=== PATIENT | female | born 1935 | race Caucasian/White ===

== ENCOUNTER 2016-08-30 16:15 | Emergency (ER) | payer MEDICAID, MEDICARE ==
[~2016-08-30 16:15] MED LIST: *OXYGEN NASAL; /INSU7030 SC; ACTOS30 PO; ALBU/IPRAT INHALATION; ALDACTON25 PO; ASPI1TAB PO; ASPI325T OR; AVANDIA4 PO; COLA100C2 OR; COLACE PO; COMBIVENT PO; FAMO1TAB11 PO; GLUCCOSEAC TOPICAL; GLUCULTRA TOPICAL; HUMA75VL SC; HUMULIN703 SC; ISORDIL10 PO; ISORDIL20 PO; ISOS20TA3 OR; ISOS20TAB PO; KEFLEX500 PO; LANCMIS; LASI40TA OR; LASI40TA PO; LASIX40 PO; LEVAQUI500 PO; LIPITOR20 PO; LISI-538 PO; LISI10TA4 PO; LISI20TA5 OR; LISINOPR20 PO; LOPR50TA OR; LOPR50TA PO; LOPRESS50 PO; LOTREL PO; LOTRIMCREA TOPICALLY; MOTRIN800 PO; MULTIVIT; NITROSTAT4 SL; NOVOLIN SQ; NOVOLOG100 MG/ML SC; PENVK500 PO; PEPC20TA2 OR; PEPCID20 PO; PLAV75TA PO; PLAV75TA2 OR; PLAVIX75 PO; POTASSI20 PO; POTASSIU PO; PRAVACHOL4 PO; SIMV40TA2 PO; SYRINS1CC SUBQ; VASOTEC PO; VASOTEC10 PO; VICODIN PO; VITA25003 SL; ZESTRIL PO; ZOCO40TA OR; ZOCOR20 PO; [UNRECOGNIZED DRUG - CODE] PO
[2016-08-30] MEDS ORDERED: ACETAMINOPHEN 325 MG TAB As Ordered ONE (16:40)
[2016-08-30 16:55] LABS: BASO % 0.2 % (0.0-1.0); EOS # 0.2 K/mm3 (0.0-0.50); EOS % 1.4 % (0.0-3.0); LARGE UNSTAINED CELL # 0.1 K/mm3 (0.0-0.4); LARGE UNSTAINED CELL % 0.4 % (0.0-4.0); LYMPH # 0.6 K/mm3 (1.5-4.5); LYMPH % 5.5 % (24.0-44.0); MEAN CORPUSCULAR HEMOGLOBIN 22.5 pg (27.0-33.0); MEAN CORPUSCULAR HGB CONC 30.2 g/dl (32.0-36.5); MEAN CORPUSCULAR VOLUME 74.6 fl (80.0-96.0); MONO # 0.2 K/mm3 (0.0-0.8); NEUTROPHILS # 10.5 K/mm3 (1.8-7.7); NEUTROPHILS % 90.5 % (36.0-66.0); PLATELET COUNT, AUTOMATED 268 k/mm3 (150-450); WHITE BLOOD COUNT 11.6 K/mm3 (4.0-10.0)
[2016-08-30 17:02] LABS: CALCIUM LEVEL 8.9 MG/DL (8.8-10.2); CREATININE FOR GFR 1.3 MG/DL (0.55-1.02); GLOMERULAR FILTRATION RATE 42.1 (>39); POTASSIUM SERUM 3.9 MEQ/L (3.5-5.1)
--- NOTE | 2016-08-30 17:49 | REP ---
CHEST, TWO VIEWS: Two views of the chest are performed and compared to prior study of 03/10/2016. Increased ill-defined opacity in the right perihilar region is most consistent with a right perihilar infiltrate. Left lung appears clear. The heart does not appear to be significantly enlarged. There is some calcification of the thoracic aorta. There are degenerative changes of the spine. IMPRESSION: There appears to be mild right perihilar infiltrate. Signed by Parish Olsen MD 09/03/2016 10:09 A
[2016-08-30] MEDS ORDERED: AZITHROMYCIN 250 MG TAB As Ordered ONE (18:10)
[2016-08-30] MEDS ORDERED: AMOXICILLIN 500 MG CAP As Ordered ONE (18:10)
[2016-08-30] MEDS ORDERED: AUGMENTIN 500 MG TAB PO ONE (18:30)
--- NOTE | 2016-08-30 19:52 | EDDOCDS ---
Physician Documentation [facility] Name: Shaniqua Garza Age: 80 yrs Sex: Female : 1935 Arrival Date: 08/30/2016 Time: 16:15 Bed 3 Private MD: Jorgito Meneses A. Disposition: 08/30 18:01 Critical Care: Critical care not applicable. pc Disposition: 08/30/16 19:33 Discharged to Home/Self Care. Impression: Bronchopneumonia, unspecified organism - right perihilar, community acquired, CURB score 1. - Condition is Stable. - Discharge Instructions: Pneumonia, Adult. - Prescriptions for Augmentin XR 1,000- 62.5 mg Oral Tablet Sustained Release 12 hr - take 2 tablet by ORAL route every 12 hours; 40 tablet. Zithromax 250 mg Oral Tablet - take 1 tablet by ORAL route once daily start tomorrow; 4 tablet. - Medication Reconciliation, Local Pharmacy Hours form. - Follow up: Jorgito Meneses MD; When: Call to arrange an appointment; Reason: Continuance of care. - Problem is new. - Symptoms have improved. HPI: 16:55 This 80 yrs old Female presents to ER via Ambulance with complaints of Cough, pc Nausea/Vomiting. 16:55 The history is obtained from the patient, EMS providers. She developed a cough, chills pc and nausea suddenly this afternoon. She had one bout of "dry heaves" and called EMS. They found her to be hypertensive but had an inappropriate sized BP cuff in place. When fitted correctly, her BP is normal. She has not chest pain, headache or any other complaints. At their worst, the symptoms were mild. In the emergency department, the symptoms are unchanged. The patient has not recently seen a physician. Historical: - Allergies: QUINOLONES; - Home Meds: 1. Lasix 40 mg Oral tab 1 tab 2 times per day 2. Lopressor 50 mg Oral tab 1 tab 2 times per day 3. famotidine 20 mg Oral tab 1 tab 2 times per day 4. Humalog Mix 75-25 100 unit/mL (75-25) Sub-Q inpn sliding scale 5. simvastatin 40 mg oral tab once daily 6. isosorbide dinitrate 20 mg Oral tab 1 tab 2 times per day 7. Plavix 75 mg Oral tab 1 tab once daily 8. lisinopril 20 mg Oral tab 1 tab once daily - PMHx: Diabetes - IDDM: controlled; hyperlipidemia; Hypertension; Myocardial infarction; - PSHx: Stents, Coronary (November 07, 2010); left toe amputation; - The history from nurses notes was reviewed: and I agree with what is documented. - Social history: Smoking status: Patient states former smoker of tobacco. No barriers to communication noted, The patient speaks fluent Cypriot, Speaks appropriately for age. - Family history: Not pertinent. - : The pt / caregiver states he / she is on anticoagulants: Plavix. Home medication list is obtained from the patient. - Hospitalizations: : No recent hospitalization is reported. - Exposure Risk Screening:: None identified. - Immunization history:: All immunizations up-to-date. - Social history:: the patient is a non-smoker, the patient does not drink alcohol. ROS: 16:55 All systems are negative except as listed. pc Exam: 16:55 General Appearance: no acute distress, alert. pc 16:55 EENT: normal eye inspection, ears, nose and throat normal, pharynx normal, mucous membranes moist 16:55 Neck: The exam reveals no acute abnormalities. ROM is normal and painless. No nuchal rigidity is noted.. 16:55 Respiratory: no respiratory distress, normal breath sounds, chest non-tender. 16:55 CVS: regular rhythm, normal S1 and S2, no murmurs, strong peripheral pulses, normal capillary refill, the patient is tachycardic, at 110 bpm. 16:55 Abdomen: soft, non-tender, no organomegaly, normal bowel sounds. 16:55 Back: normal inspection. 16:55 Skin: skin color is normal, warm, dry, no rashes, no lesions. 16:55 Extremities: The extremities have a grossly normal appearance. 16:55 Neuro: oriented x 3, cranial nerves normal as tested, no motor deficits, no sensory deficits. 16:55 Psych: normal mood. Vital Signs: 16:26 BP 154 / 70 LA Supine (auto/lg); Pulse 111; Resp 26; Temp 101.8(O); Pulse Ox 88% on rs6 R/A; Weight 144.88 kg / 319.41 lbs (M); Height 5 ft. 7 in. (170.18 cm) (R); Pain 5/10; 16:26 Pulse Ox 96% on 2 lpm NC; rs6 16:36 BP 120 / 66 LA Sitting (man/lg); pml 17:51 Temp 99.9(O); jrd 18:15 BP 124 / 54 (auto/); pml 18:15 Pulse 101 MON; Pulse Ox 91% ; pml 18:29 Pulse 94 MON; Pulse Ox 91% ; pml 18:30 BP 128 / 64 (auto/); pml 18:45 BP 108 / 53 (auto/); pml 18:55 Pulse 95 MON; Pulse Ox 89% ; pml 19:00 BP 101 / 49 (auto/); mlc 19:00 Pulse 96 MON; Pulse Ox 92% ; mlc 19:29 Pulse 110 MON; Pulse Ox 93% ; mlc 19:48 BP 98 / 50; Pulse 106; Resp 20; Temp 99.8; Pulse Ox 94% ; Pain 0/10; mlc 16:26 Body Mass Index 50.02 (144.88 kg, 170.18 cm) rs6 19:48 Dr. Huston made aware of BP, no intervention ordered at this time. [facility] MDM: 16:21 ECG WITH READING ER PHYS+CARDIAG ordered. EDMS 16:36 Obtain sample by nasopharyngeal swab ordered. pc 16:36 Acetaminophen Tablet 650 mg PO once ordered. pc 16:36 IV Saline Lock ordered. pc 16:37 -Influenza A&B Rapid Antigen - Nose Ordered. EDMS 16:37 CBC with Diff Ordered. EDMS 16:37 MED Profile Ordered. EDMS 16:38 Chest, 2 View (pa\\E\\lat) Ordered. EDMS 16:55 Differential Diagnosis: URI, fever. Plan: labs, imaging. pc 17:10 CBC with Diff Reviewed. pc 17:10 MED Profile Reviewed. pc 17:10 -Influenza A&B Rapid Antigen - Nose Reviewed. pc 17:12 Test interpretation: EKG. pc 17:56 Amoxicillin-Clavulanate 500 mg 1 tabs PO once ordered. pc 17:56 Amoxicillin 1500 mg PO once ordered. pc 17:56 azithromycin 500 mg PO once ordered. pc 17:57 Chest, 2 View (pa\\E\\lat) Reviewed. pc 18:01 Data reviewed: old medical records, vital signs, nurses notes, lab test results, all pc radiology studies and available results. Data reviewed: EKG(s). Test interpretation: LAB - all labs as ordered have been reviewed, interpreted and considered in the overall management of the clinical presentation; X-RAY - interpreted by Radiologist and personally reviewed, 2 view chest, right perihilar infiltrate. The patient has been re-examined and re-evaluated. The patient's symptoms have markedly improved after treatment. Disposition: The historical points, examination findings, and any diagnostic results supporting the provided diagnosis, were discussed with the patient or legal guardian. The need for outpatient follow up with the provider listed on their discharge instructions was discussed. They were encouraged to return to [facility], or the nearest ED, if symptoms worsen/persist, or for any other questions/concerns. 18:17 Financial registration complete. zo 18:22 [facility] Payment Agreement was scanned into [employer] and attached to record. zo 19:08 Ambulate Patient [facility] Pulse Oximetry ordered. pc 19:31 ED course: CURB-65 score of 1.. ED course: PO 91-95% on RA with ambulation and rest. pc EC:12 Rate is 101 beats/min. Rhythm is regular, Sinus tachycardia with Occasional PVCs. QRS pc Atkins is Normal. OK interval is normal. QRS interval is normal. QT interval is normal. Q waves are Old in leads II, III, aVF. T waves are Normal. No ST changes noted. Clinical impression: Sinus tachycardia and Inferior NH - age indeterminate. No change from previous ECG in February,. Administered Medications: 16:50 Drug: Acetaminophen 650 mg [acetaminophen 325 mg tablet (2 tabs)] Route: PO; pml 18:08 Follow up: Response: Temperature is decreased pml 18:14 Drug: Amoxicillin 1500 mg [amoxicillin 500 mg capsule (3 caps)] Route: PO; pml 18:14 Drug: azithromycin 500 mg [azithromycin 250 mg tablet (2 tabs)] Route: PO; pml 19:00 Drug: Amoxicillin-Clavulanate 1 tabs [amoxicillin 500 mg-potassium clavulanate 125 mg pml tablet (1 tabs)] Route: PO; Signatures: Dispatcher [employer] EDMS Dino Huston MD MD pc Olin, Zoeann zo Quay, Paulina, RN RN pml Booth, Mandy, RN RN [facility] The chart was reviewed and I authenticate all verbal orders and agree with the evaluation and treatment provided.Attachments: 18:22 [facility] Payment Agreement zo MTDD
--- NOTE | 2016-08-30 19:52 | EDDOCDS ---
Nurse's Notes [facility] Name: Shaniqua Garza Age: 80 yrs Sex: Female : 1935 Arrival Date: 08/30/2016 Time: 16:15 Bed 3 Private MD: Jorgito Meneses A. Diagnosis: Bronchopneumonia, unspecified organism-right perihilar, community acquired, CURB score 1 Presentation: 08/30 16:21 Presenting complaint: Patient states: reports feeling cold and with chills this [facility] afternoon. on ems arrival pt reported nausea and was found to have bp greater than 200 systolic manually. pt noted to be visibly short of breath and hyper ventilatory on arrival to ED. Adult Sepsis Screening: The patient does not have new or worsening altered mentation. Patient has a respiratory rate of greater than or equal to 22 (1 point). Systolic blood pressure is greater than 100. Patient has a qSOFA score of 0- Negative Sepsis Screen. Patient has fever/chills- Positive Sepsis Screen. ED Provider Notified Dino Huston MD Patient made LISBETH Level 2. Patient placed in exam room. Charge nurse notified. Suicide/Homicide risk assessment- the patient denies having any suicidal and/or homicidal ideations and does not present with any other emotional, behavioral or mental health complaints. Status: Patient is not a guest services director or dependent. Transition of care: patient was not received from another setting of care. 16:21 Method Of Arrival: Ambulance [facility] 16:27 Acuity: LISBETH Level 2 [facility] Triage Assessment: 16:27 General: Appears ill, Behavior is appropriate for age, cooperative. Pain: Location: [facility] back Pain currently is 6 out of 10 on a pain scale. The patient is triaged at the bedside. See Assessment in Nurses Notes section of ED record. Neurological: Level of Consciousness is awake, alert, Oriented to person, place, time. Cardiovascular: Capillary refill < 3 seconds Rhythm is sinus rhythm with unifocal PVCs. Respiratory: Airway is patent Respiratory effort is labored, Respiratory pattern is symmetrical, hyperventilation Breath sounds are diminished bilaterally. GI: Abdomen is non- distended obese, Abd is soft and non tender X 4 quads. Reports nausea, normal bowel habits. Derm: Skin is pink, warm & dry. Historical: - Allergies: QUINOLONES; - Home Meds: 1. Lasix 40 mg Oral tab 1 tab 2 times per day 2. Lopressor 50 mg Oral tab 1 tab 2 times per day 3. famotidine 20 mg Oral tab 1 tab 2 times per day 4. Humalog Mix 75-25 100 unit/mL (75-25) Sub-Q inpn sliding scale 5. simvastatin 40 mg oral tab once daily 6. isosorbide dinitrate 20 mg Oral tab 1 tab 2 times per day 7. Plavix 75 mg Oral tab 1 tab once daily 8. lisinopril 20 mg Oral tab 1 tab once daily - PMHx: Diabetes - IDDM: controlled; hyperlipidemia; Hypertension; Myocardial infarction; - PSHx: Stents, Coronary (November 07, 2010); left toe amputation; - The history from nurses notes was reviewed: and I agree with what is documented. - Social history: Smoking status: Patient states former smoker of tobacco. No barriers to communication noted, The patient speaks fluent Tunisian, Speaks appropriately for age. - Family history: Not pertinent. - : The pt / caregiver states he / she is on anticoagulants: Plavix. Home medication list is obtained from the patient. - Hospitalizations: : No recent hospitalization is reported. - Exposure Risk Screening:: None identified. - Immunization history:: All immunizations up-to-date. - Social history:: the patient is a non-smoker, the patient does not drink alcohol. Screenin:31 Screening information is obtained from the patient. Fall risk: At risk due to pml immobility. Assistance ADL's: requires no assistance with activities of daily living. Abuse/DV Screen: The patient / caregiver reports he/she is: not in a situation that causes fear, pain or injury. Nutritional screening: No deficits noted. Advance Directives: Currently, there is no health care proxy. home support is adequate. Assessment: 16:31 General: see triage note. pml 18:00 General: resting on stretcher, resps easy and unlabored, skin p/w/d. voices no pml complaints. . 18:45 General: Pt spo2 decreased to 88-89% on room air at rest. MD Huston aware. . pml 19:29 General: Appears in no apparent distress, comfortable, Behavior is cooperative, mlc pleasant. General: pt ambulated with walker, tolerated well. pt denies feeling SOB or dizzy. SPO2 remained approx 91-93% on RA. pt appears SOB but denies feeling SOB. Pain: Denies pain. Neurological: Level of Consciousness is awake, alert, Oriented to person, place, time. Respiratory: Airway is patent Respiratory effort is even, labored, Respiratory pattern is regular. Derm: Skin is normal. 19:48 General: Appears in no apparent distress, comfortable. Pain: Denies pain. Neurological: mlc Level of Consciousness is awake, alert, Oriented to person, place, time. Respiratory: Airway is patent Respiratory effort is even, unlabored, Respiratory pattern is regular. Derm: Skin is normal. Vital Signs: 16:26 BP 154 / 70 LA Supine (auto/lg); Pulse 111; Resp 26; Temp 101.8(O); Pulse Ox 88% on rs6 R/A; Weight 144.88 kg (M); Height 5 ft. 7 in. (170.18 cm) (R); Pain 5/10; 16:26 Pulse Ox 96% on 2 lpm NC; rs6 16:36 BP 120 / 66 LA Sitting (man/lg); pml 17:51 Temp 99.9(O); jrd 18:15 BP 124 / 54 (auto/); pml 18:15 Pulse 101 MON; Pulse Ox 91% ; pml 18:29 Pulse 94 MON; Pulse Ox 91% ; pml 18:30 BP 128 / 64 (auto/); pml 18:45 BP 108 / 53 (auto/); pml 18:55 Pulse 95 MON; Pulse Ox 89% ; pml 19:00 BP 101 / 49 (auto/); mlc 19:00 Pulse 96 MON; Pulse Ox 92% ; mlc 19:29 Pulse 110 MON; Pulse Ox 93% ; mlc 19:48 BP 98 / 50; Pulse 106; Resp 20; Temp 99.8; Pulse Ox 94% ; Pain 0/10; mlc 16:26 Body Mass Index 50.02 (144.88 kg, 170.18 cm) rs6 19:48 Dr. Huston made aware of BP, no intervention ordered at this time. [facility] Vitals: 16:26 Log In Time N/A - ambulance arrival. rs6 ED Course: 16:16 Patient visited by Marisa Faith, Cloth Measurer. lbd 16:16 Jorgito Meneses is Private Physician. lbd 16:16 Patient moved to Waiting lbd 16:17 Patient moved to 3 lbd 16:19 Dino Huston MD is Attending Physician. pc 16:28 Patient visited by Ella Perera PCA. rs6 16:28 Pt greeted and oriented to ED. Patient advised of names of staff involved in care, rs6 location of call kulkarni, wait times and NPO status. Patient has correct armband on for positive identification. Placed in gown. Bed in low position. Call light in reach. Side rails up X2. campus monitor on. Pulse ox on. NIBP on. 16:29 EKG done. (by ED staff). Reviewed by Dino Huston MD. rs6 16:30 Patient visited by Dino Huston MD. pc 16:30 Triage Initiated pml 16:32 Patient visited by Simona Perkins RN. pml 16:36 Inserted saline lock: 18 gauge in right antecubital area and blood collected. The dy patient tolerated the procedure well. 17:50 Chest, 2 View (pa\E\lat) Returned. EDMS 18:01 Patient visited by Simona Perkins RN. pml 18:22 [facility] Payment Agreement was scanned into [employer] and attached to record. zo 18:28 Patient name changed from Shaniqua\S\\S\Greg\S\ to Shaniqua\S\ \S\Greg. EDMS 18:55 Cadence Potts RN is Primary Nurse. mlc 19:00 The patient / caregiver is instructed regarding the plan of care and ED course. mlc 19:01 Patient visited by Simona Perkins RN. pml 19:07 Patient visited by Parrish Simms, MICHELLE. kb5 19:31 Patient visited by Cadence Potts RN. mlc 19:33 Jorgito Meneses MD is Referral Physician. pc 19:48 Discontinued IV lock intact, bleeding controlled, pressure dressing applied, No mlc redness/swelling at site. No procedures done that require assistance. Administered Medications: 16:50 Drug: Acetaminophen 650 mg [acetaminophen 325 mg tablet (2 tabs)] Route: PO; pml 18:08 Follow up: Response: Temperature is decreased pml 18:14 Drug: Amoxicillin 1500 mg [amoxicillin 500 mg capsule (3 caps)] Route: PO; pml 18:14 Drug: azithromycin 500 mg [azithromycin 250 mg tablet (2 tabs)] Route: PO; pml 19:00 Drug: Amoxicillin-Clavulanate 1 tabs [amoxicillin 500 mg-potassium clavulanate 125 mg pml tablet (1 tabs)] Route: PO; Order Results: Lab Order: -Influenza A&B Rapid Antigen - Nose; SPEC'M 08/30/16 16:42 Test: INFLUENZA A RAPID SCR by ICA; Value: INFLUENZA A RESULTS NEGATIVE; Status: F Test: INFLUENZA A RAPID SCR by ICA; Value: Comments:; Status: F Test: INFLUENZA B RAPID SCR by ICA; Value: INFLUENZA B RESULTS NEGATIVE; Status: F Test Note: ; The Influenza test is a direct rapid immunoassay for the qualitative detection of Influenza viral antigen. Cell culture (Viral Culture) testing should be considered to confirm NEGATIVE results and to assist in detecting other viruses that can provide similar clinical symptoms. Please contact the lab within 24 hours ([phone]) if confirmatory testing is desired. Lab Order: CBC with Diff; SPEC'M 08/30/16 16:31 Test: WHITE BLOOD COUNT; Value: 11.6; Range: 4.0-10.0; Abnormal: Above high normal; Units: K/mm3; Status: F Test: RED BLOOD COUNT; Value: 5.61; Range: 4.00-5.40; Abnormal: Above high normal; Units: M/mm3; Status: F Test: HEMOGLOBIN; Value: 12.6; Range: 12.0-16.0; Units: g/dl; Status: F Test: HEMATOCRIT; Value: 41.9; Range: 36.0-47.0; Units: %; Status: F Test: MEAN CORPUSCULAR VOLUME; Value: 74.6; Range: 80.0-96.0; Abnormal: Below low normal; Units: fl; Status: F Test: MEAN CORPUSCULAR HEMOGLOBIN; Value: 22.5; Range: 27.0-33.0; Abnormal: Below low normal; Units: pg; Status: F Test: MEAN CORPUSCULAR HGB CONC; Value: 30.2; Range: 32.0-36.5; Abnormal: Below low normal; Units: g/dl; Status: F Test: RED CELL DISTRIBUTION WIDTH; Value: 17.0; Range: 11.5-14.5; Abnormal: Above high normal; Units: %; Status: F Test: PLATELET COUNT, AUTOMATED; Value: 268; Range: 150-450; Units: k/mm3; Status: F Test: NEUTROPHILS %; Value: 90.5; Range: 36.0-66.0; Abnormal: Above high normal; Units: %; Status: F Test: LYMPH %; Value: 5.5; Range: 24.0-44.0; Abnormal: Below low normal; Units: %; Status: F Test: MONO %; Value: 2.0; Range: 0.0-5.0; Units: %; Status: F Test: EOS %; Value: 1.4; Range: 0.0-3.0; Units: %; Status: F Test: BASO %; Value: 0.2; Range: 0.0-1.0; Units: %; Status: F Test: LARGE UNSTAINED CELL %; Value: 0.4; Range: 0.0-4.0; Units: %; Status: F Test: NEUTROPHILS #; Value: 10.5; Range: 1.8-7.7; Abnormal: Above high normal; Units: K/mm3; Status: F Test: LYMPH #; Value: 0.6; Range: 1.5-4.5; Abnormal: Below low normal; Units: K/mm3; Status: F Test: MONO #; Value: 0.2; Range: 0.0-0.8; Units: K/mm3; Status: F Test: EOS #; Value: 0.2; Range: 0.0-0.50; Units: K/mm3; Status: F Test: BASO #; Value: 0.0; Range: 0.0-0.2; Units: K/mm3; Status: F Test: LARGE UNSTAINED CELL #; Value: 0.1; Range: 0.0-0.4; Units: K/mm3; Status: F Lab Order: MED Profile; [facility] 08/30/16 16:31 Test: GLUCOSE, FASTING; Value: 141; Range: 83-110; Abnormal: Above high normal; Units: MG/DL; Status: F Test: BLOOD UREA NITROGEN; Value: 16; Range: 7-18; Units: MG/DL; Status: F Test: CREATININE FOR GFR; Value: 1.30; Range: 0.55-1.02; Abnormal: Above high normal; Units: MG/DL; Status: F Test: GLOMERULAR FILTRATION RATE; Value: 42.1; Range: >39; Status: F Test: SODIUM LEVEL; Value: 141; Range: 136-145; Units: MEQ/L; Status: F Test: POTASSIUM SERUM; Value: 3.9; Range: 3.5-5.1; Units: MEQ/L; Status: F Test: CHLORIDE LEVEL; Value: 102; Range: 98-107; Units: MEQ/L; Status: F Test: CARBON DIOXIDE LEVEL; Value: 31; Range: 21-32; Units: MEQ/L; Status: F Test: ANION GAP; Value: 8; Range: 8-16; Units: MEQ/L; Status: F Test: CALCIUM LEVEL; Value: 8.9; Range: 8.8-10.2; Units: MG/DL; Status: F Test Note: ; Units are mL/min/1.73 m2 Chronic Kidney Disease Staging per NKF: Stage I & II GFR >=60 Normal to Mildly Decreased Stage III GFR 30-59 Moderately Decreased Stage IV GFR 15-29 Severely Decreased Stage V GFR <15 Very Little GFR Left ESRD GFR <15 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 Left lung appears clear. The heart does not; appear to be significantly enlarged. There is some calcification of the thoracic; aorta. There are degenerative changes of the spine.; ; IMPRESSION:; There appears to be mild right perihilar infiltrate.; ; Unreviewed; Outcome: 19:33 Discharge ordered by Provider. pc 19:48 Discharge Assessment: Patient awake, alert and oriented x 3. No cognitive and/or mlc functional deficits noted. Patient verbalized understanding of disposition instructions. patient administered narcotics - no. The following High Risk Discharge criteria are identified: None. Discharged to home via wheelchair, with family. Condition: good Condition: stable. Discharge instructions given to patient, Instructed on discharge instructions, follow up and referral plans. medication usage, Demonstrated understanding of instructions, medications, Pt was receptive of discharge instructions/ teaching. Prescriptions given X 2. No special radiology studies were completed. Property sent home with patient. 19:50 Patient left the ED. [facility] Signatures: Dispatcher [employer] EDMS Dino Huston MD MD pc Daly, Linda, Cloth Measurer Unit lbd Haseeb Fam RN RN dy Renzo Leo Kristopher, LANGUAGE TRANSLATOR LANGUAGE TRANSLATOR kb5 Simona Perkins RN RN pml Booth, Mandy, RN RN [facility] Wilmer Harmon, LANGUAGE TRANSLATOR LANGUAGE TRANSLATOR jrd Ella Perera, LANGUAGE TRANSLATOR LANGUAGE TRANSLATOR rs6 Corrections: (The following items were deleted from the chart) 16:30 16:21 Adult Sepsis Screening: The patient does not have new or worsening altered pml mentation. Patient has a respiratory rate of greater than or equal to 22 (1 point). Systolic blood pressure is greater than 100. Patient has a qSOFA score of 0- Negative Sepsis Screen. pml 19:50 19:48 BP 98 / 50; Pulse 106bpm; Resp 20bpm; Pulse Ox 94%; Temp 99.8F; Pain 0/10; mlc mlc MTDD
--- NOTE | 2016-08-31 08:36 | ECGEPIP ---
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
--- NOTE | 2016-09-03 09:46 | EDDOCDS ---
Physician Documentation [facility] Name: Shaniqua Garza Age: 80 yrs Sex: Female : 1935 Arrival Date: 08/30/2016 Time: 16:15 Bed 3 Private MD: Jorgito Meneses A. Disposition: 08/30 18:01 Critical Care: Critical care not applicable. pc Disposition: 08/30/16 19:33 Discharged to Home/Self Care. Impression: Bronchopneumonia, unspecified organism - right perihilar, community acquired, CURB score 1. - Condition is Stable. - Discharge Instructions: Pneumonia, Adult. - Prescriptions for Augmentin XR 1,000- 62.5 mg Oral Tablet Sustained Release 12 hr - take 2 tablet by ORAL route every 12 hours; 40 tablet. Zithromax 250 mg Oral Tablet - take 1 tablet by ORAL route once daily start tomorrow; 4 tablet. - Medication Reconciliation, Local Pharmacy Hours form. - Follow up: Jorgito Meneses MD; When: Call to arrange an appointment; Reason: Continuance of care. - Problem is new. - Symptoms have improved. HPI: 16:55 This 80 yrs old Female presents to ER via Ambulance with complaints of Cough, pc Nausea/Vomiting. 16:55 The history is obtained from the patient, EMS providers. She developed a cough, chills pc and nausea suddenly this afternoon. She had one bout of "dry heaves" and called EMS. They found her to be hypertensive but had an inappropriate sized BP cuff in place. When fitted correctly, her BP is normal. She has not chest pain, headache or any other complaints. At their worst, the symptoms were mild. In the emergency department, the symptoms are unchanged. The patient has not recently seen a physician. Historical: - Allergies: QUINOLONES; - Home Meds: 1. Lasix 40 mg Oral tab 1 tab 2 times per day 2. Lopressor 50 mg Oral tab 1 tab 2 times per day 3. famotidine 20 mg Oral tab 1 tab 2 times per day 4. Humalog Mix 75-25 100 unit/mL (75-25) Sub-Q inpn sliding scale 5. simvastatin 40 mg oral tab once daily 6. isosorbide dinitrate 20 mg Oral tab 1 tab 2 times per day 7. Plavix 75 mg Oral tab 1 tab once daily 8. lisinopril 20 mg Oral tab 1 tab once daily - PMHx: Diabetes - IDDM: controlled; hyperlipidemia; Hypertension; Myocardial infarction; - PSHx: Stents, Coronary (November 07, 2010); left toe amputation; - The history from nurses notes was reviewed: and I agree with what is documented. - Social history: Smoking status: Patient states former smoker of tobacco. No barriers to communication noted, The patient speaks fluent Bulgarian, Speaks appropriately for age. - Family history: Not pertinent. - : The pt / caregiver states he / she is on anticoagulants: Plavix. Home medication list is obtained from the patient. - Hospitalizations: : No recent hospitalization is reported. - Exposure Risk Screening:: None identified. - Immunization history:: All immunizations up-to-date. - Social history:: the patient is a non-smoker, the patient does not drink alcohol. ROS: 16:55 All systems are negative except as listed. pc Exam: 16:55 General Appearance: no acute distress, alert. pc 16:55 EENT: normal eye inspection, ears, nose and throat normal, pharynx normal, mucous membranes moist 16:55 Neck: The exam reveals no acute abnormalities. ROM is normal and painless. No nuchal rigidity is noted.. 16:55 Respiratory: no respiratory distress, normal breath sounds, chest non-tender. 16:55 CVS: regular rhythm, normal S1 and S2, no murmurs, strong peripheral pulses, normal capillary refill, the patient is tachycardic, at 110 bpm. 16:55 Abdomen: soft, non-tender, no organomegaly, normal bowel sounds. 16:55 Back: normal inspection. 16:55 Skin: skin color is normal, warm, dry, no rashes, no lesions. 16:55 Extremities: The extremities have a grossly normal appearance. 16:55 Neuro: oriented x 3, cranial nerves normal as tested, no motor deficits, no sensory deficits. 16:55 Psych: normal mood. Vital Signs: 16:26 BP 154 / 70 LA Supine (auto/lg); Pulse 111; Resp 26; Temp 101.8(O); Pulse Ox 88% on rs6 R/A; Weight 144.88 kg / 319.41 lbs (M); Height 5 ft. 7 in. (170.18 cm) (R); Pain 5/10; 16:26 Pulse Ox 96% on 2 lpm NC; rs6 16:36 BP 120 / 66 LA Sitting (man/lg); pml 17:51 Temp 99.9(O); jrd 18:15 BP 124 / 54 (auto/); pml 18:15 Pulse 101 MON; Pulse Ox 91% ; pml 18:29 Pulse 94 MON; Pulse Ox 91% ; pml 18:30 BP 128 / 64 (auto/); pml 18:45 BP 108 / 53 (auto/); pml 18:55 Pulse 95 MON; Pulse Ox 89% ; pml 19:00 BP 101 / 49 (auto/); mlc 19:00 Pulse 96 MON; Pulse Ox 92% ; mlc 19:29 Pulse 110 MON; Pulse Ox 93% ; mlc 19:48 BP 98 / 50; Pulse 106; Resp 20; Temp 99.8; Pulse Ox 94% ; Pain 0/10; mlc 16:26 Body Mass Index 50.02 (144.88 kg, 170.18 cm) rs6 19:48 Dr. Huston made aware of BP, no intervention ordered at this time. [facility] [place]DM: 16:21 ECG WITH READING ER PHYS+CARDIAG ordered. EDMS 16:36 Obtain sample by nasopharyngeal swab ordered. pc 16:36 Acetaminophen Tablet 650 mg PO once ordered. pc 16:36 IV Saline Lock ordered. pc 16:37 -Influenza A&B Rapid Antigen - Nose Ordered. EDMS 16:37 CBC with Diff Ordered. EDMS 16:37 MED Profile Ordered. EDMS 16:38 Chest, 2 View (pa\\E\\lat) Ordered. EDMS 16:55 Differential Diagnosis: URI, fever. Plan: labs, imaging. pc 17:10 CBC with Diff Reviewed. pc 17:10 MED Profile Reviewed. pc 17:10 -Influenza A&B Rapid Antigen - Nose Reviewed. pc 17:12 Test interpretation: EKG. pc 17:56 Amoxicillin-Clavulanate 500 mg 1 tabs PO once ordered. pc 17:56 Amoxicillin 1500 mg PO once ordered. pc 17:56 azithromycin 500 mg PO once ordered. pc 17:57 Chest, 2 View (pa\\E\\lat) Reviewed. pc 18:01 Data reviewed: old medical records, vital signs, nurses notes, lab test results, all pc radiology studies and available results. Data reviewed: EKG(s). Test interpretation: LAB - all labs as ordered have been reviewed, interpreted and considered in the overall management of the clinical presentation; X-RAY - interpreted by Radiologist and personally reviewed, 2 view chest, right perihilar infiltrate. The patient has been re-examined and re-evaluated. The patient's symptoms have markedly improved after treatment. Disposition: The historical points, examination findings, and any diagnostic results supporting the provided diagnosis, were discussed with the patient or legal guardian. The need for outpatient follow up with the provider listed on their discharge instructions was discussed. They were encouraged to return to [facility], or the nearest ED, if symptoms worsen/persist, or for any other questions/concerns. 18:17 Financial registration complete. zo 18:22 [facility] Payment Agreement was scanned into [employer] and attached to record. zo 19:08 Ambulate Patient [facility] Pulse Oximetry ordered. pc 19:31 ED course: CURB-65 score of 1.. ED course: PO 91-95% on RA with ambulation and rest. 08/31 09:33 ECG/EKG was scanned into [employer] and attached to record. EC/06 17:12 Rate is 101 beats/min. Rhythm is regular, Sinus tachycardia with Occasional PVCs. QRS pc [place] is Normal. [place] interval is normal. QRS interval is normal. QT interval is normal. Q waves are Old in leads II, III, aVF. T waves are Normal. No ST changes noted. Clinical impression: Sinus tachycardia and Inferior IN - age indeterminate. No change from previous ECG in February,. Administered Medications: 16:50 Drug: Acetaminophen 650 mg [acetaminophen 325 mg tablet (2 tabs)] Route: PO; pml 18:08 Follow up: Response: Temperature is decreased pml 18:14 Drug: Amoxicillin 1500 mg [amoxicillin 500 mg capsule (3 caps)] Route: PO; pml 18:14 Drug: azithromycin 500 mg [azithromycin 250 mg tablet (2 tabs)] Route: PO; pml 19:00 Drug: Amoxicillin-Clavulanate 1 tabs [amoxicillin 500 mg-potassium clavulanate 125 mg pml tablet (1 tabs)] Route: PO; Signatures: Dispatcher [employer] EDMS Dino Huston MD MD Wanda Avalos, Isra Dhaliwal Renzo Leo Paulina, RN RN pml Booth, Mandy, RN RN [facility] [place] The chart was reviewed and I authenticate all verbal orders and agree with the evaluation and treatment provided.Attachments: 18:22 [facility] Payment Agreement zo 08/31 09:33 ECG/EKG gb Chart Complete MTDD
--- NOTE | 2016-09-03 09:46 | EDDOCDS ---
Physician Documentation [facility] Name: Shaniqua Garza Age: 80 yrs Sex: Female : 1935 Arrival Date: 08/30/2016 Time: 16:15 Bed 3 Private MD: Jorgito Meneses A. Disposition: 08/30 18:01 Critical Care: Critical care not applicable. pc Disposition: 08/30/16 19:33 Discharged to Home/Self Care. Impression: Bronchopneumonia, unspecified organism - right perihilar, community acquired, CURB score 1. - Condition is Stable. - Discharge Instructions: Pneumonia, Adult. - Prescriptions for Augmentin XR 1,000- 62.5 mg Oral Tablet Sustained Release 12 hr - take 2 tablet by ORAL route every 12 hours; 40 tablet. Zithromax 250 mg Oral Tablet - take 1 tablet by ORAL route once daily start tomorrow; 4 tablet. - Medication Reconciliation, Local Pharmacy Hours form. - Follow up: Jorgito Meneses MD; When: Call to arrange an appointment; Reason: Continuance of care. - Problem is new. - Symptoms have improved. HPI: 16:55 This 80 yrs old Female presents to ER via Ambulance with complaints of Cough, pc Nausea/Vomiting. 16:55 The history is obtained from the patient, EMS providers. She developed a cough, chills pc and nausea suddenly this afternoon. She had one bout of "dry heaves" and called EMS. They found her to be hypertensive but had an inappropriate sized BP cuff in place. When fitted correctly, her BP is normal. She has not chest pain, headache or any other complaints. At their worst, the symptoms were mild. In the emergency department, the symptoms are unchanged. The patient has not recently seen a physician. Historical: - Allergies: QUINOLONES; - Home Meds: 1. Lasix 40 mg Oral tab 1 tab 2 times per day 2. Lopressor 50 mg Oral tab 1 tab 2 times per day 3. famotidine 20 mg Oral tab 1 tab 2 times per day 4. Humalog Mix 75-25 100 unit/mL (75-25) Sub-Q inpn sliding scale 5. simvastatin 40 mg oral tab once daily 6. isosorbide dinitrate 20 mg Oral tab 1 tab 2 times per day 7. Plavix 75 mg Oral tab 1 tab once daily 8. lisinopril 20 mg Oral tab 1 tab once daily - PMHx: Diabetes - IDDM: controlled; hyperlipidemia; Hypertension; Myocardial infarction; - PSHx: Stents, Coronary (November 07, 2010); left toe amputation; - The history from nurses notes was reviewed: and I agree with what is documented. - Social history: Smoking status: Patient states former smoker of tobacco. No barriers to communication noted, The patient speaks fluent [place], Speaks appropriately for age. - Family history: Not pertinent. - : The pt / caregiver states he / she is on anticoagulants: Plavix. Home medication list is obtained from the patient. - Hospitalizations: : No recent hospitalization is reported. - Exposure Risk Screening:: None identified. - Immunization history:: All immunizations up-to-date. - Social history:: the patient is a non-smoker, the patient does not drink alcohol. ROS: 16:55 All systems are negative except as listed. pc Exam: 16:55 General Appearance: no acute distress, alert. pc 16:55 EENT: normal eye inspection, ears, nose and throat normal, pharynx normal, mucous membranes moist 16:55 Neck: The exam reveals no acute abnormalities. ROM is normal and painless. No nuchal rigidity is noted.. 16:55 Respiratory: no respiratory distress, normal breath sounds, chest non-tender. 16:55 CVS: regular rhythm, normal S1 and S2, no murmurs, strong peripheral pulses, normal capillary refill, the patient is tachycardic, at 110 bpm. 16:55 Abdomen: soft, non-tender, no organomegaly, normal bowel sounds. 16:55 Back: normal inspection. 16:55 Skin: skin color is normal, warm, dry, no rashes, no lesions. 16:55 Extremities: The extremities have a grossly normal appearance. 16:55 Neuro: oriented x 3, cranial nerves normal as tested, no motor deficits, no sensory deficits. 16:55 Psych: normal mood. Vital Signs: 16:26 BP 154 / 70 LA Supine (auto/lg); Pulse 111; Resp 26; Temp 101.8(O); Pulse Ox 88% on rs6 R/A; Weight 144.88 kg / 319.41 lbs (M); Height 5 ft. 7 in. (170.18 cm) (R); Pain 5/10; 16:26 Pulse Ox 96% on 2 lpm NC; rs6 16:36 BP 120 / 66 LA Sitting (man/lg); pml 17:51 Temp 99.9(O); jrd 18:15 BP 124 / 54 (auto/); pml 18:15 Pulse 101 MON; Pulse Ox 91% ; pml 18:29 Pulse 94 MON; Pulse Ox 91% ; pml 18:30 BP 128 / 64 (auto/); pml 18:45 BP 108 / 53 (auto/); pml 18:55 Pulse 95 MON; Pulse Ox 89% ; pml 19:00 BP 101 / 49 (auto/); mlc 19:00 Pulse 96 MON; Pulse Ox 92% ; mlc 19:29 Pulse 110 MON; Pulse Ox 93% ; mlc 19:48 BP 98 / 50; Pulse 106; Resp 20; Temp 99.8; Pulse Ox 94% ; Pain 0/10; mlc 16:26 Body Mass Index 50.02 (144.88 kg, 170.18 cm) rs6 19:48 Dr. Huston made aware of BP, no intervention ordered at this time. [facility] [place] MDM: 16:21 ECG WITH READING ER PHYS+CARDIAG ordered. EDMS 16:36 Obtain sample by nasopharyngeal swab ordered. pc 16:36 Acetaminophen Tablet 650 mg PO once ordered. pc 16:36 IV Saline Lock ordered. pc 16:37 -Influenza A&B Rapid Antigen - Nose Ordered. EDMS 16:37 CBC with Diff Ordered. EDMS 16:37 MED Profile Ordered. EDMS 16:38 Chest, 2 View (pa\\E\\lat) Ordered. EDMS 16:55 Differential Diagnosis: URI, fever. Plan: labs, imaging. pc 17:10 CBC with Diff Reviewed. pc 17:10 MED Profile Reviewed. pc 17:10 -Influenza A&B Rapid Antigen - Nose Reviewed. pc 17:12 Test interpretation: EKG. pc 17:56 Amoxicillin-Clavulanate 500 mg 1 tabs PO once ordered. pc 17:56 Amoxicillin 1500 mg PO once ordered. pc 17:56 azithromycin 500 mg PO once ordered. pc 17:57 Chest, 2 View (pa\\E\\lat) Reviewed. pc 18:01 Data reviewed: old medical records, vital signs, nurses notes, lab test results, all pc radiology studies and available results. Data reviewed: EKG(s). Test interpretation: LAB - all labs as ordered have been reviewed, interpreted and considered in the overall management of the clinical presentation; X-RAY - interpreted by Radiologist and personally reviewed, 2 view chest, right perihilar infiltrate. The patient has been re-examined and re-evaluated. The patient's symptoms have markedly improved after treatment. Disposition: The historical points, examination findings, and any diagnostic results supporting the provided diagnosis, were discussed with the patient or legal guardian. The need for outpatient follow up with the provider listed on their discharge instructions was discussed. They were encouraged to return to [facility], or the nearest ED, if symptoms worsen/persist, or for any other questions/concerns. 18:17 Financial registration complete. zo 18:22 [facility] [place] Payment Agreement was scanned into [employer] and attached to record. zo 19:08 Ambulate Patient [facility] Pulse Oximetry ordered. pc 19:31 ED course: CURB-65 score of 1.. ED course: PO 91-95% on RA with ambulation and rest. 08/31 09:33 ECG/EKG was scanned into [employer] and attached to record. EC/06 17:12 Rate is 101 beats/min. Rhythm is regular, Sinus tachycardia with Occasional PVCs. QRS pc [place] is Normal. [place] interval is normal. QRS interval is normal. QT interval is normal. Q waves are Old in leads II, III, aVF. T waves are Normal. No ST changes noted. Clinical impression: Sinus tachycardia and Inferior ND - age indeterminate. No change from previous ECG in February,. Administered Medications: 16:50 Drug: Acetaminophen 650 mg [acetaminophen 325 mg tablet (2 tabs)] Route: PO; pml 18:08 Follow up: Response: Temperature is decreased pml 18:14 Drug: Amoxicillin 1500 mg [amoxicillin 500 mg capsule (3 caps)] Route: PO; pml 18:14 Drug: azithromycin 500 mg [azithromycin 250 mg tablet (2 tabs)] Route: PO; pml 19:00 Drug: Amoxicillin-Clavulanate 1 tabs [amoxicillin 500 mg-potassium clavulanate 125 mg pml tablet (1 tabs)] Route: PO; Signatures: Dispatcher [employer] EDMS Dino Huston MD MD Wanda Avalos, Isra Dhaliwal Renzo Leo Paulina, RN RN pml Booth, Mandy, RN RN [facility] [place] The chart was reviewed and I authenticate all verbal orders and agree with the evaluation and treatment provided.Attachments: 18:22 [facility] Payment Agreement zo 08/31 09:33 ECG/EKG gb Chart Complete MTDD
--- NOTE | 2016-09-03 09:46 | EDDOCDS ---
Nurse's Notes [facility] Name: Shaniqua Garza Age: 80 yrs Sex: Female : 1935 Arrival Date: 08/30/2016 Time: 16:15 Bed 3 Private MD: Jorgito Meneses A. Diagnosis: Bronchopneumonia, unspecified organism-right perihilar, community acquired, CURB score 1 Presentation: 08/30 16:21 Presenting complaint: Patient states: reports feeling cold and with chills this [facility] afternoon. on ems arrival pt reported nausea and was found to have bp greater than 200 systolic manually. pt noted to be visibly short of breath and hyper ventilatory on arrival to ED. Adult Sepsis Screening: The patient does not have new or worsening altered mentation. Patient has a respiratory rate of greater than or equal to 22 (1 point). Systolic blood pressure is greater than 100. Patient has a qSOFA score of 0- Negative Sepsis Screen. Patient has fever/chills- Positive Sepsis Screen. ED Provider Notified Dino Huston MD Patient made LISBETH Level 2. Patient placed in exam room. Charge nurse notified. Suicide/Homicide risk assessment- the patient denies having any suicidal and/or homicidal ideations and does not present with any other emotional, behavioral or mental health complaints. Status: Patient is not a director of clinical services or dependent. Transition of care: patient was not received from another setting of care. 16:21 Method Of Arrival: Ambulance [facility] 16:27 Acuity: LISBETH Level 2 [facility] Triage Assessment: 16:27 General: Appears ill, Behavior is appropriate for age, cooperative. Pain: Location: [facility] back Pain currently is 6 out of 10 on a pain scale. The patient is triaged at the bedside. See Assessment in Nurses Notes section of ED record. Neurological: Level of Consciousness is awake, alert, Oriented to person, place, time. Cardiovascular: Capillary refill < 3 seconds Rhythm is sinus rhythm with unifocal PVCs. Respiratory: Airway is patent Respiratory effort is labored, Respiratory pattern is symmetrical, hyperventilation Breath sounds are diminished bilaterally. GI: Abdomen is non- distended obese, Abd is soft and non tender X 4 quads. Reports nausea, normal bowel habits. Derm: Skin is pink, warm & dry. Historical: - Allergies: QUINOLONES; - Home Meds: 1. Lasix 40 mg Oral tab 1 tab 2 times per day 2. Lopressor 50 mg Oral tab 1 tab 2 times per day 3. famotidine 20 mg Oral tab 1 tab 2 times per day 4. Humalog Mix 75-25 100 unit/mL (75-25) Sub-Q inpn sliding scale 5. simvastatin 40 mg oral tab once daily 6. isosorbide dinitrate 20 mg Oral tab 1 tab 2 times per day 7. Plavix 75 mg Oral tab 1 tab once daily 8. lisinopril 20 mg Oral tab 1 tab once daily - PMHx: Diabetes - IDDM: controlled; hyperlipidemia; Hypertension; Myocardial infarction; - PSHx: Stents, Coronary (November 07, 2010); left toe amputation; - The history from nurses notes was reviewed: and I agree with what is documented. - Social history: Smoking status: Patient states former smoker of tobacco. No barriers to communication noted, The patient speaks fluent [place], Speaks appropriately for age. - Family history: Not pertinent. - : The pt / caregiver states he / she is on anticoagulants: Plavix. Home medication list is obtained from the patient. - Hospitalizations: : No recent hospitalization is reported. - Exposure Risk Screening:: None identified. - Immunization history:: All immunizations up-to-date. - Social history:: the patient is a non-smoker, the patient does not drink alcohol. Screenin:31 Screening information is obtained from the patient. Fall risk: At risk due to pml immobility. Assistance ADL's: requires no assistance with activities of daily living. Abuse/DV Screen: The patient / caregiver reports he/she is: not in a situation that causes fear, pain or injury. Nutritional screening: No deficits noted. Advance Directives: Currently, there is no health care proxy. home support is adequate. Assessment: 16:31 General: see triage note. pml 18:00 General: resting on stretcher, resps easy and unlabored, skin p/w/d. voices no pml complaints. . 18:45 General: Pt spo2 decreased to 88-89% on room air at rest. MD Huston aware. . pml 19:29 General: Appears in no apparent distress, comfortable, Behavior is cooperative, mlc pleasant. General: pt ambulated with walker, tolerated well. pt denies feeling SOB or dizzy. SPO2 remained approx 91-93% on RA. pt appears SOB but denies feeling SOB. Pain: Denies pain. Neurological: Level of Consciousness is awake, alert, Oriented to person, place, time. Respiratory: Airway is patent Respiratory effort is even, labored, Respiratory pattern is regular. Derm: Skin is normal. 19:48 General: Appears in no apparent distress, comfortable. Pain: Denies pain. Neurological: mlc Level of Consciousness is awake, alert, Oriented to person, place, time. Respiratory: Airway is patent Respiratory effort is even, unlabored, Respiratory pattern is regular. Derm: Skin is normal. Vital Signs: 16:26 BP 154 / 70 LA Supine (auto/lg); Pulse 111; Resp 26; Temp 101.8(O); Pulse Ox 88% on rs6 R/A; Weight 144.88 kg (M); Height 5 ft. 7 in. (170.18 cm) (R); Pain 5/10; 16:26 Pulse Ox 96% on 2 lpm NC; rs6 16:36 BP 120 / 66 LA Sitting (man/lg); pml 17:51 Temp 99.9(O); jrd 18:15 BP 124 / 54 (auto/); pml 18:15 Pulse 101 MON; Pulse Ox 91% ; pml 18:29 Pulse 94 MON; Pulse Ox 91% ; pml 18:30 BP 128 / 64 (auto/); pml 18:45 BP 108 / 53 (auto/); pml 18:55 Pulse 95 MON; Pulse Ox 89% ; pml 19:00 BP 101 / 49 (auto/); mlc 19:00 Pulse 96 MON; Pulse Ox 92% ; mlc 19:29 Pulse 110 MON; Pulse Ox 93% ; mlc 19:48 BP 98 / 50; Pulse 106; Resp 20; Temp 99.8; Pulse Ox 94% ; Pain 0/10; mlc 16:26 Body Mass Index 50.02 (144.88 kg, 170.18 cm) rs6 19:48 Dr. Huston made aware of BP, no intervention ordered at this time. [facility] Vitals: 16:26 Log In Time N/A - ambulance arrival. rs6 ED Course: 16:16 Patient visited by Marisa Faith, Manager Of Supply Chain. lbd 16:16 Jorgito Meneses is Private Physician. lbd 16:16 Patient moved to Waiting lbd 16:17 Patient moved to 3 lbd 16:19 Dino Huston MD is Attending Physician. pc 16:28 Patient visited by Ella Perera PCA. rs6 16:28 Pt greeted and oriented to ED. Patient advised of names of staff involved in care, rs6 location of call kulkarni, wait times and NPO status. Patient has correct armband on for positive identification. Placed in gown. Bed in low position. Call light in reach. Side rails up X2. threat monitoring analyst on. Pulse ox on. NIBP on. 16:29 EKG done. (by ED staff). Reviewed by Dino Huston MD. rs6 16:30 Patient visited by Dino Huston MD. pc 16:30 Triage Initiated pml 16:32 Patient visited by Simona Perkins RN. pml 16:36 Inserted saline lock: 18 gauge in right antecubital area and blood collected. The dy patient tolerated the procedure well. 17:50 Chest, 2 View (pa\E\lat) Returned. EDMS 18:01 Patient visited by Simona Perkins RN. pml 18:22 [facility] Payment Agreement was scanned into [employer] and attached to record. zo 18:28 Patient name changed from Shaniqua\S\\S\Greg\S\ to Shaniqua\S\ \S\Greg. EDMS 18:55 Cadence Potts RN is Primary Nurse. mlc 19:00 The patient / caregiver is instructed regarding the plan of care and ED course. mlc 19:01 Patient visited by Simona Perkins RN. pml 19:07 Patient visited by Parrish Simms, MICHELLE. kb5 19:31 Patient visited by Cadence Potts RN. mlc 19:33 Jorgito Meneses MD is Referral Physician. pc 19:48 Discontinued IV lock intact, bleeding controlled, pressure dressing applied, No mlc redness/swelling at site. No procedures done that require assistance. 08/31 08:39 EKG-ADULT Returned. EDMS 09:33 ECG/EKG was scanned into [employer] and attached to record. gb Administered Medications: 08/30 16:50 Drug: Acetaminophen 650 mg [acetaminophen 325 mg tablet (2 tabs)] Route: PO; pml 18:08 Follow up: Response: Temperature is decreased pml 18:14 Drug: Amoxicillin 1500 mg [amoxicillin 500 mg capsule (3 caps)] Route: PO; pml 18:14 Drug: azithromycin 500 mg [azithromycin 250 mg tablet (2 tabs)] Route: PO; pml 19:00 Drug: Amoxicillin-Clavulanate 1 tabs [amoxicillin 500 mg-potassium clavulanate 125 mg pml tablet (1 tabs)] Route: PO; Order Results: Lab Order: -Influenza A&B Rapid Antigen - Nose; SPEC'M 08/30/16 16:42 Test: INFLUENZA A RAPID SCR by ICA; Value: INFLUENZA A RESULTS NEGATIVE; Status: F Test: INFLUENZA A RAPID SCR by ICA; Value: Comments:; Status: F Test: INFLUENZA B RAPID SCR by ICA; Value: INFLUENZA B RESULTS NEGATIVE; Status: F Test Note: ; The Influenza test is a direct rapid immunoassay for the qualitative detection of Influenza viral antigen. Cell culture (Viral Culture) testing should be considered to confirm NEGATIVE results and to assist in detecting other viruses that can provide similar clinical symptoms. Please contact the lab within 24 hours ([phone]) if confirmatory testing is desired. Lab Order: CBC with Diff; SPEC'M 08/30/16 16:31 Test: WHITE BLOOD COUNT; Value: 11.6; Range: 4.0-10.0; Abnormal: Above high normal; Units: K/mm3; Status: F Test: RED BLOOD COUNT; Value: 5.61; Range: 4.00-5.40; Abnormal: Above high normal; Units: M/mm3; Status: F Test: HEMOGLOBIN; Value: 12.6; Range: 12.0-16.0; Units: g/dl; Status: F Test: HEMATOCRIT; Value: 41.9; Range: 36.0-47.0; Units: %; Status: F Test: MEAN CORPUSCULAR VOLUME; Value: 74.6; Range: 80.0-96.0; Abnormal: Below low normal; Units: fl; Status: F Test: MEAN CORPUSCULAR HEMOGLOBIN; Value: 22.5; Range: 27.0-33.0; Abnormal: Below low normal; Units: pg; Status: F Test: MEAN CORPUSCULAR HGB CONC; Value: 30.2; Range: 32.0-36.5; Abnormal: Below low normal; Units: g/dl; Status: F Test: RED CELL DISTRIBUTION WIDTH; Value: 17.0; Range: 11.5-14.5; Abnormal: Above high normal; Units: %; Status: F Test: PLATELET COUNT, AUTOMATED; Value: 268; Range: 150-450; Units: k/mm3; Status: F Test: NEUTROPHILS %; Value: 90.5; Range: 36.0-66.0; Abnormal: Above high normal; Units: %; Status: F Test: LYMPH %; Value: 5.5; Range: 24.0-44.0; Abnormal: Below low normal; Units: %; Status: F Test: MONO %; Value: 2.0; Range: 0.0-5.0; Units: %; Status: F Test: EOS %; Value: 1.4; Range: 0.0-3.0; Units: %; Status: F Test: BASO %; Value: 0.2; Range: 0.0-1.0; Units: %; Status: F Test: LARGE UNSTAINED CELL %; Value: 0.4; Range: 0.0-4.0; Units: %; Status: F Test: NEUTROPHILS #; Value: 10.5; Range: 1.8-7.7; Abnormal: Above high normal; Units: K/mm3; Status: F Test: LYMPH #; Value: 0.6; Range: 1.5-4.5; Abnormal: Below low normal; Units: K/mm3; Status: F Test: MONO #; Value: 0.2; Range: 0.0-0.8; Units: K/mm3; Status: F Test: EOS #; Value: 0.2; Range: 0.0-0.50; Units: K/mm3; Status: F Test: BASO #; Value: 0.0; Range: 0.0-0.2; Units: K/mm3; Status: F Test: LARGE UNSTAINED CELL #; Value: 0.1; Range: 0.0-0.4; Units: K/mm3; Status: F Lab Order: MED Profile; SPEC'M 08/30/16 16:31 Test: GLUCOSE, FASTING; Value: 141; Range: 83-110; Abnormal: Above high normal; Units: MG/DL; Status: F Test: BLOOD UREA NITROGEN; Value: 16; Range: 7-18; Units: MG/DL; Status: F Test: CREATININE FOR GFR; Value: 1.30; Range: 0.55-1.02; Abnormal: Above high normal; Units: MG/DL; Status: F Test: GLOMERULAR FILTRATION RATE; Value: 42.1; Range: >39; Status: F Test: SODIUM LEVEL; Value: 141; Range: 136-145; Units: MEQ/L; Status: F Test: POTASSIUM SERUM; Value: 3.9; Range: 3.5-5.1; Units: MEQ/L; Status: F Test: CHLORIDE LEVEL; Value: 102; Range: 98-107; Units: MEQ/L; Status: F Test: CARBON DIOXIDE LEVEL; Value: 31; Range: 21-32; Units: MEQ/L; Status: F Test: ANION GAP; Value: 8; Range: 8-16; Units: MEQ/L; Status: F Test: CALCIUM LEVEL; Value: 8.9; Range: 8.8-10.2; Units: MG/DL; Status: F Test Note: ; Units are mL/min/1.73 m2 Chronic Kidney Disease Staging per NKF: Stage I & II GFR >=60 Normal to Mildly Decreased Stage III GFR 30-59 Moderately Decreased Stage IV GFR 15-29 Severely Decreased Stage V GFR <15 Very Little GFR Left ESRD GFR <15 on LEAD JAVASCRIPT DEVELOPER Radiology Order: EKG-ADULT Test: EKG-ADULT REASON FOR EXAMINATION: Shortness of Breath; Stationary ECG Study; [facility] - ED; ; Test Date: 2016-08-30; Pat Name: SHANIQUA GARZA Department:; Room: -; Gender: F Neurological Surgeon: trever; : 1935 Requested By: Dino Manuel; Order Number: [id number] Reading MD: Lynne Barraza; Measurements; Intervals [place]; Rate: 101 P: 105; VT: 188 QRS: 65; QRSD: 110 T: -25; QT: 328; QTc: 427; Interpretive Statements; SINUS TACHYCARDIA WITH OCCASIONAL VENTRICULAR PREMATURE COMPLEXES; PROBABLE INFERIOR MYOCARDIAL INFARCTION, PROBABLY OLD; NSTTW ABNORMALITY; INCREASED RATE 03/10/16; Electronically Signed On 08-31-2016 8:36:02 EST by Lynne Barraza; Radiology Order: Chest, 2 View (pa\E\lat) Test: Chest, 2 View (pa\E\lat) REASON FOR EXAMINATION: Cough; CHEST, TWO VIEWS:; ; Two views of the chest are performed and compared to prior study of 03/10/2016.; Increased ill-defined opacity in the right perihilar region is most consistent; with a right perihilar infiltrate. Left lung appears clear. The heart does not; appear to be significantly enlarged. There is some calcification of the thoracic; aorta. There are degenerative changes of the spine.; ; IMPRESSION:; There appears to be mild right perihilar infiltrate.; ; Unreviewed; Outcome: 19:33 Discharge ordered by Provider. pc 19:48 Discharge Assessment: Patient awake, alert and oriented x 3. No cognitive and/or mlc functional deficits noted. Patient verbalized understanding of disposition instructions. patient administered narcotics - no. The following High Risk Discharge criteria are identified: None. Discharged to home via wheelchair, with family. Condition: good Condition: stable. Discharge instructions given to patient, Instructed on discharge instructions, follow up and referral plans. medication usage, Demonstrated understanding of instructions, medications, Pt was receptive of discharge instructions/ teaching. Prescriptions given X 2. No special radiology studies were completed. Property sent home with patient. 19:50 Patient left the ED. [facility] Signatures: Dispatcher [employer] EDMS Dino Huston MD MD pc Daly, Linda, Manager Of Supply Chain Unit lbd Wanda Avalos, Haseeb Castrejon RN RN dy Olin, Zoeann zo Bancroft, Kristopher, SOLID WASTE DIVISION SUPERVISOR SOLID WASTE DIVISION SUPERVISOR kb5 Simona Perkins RN RN pml Booth, Mandy, RN RN mlc Donoghue, Joseph, SOLID WASTE DIVISION SUPERVISOR SOLID WASTE DIVISION SUPERVISOR jrd Ella Perera, SOLID WASTE DIVISION SUPERVISOR SOLID WASTE DIVISION SUPERVISOR rs6 Corrections: (The following items were deleted from the chart) 16:30 16:21 Adult Sepsis Screening: The patient does not have new or worsening altered pml mentation. Patient has a respiratory rate of greater than or equal to 22 (1 point). Systolic blood pressure is greater than 100. Patient has a qSOFA score of 0- Negative Sepsis Screen. [facility] 19:50 19:48 BP 98 / 50; Pulse 106bpm; Resp 20bpm; Pulse Ox 94%; Temp 99.8F; Pain 0/10; mlc mlc Chart Complete MTDD
== END 2016-08-30 19:50 | disposition home or self-care (01) ==
LOC: M ED 16:15
DX: J18.0 Bronchopneumonia, unspecified organism (principal); R94.31 Abnormal electrocardiogram [ECG] [EKG]; E10.9 Type 1 diabetes mellitus without complications; E78.5 Hyperlipidemia, unspecified; I10 Essential (primary) hypertension; I25.2 Old myocardial infarction; Z95.5 Presence of coronary angioplasty implant and graft; Z89.422 Acquired absence of other left toe(s); Z87.891 Personal history of nicotine dependence; Z79.02 Long term (current) use of antithrombotics/antiplatelets; Z79.4 Long term (current) use of insulin; Z79.899 Other long term (current) drug therapy; Z88.1 Allergy status to other antibiotic agents

== ENCOUNTER 2017-04-07 14:22 | Inpatient (IN) | payer MEDICARE, MEDICAID ==
[~2017-04-07] VITALS: Ht 170.2 cm; Wt 142.4 kg
[~2017-04-07 14:22] MED LIST changes: +LOPR1TAB6 PO; -LOPR50TA PO; +PLAV1TAB2 PO; -PLAV75TA PO
[2017-04-07 15:37] LABS: BASO # 0.1 K/mm3 (0.0-0.2); BASO % 0.7 % (0.0-1.0); EOS # 0.3 K/mm3 (0.0-0.50); EOS % 3.6 % (0.0-3.0); LARGE UNSTAINED CELL # 0.2 K/mm3 (0.0-0.4); LARGE UNSTAINED CELL % 1.8 % (0.0-4.0); LYMPH # 1.5 K/mm3 (1.5-4.5); LYMPH % 16.7 % (24.0-44.0); MEAN CORPUSCULAR HEMOGLOBIN 21.8 pg (27.0-33.0); MEAN CORPUSCULAR HGB CONC 29.9 g/dl (32.0-36.5); MEAN CORPUSCULAR VOLUME 72.8 fl (80.0-96.0); MONO # 0.5 K/mm3 (0.0-0.8); MONO % 6.6 % (0.0-5.0); NEUTROPHILS # 5.8 K/mm3 (1.8-7.7); NEUTROPHILS % 70.7 % (36.0-66.0); PLATELET COUNT, AUTOMATED 295 k/mm3 (150-450); WHITE BLOOD COUNT 8.2 K/mm3 (4.0-10.0)
[2017-04-07 15:44] LABS: INR 1.04
--- NOTE | 2017-04-07 15:55 | REP ---
Portable chest x-ray: Single view. History: Altered mental status. Comparison chest x-ray August 30, 2016. Findings: EKG monitoring electrodes are seen. The lungs are symmetrically aerated and free of infiltrate. Heart is not enlarged. Pulmonary vasculature is not increased. Pleural angles are sharp. Impression: No acute abnormality. Signed by Tarik Irene MD 04/07/2017 04:09 P
[2017-04-07 16:01] LABS: ALBUMIN/GLOBULIN RATIO 0.77 (1.00-1.93); ALKALINE PHOSPHATASE 104 U/L (45-117); ALT/SGPT 14 U/L (12-78); ANION GAP 6 MEQ/L (8-16); AST/SGOT 12 U/L (15-37); BILIRUBIN,DIRECT < 0.1 MG/DL (0.0-0.2); BILIRUBIN,TOTAL 0.3 MG/DL (0.2-1.0); BLOOD UREA NITROGEN 24 MG/DL (7-18); CALCIUM LEVEL 8.8 MG/DL (8.8-10.2); CARBON DIOXIDE LEVEL 30 MEQ/L (21-32); CHLORIDE LEVEL 101 MEQ/L (98-107); CREATININE FOR GFR 1.24 MG/DL (0.55-1.02); GLOMERULAR FILTRATION RATE 44.3 (>32); GLUCOSE, FASTING 364 MG/DL (83-110); POTASSIUM SERUM 4.9 MEQ/L (3.5-5.1); SODIUM LEVEL 137 MEQ/L (136-145); TOTAL PROTEIN 6.9 GM/DL (6.4-8.2)
--- NOTE | 2017-04-07 17:03 | REP ---
Pelvic sonography: History: Vaginal bleeding. Comparison CT study of the abdomen and pelvis is from September 10, 2006. Findings: Transabdominal and transvaginal scanning are performed. Scan quality is extremely limited due to patient body habitus. The exam is essentially uninterpretable. The uterus is very poorly seen and neither ovary could be visualized at all. Impression: Severely limited essentially non-interpretable scan. Signed by Tarik Irene MD 04/08/2017 09:11 A
--- NOTE | 2017-04-07 17:48 | REP ---
CT brain without contrast: History: CVA. Comparison: Head CT study June 27, 2008. CT findings: Bone window settings demonstrate an intact bony calvarium. Vascular calcification is noted in the distal vertebral and distal carotid arteries bilaterally. There is mild to moderate diffuse cerebral atrophy. Visualized paranasal sinuses are clear. No intraorbital abnormality is seen. There is a small partially calcified meningioma along the right side of the falx 8 mm in diameter, unchanged from the 2008 prior study. There is an area of periventricular low density in the right frontal lobe, which was not present in 2008, but appears old nevertheless. This is most likely small vessel atherosclerotic change. No definite cortical infarction is seen. No hemorrhage, mass, extra-axial fluid collection, or midline shift is seen. Impression: Moderate diffuse atrophy and vascular calcification. Small vessel atherosclerotic changes. Stable 8 mm right falx meningioma. No acute intracranial abnormality. Signed by Tarik Irene MD 04/08/2017 09:12 A
[2017-04-07] MEDS ORDERED: BACTRIM 160MG/800MG DS TAB PO ONE (18:00)
[2017-04-07] MEDS ORDERED: ACETAMINOPHEN TAB 650MG DOSE (2X325MG) PO PRN (19:15)
[2017-04-07] MEDS ORDERED: ONDANSETRON 4MG/2ML VIAL (J2405) IV PRN (19:15)
[2017-04-07] MEDS ORDERED: LISI-538 PO (19:45)
[2017-04-07] MEDS ORDERED: METOPROLOL TART 50 MG TAB PO ONE (19:45)
[2017-04-07] MEDS ORDERED: ALBU17IN INH (19:45)
[2017-04-07] MEDS ORDERED: GLUCOSE 4 GM CHEW TABLET PO PRN (20:00)
[2017-04-07] MEDS ORDERED: GLUCAGON FOR INJ 1 MG VIAL (J1610) SC PRN (20:00)
[2017-04-07] MEDS ORDERED: DEXTROSE 50% 50 ML SYRINGE IV PRN (20:00)
[2017-04-07] MEDS ORDERED: ISOSORBIDE DIN. (ISORDIL) 20 MG TAB PO ONE (20:00)
[2017-04-07] MEDS ORDERED: cefTRIAXone SOD 1 GM in D5W MINI-BAG PLUS 50 ML IV ONE (20:00)
[2017-04-07] MEDS ORDERED: ALBUTEROL 90 MCG/ACT 8GM HFA INHALER INH PRN (20:00)
[2017-04-07] MEDS ORDERED: LEVEMIR (INSULIN DETEMIR) 1 UNITS/0.01ML SC ONE (20:15)
--- NOTE | 2017-04-07 20:35 | ECGEPIP ---
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
--- NOTE | 2017-04-07 20:55 | HPE ---
DATE OF ADMISSION: 04/07/2017 PRIMARY CARE PHYSICIAN: Jorgito Meneses MD HOSPITALIST ATTENDING: Neena Villatoro DO CHIEF COMPLAINT: Left lip and mouth drooping and numbness, left hand and fingers numbness. HISTORY OF PRESENT ILLNESS: This is an 81-year-old female with history of coronary artery disease (CAD) with stents, congestive heart failure, systolic and diastolic dysfunction, ejection fraction of 45-50%, hypertension, hyperlipidemia , type 2 diabetes, basal cell cancer of left lower lid, morbid obesity, body mass index (BMI) of 50.3, probable obstructive sleep apnea, unsteady gait, walks with a walker, presented to the emergency room with acute onset of numbness and lip drooping noticed before lunch when she was eating an ice cream. Her glucose at that time when she woke up was 200. Patient is right handed and noticed ice cream drooling on the side of her left mouth. No slurred speech. No difficulty swallowing. At the same time, she also had left hand, fingers, and full arm numbness, lasted for a few minutes. No coughing. She was able to call her neighbor with her right hand. Did not appear to have any slurring of speech. The neighbor called her daughter and emergency medical services (EMS). On EMS arrival, patient's glucose was 300, she was hypertensive, systolic pressure was 171-186, and symptoms have completely resolved with no medications taken and no other intervention. She was in her usual state of health, denies any headache, changes in vision, changes in appetite, weight gain, weight loss, visual disturbances, diplopia, decrease in visual acuity, sore throat, ear pain, discharge, rhinorrhea, cough, shortness of breath, chest pain, pressure or tightness, palpitations, lightheadedness, diaphoresis, paroxysmal nocturnal dyspnea (PND) or orthopnea, nausea, vomiting, abdominal pain, bright red blood per rectum, melena, black tarry stools, hematemesis, upper or lower extremity joint pains or muscle aches. CT of the head in the emergency room shows no acute changes, moderate diffuse atrophy and vascular calcifications, small vessel atherosclerotic changes, and stable 8 mm right falx meningioma. Patient states that she is compliant with her medications and had already taken her aspirin and Plavix this morning. EKG in the emergency room (ER) was sinus rhythm with a first degree atrioventricular (AV) block, ventricular rate of 62 with inferior changes. Glucose level was 364. Hospitalist service was called for admission for a transient ischemic attack (TIA). PAST MEDICAL HISTORY: 1. CAD with stents 2010. 2. Congestive heart failure, ejection fraction (EF) of 45-50%. 3. Hypertension. 4. Hyperlipidemia. 5. Morbid obesity, BMI of 50.3. 6. Probable obstructive sleep apnea. 7. Type 2 diabetes. 8. Basal cell carcinoma of the left lower lid. 9. Unsteady gait, walks with a walker. 10. Osteoarthritis. 11. Left 2nd toe amputation. 12. Chronic kidney disease stage III. 13. 8 mm right falx meningioma. HOME MEDICATIONS: - Ventolin HFA two puffs every 4 hours as needed - aspirin 81 mg daily - Plavix 75 mg daily - famotidine 20 mg twice a day - Lasix 40 daily - 75/25 Humalog mix subcutaneous twice a day - isosorbide dinitrate 20 mg twice a day - lisinopril 30 mg daily - metoprolol 50 mg twice a day - simvastatin 40 mg every evening SOCIAL HISTORY: Patient is an ex-smoker, quit about 28 years ago, smoked for over 30 years, one and a half packs a day. Denies alcohol or recreational drug use. Lives alone, has a daughter in town and supportive neighbors. FAMILY HISTORY: Noncontributory due to age. REVIEW OF SYSTEMS: 12 point system negative aside from positive findings in history of present illness. Patient does complain of chronic back pain in the low back as well as hematuria for the past 8 days, has not seen a physician for this and has some dysuria. No urgency or frequency, fever or chills, or any kind of flank pain. PHYSICAL EXAMINATION: Blood pressure 186/76, temperature 97.8, pulse 62, sinus rhythm, respiratory rate 18, pulse oximetry 96% on room air. GENERALLY: Patient is awake, alert, oriented times three, answering questions appropriately. No facial asymmetry. No facial drooping. Pupils are equally round, reactive to light and accommodation. Extraocular muscles are intact. Patient is not exhibiting any expressive aphasia, no slurring of speech. Face is symmetric. Tongue is midline. No cervical lymphadenopathy or thyromegaly. Moist mucous membranes. No jugular venous distention or pharyngeal erythema. LUNGS: Clear to auscultation. No wheezing, rales, or rhonchi. HEART: S1, S2, sinus rhythm. ABDOMEN: Obese, soft, nontender, nondistended. Positive bowel sounds. 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 NEUROLOGICALLY: Awake, alert, oriented times three. Motor function is 5/5 times four extremities. No dysmetria on [id number] testing. No pronator drift. Face is symmetric. Deep tendon reflexes (DTRs) are intact bilateral upper and lower extremities. Negative Babinski bilaterally. LABORATORY DATA: White count 8.2, hemoglobin 11.5, hematocrit 38.5, platelet count 295, 70% neutrophils, sodium 137, potassium 4.9, chloride 101, bicarbonate 30, BUN 24, creatinine 1.24, GFR 44.3, glucose 364, calcium 8.8, total bilirubin 0.3, AST 12 , ALT 14, alkaline phosphatase 104, total CK 48, MB fraction 1.6, troponin less than 0.02, total protein 6.9, albumin of 3, TSH of 0.934. Urine toxicology screen 0.0003 alcohol. Salicylate and acetaminophen are both negative. INR is 1.04. Urinalysis cloudy urine, 1+ protein, 3+ glucose, 3+ blood, positive nitrite, leukocyte esterase 3+, too numerous to count WBCs, 179 RBCs. EKG sinus rhythm, first degree AV block, ventricular rate of 66, with inferior changes. ASSESSMENT AND PLAN: This is an 81-year-old female with history of coronary artery disease (CAD) with stents, hypertension, hypercholesterolemia, type 2 diabetes, morbid obesity, body mass index (BMI) of 50.3, metabolic syndrome, congestive heart failure (CHF), ejection fraction (EF) of 45-50%, chronic kidney disease stage III, on chronic aspirin and Plavix for coronary artery disease (CAD) and stents, presents to the emergency room with acute onset of left hand and finger numbness as well as left side of the mouth numbness for a few minutes that resolved at home. CT of the head showed no acute intracranial pathology, there is a chronic 8 mm right falx meningioma. Hospitalist service was called for admission. The patient will be admitted as an inpatient for two midnights for the following issues: 1. Transient ischemic attack (TIA) with left mouth and lip numbness with left hand, fingers, and forearm numbness, resolving after a few minutes. The patient will be continued on aspirin and Plavix at the same dose as at home per Dr. Rico's recommendations, neurologist retail presentation specialist. Dr. Rico has been consulted. Patient refuses MRI of the brain as she is claustrophobic and does not want to take medications to sedate her in order for the study to be performed. Obtain carotid Dopplers. Patient had an echocardiogram ordered. Telemetry monitoring. Rule out arrhythmia. EKG with sinus rhythm. Neurologic checks every 4 hours. No signs of aspiration and symptoms have completely resolved. Physical therapy (PT) home safety evaluation prior to discharge home if things are stable overnight. 2. History of coronary artery disease (CAD) with stents. Continue on aspirin, metoprolol, lisinopril, as well as Plavix. No acute ischemic symptoms. 3. Urinary tract infection present on admission with complaints of hematuria. Patient will be given ceftriaxone due to allergy to QUINOLONES. Await culture results and monitor for symptomatic anemia. No acute indication for red blood cell transfusion at this time. 4. Hypertension, uncontrolled, therefore will give her evening dose of metoprolol, isosorbide, and lisinopril. Monitor patient's creatinine in light of chronic kidney disease stage III. 5. Chronic kidney disease stage III. Monitor for worsening azotemia. May resume home dose of Lasix and lisinopril, but recheck basic metabolic panel in the morning. Monitor urine output, strict intake and output, and renally dose all medications. Avoid other nephrotoxins. 6. Type 2 diabetes, uncontrolled. Check a hemoglobin A1c. Increase insulin. 7. Morbid obesity and probable obstructive sleep apnea. Patient will need outpatient sleep study and referral for continuous positive airway pressure (CPAP) as outpatient. 8. Hyperlipidemia. Continue simvastatin 40 mg every evening. Check lipid profile in the morning. 9. Deep venous thrombosis (DVT) prophylaxis with subcutaneous Lovenox, renal dosing. Patient will be signed out to Dr. Neena Villatoro at 7 a.m. on 04/08/2017. [facility]
[2017-04-07] MEDS ORDERED: cefTRIAXone SOD 1 GM in D5W MINI-BAG PLUS 50 ML IV STA (21:02)
[2017-04-07 23:40] VITALS: BP 185/77
[2017-04-08] MEDS: HumaLOG INSULIN (NovoLOG) PER UNIT SC SCH ×5 (00:04→20:26)
[2017-04-08] MEDS: FAMOTIDINE 20 MG TAB PO SCH ×3 (00:05→20:22)
[2017-04-08 00:14] VITALS: BP 151/67
[2017-04-08 04:00] VITALS: BP 165/73
[2017-04-08 06:42] LABS: BASO % 0.4 % (0.0-1.0); EOS # 0.3 K/mm3 (0.0-0.50); EOS % 3.5 % (0.0-3.0); LARGE UNSTAINED CELL # 0.2 K/mm3 (0.0-0.4); LARGE UNSTAINED CELL % 2.3 % (0.0-4.0); LYMPH # 1.2 K/mm3 (1.5-4.5); LYMPH % 13.9 % (24.0-44.0); MEAN CORPUSCULAR HEMOGLOBIN 21.4 pg (27.0-33.0); MEAN CORPUSCULAR HGB CONC 29.8 g/dl (32.0-36.5); MEAN CORPUSCULAR VOLUME 71.9 fl (80.0-96.0); MONO # 0.7 K/mm3 (0.0-0.8); MONO % 7.6 % (0.0-5.0); NEUTROPHILS # 6.2 K/mm3 (1.8-7.7); NEUTROPHILS % 72.3 % (36.0-66.0); PLATELET COUNT, AUTOMATED 302 k/mm3 (150-450); RED CELL DISTRIBUTION WIDTH 17.6 % (11.5-14.5); WHITE BLOOD COUNT 8.6 K/mm3 (4.0-10.0)
[2017-04-08 06:44] LABS: ADD MORPHOLOGY? YES
[2017-04-08 07:18] LABS: ANISOCYTOSIS 1+; MICROCYTOSIS 2+
[2017-04-08 07:19] LABS: HYPOCHROMASIA 2+
[2017-04-08 07:30] VITALS: BP 158/67
[2017-04-08 08:58] LABS: CALCIUM LEVEL 8.6 MG/DL (8.8-10.2); CREATININE FOR GFR 1.28 MG/DL (0.55-1.02); GLOMERULAR FILTRATION RATE 42.7 (>32); MAGNESIUM LEVEL 2.5 MG/DL (1.8-2.4); POTASSIUM SERUM 4.7 MEQ/L (3.5-5.1)
[2017-04-08] MEDS: FUROSEMIDE 40 MG TAB PO SCH (09:09)
[2017-04-08] MEDS: ENOXAPARIN 30 MG/0.3 ML SYR (J1650) SC SCH (09:09)
[2017-04-08] MEDS: CLOPIDOGREL 75 MG TAB PO SCH (09:09)
[2017-04-08] MEDS: cefTRIAXone SOD 1 GM in D5W MINI-BAG PLUS 50 ML IV SCH (09:09)
[2017-04-08] MEDS: METOPROLOL TART 50 MG TAB PO SCH ×2 (09:11→20:22)
[2017-04-08] MEDS: ASPIRIN 81 MG ENTERIC TAB PO SCH (09:11)
[2017-04-08] MEDS: LISINOPRIL 10 MG TAB PO SCH (09:11)
[2017-04-08] MEDS: ISOSORBIDE DIN. (ISORDIL) 20 MG TAB PO SCH ×2 (09:11→20:22)
[2017-04-08 12:00] VITALS: BP 188/78
--- NOTE | 2017-04-08 14:40 | IPN ---
DATE: 04/08/2017 SUBJECTIVE: The patient is seen and examined in the room today. The patient stated her mouth/lip/arm numbness has resolved. It started yesterday and the symptoms resolved within a few minutes. Since admission, the patient does not feel any recurrence of the symptoms. There are no events detected on telemetry. OBJECTIVE: VITAL SIGNS: Temperature 97.3, pulse is 65, respiratory rate 20, blood pressure is 158/67, pulse oximetry is 97% in room air. GENERAL: Morbidly obese, no sign of acute distress, alert and oriented times three. HEENT: Normocephalic, atraumatic. Extraocular motor grossly intact. CARDIOVASCULAR: Positive S1, S2, regular rate. LUNGS: Decreased breath sounds due to body habitus, otherwise clear to auscultation bilaterally. ABDOMEN: Soft, nontender, nondistended. Bowel sounds present. No rebound. No guarding. EXTREMITIES: Trace pitting edema bilaterally. No sign of cyanosis. NEUROLOGICAL: Sensation to fine touch grossly intact. Muscle strength 5/5. LABORATORY DATA: WBC 8.6, hemoglobin 11.4, hematocrit 38.3, platelet count is 302. Sodium is 142, potassium 4.7, chloride is 106, carbon dioxide 29, BUN 24, creatinine 1.28, GFR is 42.7, fasting glucose 211, A1c is 9.1, calcium is 8.6, magnesium 2.5, triglycerides 124, total cholesterol is 140, LDL is 73.2, HDL is 42, TSH is 0.914. ASSESSMENT AND PLAN: 1. Left-sided lip/mouth/arm numbness. The patient is continued to be monitored on telemetry. Currently, we are trying to rule out transient ischemic attack (TIA). Unfortunately, the patient has claustrophobia and she is not able to tolerate the regular MRI and the patient refused to be sedated for the closed MRI scan. The open MRI is only available next Friday which is 04/11/2017. The patient is taking aspirin and Plavix. A lipid profile shows no abnormalities. The patient is on simvastatin. Neurologist, Dr. Rico has been consulted. We appreciate his input. We will continue to follow with cardiac echogram and with carotid ultrasound. 2. Positive urinalysis, urinary tract infection with the complaint of hematuria. We will followup with the urine cultures. The patient is started on Rocephin. The patient has an allergy to fluoroquinolone. 3. History of coronary artery disease with stent, on aspirin, Plavix, metoprolol and lisinopril. 4. Hypertension, on Lopressor 50 mg by mouth twice a day, isosorbide dinitrate 20 mg by mouth twice a day, lisinopril 30 mg by mouth daily, and Lasix 40 mg by mouth daily. 5. Chronic kidney disease, stage III. The patient is on home dose of Lasix and lisinopril. Continue to follow. 6. Type 2 diabetes. A1c is 9.1. Diabetes controlled in the inpatient. The patient will call with insulin. 7. Hyperlipidemia. The patient is on simvastatin. 8. Morbid obesity. 9. Deep vein thrombosis (DVT) prophylaxis, on Lovenox.
--- NOTE | 2017-04-08 16:26 | REP ---
CAROTID ULTRASOUND: Real-time ultrasound evaluation and duplex Doppler interrogation of the extracranial carotid vasculature is performed. The study is somewhat limited due to short neck and breathing motion. There is mild plaquing and narrowing in both carotid bulbs extending into the internal and external carotid arteries. Luminal narrowing is less than 50%. There is no evidence of hemodynamically significant stenosis of either internal carotid artery. Normal flow velocities are seen. The vertebral arteries could not be visualized. RIGHT LEFT Peak systolic velocity ICA 53.2 cm/s 40.3 cm/s End diastolic velocity ICA 11.3 cm/s 10.6 cm/s Peak systolic velocity CCA 69.9 cm/s 70.8 cm/s Peak systolic velocity ECA 68 cm/s 105.1 cm/s ICA/CCA ratio 0.76 0.57 IMPRESSION: Bilateral luminal narrowing of the internal carotid arteries less than 50%. No evidence of hemodynamically significant stenosis. Signed by Parish Olsen MD 04/08/2017 04:18 P
--- NOTE | 2017-04-08 19:27 | ECHO ---
DATE OF PROCEDURE: 04/08/2017 REFERRING PHYSICIAN: Neena Villatoro MD INDICATION: Transient ischemic attack (TIA). HEIGHT: 170 cm WEIGHT: 146 kg DIMENSIONS: IVS: 1.5 LV: 5.4 LVPW: 1.5 LA: 4.0 Aorta: 3.0 FINDINGS: The study is of rather limited technical quality corresponding to patient's body habitus. Left ventricle is of normal size and grossly normally contractile. I certainly cannot rule out wall motion abnormalities with certainty, but overall left ventricle (LV) systolic function is going to be preserved. Right ventricle does not appear grossly enlarged. Left atrium is at least mildly enlarged. Right atrium was poorly visualized. Aortic valve is sclerotic, but leaflet mobility seems preserved based on difficult views. There are mild degenerative abnormalities of mitral valve, but mobility is preserved. Tricuspid and pulmonic valves were poorly seen. No pericardial effusion is noted. Inferior vena cava was not visualized. Aortic root is normal. Aortic arch and abdominal aorta were not seen. Doppler interrogation of aortic valve reveals no insufficiency and trivial stenosis (mean gradient 11 mmHg). There is mild mitral insufficiency and trace tricuspid insufficiency. Quality of TR jet was not sufficient to adequately estimate pulmonary artery pressure. Mitral inflow pattern and tissue Doppler imaging revealed grade 2 diastolic dysfunction (E prime septal velocity 3.6 cm/s and E prime lateral 6.2 cm/s). CONCLUSION 1. Study is of difficult technical quality. 2. Normal LV size with moderate left ventricular hypertrophy and grossly preserved left ventricle (LV) systolic function. Grade 2 diastolic dysfunction. 3. Aortic sclerosis resulting in mild stenosis. 4. No further significant valvular disease. 5. Unable to estimate central venous pressure and pulmonary artery pressure. COMMENT: Subacute bacterial endocarditis (SBE) prophylaxis is not recommended. Study is overall most consistent with hypertensive heart disease.
[2017-04-08] MEDS ORDERED: SIMVASTATIN 40 MG TAB PO SCH (21:00)
[2017-04-08 21:04] VITALS: BP 113/55
[2017-04-09 00:02] VITALS: BP 121/56
[2017-04-09 05:14] VITALS: BP 118/55
[2017-04-09 05:54] LABS: BASO % 0.4 % (0.0-1.0); EOS # 0.3 K/mm3 (0.0-0.50); EOS % 4.6 % (0.0-3.0); LARGE UNSTAINED CELL # 0.1 K/mm3 (0.0-0.4); LARGE UNSTAINED CELL % 1.4 % (0.0-4.0); LYMPH % 13.3 % (24.0-44.0); MEAN CORPUSCULAR HGB CONC 30.9 g/dl (32.0-36.5); MONO # 0.6 K/mm3 (0.0-0.8); MONO % 8.4 % (0.0-5.0); NEUTROPHILS # 5.2 K/mm3 (1.8-7.7); NEUTROPHILS % 71.9 % (36.0-66.0); PLATELET COUNT, AUTOMATED 277 k/mm3 (150-450); RED CELL DISTRIBUTION WIDTH 17.6 % (11.5-14.5); WHITE BLOOD COUNT 7.2 K/mm3 (4.0-10.0)
[2017-04-09 06:10] LABS: CALCIUM LEVEL 8.7 MG/DL (8.8-10.2); CREATININE FOR GFR 1.29 MG/DL (0.55-1.02); GLOMERULAR FILTRATION RATE 42.3 (>32); POTASSIUM SERUM 4.4 MEQ/L (3.5-5.1)
--- NOTE | 2017-04-09 06:10 | REPUSA ---
CLINICAL HISTORY: Transient ischemic attack. TECHNIQUE: Multiple axial CT images were obtained through the brain without IV contrast material. COMMENTS: Unchanged 8.1 mm calcified meningioma of the mid aspect of the cerebral falx. There is normal configuration of sella turcica. There are no intra or extra-axial collections. There is no mass effect or midline shift. There is no evidence of hematoma formation. No hydrocephalus is p resent. The ventricles are symmetrical. No abnormal calcifications are present. There is diffuse age-appropriate cerebellar and cerebral atrophy with proportionally dilated ventricl es and cortical sulci. There are bilateral periventricular and subcortical white matter hypolucencies compatible with mild c hronic microvascular disease. Otherwise, no significant focal abnormalities are seen either in the posterior fossa or supratentoria l compartment. IMPRESSION: 1. Age-appropriate cerebellar and cerebral atrophy. 2. Mild chronic microvascular disease. 3. No evidence of acute intracranial pathology. No change is noted since the prior exam on 04/07/2017. Thank you for your kind referral of this patient.
[2017-04-09 08:00] VITALS: BP 128/59
[2017-04-09] MEDS: HumaLOG INSULIN (NovoLOG) PER UNIT SC SCH (08:50)
[2017-04-09] MEDS: cefTRIAXone SOD 1 GM in D5W MINI-BAG PLUS 50 ML IV SCH (08:50)
[2017-04-09] MEDS: LISINOPRIL 10 MG TAB PO SCH (08:51)
[2017-04-09] MEDS: ENOXAPARIN 30 MG/0.3 ML SYR (J1650) SC SCH (08:51)
[2017-04-09] MEDS: FUROSEMIDE 40 MG TAB PO SCH (08:51)
[2017-04-09] MEDS: CLOPIDOGREL 75 MG TAB PO SCH (08:51)
[2017-04-09] MEDS: FAMOTIDINE 20 MG TAB PO SCH (08:51)
[2017-04-09 08:52] VITALS: BP 128/59
[2017-04-09] MEDS: ISOSORBIDE DIN. (ISORDIL) 20 MG TAB PO SCH (08:52)
[2017-04-09] MEDS: ASPIRIN 81 MG ENTERIC TAB PO SCH (08:52)
[2017-04-09] MEDS: METOPROLOL TART 50 MG TAB PO SCH (08:52)
--- NOTE | 2017-04-09 15:03 | CR ---
DATE OF CONSULTATION: 04/07/2017 REFERRING PROVIDER: Dr. Neena Villatoro HISTORY OF PRESENTING ILLNESS: Shaniqua Garza was seen in consultation for evaluation of possible stroke versus transient ischemic attack (TIA). The patient is an 81-year-old female with past medical history significant for coronary artery disease with stents, congestive heart failure, systolic and diastolic dysfunction, hypertension, hyperlipidemia, type 2 diabetes uncontrolled, presenting with a chief complaint of sudden onset of numbness of the lip with drooping of the face while eating ice cream. The patient was admitted to [facility]. She was offered an MRI but due to claustrophobia refused it. Head CT showed small vessel ischemic disease and atrophy. The patient was noted to be having a urinary tract infection (UTI) with positive leukocyte esterase 3+ with bacteria too numerous to count. The patient while in the hospital had resolution of her symptoms. Her blood pressure has been fluctuating, and today her blood pressure was 188/78. Since the last reading, it has come down slightly. The patient is agreeable to try an MRI. However, unfortunately, due to her weight, she cannot have a closed MRI; and our open MRI will next be available this Friday. She is agreeable to repeat a head CT in the morning, pending the results, if her symptoms are still resolved, she will maintain her aspirin 81 mg and Plavix 75 mg. She will work on controlling her blood glucose better. We can obtain an open MRI as an outpatient in the future. She will remain on telemetry while she is in the hospital. She does not have a history of atrial fibrillation. The patient has been able to ambulate. She denies any weakness in the arms or legs at the present time. She has chronic shortness of breath, for which she is seen by Dr. Cavazos, her cnc service technician. PAST MEDICAL HISTORY: Coronary artery disease (CAD) with stents in 2010. Congestive heart failure, ejection fraction (EF) 40% to 45%. Diastolic heart failure. Hypertension. Hyperlipidemia. Morbid obesity, body mass index (BMI) 50.3. Probable obstructive sleep apnea. Type 2 diabetes, uncontrolled. Basal cell carcinoma of the left lower lid. Osteoarthritis. Left 2nd toe amputation. Chronic kidney disease stage III. 8 mm right falx meningioma. HOME MEDICATIONS: - Ventolin two puff every 4 hours as needed - aspirin 81 mg by mouth every day - Plavix 75 mg by mouth every day - famotidine 20 mg by mouth twice a day - Lasix 40 mg by mouth every day - Humalog subcutaneous twice a day - isosorbide dinitrate 20 mg by mouth four times a day - lisinopril 30 mg by mouth every day - metoprolol 50 mg by mouth twice a day - simvastatin 40 mg by mouth nightly SOCIAL HISTORY: The patient is a former tobacco user; quit 28 years ago. She denies use of recreational drugs or alcohol. FAMILY HISTORY: Noncontributory. 14-point review of systems was obtained and is negative except for as per history of present illness (HPI). PHYSICAL EXAMINATION: Blood pressure is 188/78, pulse rate is 63, respiratory rate is 20, temperature is 97 degrees Fahrenheit, oxygenation is 98% on room air, pulse is 63, current height 5 feet 7 inches, current weight is 144.6 kg. The patient is awake, alert, oriented to person, place, and time. Speech, language, comprehension, repetition are intact. Pupils are 3 mm, round, reactive to light. Extraocular movements are intact in all directions without nystagmus. Sensation in V1, V2, V3 is intact to light touch. No facial asymmetry to activation. Palate elevates symmetrically. Tongue is midline. No weakness of sternocleidomastoids bilaterally. No pronator drift. Strength is 5/5, including bilateral deltoids, biceps, triceps, handgrip, iliopsoas, tibialis anterior, quadriceps. The patient is able to rise from a seated position while pushing off of the bed. Romberg testing is negative. Sensory is intact to light touch in all four extremities. Deep tendon reflexes are decreased throughout. Coordination: Normal [id number] without any signs of ataxia or dysmetria. ASSESSMENT: Probable transient ischemic attack with acute onset of left facial weakness with slurring of the speech with resolution. PLAN: 1. Optimize hypertension, diabetes, hyperlipidemia. 2. Continue aspirin 81 mg, Plavix 75 mg by mouth every day. 3. Continue statin therapy by mouth every day. 4. Continue telemetry monitoring while in the hospital. 5. Physical therapy (PT) and occupational therapy (OT). 6. Obtain repeat head CT in the morning if no change. The patient can followup in the neurology clinic as an outpatient once cleared by PT. Can consider MRI of the brain to be done in an open MRI in the future. History obtained from both the patient and the patient's daughter.
--- NOTE | 2017-04-15 17:31 | DSES ---
DATE OF ADMISSION: 04/07/2017 DATE OF DISCHARGE: 04/09/2017 CONSULTANTS: Neurologist, Dr. Shun Rico PROCEDURES: None. COMPLICATIONS: None. PRIMARY CARE PROVIDER: Dr. Jorgito Meneses DISCHARGE DIAGNOSES: 1. Left mouth and arm numbness. 2. Positive urinalysis. 3. History of coronary artery disease with stent on aspirin, Plavix, metoprolol, and lisinopril. 4. Hypertension. 5. Chronic kidney disease stage III. 6. Type 2 diabetes with an A1c of 9.1. 7. Hyperlipidemia. 8. Morbid obesity. HOSPITALIZATION COURSE: The patient is an 81-year-old female who presented to [facility] on 04/07/2017, for left mouth drooping and numbness and left upper extremity numbness. On admission, CT of the head without contrast was performed showing moderate diffuse atrophy and vascular calcifications. MRI was ordered, however patient refused the imaging study. Neurologist consulted. There was a concern for transient ischemic attack (TIA). Patient is continued on the aspirin and Plavix. There was no recurrence of the symptoms since admission. Repeat CT of the head was performed on 04/09/2017, that shows no changes compared to previous imaging study. After discussing the case with patient and the neurologist, patient is discharged on 04/09/2017, with recommendation to followup with an open MRI on 04/11/2017. Patient is recommended to followup with neurologist at the scheduled time. OBJECTIVE: VITAL SIGNS: Temperature 98.8, pulse 67, respirations 20, blood pressure 128/56, pulse oximetry 95% in room air. LABORATORY DATA: WBC 7.2, hemoglobin 10.9, hematocrit 35.2, platelet count 277. Sodium 144, potassium 4.4, chloride 106, carbon dioxide 26, BUN 22, creatinine 1.29, GFR is 42.3, fasting glucose 259, A1c is 9.1, calcium 8.7. PT is 13.7, INR is 1.04. Microbiology: Urine culture is negative. IMAGING STUDIES: Transvaginal ultrasound on 04/07/2017, showed very limited study. Chest x-ray on 04/07/2017, showed no acute abnormalities. CT of the head without contrast on 04/07/2017, showed moderate diffuse atrophy and vascular calcifications. Small vessel atherosclerotic changes. Stable 8 mm right falx meningioma. No acute intracranial abnormalities. Carotid Doppler on 04/08/2017, showed bilateral luminal narrowing of the internal carotid arteries less than 50%. No evidence of hemodynamically significant stenosis. CT of the head without contrast on 04/09/2017, showed age-related cerebral and cerebellar atrophy. Mild chronic microvascular disease. No evidence of acute intracranial pathology. No changes noted since the study on 04/07/2017. DISCHARGE MEDICATIONS: - Ventolin two puffs inhalation every 4 hours as needed for shortness of breath - aspirin 81 mg by mouth daily - Plavix 75 mg by mouth daily - famotidine 20 mg by mouth twice a day - Lasix 40 mg by mouth daily - insulin Humalog mix 70/25 subcutaneous twice a day with meals - isosorbide dinitrate 20 mg by mouth twice a day - lisinopril 20 mg by mouth daily - Lopressor 50 mg by mouth twice a day - simvastatin 40 mg by mouth every evening DISCHARGE INSTRUCTIONS: Discontinue lines. Discharge home. Activity as tolerated. Diet as tolerated. Patient should followup with primary care provider, Dr. Jorgito Meneses, in 1-2 weeks. Patient should followup with neurology at the scheduled time. Patient should get the open MRI on 04/11/2017. DISCHARGE TIME: Greater than 30 minutes. DISCHARGE CONDITION: Stable.
== END 2017-04-09 10:05 | disposition home or self-care (01) | DRG 69 ==
LOC: EDBD 14:22 → M ED 14:22 → M ED INP 19:11 → M PCU 23:35
PROVIDERS: ADMIT Internal Medicine; ATTEND Internal Medicine
DX: G45.9 Transient cerebral ischemic attack, unspecified (principal); I50.42 Chronic combined systolic (congestive) and diastolic (congestive) heart failure; Z68.43 Body mass index [BMI] 50.0-59.9, adult; I13.0 Hypertensive heart and chronic kidney disease with heart failure and stage 1 through stage 4 chronic kidney disease, or unspecified chronic kidney disease; N39.0 Urinary tract infection, site not specified; I25.10 Atherosclerotic heart disease of native coronary artery without angina pectoris; E78.5 Hyperlipidemia, unspecified; E11.65 Type 2 diabetes mellitus with hyperglycemia; E66.01 Morbid (severe) obesity due to excess calories; G47.33 Obstructive sleep apnea (adult) (pediatric); R26.81 Unsteadiness on feet; M54.5 Low back pain; R29.810 Facial weakness; R20.0 Anesthesia of skin; D32.0 Benign neoplasm of cerebral meninges; M19.90 Unspecified osteoarthritis, unspecified site; Z95.5 Presence of coronary angioplasty implant and graft; Z79.02 Long term (current) use of antithrombotics/antiplatelets; Z79.82 Long term (current) use of aspirin; Z85.828 Personal history of other malignant neoplasm of skin; N18.3 Chronic kidney disease, stage 3 (moderate); Z89.442 Acquired absence of left ankle; Z79.899 Other long term (current) drug therapy; Z79.4 Long term (current) use of insulin; Z87.891 Personal history of nicotine dependence; Z88.1 Allergy status to other antibiotic agents

== ENCOUNTER 2018-04-08 19:54 | Inpatient (IN) | payer MEDICARE ==
[2018-04-08] MEDS: MECLIZINE 25 MG TABLET PO (19:23)
[2018-04-08] MEDS: NS 1,000 ML IV (19:26)
[2018-04-08 19:53] LABS: BASO # 0.1 10^3/uL (0.0-0.2); BASO % 0.5 % (0.0-1.0); EOS # 0.4 10^3/uL (0.0-0.50); EOS % 4.1 % (0.0-3.0); HEMOGLOBIN 9.2 g/dl (12.0-15.5); IMMATURE GRANULOCYTE % 0.6 % (0-3.0); LYMPH # 1.5 10^3/uL (1.5-4.5); LYMPH % 14.7 % (24.0-44.0); MEAN CORPUSCULAR HEMOGLOBIN 18.5 pg (27.0-33.0); MEAN CORPUSCULAR HGB CONC 27.9 g/dl (32.0-36.5); MEAN CORPUSCULAR VOLUME 66.5 fl (80.0-96.0); MONO # 1.3 10^3/uL (0.0-0.8); MONO % 12.9 % (0.0-5.0); NEUTROPHILS # 6.8 10^3/uL (1.8-7.7); NEUTROPHILS % 67.2 % (36.0-66.0); PLATELET COUNT, AUTOMATED 292 10^3/uL (150-450); RED BLOOD COUNT 4.96 10^6/uL (4.00-5.40); RED CELL DISTRIBUTION WIDTH 20.8 % (11.5-14.5); WHITE BLOOD COUNT 10.1 10^3/uL (4.0-10.0)
[2018-04-08 20:25] LABS: ACETAMINOPHEN LEVEL < 2.0 UG/ML (10.0-30.0); ALBUMIN 2.8 GM/DL (3.2-5.2); ALBUMIN/GLOBULIN RATIO 0.76 (1.00-1.93); ALKALINE PHOSPHATASE 93 U/L (45-117); ALT/SGPT 14 U/L (12-78); ANION GAP 7 MEQ/L (8-16); AST/SGOT 10 U/L (7-37); BILIRUBIN,DIRECT < 0.1 MG/DL (0.0-0.2); BILIRUBIN,TOTAL 0.2 MG/DL (0.2-1.0); BLOOD UREA NITROGEN 25 MG/DL (7-18); CALCIUM LEVEL 8.3 MG/DL (8.8-10.2); CARBON DIOXIDE LEVEL 29 MEQ/L (21-32); CHLORIDE LEVEL 107 MEQ/L (98-107); CPK CREATINE PHOSPHOKINASE 47 U/L (26-192); CREATININE FOR GFR 1.24 MG/DL (0.55-1.30); GLOMERULAR FILTRATION RATE 44.2 (>32); GLUCOSE, FASTING 201 MG/DL (70-100); POTASSIUM SERUM 4.9 MEQ/L (3.5-5.1); SALICYLATE LEVEL < 1.7 MG/DL (5.0-30.0); SODIUM LEVEL 143 MEQ/L (136-145); TOTAL PROTEIN 6.5 GM/DL (6.4-8.2); TROPONIN I < 0.02 NG/ML (< 0.10)
[2018-04-08 20:31] LABS: CK-MB VALUE MASS 1.3 NG/ML (<3.6); MB/CK RELATIVE INDEX 2.76 (< OR =4)
[2018-04-09] MEDS: ASPIRIN 325 MG TAB PO (01:01)
[2018-04-09] MEDS: D5W/0.45% SODIUM CHLORIDE 1,000 ML IV (01:01)
[2018-04-09] MEDS ORDERED: DEXTROSE 50% 50 ML SYRINGE IV (01:45)
[2018-04-09] MEDS ORDERED: GLUCAGON FOR INJ 1 MG VIAL (J1610) SC (01:45)
[2018-04-09] MEDS ORDERED: GLUCOSE 4 GM CHEW TABLET PO (01:45)
[2018-04-09] MEDS: HumaLOG INSULIN (NovoLOG) PER UNIT SC ×5 (01:55→21:00)
[2018-04-09 01:57] LABS: BEDSIDE GLUCOSE 155 MG/DL (83-110)
[2018-04-09] MEDS ORDERED: ONDANSETRON 4MG/2ML VIAL (J2405) IV (02:00)
[2018-04-09] MEDS ORDERED: ACETAMINOPHEN TAB 650MG DOSE (2X325MG) PO (02:00)
[2018-04-09 05:15] LABS: HEMATOCRIT 32.1 % (36.0-47.0); HEMOGLOBIN 8.8 g/dl (12.0-15.5); MEAN CORPUSCULAR HEMOGLOBIN 18.3 pg (27.0-33.0); MEAN CORPUSCULAR HGB CONC 27.4 g/dl (32.0-36.5); MEAN CORPUSCULAR VOLUME 66.9 fl (80.0-96.0); PLATELET COUNT, AUTOMATED 272 10^3/uL (150-450); RED CELL DISTRIBUTION WIDTH 20.4 % (11.5-14.5); WHITE BLOOD COUNT 9.1 10^3/uL (4.0-10.0)
[2018-04-09 05:23] LABS: INR 1.12; PROTHROMBIN TIME 14.6 SECONDS (12.1-14.4)
[2018-04-09 05:33] LABS: ANION GAP 6 MEQ/L (8-16); BLOOD UREA NITROGEN 22 MG/DL (7-18); CALCIUM LEVEL 8.2 MG/DL (8.8-10.2); CARBON DIOXIDE LEVEL 28 MEQ/L (21-32); CHLORIDE LEVEL 112 MEQ/L (98-107); CPK CREATINE PHOSPHOKINASE 44 U/L (26-192); CREATININE FOR GFR 1.12 MG/DL (0.55-1.30); GLOMERULAR FILTRATION RATE 49.7 (>32); GLUCOSE, FASTING 136 MG/DL (70-100); POTASSIUM SERUM 4.6 MEQ/L (3.5-5.1); SODIUM LEVEL 146 MEQ/L (136-145); TROPONIN I < 0.02 NG/ML (< 0.10)
[2018-04-09 05:34] LABS: CK-MB VALUE MASS 1.3 NG/ML (<3.6); MB/CK RELATIVE INDEX 2.95 (< OR =4)
[2018-04-09] MEDS: HEPARIN SOD (PORCINE) 5000 UNITS/ML VIAL SQ ×3 (05:45→21:45)
[2018-04-09] MEDS ORDERED: ASPIRIN 81 MG ENTERIC TAB PO (09:00)
[2018-04-09] MEDS: ISOSORBIDE DIN. (ISORDIL) 20 MG TAB PO ×2 (09:03→21:45)
[2018-04-09] MEDS: LISINOPRIL 10 MG TAB PO (09:03)
[2018-04-09] MEDS: ASPIRIN ENTERIC 325 MG TAB PO (09:03)
[2018-04-09] MEDS: FUROSEMIDE 40 MG TAB PO (09:04)
[2018-04-09] MEDS: CLOPIDOGREL 75 MG TAB PO (09:04)
[2018-04-09] MEDS: FAMOTIDINE 20 MG TAB PO ×2 (09:04→21:45)
[2018-04-09] MEDS: METOPROLOL TART 50 MG TAB PO ×2 (09:04→21:46)
[2018-04-09 11:39] LABS: BEDSIDE GLUCOSE 184 MG/DL (83-110)
[2018-04-09 12:06] LABS: CK-MB VALUE MASS 1.2 NG/ML (<3.6); CPK CREATINE PHOSPHOKINASE 46 U/L (26-192); TROPONIN I < 0.02 NG/ML (< 0.10)
[2018-04-09 16:31] LABS: BEDSIDE GLUCOSE 212 MG/DL (83-110)
[2018-04-09] MEDS: SIMVASTATIN 40 MG TAB PO (17:06)
[2018-04-09 19:44] LABS: CK-MB VALUE MASS 1.3 NG/ML (<3.6); CPK CREATINE PHOSPHOKINASE 47 U/L (26-192); MB/CK RELATIVE INDEX 2.76 (< OR =4); TROPONIN I < 0.02 NG/ML (< 0.10)
[2018-04-09 21:50] LABS: BEDSIDE GLUCOSE 235 MG/DL (83-110)
[2018-04-10] MEDS: HEPARIN SOD (PORCINE) 5000 UNITS/ML VIAL SQ ×3 (05:24→21:15)
[2018-04-10 05:40] LABS: HEMATOCRIT 31.4 % (36.0-47.0); HEMOGLOBIN 8.9 g/dl (12.0-15.5); MEAN CORPUSCULAR HEMOGLOBIN 18.5 pg (27.0-33.0); MEAN CORPUSCULAR HGB CONC 28.3 g/dl (32.0-36.5); MEAN CORPUSCULAR VOLUME 65.4 fl (80.0-96.0); PLATELET COUNT, AUTOMATED 266 10^3/uL (150-450); RED CELL DISTRIBUTION WIDTH 20.5 % (11.5-14.5); WHITE BLOOD COUNT 7.6 10^3/uL (4.0-10.0)
[2018-04-10 06:04] LABS: ANION GAP 5 MEQ/L (8-16); BLOOD UREA NITROGEN 19 MG/DL (7-18); CALCIUM LEVEL 8.6 MG/DL (8.8-10.2); CARBON DIOXIDE LEVEL 30 MEQ/L (21-32); CHLORIDE LEVEL 107 MEQ/L (98-107); CREATININE FOR GFR 1.09 MG/DL (0.55-1.30); GLOMERULAR FILTRATION RATE 51.3 (>32); GLUCOSE, FASTING 205 MG/DL (70-100); POTASSIUM SERUM 4.4 MEQ/L (3.5-5.1); SODIUM LEVEL 142 MEQ/L (136-145)
[2018-04-10] MEDS: HumaLOG INSULIN (NovoLOG) PER UNIT SC ×4 (07:30→21:00)
[2018-04-10] MEDS: LISINOPRIL 10 MG TAB PO (08:45)
[2018-04-10] MEDS: CLOPIDOGREL 75 MG TAB PO (08:45)
[2018-04-10] MEDS: ISOSORBIDE DIN. (ISORDIL) 20 MG TAB PO ×2 (08:45→21:15)
[2018-04-10] MEDS: FAMOTIDINE 20 MG TAB PO ×2 (08:46→21:15)
[2018-04-10] MEDS: FUROSEMIDE 40 MG TAB PO (08:46)
[2018-04-10] MEDS: ASPIRIN 81 MG ENTERIC TAB PO (08:46)
[2018-04-10] MEDS: METOPROLOL TART 50 MG TAB PO ×2 (08:46→21:00)
[2018-04-10 13:11] LABS: BEDSIDE GLUCOSE 222 MG/DL (83-110)
[2018-04-10 16:51] LABS: BEDSIDE GLUCOSE 234 MG/DL (83-110)
[2018-04-10] MEDS: SIMVASTATIN 40 MG TAB PO (17:49)
[2018-04-10 20:23] LABS: BEDSIDE GLUCOSE 257 MG/DL (83-110)
[2018-04-11 05:43] LABS: HEMATOCRIT 31.2 % (36.0-47.0); HEMOGLOBIN 8.9 g/dl (12.0-15.5); MEAN CORPUSCULAR HEMOGLOBIN 18.6 pg (27.0-33.0); MEAN CORPUSCULAR HGB CONC 28.5 g/dl (32.0-36.5); MEAN CORPUSCULAR VOLUME 65.3 fl (80.0-96.0); PLATELET COUNT, AUTOMATED 264 10^3/uL (150-450); RED BLOOD COUNT 4.78 10^6/uL (4.00-5.40); RED CELL DISTRIBUTION WIDTH 20.4 % (11.5-14.5); WHITE BLOOD COUNT 8.1 10^3/uL (4.0-10.0)
[2018-04-11 06:02] LABS: ANION GAP 8 MEQ/L (8-16); BLOOD UREA NITROGEN 21 MG/DL (7-18); CALCIUM LEVEL 9.1 MG/DL (8.8-10.2); CARBON DIOXIDE LEVEL 28 MEQ/L (21-32); CHLORIDE LEVEL 106 MEQ/L (98-107); CREATININE FOR GFR 1.15 MG/DL (0.55-1.30); GLOMERULAR FILTRATION RATE 48.2 (>32); GLUCOSE, FASTING 248 MG/DL (70-100); POTASSIUM SERUM 4.2 MEQ/L (3.5-5.1); SODIUM LEVEL 142 MEQ/L (136-145)
[2018-04-11] MEDS: HEPARIN SOD (PORCINE) 5000 UNITS/ML VIAL SQ (06:08)
[2018-04-11 09:11] LABS: BEDSIDE GLUCOSE 382 MG/DL (83-110)
[2018-04-11] MEDS: HumaLOG INSULIN (NovoLOG) PER UNIT SC (09:14)
[2018-04-11] MEDS: FAMOTIDINE 20 MG TAB PO (09:15)
[2018-04-11] MEDS: CLOPIDOGREL 75 MG TAB PO (09:15)
[2018-04-11] MEDS: METOPROLOL TART 50 MG TAB PO (09:15)
[2018-04-11] MEDS: ISOSORBIDE DIN. (ISORDIL) 20 MG TAB PO (09:16)
[2018-04-11] MEDS: FUROSEMIDE 40 MG TAB PO (09:16)
[2018-04-11] MEDS: ASPIRIN 81 MG ENTERIC TAB PO (09:16)
[2018-04-11] MEDS: LISINOPRIL 10 MG TAB PO (09:16)
== END 2018-04-11 10:46 | disposition home or self-care (01) | DRG 103 ==
LOC: M ED 19:54 → M ED INP 21:00 → M PCU 23:48
DX: G43.809 Other migraine, not intractable, without status migrainosus (principal); G45.9 Transient cerebral ischemic attack, unspecified; I50.42 Chronic combined systolic (congestive) and diastolic (congestive) heart failure; I13.0 Hypertensive heart and chronic kidney disease with heart failure and stage 1 through stage 4 chronic kidney disease, or unspecified chronic kidney disease; Z68.43 Body mass index [BMI] 50.0-59.9, adult; N18.3 Chronic kidney disease, stage 3 (moderate); E66.01 Morbid (severe) obesity due to excess calories; I16.0 Hypertensive urgency; I25.10 Atherosclerotic heart disease of native coronary artery without angina pectoris; E11.22 Type 2 diabetes mellitus with diabetic chronic kidney disease; E78.5 Hyperlipidemia, unspecified; K21.9 Gastro-esophageal reflux disease without esophagitis; Z79.82 Long term (current) use of aspirin; Z79.02 Long term (current) use of antithrombotics/antiplatelets; Z79.4 Long term (current) use of insulin; Z79.899 Other long term (current) drug therapy; Z88.1 Allergy status to other antibiotic agents; Z87.891 Personal history of nicotine dependence; Z95.9 Presence of cardiac and vascular implant and graft, unspecified

== ENCOUNTER 2018-07-10 05:56 | Inpatient (IN) | payer MEDICARE ==
[2018-07-10 06:41] LABS: BASO # 0.1 10^3/uL (0.0-0.2); BASO % 0.6 % (0.0-1.0); EOS # 0.4 10^3/uL (0.0-0.50); HEMATOCRIT 31.4 % (36.0-47.0); HEMOGLOBIN 8.5 g/dl (12.0-15.5); IMMATURE GRANULOCYTE % 1.2 % (0-3.0); LYMPH # 1.5 10^3/uL (1.5-4.5); LYMPH % 16.5 % (24.0-44.0); MEAN CORPUSCULAR HEMOGLOBIN 17.2 pg (27.0-33.0); MEAN CORPUSCULAR HGB CONC 27.1 g/dl (32.0-36.5); MEAN CORPUSCULAR VOLUME 63.4 fl (80.0-96.0); MONO # 1.1 10^3/uL (0.0-0.8); NEUTROPHILS # 5.9 10^3/uL (1.8-7.7); NEUTROPHILS % 65.7 % (36.0-66.0); PLATELET COUNT, AUTOMATED 266 10^3/uL (150-450); RED BLOOD COUNT 4.95 10^6/uL (4.00-5.40); RED CELL DISTRIBUTION WIDTH 19.9 % (11.5-14.5)
[2018-07-10 06:54] LABS: ANION GAP 5 MEQ/L (8-16); BLOOD UREA NITROGEN 19 MG/DL (7-18); CALCIUM LEVEL 8.5 MG/DL (8.8-10.2); CARBON DIOXIDE LEVEL 28 MEQ/L (21-32); CHLORIDE LEVEL 109 MEQ/L (98-107); CREATININE FOR GFR 1.04 MG/DL (0.55-1.30); GLOMERULAR FILTRATION RATE 54.1 (>32); GLUCOSE, FASTING 114 MG/DL (70-100); POTASSIUM SERUM 4.4 MEQ/L (3.5-5.1); SODIUM LEVEL 142 MEQ/L (136-145)
[2018-07-10 06:59] LABS: LACTIC ACID SEPSIS PROTOCOL 1.4 MMOL/L (0.4-2.0)
[2018-07-10 07:26] LABS: ABG BASE EXCESS 0.9 (-2.0-2.0); ABG HCO3 24.8 MEQ/L (22.0-26.0); ABG O2 SATURATION 95.7 % (95.0-99.0); ABG PARTIAL PRESSURE CO2 36.5 mmHg (35.0-45.0); ABG STANDARD HCO3 25.3 MEQ/L (22.0-26.0); ABG TOTAL CO2 25.9 MEQ/L (23.0-31.0)
[2018-07-10] MEDS: IPRATROPIUM 0.5MG/ALBUTEROL 2.5MG INH SOL UD 3ML (DUONEB)(J7620) NEB (07:27)
[2018-07-10] MEDS: LISINOPRIL 10 MG TAB PO ×2 (07:40→09:00)
[2018-07-10] MEDS: METOPROLOL TART 50 MG TAB PO ×3 (07:40→21:00)
[2018-07-10 07:44] LABS: CPK CREATINE PHOSPHOKINASE 39 U/L (26-192); MB/CK RELATIVE INDEX 3.08 (< OR =4); NT-PRO BNP 654 PG/ML (<450); TROPONIN I < 0.02 NG/ML (< 0.10)
[2018-07-10] MEDS ORDERED: ISOVUE-370 76% 100ML VIAL (Q9967) As Ordered (07:44)
[2018-07-10] MEDS: FUROSEMIDE 40 MG/4 ML VIAL (J1940) IV ×2 (09:50→17:50)
[2018-07-10] MEDS ORDERED: GLUCAGON FOR INJ 1 MG VIAL (J1610) SC (10:15)
[2018-07-10] MEDS ORDERED: GLUCOSE 4 GM CHEW TABLET PO (10:15)
[2018-07-10] MEDS ORDERED: DEXTROSE 50% 50 ML SYRINGE IV (10:15)
[2018-07-10 11:57] LABS: BEDSIDE GLUCOSE 141 MG/DL (83-110)
[2018-07-10] MEDS: HumaLOG INSULIN (NovoLOG) PER UNIT SC ×3 (12:08→21:00)
[2018-07-10 12:29] LABS: CPK CREATINE PHOSPHOKINASE 41 U/L (26-192); MB/CK RELATIVE INDEX 2.93 (< OR =4); TROPONIN I < 0.02 NG/ML (< 0.10)
[2018-07-10] MEDS ORDERED: SLF 3 ML SYR IV (14:15)
[2018-07-10] MEDS: HEPARIN SOD (PORCINE) 5000 UNITS/ML VIAL SC ×2 (14:53→21:13)
[2018-07-10] MEDS: FAMOTIDINE 20 MG TAB PO ×2 (14:54→21:13)
[2018-07-10] MEDS: ISOSORBIDE DIN. (ISORDIL) 20 MG TAB PO ×2 (14:54→21:14)
[2018-07-10] MEDS: ASPIRIN 81 MG ENTERIC TAB PO (14:54)
[2018-07-10] MEDS: CLOPIDOGREL 75 MG TAB PO (14:54)
[2018-07-10 16:52] LABS: BEDSIDE GLUCOSE 201 MG/DL (83-110)
[2018-07-10 18:34] LABS: CPK CREATINE PHOSPHOKINASE 47 U/L (26-192); MB/CK RELATIVE INDEX 3.19 (< OR =4); TROPONIN I 0.02 NG/ML (< 0.10)
[2018-07-10] MEDS: SIMVASTATIN 40 MG TAB PO (21:13)
[2018-07-10] MEDS: SLF 3 ML SYR IV (21:16)
[2018-07-10 21:37] LABS: BEDSIDE GLUCOSE 225 MG/DL (83-110)
[2018-07-11] MEDS: HEPARIN SOD (PORCINE) 5000 UNITS/ML VIAL SC (06:01)
[2018-07-11] MEDS: SLF 3 ML SYR IV ×2 (06:01→13:27)
[2018-07-11 07:30] LABS: BEDSIDE GLUCOSE 226 MG/DL (83-110)
[2018-07-11] MEDS: CLOPIDOGREL 75 MG TAB PO (08:11)
[2018-07-11] MEDS: FAMOTIDINE 20 MG TAB PO (08:11)
[2018-07-11] MEDS: ASPIRIN 81 MG ENTERIC TAB PO (08:11)
[2018-07-11] MEDS: HumaLOG INSULIN (NovoLOG) PER UNIT SC ×2 (08:14→12:07)
[2018-07-11] MEDS: ISOSORBIDE DIN. (ISORDIL) 20 MG TAB PO (09:35)
[2018-07-11] MEDS: LISINOPRIL 10 MG TAB PO (09:35)
[2018-07-11] MEDS: METOPROLOL TART 50 MG TAB PO (09:36)
[2018-07-11] MEDS: FUROSEMIDE 40 MG/4 ML VIAL (J1940) IV (09:37)
[2018-07-11 09:39] LABS: HEMATOCRIT 30.5 % (36.0-47.0); HEMOGLOBIN 8.1 g/dl (12.0-15.5); MEAN CORPUSCULAR HEMOGLOBIN 16.9 pg (27.0-33.0); MEAN CORPUSCULAR HGB CONC 26.6 g/dl (32.0-36.5); MEAN CORPUSCULAR VOLUME 63.7 fl (80.0-96.0); PLATELET COUNT, AUTOMATED 264 10^3/uL (150-450); RED BLOOD COUNT 4.79 10^6/uL (4.00-5.40); RED CELL DISTRIBUTION WIDTH 20.1 % (11.5-14.5); WHITE BLOOD COUNT 8.7 10^3/uL (4.0-10.0)
[2018-07-11 09:56] LABS: ANION GAP 5 MEQ/L (8-16); BLOOD UREA NITROGEN 20 MG/DL (7-18); CALCIUM LEVEL 8.9 MG/DL (8.8-10.2); CARBON DIOXIDE LEVEL 31 MEQ/L (21-32); CHLORIDE LEVEL 103 MEQ/L (98-107); GLOMERULAR FILTRATION RATE 41.9 (>32); GLUCOSE, FASTING 357 MG/DL (70-100); MAGNESIUM LEVEL 2.2 MG/DL (1.8-2.4); POTASSIUM SERUM 4.1 MEQ/L (3.5-5.1); SODIUM LEVEL 139 MEQ/L (136-145)
[2018-07-11 11:23] LABS: BEDSIDE GLUCOSE 262 MG/DL (83-110)
[2018-07-11] MEDS ORDERED: HEPARIN SOD (PORCINE) 5000 UNITS/ML VIAL SC (18:00)
[2018-07-11] MEDS ORDERED: LEVEMIR (INSULIN DETEMIR) 1 UNITS/0.01ML SC (21:00)
== END 2018-07-11 14:04 | disposition home or self-care (01) | DRG 291 ==
LOC: M ED 05:56 → M ED INP 10:07 → M PCU 13:52
DX: I13.0 Hypertensive heart and chronic kidney disease with heart failure and stage 1 through stage 4 chronic kidney disease, or unspecified chronic kidney disease (principal); I50.33 Acute on chronic diastolic (congestive) heart failure; Z68.43 Body mass index [BMI] 50.0-59.9, adult; N18.3 Chronic kidney disease, stage 3 (moderate); E66.01 Morbid (severe) obesity due to excess calories; I25.10 Atherosclerotic heart disease of native coronary artery without angina pectoris; E11.22 Type 2 diabetes mellitus with diabetic chronic kidney disease; E78.5 Hyperlipidemia, unspecified; K21.9 Gastro-esophageal reflux disease without esophagitis; Z79.82 Long term (current) use of aspirin; Z79.02 Long term (current) use of antithrombotics/antiplatelets; Z79.4 Long term (current) use of insulin; Z79.899 Other long term (current) drug therapy; Z86.73 Personal history of transient ischemic attack (TIA), and cerebral infarction without residual deficits; Z88.1 Allergy status to other antibiotic agents; Z87.891 Personal history of nicotine dependence; Z91.14 Patient's other noncompliance with medication regimen; Z95.9 Presence of cardiac and vascular implant and graft, unspecified

== ENCOUNTER → 2018-12-17 | Outpatient (REF) ==
[~2018-12-17] MED LIST changes: -/INSU7030 SC; +ALBU17IN INH; +ALEV220T26 PO; -ASPI1TAB PO; +ASPI81TA26 PO; +ASPI81TAEC PO; +ELIQ2.5T PO; +ELIQ5TAB PO; +FURO20TA2 PO; +FURO40TA2 PO; +LASI20TA3 PO; -LASI40TA PO; +LASI40TA9 PO; +METO1TAB87 PO; +NITR4TASL SL; +NOVO1INJ4 SC; +RANI1TAB38 PO
[2018-12-17 08:45] LABS: CALCIUM LEVEL 8.5 MG/DL (8.8-10.2); CREATININE FOR GFR 1.66 MG/DL (0.55-1.30); GLOMERULAR FILTRATION RATE 31.5 (>32); POTASSIUM SERUM 4.3 MEQ/L (3.5-5.1)
== END ==
LOC: SKLAB3 07:00
PROVIDERS: ATTEND Internal Medicine
DX: N18.9 Chronic kidney disease, unspecified (principal); I50.9 Heart failure, unspecified

== ENCOUNTER → 2018-12-18 | Outpatient (REF) ==
--- NOTE | 2018-12-18 19:19 | REP ---
RIGHT FIRST TOE: Four views of the right 1st toe are performed. There is soft tissue swelling of the toe. There appears to be ulceration of the distal toe. The underlying distal phalanx demonstrates erosion and destruction suggesting osteomyelitis. There are mild degenerative changes at the metatarsal phalangeal and interphalangeal joints. A linear metallic structure seen along the superficial plantar soft tissues of the mid foot either in or on the soft tissues, approximately 10 mm in length. IMPRESSION: Soft tissue ulceration of the right great toe with underlying destruction of the distal aspect of the distal phalanx compatible with osteomyelitis. Linear metallic structure in or on the plantar soft-tissues of the midfoot measuring 10 mm in length. Electronically Signed by Parish Olsen MD 12/21/2018 04:17 P
== END ==
LOC: SKLAB3 15:24
PROVIDERS: ATTEND Internal Medicine
DX: S90.211A Contusion of right great toe with damage to nail, initial encounter (principal); X58.XXXA Exposure to other specified factors, initial encounter; Y92.89 Other specified places as the place of occurrence of the external cause

== ENCOUNTER → 2018-12-21 | Outpatient (REF) | payer MEDICARE ==
--- NOTE | 2018-12-21 19:32 | REP ---
REASON: Assess for foreign body. Seen in the plantar soft tissue at the level of the mid foot there is a linear radiodensity which measures a centimeter in length and also seen on the AP and oblique views superimposed over the bases of the 1st and 2nd metatarsals depending on the view. This was not present on the prior exam of 11/07/2010. The bones are markedly demineralized. Chronic changes are seen throughout the foot. There has been osteolysis of the tip of the distal phalanx of the 1st digit since the last exam. Large plantar and retrocalcaneal heel spurs are again noted. IMPRESSION: 1. Soft tissue foreign body is suspected as described above. Correlate clinically. 2. Osteolysis involving the tip of the 1st digit of uncertain etiology. Certain, osteomyelitis can not be ruled out by this exam. Clinical correlation as necessary. When compared to the prior examination of 12/18/2018 which was toes only the appearance of this finding is different only in its technical appearance and there is no bandage on the area today and the examination today was not obtained portably. 3. Other findings as described above. Electronically Signed by Darryl Pierce DO 12/22/2018 04:20 P
== END ==
LOC: M RAD 15:50
PROVIDERS: ATTEND Internal Medicine
DX: L03.115 Cellulitis of right lower limb (principal)

== ENCOUNTER → 2018-12-21 | Outpatient (REF) ==
[2018-12-21 11:35] LABS: BASO # 0.1 10^3/uL (0.0-0.2); BASO % 0.7 % (0.0-1.0); EOS # 0.5 10^3/uL (0.0-0.50); EOS % 5.3 % (0.0-3.0); HEMATOCRIT 32.4 % (36.0-47.0); HEMOGLOBIN 8.6 g/dl (12.0-15.5); LYMPH # 1.4 10^3/uL (1.5-4.5); LYMPH % 13.6 % (24.0-44.0); MEAN CORPUSCULAR HEMOGLOBIN 16.2 pg (27.0-33.0); MEAN CORPUSCULAR HGB CONC 26.5 g/dl (32.0-36.5); MONO # 1.1 10^3/uL (0.0-0.8); MONO % 11.1 % (0.0-5.0); NEUTROPHILS # 6.8 10^3/uL (1.8-7.7); NEUTROPHILS % 68.7 % (36.0-66.0); PLATELET COUNT, AUTOMATED 429 10^3/uL (150-450); RED BLOOD COUNT 5.31 10^6/uL (4.00-5.40); WHITE BLOOD COUNT 9.9 10^3/uL (4.0-10.0)
[2018-12-21 11:57] LABS: ERYTHROCYTE SEDIMENTATION RATE 62 mm/hr (0-30)
== END ==
LOC: SKLAB3 09:34
PROVIDERS: ATTEND Internal Medicine
DX: D64.9 Anemia, unspecified (principal); I10 Essential (primary) hypertension; E11.9 Type 2 diabetes mellitus without complications; I25.10 Atherosclerotic heart disease of native coronary artery without angina pectoris

== ENCOUNTER → 2018-12-22 | Outpatient (REF) | LOC: SKLAB3 08:30 | PROVIDERS: ATTEND Internal Medicine | DX: R22.41 Localized swelling, mass and lump, right lower limb (principal); M79.674 Pain in right toe(s) ==

== ENCOUNTER → 2018-12-23 | Outpatient (CLI) | payer MEDICARE ==
--- NOTE | 2018-12-23 12:33 | REP ---
MRI RIGHT FOOT, WITHOUT CONTRAST: Multiple sequences obtained in the axial, coronal, and sagittal planes. Correlation is made with radiographs 12/21/2018. Abnormal signal is seen in the 1st distal phalanx. This at the site of apparent erosion and destruction of the distal aspect of that distal phalanx by plain films. Findings are compatible with osteomyelitis. The other osseous structures of the foot do not demonstrate evidence of occult fracture or osteomyelitis. Minimal subchondral marrow edema is seen in several tarsal bones, likely due to mild arthritic changes at the intertarsal joints. There is diffuse moderate subcutaneous soft tissue edema predominantly dorsally, with possible cellulitis. No abscess collection is seen. Flexor and extensor tendons appear intact without evidence of significant tenosynovitis. Metallic foreign body causes blooming artifact in the plantar soft tissues of the mid foot. A small amount of fluid surrounds the talus. The tendinous ligaments of the hind foot appear intact. IMPRESSION: Findings compatible with osteomyelitis of the 1st distal phalanx. Diffuse soft tissue edema predominately subcutaneously in the dorsal soft tissues of the foot, with probably associated cellulitis. No abscess collection is seen. Metallic foreign body in the plantar soft tissues of the mid foot. Electronically Signed by Parish Olsen MD 12/25/2018 11:50 A
== END ==
LOC: M RAD 07:29
PROVIDERS: ATTEND Nurse Practitioner Family
DX: M86.071 Acute hematogenous osteomyelitis, right ankle and foot (principal); R60.0 Localized edema; Z18.9 Retained foreign body fragments, unspecified material

== ENCOUNTER → 2018-12-24 | Outpatient (REF) ==
[2018-12-24 13:10] LABS: APPEARANCE, URINE CLEAR (CLEAR); BACTERIA, URINE AUTO NEGATIVE (NEGATIVE); BILIRUBIN, URINE AUTO NEGATIVE (NEGATIVE); BLOOD, URINE BLOOD 2+ (NEGATIVE); COLOR, URINE YELLOW (YELLOW); GLUCOSE, URINE (UA) AUTO 1+ mg/dL (NEGATIVE); KETONE, URINE AUTO NEGATIVE (NEGATIVE); LEUKOCYTE ESTERASE, URINE AUTO TRACE (NEGATIVE); MUCUS, URINE SMALL (NEGATIVE); NITRITE, URINE AUTO NEGATIVE (NEGATIVE); PROTEIN, URINE AUTO NEGATIVE (NEGATIVE); RBC, URINE AUTO 84 /HPF (0-3); SPECIFIC GRAVITY URINE AUTO 1.009 (1.002-1.035); SQUAMOUS EPITHELIAL CELL UR AU 0 /HPF (0-6); UROBILINOGEN, URINE AUTO 0.2 mg/dL (0.0-2.0); WBC, URINE AUTO 10 /HPF (0-3)
[2018-12-24 13:31] LABS: HEMATOCRIT 32.1 % (36.0-47.0); HEMOGLOBIN 8.5 g/dl (12.0-15.5); MEAN CORPUSCULAR HEMOGLOBIN 16.1 pg (27.0-33.0); MEAN CORPUSCULAR HGB CONC 26.5 g/dl (32.0-36.5); MEAN CORPUSCULAR VOLUME 60.8 fl (80.0-96.0); PLATELET COUNT, AUTOMATED 374 10^3/uL (150-450); RED BLOOD COUNT 5.28 10^6/uL (4.00-5.40); WHITE BLOOD COUNT 6.7 10^3/uL (4.0-10.0)
== END ==
LOC: SKLAB3 11:57
PROVIDERS: ATTEND Internal Medicine
DX: K62.5 Hemorrhage of anus and rectum (principal)

== ENCOUNTER → 2018-12-27 | Outpatient (REF) | payer MEDICARE | LOC: SKLAB3 14:39 | PROVIDERS: ATTEND Internal Medicine | DX: Z12.11 Encounter for screening for malignant neoplasm of colon (principal) ==

== ENCOUNTER → 2018-12-28 | Outpatient (REF) ==
[2018-12-28 07:50] LABS: MEAN CORPUSCULAR HEMOGLOBIN 16.4 pg (27.0-33.0); MEAN CORPUSCULAR HGB CONC 26.7 g/dl (32.0-36.5); MEAN CORPUSCULAR VOLUME 61.5 fl (80.0-96.0); PLATELET COUNT, AUTOMATED 275 10^3/uL (150-450); RED BLOOD COUNT 4.88 10^6/uL (4.00-5.40); WHITE BLOOD COUNT 5.8 10^3/uL (4.0-10.0)
[2018-12-28 10:27] LABS: C REACTIVE PROTEIN QUANTITATIV 1.48 MG/DL (0.00-0.30); CALCIUM LEVEL 8.4 MG/DL (8.8-10.2); CREATININE FOR GFR 1.24 MG/DL (0.55-1.30); GLOMERULAR FILTRATION RATE 44.1 (>32); POTASSIUM SERUM 4.7 MEQ/L (3.5-5.1)
== END ==
LOC: SKLAB3 07:00
PROVIDERS: ATTEND Internal Medicine
DX: M86.9 Osteomyelitis, unspecified (principal)

== ENCOUNTER → 2019-01-05 | Outpatient (REF) | payer MEDICAID, MEDICARE ==
[~2019-01-05] MED LIST changes: +ASPI81TA85 PO; +ATOR40TA75 PO; +CEPH25SS PO; +CLOP75TA2 PO; +COLA100C5 PO; +FERR1TAB8 PO; +HUMA75IN2 SC; +METO25TA4 PO; +RANI150T14 PO; +SITA50TAB PO; +SPIR-10 PO
--- NOTE | 2019-01-05 16:01 | REP ---
Pelvic ultrasound transabdominal imaging: The bladder is not non filled. The uterus is retroverted and atrophic size measuring 5.4 cm craniocaudad length by 2.7 cm AP. The uterus cannot be optimally visualized on transverse imaging therefore the transverse diameter cannot be measured. The endometrium is thickened for a postmenopausal female measuring 8.3 mm. Neither the right or left ovaries could be identified. Impression: Limited ultrasound evaluation. The ovaries could not be identified. There are limited views of the uterus. The bladder is not filled. There are no endovaginal images. The endometrium is thickened measuring up to 8.3 mm. Electronically Signed by Parish Bravo MD 01/05/2019 03:52 P
== END ==
LOC: M RAD 11:35 → EDSTATUS 12:30
PROVIDERS: ATTEND Nurse Practitioner Family
DX: N95.0 Postmenopausal bleeding (principal)

== ENCOUNTER → 2019-01-08 | Outpatient (REF) ==
[~2019-01-08] MED LIST changes: -ASPI81TA85 PO; -ATOR40TA75 PO; -CEPH25SS PO; -CLOP75TA2 PO; -COLA100C5 PO; -FERR1TAB8 PO; -HUMA75IN2 SC; -METO25TA4 PO; -RANI150T14 PO; -SITA50TAB PO; -SPIR-10 PO
== END ==
LOC: SKLAB3 11:54
PROVIDERS: ATTEND Internal Medicine
DX: K92.1 Melena (principal)

== ENCOUNTER → 2019-01-11 | Outpatient (REF) ==
[2019-01-11 08:12] LABS: HEMOGLOBIN 8.6 g/dl (12.0-15.5); MEAN CORPUSCULAR HEMOGLOBIN 16.2 pg (27.0-33.0); MEAN CORPUSCULAR HGB CONC 26.1 g/dl (32.0-36.5); PLATELET COUNT, AUTOMATED 299 10^3/uL (150-450); RED BLOOD COUNT 5.32 10^6/uL (4.00-5.40); WHITE BLOOD COUNT 6.8 10^3/uL (4.0-10.0)
[2019-01-11 08:39] LABS: CALCIUM LEVEL 9.2 MG/DL (8.8-10.2); CREATININE FOR GFR 1.17 MG/DL (0.55-1.30); GLOMERULAR FILTRATION RATE 47.1 (>32); POTASSIUM SERUM 4.2 MEQ/L (3.5-5.1)
[2019-01-11 08:42] LABS: CHOLESTEROL RISK RATIO 2.923 (<5); PERCENT SATURATION 3.3 % (13.2-45.0)
[2019-01-11 08:47] LABS: ERYTHROCYTE SEDIMENTATION RATE 35 mm/hr (0-30)
== END ==
LOC: SKLAB3 07:00
PROVIDERS: ATTEND Internal Medicine
DX: M86.9 Osteomyelitis, unspecified (principal)

== ENCOUNTER → 2019-01-15 | Outpatient (REF) | LOC: SKLAB3 13:12 | PROVIDERS: ATTEND Internal Medicine | DX: G47.30 Sleep apnea, unspecified (principal) ==

== ENCOUNTER → 2019-02-01 | Outpatient (REF) ==
[2019-02-04 00:06] LABS: HEMOGLOBIN A 98.4 % (96.4-98.8); HEMOGLOBIN A2 1.6 % (1.8-3.2); HGB SOLUBILITY Negative (Negative)
== END ==
LOC: SKLAB3 07:42
DX: D56.9 Thalassemia, unspecified (principal)

== ENCOUNTER 2019-03-08 05:35 | Inpatient (IN) | payer MEDICARE, MEDICAID ==
[~2019-03-08] VITALS: Ht 170.2 cm; Wt 134.6 kg
[2019-03-08 06:55] LABS: BASO # 0.1 10^3/uL (0.0-0.2); BASO % 0.4 % (0.0-1.0); EOS # 0.4 10^3/uL (0.0-0.50); EOS % 3.8 % (0.0-3.0); HEMATOCRIT 34.2 % (36.0-47.0); HEMOGLOBIN 9.6 g/dl (12.0-15.5); LYMPH # 1.5 10^3/uL (1.5-4.5); LYMPH % 13.3 % (24.0-44.0); MEAN CORPUSCULAR HEMOGLOBIN 18.7 pg (27.0-33.0); MEAN CORPUSCULAR HGB CONC 28.1 g/dl (32.0-36.5); MEAN CORPUSCULAR VOLUME 66.5 fl (80.0-96.0); MONO # 1.1 10^3/uL (0.0-0.8); MONO % 9.7 % (0.0-5.0); NEUTROPHILS # 8.1 10^3/uL (1.8-7.7); NEUTROPHILS % 72.3 % (36.0-66.0); PLATELET COUNT, AUTOMATED 327 10^3/uL (150-450); RED BLOOD COUNT 5.14 10^6/uL (4.00-5.40); WHITE BLOOD COUNT 11.2 10^3/uL (4.0-10.0)
[2019-03-08 07:04] LABS: INR 1.28; PROTHROMBIN TIME 15.7 SECONDS (11.8-14.0)
[2019-03-08 07:05] LABS: PARTIAL THROMBOPLASTIN TIME 35.9 SECONDS (25.0-38.4)
[2019-03-08 07:13] LABS: CALCIUM LEVEL 9.3 MG/DL (8.8-10.2); CREATININE FOR GFR 1.61 MG/DL (0.55-1.30); GLOMERULAR FILTRATION RATE 32.6 (>32); POTASSIUM SERUM 4.9 MEQ/L (3.5-5.1)
[2019-03-08] MEDS ORDERED: HUMA75IN2 SC (08:19)
[2019-03-08] MEDS ORDERED: FERR1TAB8 PO (08:19)
[2019-03-08] MEDS ORDERED: ELIQ2.5T PO (08:19)
[2019-03-08] MEDS ORDERED: ATOR40TA75 PO (08:19)
[2019-03-08] MEDS ORDERED: METO25TA4 PO (08:19)
[2019-03-08] MEDS ORDERED: ISOS20TAB PO (08:19)
[2019-03-08] MEDS ORDERED: RANI150T14 PO (08:19)
[2019-03-08] MEDS ORDERED: SPIR-10 PO (08:19)
[2019-03-08] MEDS ORDERED: COLA100C5 PO (08:19)
[2019-03-08] MEDS ORDERED: SITA50TAB PO (08:19)
[2019-03-08] MEDS ORDERED: ASPI81TA85 PO (08:19)
[2019-03-08] MEDS ORDERED: FURO20TA2 PO (08:19)
[2019-03-08] MEDS ORDERED: ACETAMINOPHEN TAB 650MG DOSE (2X325MG) PO PRN (08:30)
[2019-03-08] MEDS ORDERED: TRANEXAMIC ACID 650 MG PO ONE (08:30)
--- NOTE | 2019-03-08 08:30 | REP ---
Pelvic ultrasound, emergency room request for vaginal bleeding: The study is performed with transabdominal and endovaginal imaging. Balloon. Comparison is 01/05/2019. The bladder is empty resulting in limited visualization of the uterus. The ovaries could not be identified. The uterus measures 7.5 the centimeters cranial caudad by 5.0 cm AP up. The transverse images are suboptimal and the transverse diameter cannot be measured. The endometrium is markedly thickened for a postmenopausal female, today measuring up to 13.7 mm. This has significantly increased from the prior study where it measured 8.3 mm. No definite free fluid in the cul-de-sac. Impression: Extremely limited study because of patient body habitus, bowel gas interference, the patient unable to left hips. The transverse images are suboptimal in transverse diameter of the ureters cannot be determined. The endometrium is markedly thickened measuring up to 14.7 mm. It has increased from the prior study where it measured 8.3 mm. Gynecologic follow-up for endometrial thickness might be considered. Electronically Signed by Parish Bravo MD 03/08/2019 08:22 A
--- NOTE | 2019-03-08 10:29 | REP ---
Chest, two AP views with the patient semi upright: Comparison is 12/07/2018. There is chronic cardiomegaly, unchanged. Lung esquivel otherwise clear and unchanged. The skyler, mediastinum, skeletal structures are unremarkable. Impression: Chronic cardiomegaly. Lung esquivel are clear. Electronically Signed by Parish Bravo MD 03/08/2019 08:34 A
[2019-03-08 12:20] LABS: HEMOGLOBIN 8.7 g/dl (12.0-15.5)
[2019-03-08 20:23] LABS: HEMATOCRIT 35.3 % (36.0-47.0); HEMOGLOBIN 10.1 g/dl (12.0-15.5)
--- NOTE | 2019-03-08 20:45 | ECGEPIP ---
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
--- NOTE | 2019-03-08 20:50 | HPEPDOC ---
[facility] Medical History & Physical Date of Admission Mar 08, 2019 Date of Service: Mar 08, 2019 History and Physical CHIEF COMPLAINT: vaginal bleeding with clots, dizziness x 2days HISTORY OF PRESENTING ILLNESS: The patient is an 83-year-old female with a past medical history significant for coronary artery disease, status post cardiac stent, diastolic heart failure, hypertension, insulin-dependent diabetes, dyslipidemia, transient ischemic attack (TIA), chronic kidney disease, morbid obesity, gastroesophageal reflux d isease (GERD), AFib on eliquis since december 2018, vaginal bleed which resolved on its own without intervention in December 2018,presented to [facility] ER with2 day history of vaginal bleeding with large baseball-sized clots associated with dizziness, weakness, sob, dysuria, and abdominal cramping like "menstrual cramps." She denies any chest pain, pressure, tightness, falls, near syncope, urinary urgency, frequency, flank pain, fever, chills, nausea, vomiting, abdominal pain, weight loss, weight loss changes in appetite, visual changes, ear discharge, ear pain, sore throat, dysphagia, odynophagia, upper weakness. She admits to b/l lower extremity weakness ,but stable using her walker at home. She feels cold all the time which is unchanged from baseline. In the ER, she refused gynecology consultation, but agreed to holding her eliquis for afib, vaginal ultrasound and blood transfusion. PAST MEDICAL HISTORY: Coronary artery disease, status post cardiac stents. Diastolic congestive heart failure. Hypertension. History of insulin-dependent type 2 diabetes. Dyslipidemia. History of transient ischemic attack (TIA) in 2017. Chronic kidney disease stage III. Morbid obesity. Gastroesophageal reflux disease. 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 SOCIAL HISTORY: The patient used to smoke one pack daily for 30 years; patient quit 25 years ago. Denied alcohol use. Denied recreational drug use. REVIEW OF SYSTEMS:12point systems review negative aside from (+)findings on HPI. PHYSICAL EXAMINATION: VITAL SIGNS pls see below GENERAL: Morbidly obese. Patient is alert, awake, oriented x 3 , answering questions appropriately. no use of accessory respiratory muscles. HEENT: Normocephalic, atraumatic. Extraocular motor grossly intact.anicteric sclera. no JVD. poor dentition dry mucus membranes CARDIOVASCULAR: Irregularly irregular, positive S1, S2. LUNGS: Very difficult to auscultate due to the body habitus. There are some mild crackles mainly in the lower base, and no wheeze is appreciated. Very diminished breath sounds. ABDOMEN: Soft, nontender. Bowel sounds present. obese. no rebound no guarding EXTREMITIES: Positive pitting edema. LABORATORY DATA,IMAGING STUDIES, MICROBIOLOGY: PLS SEE BELOW Pelvic ultrasound, emergency room request for vaginal bleeding: The study is performed with transabdominal and endovaginal imaging. Balloon. Comparison is 01/05/2019. The bladder is empty resulting in limited visualization of the uterus. The ovaries could not be identified. The uterus measures 7.5 the centimeters cranial caudad by 5.0 cm AP up. The transverse images are suboptimal and the transverse diameter cannot be measured. The endometrium is markedly thickened for a postmenopausal female, today measuring up to 13.7 mm. This has significantly increased from the prior study where it measured 8.3 mm. No definite free fluid in the cul-de-sac. Impression: Extremely limited study because of patient body habitus, bowel gas interference, the patient unable to left hips. The transverse images are suboptimal in transverse diameter of the ureters cannot be determined. The endometrium is markedly thickened measuring up to 14.7 mm. It has increased from the prior study where it measured 8.3 mm. Gynecologic follow-up for endometrial thickness might be considered. Electronically Signed by Parish Bravo MD 03/08/2019 08:22 A Chest, two AP views with the patient semi upright: Comparison is 12/07/2018. There is chronic cardiomegaly, unchanged. Lung esquivel otherwise clear and unchanged. The skyler, mediastinum, skeletal structures are unremarkable. Impression: Chronic cardiomegaly. Lung esquivel are clear. Electronically Signed by Parish Bravo MD 03/08/2019 08:34 A DATE OF PROCEDURE: 12/09/2018 REFERRING PHYSICIAN: Dr. Neena Villatoro INDICATION: Cardiac dysrhythmias unspecified. HEIGHT: 67 inches. WEIGHT: 142 kg 2D MEASUREMENTS: Inferior vena cava: 2.9 cm Left atrium 3.9 cm Ventricular septum 1.21 cm Posterior wall 1.17 cm Left ventricle diastole 5.3 cm Inferior vena cava 2.4 cm DOPPLER MEASUREMENTS: Aortic valve velocity: 193 cm/s LVOT velocity: 99.6 cm/s LVOT VTI: 23.8 cm Very mild tricuspid regurgitation Trace pulmonic regurgitation. Pulmonary artery systolic pressure 43 mmHg. DESCRIPTION: Rhythm was atrial fibrillation with controlled ventricular re sponse. Frequent PVC's present. No pericardial effusion. This is a moderately technically difficult echocardiogram. This is a 2D, M-mode, color flow Doppler and pulse wave Doppler wave examination including mitral annular tissue Doppler. CONCLUSIONS: 1. Mild concentric left ventricular hypertrophy. Normal regional LV wall motion and wall thickening. Normal LV systolic function. LVEF 60% by visual estimate. Unable to determine LV diastolic function in the setting of atrial fibrillation 2. Moderate aortic valve sclerosis of a three-cuspid aortic valve. No aortic stenosis or regurgitation. 3. Mild left atrial tissue. 4. Suggestive of moderate elevation of pulmonary artery systolic pressure. 5. Mild mitral annular calcification. No mitral regurgitation. 6. Inferior vena cava dilatation (mild). DD: Haseeb Dotson MD [facility] 12/09/18 [id number] DS: PHANI 12/09/182102 <Electronically signed by Haseeb Dotson MD> 12/09/182102 DS2: ASSESSMENT AND PLAN: The patient is an 83-year-old female with a past medical history significant for coronary artery disease, status post cardiac stent, diastolic heart failure, hypertension, insulin-dependent diabetes, dyslipidemia, transient ischemic attack (TIA), chronic kidney disease, morbid obesity, gastroesophageal reflux disease (GERD), AFib on eliquis since december 2018, vaginal bleed which resolved on its own without intervention in December 2018,presented to [facility] ER with2 day history of vaginal bleeding with large baseball-sized clots associated with dizziness, weakness, sob, dysuria, and abdominal cramping like "menstrual cramps." She denies any chest pain, pressure, tightness, falls, near syncope, urinary urgency, frequency, flank pain, fever, chills, nausea, vomiting, abdominal pain, weight loss, weight loss changes in appetite, visual changes, ear discharge, ear pain, sore throat, dysphagia, odynophagia, upper weakness. She admits to b/l lower extremity weakness ,but stable using her walker at home. She feels cold all the time which is unchanged from baseline. In the ER, she refused gynecology consultation, but agreed to holding her eliquis for afib, vaginal ultrasound and blood transfusion. Vaginal Bleeding -refuses CLIENT SERVICE ADMINISTRATOR consultation -pelvic US concerning for endometrial carcinoma with thickened endometrium and postmenopausal bleed -transfused 2units due to lightheadedness, dizziness, and ongoing bleeding. -held antiplatelet, anticoagulation due to acute blood loss Acute Blood Loss Anemia -due to vaginal bleeding -refuses CLIENT SERVICE ADMINISTRATOR consultation -pelvic US concerning for endometrial carcinoma with thickened endometrium and postmenopausal bleed -transfused 2units due to lightheadedness, dizziness, and ongoing bleeding. -held antiplatelet, anticoagulation due to acute blood loss Symptomatic Anemia -due to Acute Blood Loss Anemia -due to vaginal bleeding -refuses CLIENT SERVICE ADMINISTRATOR consultation -pelvic US concerning for endometrial carcinoma with thickened endometrium and postmenopausal bleed -transfused 2units due to lightheadedness, dizziness, and ongoing bleeding. -held antiplatelet, anticoagulation due to acute blood loss Atrial fibrillation. -on metoprolol, for hypertension ,history of coronary artery disease, and rate control. -eliquis held due to active gi bleed -had extensive discussion about risk of embolic ischemic CVA Diastolic congestive heart failure -At her baseline, appears euvolemic - monitoring intake and output and daily weight. - on fluid restriction chronic kidney disease. stage III. -monitor urine output -strict i/o -avoid nephrotoxins and renally dose medications Coronary artery disease. -Status post stent times three. -held aspirin andvPlavix due to vaginal bleed requiring rbc transfusion -continued on Zocor and metoprolol. Hypertension. -On metoprolol, -on diuretic. History of TIA. -held aspirin and Plavix due to acute blood loss from vaginal bleeding. Morbid obesity. -BMI 46.5 complicating care - At baseline, prior to hospitalization, patient complained about moving with a wheelchair, but it has been getting very difficult for her. The patient will be evaluated by physical therapy after the patient is more medically stable. Patient has a hospital bed at home. Gastroesophageal reflux disease. -Continue proton pump inhibitor. Deep vein thrombosis (DVT) prophylaxis. compression stockings due to active vaginal bleed. prognosis: poor overall prognosis in light of significant co-morbid conditions, including h/o TIA, Afib, morbid obesity, endometrial hyperplasia vs malignancy. Vital Signs Vital Signs Date Time Temp Pulse Resp B/P (MAP) Pulse Ox O2 Delivery O2 Flow Rate FiO2 03/08/19 05:45 98.1 68 18 108/54 99 Room Air Laboratory Data Labs 24H Laboratory Tests 2 03/08/19 06:36: Immature Granulocyte % (Auto) 0.5, White Blood Count 11.2H, Red Blood Count 5.14, Hemoglobin 9.6L, Hematocrit 34.2L, Mean Corpuscular Volume 66.5L, Mean Corpuscular Hemoglobin 18.7L, Mean Corpuscular Hemoglobin Concent 28.1L, Red Cell Distribution Width 28.1H, Platelet Count 327, Neutrophils (%) (Auto) 72.3H, Lymphocytes (%) (Auto) 13.3L, Monocytes (%) (Auto) 9.7H, Eosinophils (%) (Auto) 3.8H, Basophils (%) (Auto) 0.4, Neutrophils # (Auto) 8.1H, Lymphocytes # (Auto) 1.5, Monocytes # (Auto) 1.1H, Eosinophils # (Auto) 0.4, Basophils # (Auto) 0.1, Nucleated Red Blood Cells % (auto) 0.0, Prothrombin Time 15.7H, Prothromb Time International Ratio 1.28, Activated Partial Thromboplast Time 35.9, Anion Gap 8, Glomerular Filtration Rate 32.6, Blood Urea Nitrogen 54H, Creatinine 1.61H, Sodium Level 141, Potassium Level 4.9, Chloride Level 106, Carbon Dioxide Level 27, Calcium Level 9.3 CBC/BMP Laboratory Tests 03/08/19 06:36 Red Blood Count 5.14, Mean Corpuscular Volume 66.5 L, Mean Corpuscular Hemoglobin 18.7 L, Mean Corpuscular Hemoglobin Concent 28.1 L, Red Cell Dist ribution Width 28.1 H, Neutrophils (%) (Auto) 72.3 H, Lymphocytes (%) (Auto) 13.3 L, Monocytes (%) (Auto) 9.7 H, Eosinophils (%) (Auto) 3.8 H, Basophils (%) (Auto) 0.4, Neutrophils # (Auto) 8.1 H, Lymphocytes # (Auto) 1.5, Monocytes # (Auto) 1.1 H, Eosinophils # (Auto) 0.4, Basophils # (Auto) 0.1, Calcium Level 9.3 Home Medications Scheduled Apixaban (Eliquis) 2.5 Mg Tablet, 2.5 MG PO BID Aspirin (Aspir 81) 81 Mg Tablet.dr, 81 MG PO DAILY Atorvastatin Calcium (Atorvastatin Calcium) 40 Mg Tablet, 40 MG PO QHS Docusate Sodium (Colace) 100 Mg Capsule, 100 MG PO DAILY Ferrous Sulfate (Ferrous Sulfate) 325 Mg Tablet, 325 MG PO DAILY Furosemide (Furosemide) 20 Mg Tablet, 60 MG PO BID 0800/1400 Insulin Lispro Protamin/Lispro (Humalog Mix 75-25 Kwikpen) 100 Unit/1 Ml Insuln.pen, 1 DOSE SC BID PER SLIDING SCALE BEFORE BREAKFAST AND DINNER Isosorbide Dinitrate (Isosorbide Dinitrate) 20 Mg Tablet, 20 MG PO BID Metoprolol Tartrate (Metoprolol Tartrate) 25 Mg Tablet, 12.5 MG PO BID Ranitidine HCl (Ranitidine HCl) 150 Mg Tablet, 150 MG PO BID Sitagliptin (Januvia) 50 Mg Tablet, 50 MG PO DAILY Spironolactone (Spironolactone) 25 Mg Tablet, 12.5 MG PO DAILY Allergies Coded Allergies: Quinolones (Verified Allergy, Intermediate, DIZZY, NAUSEA, HEART FLU TTERING, ITCHING ON HAND, 12/07/18) A-FIB/CHADSVASC A-FIB History Current/History of A-Fib/PAF?: Yes Current PO Anticoag Therapy: No Treatment Reason Anticoagulant not given: Current bleeding YASMINE GREENFIELD MD Mar 08, 2019 08:24
[2019-03-08] MEDS ORDERED: GLUCAGON FOR INJ 1 MG VIAL (J1610) SC PRN (21:00)
[2019-03-08] MEDS: METOPROLOL TART 12.5 MG PER 1/2 TAB PO SCH (21:00)
[2019-03-08] MEDS ORDERED: GLUCOSE 4 GM CHEW TABLET PO PRN (21:00)
[2019-03-08] MEDS ORDERED: DEXTROSE 50% 50 ML SYRINGE IV PRN (21:00)
[2019-03-08] MEDS: HumaLOG INSULIN (NovoLOG) PER UNIT SC SCH (21:00)
[2019-03-08] MEDS: ISOSORBIDE DIN. (ISORDIL) 20 MG TAB PO SCH (21:00)
[2019-03-08] MEDS: ATORVASTATIN 20 MG TAB PO SCH (21:00)
[2019-03-08 23:42] LABS: HEMATOCRIT 35.1 % (36.0-47.0); HEMOGLOBIN 10.5 g/dl (12.0-15.5)
[2019-03-08 23:44] VITALS: BP 141/63
[2019-03-09 02:35] VITALS: BP_SYST 133; BP_SYST 139; BP_DIAS 60; BP_DIAS 62
[2019-03-09 06:00] VITALS: BP_SYST 139; BP_SYST 141; BP_SYST 146; BP_DIAS 58; BP_DIAS 65; BP_DIAS 66
[2019-03-09 06:04] LABS: HEMATOCRIT 35.9 % (36.0-47.0); HEMOGLOBIN 10.7 g/dl (12.0-15.5); MEAN CORPUSCULAR HEMOGLOBIN 20.5 pg (27.0-33.0); MEAN CORPUSCULAR HGB CONC 29.8 g/dl (32.0-36.5); MEAN CORPUSCULAR VOLUME 68.6 fl (80.0-96.0); PLATELET COUNT, AUTOMATED 262 10^3/uL (150-450); RED BLOOD COUNT 5.23 10^6/uL (4.00-5.40); WHITE BLOOD COUNT 9.9 10^3/uL (4.0-10.0)
[2019-03-09 06:32] LABS: ALBUMIN 2.8 GM/DL (3.2-5.2); BILIRUBIN,TOTAL 0.7 MG/DL (0.2-1.0); CALCIUM LEVEL 8.9 MG/DL (8.8-10.2); CREATININE FOR GFR 1.43 MG/DL (0.55-1.30); GLOMERULAR FILTRATION RATE 37.4 (>32); POTASSIUM SERUM 4.6 MEQ/L (3.5-5.1); TOTAL PROTEIN 6.8 GM/DL (6.4-8.2)
[2019-03-09] MEDS: DOCUSATE SODIUM 100 MG CAP PO SCH (09:11)
[2019-03-09] MEDS: FUROSEMIDE 20 MG TAB PO SCH ×2 (09:11→18:33)
[2019-03-09] MEDS: METOPROLOL TART 12.5 MG PER 1/2 TAB PO SCH ×2 (09:11→22:11)
[2019-03-09] MEDS: FERROUS SULFATE 325MG TAB PO SCH (09:11)
[2019-03-09] MEDS: ISOSORBIDE DIN. (ISORDIL) 20 MG TAB PO SCH ×2 (09:11→22:11)
[2019-03-09] MEDS: HumaLOG INSULIN (NovoLOG) PER UNIT SC SCH ×4 (09:12→22:12)
[2019-03-09] MEDS: SPIRONOLACTONE 12.5MG PER 1/2 TABLET PO SCH (09:13)
[2019-03-09 12:13] LABS: HEMATOCRIT 34.7 % (36.0-47.0); HEMOGLOBIN 10.1 g/dl (12.0-15.5)
--- NOTE | 2019-03-09 13:28 | IPNPDOC ---
Text Note Date of Service The patient was seen on 03/09/19. NOTE S: patient passed 2 large clots this AM in briefs. States no dizziness or lig htheaded. states bleeding started when placed on eliquis at [facility]. patient states she was on plavix for stroke prevention but changed to eliquis because of pAFIB. She is a . MARIO VASC score 9 with 10% annual risk of CVA O: Vitals as below General: pleasant, AAOx3, NAD HRRR LCTA no W/R/R Ext no edema Abdomen soft, obese, NT ND A/P: Vaginal Bleeding - Patient is agreeable to [facility] [employer] Consult - case discussed with Dr Vidal -pelvic US concerning for endometrial carcinoma with thickened endometrium and postmenopausal bleed -transfused 2units due to lightheadedness, dizziness, and ongoing bleeding. -held antiplatelet, anticoagulation due to acute blood loss Acute Blood Loss Anemia -due to vaginal bleeding - transfused 2 unit pRBC Paroxysmal Atrial fibrillation. -on metoprolol, for hypertension ,history of coronary artery disease, and rate control. -eliquis held due to active gi bleed -had extensive discussion about 10% risk of embolic ischemic CVA without anticoagulation and risk of bleeding with anticoagulation. Patient states does NOT want eliquis or warfarin and wants to resume her plavix when bleeding stopped. She understands that plavix will not prevent CVA associated with afib. Diastolic congestive heart failure -At her baseline, appears euvolemic - monitoring intake and output and daily weight. - on fluid restriction chronic kidney disease. stage III. -monitor urine output -strict i/o -avoid nephrotoxins and renally dose medications Coronary artery disease. -Status post stent times three. -held aspirin andvPlavix due to vaginal bleed requiring rbc transfusion -continued on Zocor and metoprolol. Hypertension. -On metoprolol, -on diuretic. History of TIA. -held aspirin and Plavix due to acute blood loss from vaginal bleeding. Once blood count stable, will resume Morbid obesity. -BMI 46.5 complicating care - At baseline, prior to hospitalization, patient complained about moving with a wheelchair, but it has been getting very difficult for her. The patient will be evaluated by physical therapy after the patient is more medically stable. Patient has a hospital bed at home. Gastroesophageal reflux disease. -Continue proton pump inhibitor. DVT PROPHYLAXIS: SCD/ANGUS VS,Fishbone, I+O VS, Fishbone, I+O Laboratory Tests 03/08/19 18:13 03/08/19 23:25 03/09/19 05:40 Red Blood Count 5.23, Mean Corpuscular Volume 68.6 L, Mean Corpuscular Hemoglobin 20.5 L, Mean Corpuscular Hemoglobin Concent 29.8 L, Red Cell Distribution Width 27.3 H, Calcium Level 8.9, Aspartate Amino Transf (AST/SGOT) 11, Alanine Aminotransferase (ALT/SGPT) 13, Alkaline Phosphatase 109, Total Bilirubin 0.7, Total Protein 6.8, Albumin 2.8 L 03/09/19 12:00 Vital Signs Date Time Temp Pulse Resp B/P (MAP) Pulse Ox O2 Delivery O2 Flow Rate FiO2 03/09/19 09:11 112 139/58 03/08/19 23:44 97.3 18 96 03/08/19 07:00 Room Air I&O- Last 24 Hours up to 6 AM 03/09/19 06:00 Intake Total 325 ml Output Total 0 ml Balance 325 ml SIDNEY BRADFORD DO Mar 09, 2019 12:44
[2019-03-09 18:00] VITALS: BP 168/70
[2019-03-09 18:28] LABS: HEMATOCRIT 34.2 % (36.0-47.0); HEMOGLOBIN 9.9 g/dl (12.0-15.5)
[2019-03-09 22:00] VITALS: BP 122/60
[2019-03-09] MEDS: ATORVASTATIN 20 MG TAB PO SCH (22:11)
[2019-03-09 23:56] LABS: HEMATOCRIT 35.3 % (36.0-47.0); HEMOGLOBIN 10.3 g/dl (12.0-15.5)
[2019-03-10 02:00] VITALS: BP 132/59
[2019-03-10 06:00] VITALS: BP 145/56
[2019-03-10 06:26] LABS: HEMATOCRIT 37.7 % (36.0-47.0); HEMOGLOBIN 10.9 g/dl (12.0-15.5)
[2019-03-10 06:42] LABS: INR 1.29; PROTHROMBIN TIME 15.8 SECONDS (11.8-14.0)
[2019-03-10 06:58] LABS: ALBUMIN 2.8 GM/DL (3.2-5.2); BILIRUBIN,TOTAL 0.4 MG/DL (0.2-1.0); CALCIUM LEVEL 8.9 MG/DL (8.8-10.2); CREATININE FOR GFR 1.33 MG/DL (0.55-1.30); GLOMERULAR FILTRATION RATE 40.7 (>32); POTASSIUM SERUM 4.5 MEQ/L (3.5-5.1); TOTAL PROTEIN 7.1 GM/DL (6.4-8.2)
[2019-03-10] MEDS: SPIRONOLACTONE 12.5MG PER 1/2 TABLET PO SCH (08:12)
[2019-03-10] MEDS: HumaLOG INSULIN (NovoLOG) PER UNIT SC SCH ×2 (08:12→11:46)
[2019-03-10 08:14] VITALS: BP 145/56
[2019-03-10] MEDS: DOCUSATE SODIUM 100 MG CAP PO SCH (08:14)
[2019-03-10] MEDS: METOPROLOL TART 12.5 MG PER 1/2 TAB PO SCH (08:14)
[2019-03-10] MEDS: ISOSORBIDE DIN. (ISORDIL) 20 MG TAB PO SCH (08:14)
[2019-03-10] MEDS: FERROUS SULFATE 325MG TAB PO SCH (08:14)
[2019-03-10] MEDS: FUROSEMIDE 20 MG TAB PO SCH (08:15)
--- NOTE | 2019-03-10 08:48 | CR ---
DATE OF CONSULTATION: 03/09/2019 HISTORY: 83-year-old female with multiple medical problems who presents with heavy vaginal bleeding starting on 03/07/2019 prior to admission. Bleeding became heavy the following day with baseball sized clots. She felt lightheaded and weak with shortness of breath. She denied chest pain. She had an episode of bleeding and was admitted in 2019 which resolved on its own. She has a history of a-fib and has been on Eliquis for this problem. In the ER she was found to have a hemoglobin of 8.7 gram/dl. She was admitted for blood transfusion. Her bleeding did stop by hospital day #2. MEDICAL HISTORY: 1. Coronary artery disease status-post cardiac stents. 2. Congestive heart failure. 3. Hypertension. 4. Insulin dependant type 2 diabetes. 5. Dyslipidemia. 6. History of TIA 2016. 7. Chronic kidney disease. 8. Morbid obesity. 9. Gastroesophageal reflux disease. 10. Atrial fibrillation. 11. Vaginal bleeding. SURGICAL HISTORY: 1. 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 OBSTETRICAL HISTORY: Total of 8 term vaginal deliveries with one demise. SOCIAL HISTORY: She was a heavy smoker for 30 years. She quit 25-years ago. She denies alcohol or drug use. FAMILY HISTORY: Noncontributory. PHYSICAL EXAMINATION: Blood pressure 145/56, pulse 58, temperature 97.1, respiratory rate 18, she is in no apparent distress. Head and neck exam is normal. Lungs are clear. Heart regular rate and rhythm. Abdomen is nontender, nondistended and no masses, obese. Pelvic exam deferred. Extremities are nontender. Trace edema. LABS: Hemoglobin post-transfusion 10.9 grams/dL. IMAGING: Pelvic ultrasound reveals 13.7 cm endometrial stripe, otherwise normal sized uterus. ASSESSMENT: 83-year-old female with multiple medical problems presents with post-menopausal bleeding with thickened endometrial lining and symptomatic anemia. Differential diagnosis for bleeding includes hyperplasia or endometrial cancer as well as endometrial polyps for intracavitary uterine fibroids. Patient is stable without bleeding currently. Plan to see the patient in our office upon discharge for office base endometrial biopsy to assess for the possibility of endometrial cancer. The patient and her daughter are amenable to this approach. Once the diagnosis was confirmed the treatment options can be reviewed. Plan to arrange for this patient to be seen in our office as soon as possible upon discharge from the hospital.
[2019-03-10 10:00] VITALS: BP 137/64
[2019-03-10 14:00] VITALS: BP 148/62
[2019-03-10] MEDS ORDERED: CLOP75TA2 PO (15:54)
[2019-03-10] MEDS ORDERED: CEPH25SS PO (15:54)
--- NOTE | 2019-03-10 22:56 | DS.PDOC ---
Discharge Summary General Date of Admission Mar 08, 2019 at 08:17 Date of Discharge 03/10/19 Attending Physician: SIDNEY BRADFORD DO Specialist/Consultants Involve: LAWRENCE OLSON MD Discharge Summary PROCEDURES PERFORMED DURING STAY: transfused 2 unit pRBC. ADMITTING DIAGNOSES: same as discharge diagnosis DISCHARGE DIAGNOSES: 1. Vaginal Bleeding due to thickened endometrium 2. Acute Blood Loss Anemia -due to vaginal bleeding 3. Paroxysmal Atrial fibrillation. 4. hypertension with history of coronary artery disease. 5. history of Diastolic congestive heart failure with out exacerbation. 6. chronic kidney disease. stage III. 7. history of Coronary artery disease. 8. History of TIA. 9. Morbid obesity. COMPLICATIONS/CHIEF COMPLAINT: Vaginal Bleeding. HISTORY OF PRESENT ILLNESS: 83-year-old female with a past medical history significant for coronary artery disease, status post cardiac stent, diastolic heart failure, hypertension, insulin-dependent diabetes, dyslipidemia, transient ischemic attack (TIA), chronic kidney disease, morbid obesity, gastroesophageal reflux disease (GERD), AFib on eliquis since december 2018, vaginal bleed which reso lved on its own without intervention in December 2018,presented to [facility] ER with2 day history of vaginal bleeding with large baseball-sized clots associated with dizziness, weakness, sob, dysuria, and abdominal cramping like "menstrual cramps." See H&P for details HOSPITAL COURSE: Patient admitted and given blood transfusion. Her H/H remained stable. US of pelvis showed a thickened endometrium. STORE STANDARDS ASSOCIATE consulted and further work up to be performed as outpatient. Eliquis was stopped and discussed risk /benefit of NOAC and anticoagulation with patient and daughter including risk of bleeding and 10% annual risk of CVA associated with pAFIB. patient and daughter agree they do not want eliquis restarted but prefer to continue with plavix/asa. They will hold plavix/ASA until seen by STORE STANDARDS ASSOCIATE this week for endometrial biopsy. Once biopsy completed, then restart plavix/ASA. patient is being discharged in stable and improved condition. DISCHARGE MEDICATIONS: Please see below. ALLERGIES: Please see below. PHYSICAL EXAMINATION ON DISCHARGE: VITAL SIGNS: Please see below. General: pleasant, AAOx3, NAD HRRR LCTA no W/R/R Ext no edema but patient has left 3rd toe avulsed nail (caught earlier today on sock) with mild erythema to nail bed Abdomen soft, obese, NT ND LABORATORY DATA: Please see below. ACTIVITY: as tolerated DIET: cardiac DISCHARGE PLAN: discharge to [facility] DISCHARGE INSTRUCTIONS: Follow up with STORE STANDARDS ASSOCIATE in 2-3 days follow up with PCP in 5-7 days to repeat CBC and check anemia follow up with Dr Alex in 2-3 days for avulsed toe nail DISCHARGE CONDITION: stable TIME SPENT ON DISCHARGE: 35 minutes. Medication discharge clarification: Keflex po (not suspension) 500mg BID x 7 days Plavix 75 mg daily #30 pills Discussed eRX error with outpatient pharmacy Vital Signs/I&Os Vital Signs Date Time Temp Pulse Resp B/P (MAP) Pulse Ox O2 Delivery O2 Flow Rate FiO2 03/10/19 14:00 98.1 70 18 148/62 (90) 95 03/08/19 07:00 Room Air I&O- Last 24 Hours up to 6 AM 03/10/19 06:00 Intake Total 660 ml Output Total 720 ml Balance -60 ml Laboratory Data Labs 24H Laboratory Tests 2 03/10/19 05:56: Prothrombin Time 15.8H, Prothromb Time International Ratio 1.29, Anion Gap 5L, Glomerular Filtration Rate 40.7, Blood Urea Nitrogen 41H, Creatinine 1.33H, Sodium Level 141, Potassium Level 4.5, Chloride Level 107, Carbon Dioxide Level 29, Calcium Level 8.9, Aspartate Amino Transf (AST/SGOT) 13, Alanine Aminotransferase (ALT/SGPT) 13, Alkaline Phosphatase 104, Total Bilirubin 0.4, Total Protein 7.1, Albumin 2.8L, Albumin/Globulin Ratio 0.65L 03/10/19 11:24: Bedside Glucose (Misc Panel) 190H CBC/BMP Laboratory Tests Item Value Date Time Hemoglobin 8.7 g/dl L 03/08/19 1200 03/09/19 18:15 03/09/19 23:46 03/10/19 05:56 Calcium Level 8.9, Aspartate Amino Transf (AST/SGOT) 13, Alanine Aminotransferase (ALT/SGPT) 13, Alkaline Phosphatase 104, Total Bilirubin 0.4, Total Protein 7.1, Albumin 2.8 L FSBS Laboratory Tests Test 03/10/19 11:24 Range/Units Bedside Glucose (Misc Panel) 190 83-110 MG/DL Discharge Medications Scheduled Aspirin (Aspir 81) 81 Mg Tablet., 81 MG PO DAILY, (Reported) Atorvastatin Calcium (Atorvastatin Calcium) 40 Mg Tablet, 40 MG PO QHS, (Reported) Cephalexin Monohydrate (Cephalexin) 250 Mg/5 Ml Susp.recon, 500 MG PO BID Clopidogrel Bisulfate (Clopidogrel) 75 Mg Tablet, 30 MG PO DAILY Docusate Sodium (Colace) 100 Mg Capsule, 100 MG PO DAILY, (Reported) Ferrous Sulfate (Ferrous Sulfate) 325 Mg Tablet, 325 MG PO DAILY, (Reported) Furosemide (Furosemide) 20 Mg Tablet, 60 MG PO BID, (Reported) 0800/1400 Insulin Lispro Protamin/Lispro (Humalog Mix 75-25 Kwikpen) 100 Unit/1 Ml Insuln.pen, 1 DOSE SC BID, (Reported) PER SLIDING SCALE BEFORE BREAKFAST AND DINNER Isosorbide Dinitrate (Isosorbide Dinitrate) 20 Mg Tablet, 20 MG PO BID, (Reported) Metoprolol Tartrate (Metoprolol Tartrate) 25 Mg Tablet, 12.5 MG PO BID, (Reported) Ranitidine HCl (Ranitidine HCl) 150 Mg Tablet, 150 MG PO BID, (Reported) Sitagliptin (Januvia) 50 Mg Tablet, 50 MG PO DAILY, (Reported) Spironolactone (Spironolactone) 25 Mg Tablet, 12.5 MG PO DAILY, (Reported) Allergies Coded Allergies: Quinolones (Verified Allergy, Intermediate, DIZZY, NAUSEA, HEART FLUTTERING, ITCHING ON HAND, 12/07/18) SIDNEY BRADFORD DO Mar 10, 2019 15:56
== END 2019-03-10 18:30 | disposition home or self-care (01) | DRG 760 ==
LOC: M ED 05:35 → M ED INP 08:17 → M MSPAV 23:41
PROVIDERS: ADMIT General Practice; ATTEND Family Medicine
PROC: 30233N1 Transfusion of Nonautologous Red Blood Cells into Peripheral Vein, Percutaneous Approach (ICD-10-PCS; principal; 2019-03-08)
DX: N95.0 Postmenopausal bleeding (principal); I50.32 Chronic diastolic (congestive) heart failure; I13.0 Hypertensive heart and chronic kidney disease with heart failure and stage 1 through stage 4 chronic kidney disease, or unspecified chronic kidney disease; D62 Acute posthemorrhagic anemia; Z68.42 Body mass index [BMI] 45.0-49.9, adult; I25.10 Atherosclerotic heart disease of native coronary artery without angina pectoris; E11.9 Type 2 diabetes mellitus without complications; E78.5 Hyperlipidemia, unspecified; N18.3 Chronic kidney disease, stage 3 (moderate); R93.89 Abnormal findings on diagnostic imaging of other specified body structures; E66.01 Morbid (severe) obesity due to excess calories; K21.9 Gastro-esophageal reflux disease without esophagitis; I48.0 Paroxysmal atrial fibrillation; Z95.5 Presence of coronary angioplasty implant and graft; Z79.4 Long term (current) use of insulin; Z86.73 Personal history of transient ischemic attack (TIA), and cerebral infarction without residual deficits; Z87.891 Personal history of nicotine dependence; Z79.01 Long term (current) use of anticoagulants; Z79.82 Long term (current) use of aspirin; Z79.899 Other long term (current) drug therapy; Z88.1 Allergy status to other antibiotic agents

== ENCOUNTER 2019-03-31 01:26 | Emergency (ER) | payer MEDICARE, MEDICAID ==
[~2019-03-31 01:26] MED LIST changes: +ASPI81TA85 PO; +ATOR40TA75 PO; +CEPH25SS PO; +CLOP75TA2 PO; +COLA100C5 PO; +FERR1TAB8 PO; +HUMA75IN2 SC; +METO25TA4 PO; +RANI150T14 PO; +SITA50TAB PO; +SPIR-10 PO
[2019-03-31 03:54] LABS: BASO # 0.1 10^3/uL (0.0-0.2); BASO % 0.6 % (0.0-1.0); EOS # 0.4 10^3/uL (0.0-0.50); EOS % 3.6 % (0.0-3.0); HEMATOCRIT 37.2 % (36.0-47.0); LYMPH # 1.6 10^3/uL (1.5-4.5); LYMPH % 15.2 % (24.0-44.0); MEAN CORPUSCULAR HEMOGLOBIN 21.2 pg (27.0-33.0); MEAN CORPUSCULAR HGB CONC 29.6 g/dl (32.0-36.5); MEAN CORPUSCULAR VOLUME 71.7 fl (80.0-96.0); MONO # 0.9 10^3/uL (0.0-0.8); MONO % 8.4 % (0.0-5.0); NEUTROPHILS # 7.8 10^3/uL (1.8-7.7); NEUTROPHILS % 71.9 % (36.0-66.0); PLATELET COUNT, AUTOMATED 328 10^3/uL (150-450); RED BLOOD COUNT 5.19 10^6/uL (4.00-5.40); WHITE BLOOD COUNT 10.8 10^3/uL (4.0-10.0)
[2019-03-31 04:03] LABS: INR 1.18; PROTHROMBIN TIME 14.7 SECONDS (11.8-14.0)
[2019-03-31 04:26] LABS: CALCIUM LEVEL 9.6 MG/DL (8.8-10.2); CREATININE FOR GFR 1.73 MG/DL (0.55-1.30); POTASSIUM SERUM 4.9 MEQ/L (3.5-5.1)
[2019-03-31 04:51] VITALS: BP 111/55
== END 2019-03-31 04:58 | disposition home or self-care (01) ==
LOC: M ED 01:26
DX: N95.0 Postmenopausal bleeding (principal); D50.0 Iron deficiency anemia secondary to blood loss (chronic); E11.9 Type 2 diabetes mellitus without complications; I11.9 Hypertensive heart disease without heart failure; I48.91 Unspecified atrial fibrillation; I25.10 Atherosclerotic heart disease of native coronary artery without angina pectoris; N28.9 Disorder of kidney and ureter, unspecified; K21.9 Gastro-esophageal reflux disease without esophagitis; E78.5 Hyperlipidemia, unspecified; Z95.5 Presence of coronary angioplasty implant and graft; Z79.899 Other long term (current) drug therapy; Z79.02 Long term (current) use of antithrombotics/antiplatelets; Z79.82 Long term (current) use of aspirin; Z79.4 Long term (current) use of insulin; Z88.8 Allergy status to other drugs, medicaments and biological substances

== ENCOUNTER 2020-02-07 03:45 | Inpatient (IN) | payer MEDICAID, MEDICARE ==
[~2020-02-07] VITALS: Ht 170.2 cm; Wt 133.3 kg
[~2020-02-07 03:45] MED LIST changes: -ASPI81TA85 PO; +ASPI81TA86 PO; -LISI-538 PO; +LISI10TA22 PO; -LISI10TA4 PO; +LISI20TA33 PO; -SIMV40TA2 PO; +SIMV40TA20 PO
[2020-02-07] MEDS ORDERED: PERM5CRE9 TOP (04:15)
[2020-02-07] MEDS ORDERED: TERB250T90 PO (04:15)
[2020-02-07 04:18] VITALS: O2SAT 93
[2020-02-07] MEDS ORDERED: FAMO40TA3 PO (04:30)
[2020-02-07] MEDS ORDERED: AMOX875T2 PO (04:30)
[2020-02-07] MEDS ORDERED: med rec comment (04:31)
[2020-02-07 04:50] LABS: BASO # 0.1 10^3/uL (0.0-0.2); BASO % 0.4 % (0.0-1.0); EOS # 0.2 10^3/uL (0.0-0.5); EOS % 1.3 % (0.0-3.0); HEMATOCRIT 28.1 % (36.0-47.0); HEMOGLOBIN 8.2 g/dl (12.0-15.5); LYMPH # 0.7 10^3/uL (1.5-5.0); MEAN CORPUSCULAR HEMOGLOBIN 19.9 pg (27.0-33.0); MEAN CORPUSCULAR HGB CONC 29.2 g/dl (32.0-36.5); MEAN CORPUSCULAR VOLUME 68.2 fl (80.0-96.0); MONO # 1.3 10^3/uL (0.0-0.8); NEUTROPHILS # 11.9 10^3/uL (1.5-8.5); NEUTROPHILS % 83.6 % (36.0-66.0); PLATELET COUNT, AUTOMATED 287 10^3/uL (150-450); RED BLOOD COUNT 4.12 10^6/uL (4.00-5.40); WHITE BLOOD COUNT 14.3 10^3/uL (4.0-10.0)
[2020-02-07 05:11] LABS: CALCIUM LEVEL 8.4 MG/DL (8.8-10.2); CREATININE FOR GFR 2.62 MG/DL (0.55-1.30); GLOMERULAR FILTRATION RATE 18.5 (>32); POTASSIUM SERUM 5.2 MEQ/L (3.5-5.1)
[2020-02-07] MEDS ORDERED: DEXTROSE 50% 50 ML SYRINGE IV PRN (05:15)
[2020-02-07] MEDS ORDERED: GLUCAGON INJ 1MG VIAL SC PRN (05:15)
[2020-02-07] MEDS ORDERED: GLUCOSE 4GM CHEW TABLET PO PRN (05:15)
[2020-02-07 05:31] LABS: PERCENT SATURATION 3.8 % (13.2-45.0)
--- NOTE | 2020-02-07 05:31 | HPEPDOC ---
[facility] Medical History & Physical Date of Admission Feb 07, 2020 Date of Service: Feb 07, 2020 Attending Physician: LESVIA MUSE MD History and Physical CHIEF COMPLAINT: Weakness HISTORY OF PRESENT ILLNESS: 84-year-old female with past medical history of coronary artery disease status post stent placement, hypertension, diabetes mellitus, hyperlipidemia and atrial fibrillation presents with weakness in her legs. She reports that she woke up at midnight, was unable to get out of bed due to severe weakness in her legs, finally able to call EMS and came to the hospital. Patient was unable to stand up and he would take a step in the emergency department. She reports feeling well earlier in the day and reportedly was even walking with a walker. She has no other complaints, denies any numbne ss, tingling or pain in her lower extremities. She denies any shortness of breath, chest pain, nausea, vomiting, diarrhea or constipation. 10 point review of systems negative except for above PAST MEDICAL HISTORY: 1. Coronary artery disease. 2. Atrial fibrillation. 3. Hypertension. 4. Diabetes mellitus. 5. Hyperlipidemia. PAST SURGICAL HISTORY: 1. Toe surgery. SOCIAL HISTORY: Previous smoker. Denies alcohol use. Denies drug use FAMILY HISTORY: Positive for diabetes ALLERGIES: Please see below. HOME MEDICATIONS: Please see below. PHYSICAL EXAMINATION: VITAL SIGNS: Please see below. GENERAL: No distress, morbidly obese HEENT: Normocephalic, atraumatic, moist mucous membranes NECK: Supple CARDIOVASCULAR EXAMINATION: S1, S2, no murmurs RESPIRATORY EXAMINATION: Poor air movement, diminished in the bases, scattered rhonchi, no wheezing ABDOMINAL EXAMINATION: Soft, nontender, nondistended, positive bowel sounds EXTREMITIES: Trace lower extremity edema SKIN: Dry erythematous skin on bilateral lower extremities NEUROLOGICAL EXAMINATION: Alert and oriented 3, significant weakness of lower extremities PSYCHIATRIC EXAMINATION: Calm and cooperative LABORATORY DATA: See below. IMAGING: Chest x-ray without acute pathology MICROBIOLOGY: Please see below. ASSESSMENT: 84-year-old female with multiple medical comorbidities being admitted for physical deconditioning also found to have significant anemia and elevated creatinine. PLAN: 1. Physical deconditioning. PT/OT, was recently admitted to [facility] for rehabilitation, will likely require rehabilitation/placement at the time of discharge. 2. Acute on chronic kidney disease. We'll hold Lasix and trend creatinine, no need for further intervention at this time. 3. Microcytic Anemia. Iron studies ordered 4. Diabetes mellitus. Sliding scale insulin coverage with meals and at bedtime 5. Hypertension. Continue home Isordil and metoprolol 6. Coronary artery disease. Continue optimal medical management with aspirin, statin and beta anamaria. 7. Paroxysmal atrial fibrillation. Not on anticoagulation, continue metoprolol. DVT prophylaxis: Heparin subcutaneous GI prophylaxis: Home Pepcid Vital Signs Vital Signs Date Time Temp Pulse Resp B/P (MAP) Pulse Ox O2 Delivery O2 Flow Rate FiO2 02/07/20 05:00 81 98 02/07/20 04:18 Room Air 02/07/20 04:00 103/51 (68) 02/07/20 03:58 98.9 21 Laboratory Data Labs 24H Laboratory Tests 2 02/07/20 04:41: Immature Granulocyte % (Auto) 0.7, Neutrophils (%) (Auto) 83.6H, Lymphocytes (%) (Auto) 5.0L, Monocytes (%) (Auto) 9.0H, Eosinophils (%) (Auto) 1.3, Basophils (%) (Auto) 0.4, Neutrophils # (Auto) 11.9H, Lymphocytes # (Auto) 0.7L, Monocytes # (Auto) 1.3H, Eosinophils # (Auto) 0.2, Basophils # (Auto) 0.1, Nucleated Red Blood Cells % (auto) 0.0 CBC/BMP Laboratory Tests 02/07/20 04:41 Home Medications Scheduled Amoxicillin/Potassium Clav (Amox-Clav 875-125 mg Tablet) 1 Each Tablet, 1 TAB PO Q12H started 02/03/20 x 7 days Aspirin (Aspir 81) 81 Mg Tablet.dr, 81 MG PO DAILY Atorvastatin Calcium (Atorvastatin Calcium) 40 Mg Tablet, 40 MG PO QHS Docusate Sodium (Colace) 100 Mg Capsule, 100 MG PO DAILY Famotidine (Famotidine) 40 Mg Tablet, 40 MG PO QHS Ferrous Sulfate (Ferrous Sulfate) 325 Mg Tablet, 325 MG PO DAILY Furosemide (Furosemide) 20 Mg Tablet, 60 MG PO BID 0800/1400 Insulin Lispro Protamin/Lispro (Humalog Mix 75-25 Kwikpen) 100 Unit/1 Ml Insuln.pen, 1 DOSE SC BID PER SLIDING SCALE BEFORE BREAKFAST AND DINNER Isosorbide Dinitrate (Isosorbide Dinitrate) 20 Mg Tablet, 20 MG PO BID Metoprolol Tartrate (Metoprolol Tartrate) 25 Mg Tablet, 12.5 MG PO BID Permethrin (Permethrin) 60 Gm Cream..g., 1 APPLIC TOP QWEEK Sitagliptin (Januvia) 50 Mg Tablet, 50 MG PO DAILY Spironolactone (Spironolactone) 25 Mg Tablet, 12.5 MG PO DAILY Terbinafine HCl (Terbinafine HCl) 250 Mg Tablet, 250 MG PO DAILY started 02/03/20 x 14 days Miscellaneous Medications [med rec comment] unable to verify with patient used external Allergies Coded Allergies: Quinolones (Verified Adverse Reaction, Intermediate, DIZZY, NAUSEA, HEART FLUTTERING, ITCHING ON HAND, 02/07/20) A-FIB/CHADSVASC A-FIB History Current/History of A-Fib/PAF?: Yes Current PO Anticoag Therapy: No Treatment Reason Anticoagulant not given: Other Other reason anticoagulant not: unknown LESVIA MUSE MD Feb 07, 2020 05:31
[2020-02-07 05:57] VITALS: BP 120/49
[2020-02-07] MEDS ORDERED: FUROSEMIDE 20 MG TAB PO SCH (08:00)
[2020-02-07] MEDS: HumaLOG INSULIN (NovoLOG) PER UNIT SC SCH ×4 (08:18→20:49)
[2020-02-07] MEDS: FERROUS SULFATE 325MG TAB PO SCH (08:18)
[2020-02-07] MEDS: DOCUSATE SODIUM 100MG CAPSULE PO SCH (08:18)
[2020-02-07] MEDS: ASPIRIN 81 MG ENTERIC TAB PO SCH (08:18)
[2020-02-07] MEDS: HEPARIN SOD (PORCINE) 5000UNITS/ML 1ML VIAL/SYRINGE SC SCH ×2 (08:18→21:58)
--- NOTE | 2020-02-07 08:29 | REP ---
Portable chest x-ray: Single view. History: Admission. Comparison chest x-ray: March 08, 2019. Findings: Monitoring electrodes overlie the chest. The lungs are symmetrically aerated and no infiltrate is seen. Heart size is unchanged and unremarkable. There is thoracic aortic calcification. Pulmonary vasculature is not increased. No acute bony abnormality. Impression: No active disease. Electronically Signed by Tarik Irene MD 02/07/2020 08:20 A
[2020-02-07] MEDS ORDERED: SPIRONOLACTONE 12.5MG PER 1/2 TABLET PO SCH (09:00)
[2020-02-07] MEDS ORDERED: ISOSORBIDE DIN. (ISORDIL) 20 MG TAB PO SCH (09:00)
[2020-02-07] MEDS: METOPROLOL TART 12.5 MG PER 1/2 TAB PO SCH ×2 (11:57→21:57)
[2020-02-07 14:00] VITALS: BP 110/56
[2020-02-07] MEDS: PERMETHRIN 5% CREAM 60 GM TOP SCH (18:03)
--- NOTE | 2020-02-07 18:29 | REP ---
Right hip series: Two views. History: Pain after a fall. Findings: AP and frog-leg views right hip demonstrate mild vascular calcification. There is no visible fracture or subluxation. Femoral head is smooth and rounded joint spaces preserved. Periarticular soft tissues are unremarkable. Impression: No fracture seen. Electronically Signed by Tarik Irene MD 02/07/2020 06:21 P
--- NOTE | 2020-02-07 18:36 | IPNPDOC ---
Text Note Date of Service The patient was seen on 02/07/20. NOTE Subjective: -Feels weak, without any specific pain complaints this morning PHYSICAL EXAMINATION: VITAL SIGNS: Please see below. GENERAL: No distress, morbidly obese HEENT: Normocephalic, atraumatic, moist mucous membranes NECK: Supple CARDIOVASCULAR EXAMINATION: RRR, S1, S2, no murmurs RESPIRATORY EXAMINATION: Diminished bases, no etelvina crackles or wheezing ABDOMINAL EXAMINATION: Obese, normoactive bowel sounds, soft, NTND EXTREMITIES: WWP, bilateral trace LE edema SKIN: Dry, no rashes or lesions noted NEUROLOGICAL EXAMINATION: AOx3, 3-4 out of 5 in the lower extremities, 5/5 UE bilaterally, CN2-12 wnl LABORATORY DATA: See below. reviewed IMAGING: Chest x-ray without acute pathology MICROBIOLOGY: Please see below. ASSESSMENT: 84-year-old W with multiple medical comorbidities being admitted for physical deconditioning despite being recently discharged home from [facility], also found to have significant anemia and elevated creatinine. PLAN: 1. Physical deconditioning. PT/OT, was recently admitted to [facility] for rehabilitation, will likely require rehabilitation/placement at the time of discharge. 2. Acute on chronic kidney disease. hold Lasix, monitor BMP 3. Hip pain: Patient reports that EMS "dropped" her when she picked her up to go to the ED, and her R hip has hurt severely since then such that she cannot participate in PT -Total hip XR 4. Microcytic Anemia. f/u iron studies 5. Diabetes mellitus. FSBG AC/HS, hypoglycemia protocol, SSI, consistent carb diet 6. Hypertension. Continue home Isordil and metoprolol 7. Coronary artery disease. Continue optimal medical management with aspirin, statin and beta anamaria. 8. Paroxysmal atrial fibrillation. Not on anticoagulation, continue metoprolol. DVT prophylaxis: Heparin subcutaneous GI prophylaxis: Home Pepcid VS,Fishbone, I+O VS, Fishbone, I+O Laboratory Tests 02/07/20 04:41 Vital Signs Date Time Temp Pulse Resp B/P (MAP) Pulse Ox O2 Delivery O2 Flow Rate FiO2 02/07/20 14:00 100.5 67 16 110/56 (74) 97 Room Air I&O- Last 24 Hours up to 6 AM 02/07/20 05:59 Intake Total 0 ml Output Total 0 ml Balance 0 ml SARAH CARRERA MD Feb 07, 2020 18:36
[2020-02-07] MEDS: NYSTATIN 100,000 UNITS/GM TOPICAL PWD 15 GM TOP SCH (21:00)
--- NOTE | 2020-02-07 21:28 | ECGEPIP ---
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
[2020-02-07] MEDS: FAMOTIDINE 20 MG TAB PO SCH (21:57)
[2020-02-07] MEDS: traMADol 50 MG TAB PO PRN (21:57)
[2020-02-07] MEDS: ATORVASTATIN 20 MG TAB PO SCH (21:57)
[2020-02-07 22:00] VITALS: BP 115/56
[2020-02-08] MEDS: ACETAMINOPHEN TAB 650MG DOSE (2X325MG) PO PRN (04:09)
[2020-02-08] MEDS: cefTRIAXone SOD 1 GM in D5W MINI-BAG PLUS 50 ML IV SCH (04:34)
[2020-02-08 06:00] VITALS: BP 114/57
[2020-02-08] MEDS: HumaLOG INSULIN (NovoLOG) PER UNIT SC SCH ×4 (08:17→21:00)
[2020-02-08] MEDS: HEPARIN SOD (PORCINE) 5000UNITS/ML 1ML VIAL/SYRINGE SC SCH ×2 (08:18→21:16)
[2020-02-08] MEDS: DOCUSATE SODIUM 100MG CAPSULE PO SCH (08:18)
[2020-02-08] MEDS: ASPIRIN 81 MG ENTERIC TAB PO SCH (08:18)
[2020-02-08] MEDS: FERROUS SULFATE 325MG TAB PO SCH (08:18)
[2020-02-08] MEDS: NYSTATIN 100,000 UNITS/GM TOPICAL PWD 15 GM TOP SCH ×2 (08:19→21:17)
[2020-02-08] MEDS: METOPROLOL TART 12.5 MG PER 1/2 TAB PO SCH ×2 (08:19→21:18)
[2020-02-08 09:34] LABS: BASO # 0.1 10^3/uL (0.0-0.2); BASO % 0.4 % (0.0-1.0); EOS # 0.6 10^3/uL (0.0-0.5); EOS % 4.6 % (0.0-3.0); HEMATOCRIT 26.1 % (36.0-47.0); HEMOGLOBIN 7.5 g/dl (12.0-15.5); LYMPH # 1.6 10^3/uL (1.5-5.0); LYMPH % 12.8 % (24.0-44.0); MEAN CORPUSCULAR HEMOGLOBIN 19.7 pg (27.0-33.0); MEAN CORPUSCULAR HGB CONC 28.7 g/dl (32.0-36.5); MEAN CORPUSCULAR VOLUME 68.5 fl (80.0-96.0); MONO # 1.6 10^3/uL (0.0-0.8); MONO % 12.9 % (0.0-5.0); NEUTROPHILS # 8.5 10^3/uL (1.5-8.5); NEUTROPHILS % 68.8 % (36.0-66.0); PLATELET COUNT, AUTOMATED 258 10^3/uL (150-450); RED BLOOD COUNT 3.81 10^6/uL (4.00-5.40); WHITE BLOOD COUNT 12.3 10^3/uL (4.0-10.0)
[2020-02-08 09:49] LABS: ALBUMIN 2.7 GM/DL (3.2-5.2); BILIRUBIN,TOTAL 0.3 MG/DL (0.2-1.0); CALCIUM LEVEL 8.4 MG/DL (8.8-10.2); CREATININE FOR GFR 2.12 MG/DL (0.55-1.30); GLOMERULAR FILTRATION RATE 23.7 (>32); MAGNESIUM LEVEL 2.6 MG/DL (1.8-2.4); TOTAL PROTEIN 6.4 GM/DL (6.4-8.2)
[2020-02-08 14:00] VITALS: BP 120/60
--- NOTE | 2020-02-08 17:37 | IPNPDOC ---
Text Note Date of Service The patient was seen on 02/08/20. NOTE Subjective: No any acute events overnight. Patient stated that she feels better today in general. Objective: VITAL SIGNS: Please see below. GENERAL: No distress, morbidly obese HEENT: Normocephalic, atraumatic, moist mucous membranes NECK: Supple CARDIOVASCULAR EXAMINATION: RRR, S1, S2, no murmurs RESPIRATORY EXAMINATION: Diminished bases, no etelvina crackles or wheezing ABDOMINAL EXAMINATION: Obese, normoactive bowel sounds, soft, NTND EXTREMITIES: WWP, bilateral trace LE edema SKIN: Dry, no rashes or lesions noted NEUROLOGICAL EXAMINATION: AOx3, 3-4 out of 5 in the lower extremities, 5/5 UE bilaterally, CN2-12 wnl ASSESSMENT: 84-year-old W with multiple medical comorbidities being admitted for physical deconditioning despite being recently discharged home from [facility], also found to have significant anemia and elevated creatinine. Deconditioning PT/OT DANIEL Most likely prerenal Improved Right hip pain Most likely contusion after fall X-ray was negative for fracture Microcytic Anemia. Iron panel showed low iron Continue iron supplementation We'll check stool for occult blood We will check B12 and folate Diabetes mellitus. Diabetes diet Insulin sliding scale Hypertension. Continue home Isordil and metoprolol Coronary artery disease. Continue optimal medical management with aspirin, statin and beta anamaria. Paroxysmal atrial fibrillation. Not on anticoagulation due to profound anemia, continue metoprolol. VS,Fishbone, I+O VS, Fishbone, I+O Laboratory Tests 02/08/20 05:29 Vital Signs Date Time Temp Pulse Resp B/P (MAP) Pulse Ox O2 Delivery O2 Flow Rate FiO2 02/08/20 14:00 98.9 67 18 120/60 (80) 92 Room Air I&O- Last 24 Hours up to 6 AM 02/08/20 06:00 Intake Total 1295 ml Output Total 0 ml Balance 1295 ml ELBA HU DO Feb 08, 2020 17:37
[2020-02-08 19:07] LABS: FOLATE 14.1 NG/ML (>5.4)
[2020-02-08] MEDS: ATORVASTATIN 20 MG TAB PO SCH (21:15)
[2020-02-08] MEDS: FAMOTIDINE 20 MG TAB PO SCH (21:15)
[2020-02-08 22:00] VITALS: BP 117/42
[2020-02-09] VITALS (8 sets, daily range): BP systolic 112–150; BP diastolic 40–71
[2020-02-09] MEDS: cefTRIAXone SOD 1 GM in D5W MINI-BAG PLUS 50 ML IV SCH (03:30)
[2020-02-09] MEDS: ACETAMINOPHEN TAB 650MG DOSE (2X325MG) PO PRN ×2 (06:22→12:18)
[2020-02-09 06:33] LABS: HEMATOCRIT 25.6 % (36.0-47.0); HEMOGLOBIN 7.4 g/dl (12.0-15.5); MEAN CORPUSCULAR HEMOGLOBIN 19.5 pg (27.0-33.0); MEAN CORPUSCULAR HGB CONC 28.9 g/dl (32.0-36.5); MEAN CORPUSCULAR VOLUME 67.5 fl (80.0-96.0); PLATELET COUNT, AUTOMATED 241 10^3/uL (150-450); RED BLOOD COUNT 3.79 10^6/uL (4.00-5.40); WHITE BLOOD COUNT 11.7 10^3/uL (4.0-10.0)
[2020-02-09 07:00] LABS: CALCIUM LEVEL 8.7 MG/DL (8.8-10.2); CREATININE FOR GFR 1.9 MG/DL (0.55-1.30); GLOMERULAR FILTRATION RATE 26.9 (>32); MAGNESIUM LEVEL 2.7 MG/DL (1.8-2.4)
[2020-02-09] MEDS: HumaLOG INSULIN (NovoLOG) PER UNIT SC SCH ×4 (09:42→21:00)
[2020-02-09] MEDS: DOCUSATE SODIUM 100MG CAPSULE PO SCH (09:43)
[2020-02-09] MEDS: FERROUS SULFATE 325MG TAB PO SCH (09:43)
[2020-02-09] MEDS: METOPROLOL TART 12.5 MG PER 1/2 TAB PO SCH ×2 (09:43→22:22)
[2020-02-09] MEDS: traMADol 50 MG TAB PO PRN ×2 (09:43→18:17)
[2020-02-09] MEDS: HEPARIN SOD (PORCINE) 5000UNITS/ML 1ML VIAL/SYRINGE SC SCH ×2 (09:43→22:08)
[2020-02-09] MEDS: ASPIRIN 81 MG ENTERIC TAB PO SCH (09:43)
[2020-02-09] MEDS: NYSTATIN 100,000 UNITS/GM TOPICAL PWD 15 GM TOP SCH ×2 (09:44→22:08)
--- NOTE | 2020-02-09 14:21 | REP ---
TWO VIEW CHEST: 02/09/2020 INDICATION: Cough. COMPARISON: Two days earlier. FINDINGS: The lungs are clear. There is no pleural effusion or pneumothorax. The cardiac silhouette is at the upper limits of normal in size. Diffuse osteopenia is noted as well as thoracolumbar spine degenerative sequelae and aortic atherosclerotic disease. IMPRESSION: Clear lungs. Electronically Signed by Eleazar Alexandra DO 02/11/2020 08:39 A
--- NOTE | 2020-02-09 16:47 | IPNPDOC ---
Text Note Date of Service The patient was seen on 02/09/20. NOTE Subjective: No any acute events overnight. Patient had low-grade fever in the night Patient stated that her itchiness resolved. Patient complains of increased cough. Objective: VITAL SIGNS: Please see below. GENERAL: No distress, morbidly obese HEENT: Normocephalic, atraumatic, moist mucous membranes NECK: Supple CARDIOVASCULAR EXAMINATION: RRR, S1, S2, no murmurs RESPIRATORY EXAMINATION: Diminished bases, no etelvina crackles or wheezing ABDOMINAL EXAMINATION: Obese, normoactive bowel sounds, soft, NTND EXTREMITIES: WWP, bilateral trace LE edema SKIN: Dry, multiple scratches all over extremities NEUROLOGICAL EXAMINATION: AOx3, 3-4 out of 5 in the lower extremities, 5/5 UE bilaterally, CN2-12 wnl ASSESSMENT: 84-year-old W with multiple medical comorbidities being admitted for physical deconditioning despite being recently discharged home from [facility], also found to have significant anemia and elevated creatinine. Deconditioning PT/OT Scabies Completed course of permethrin DANIEL Most likely prerenal Improved Right hip pain Most likely contusion after fall X-ray was negative for fracture Microcytic Anemia. Iron panel showed low iron Continue iron supplementation We'll check stool for occult blood B12 and folate wnl Diabetes mellitus. Diabetes diet Insulin sliding scale Hypertension. Continue home Isordil and metoprolol Coronary artery disease. Continue optimal medical management with aspirin, statin and beta anamaria. Hemoglobin 7.6, we will transfuse 1 unit of blood to keep hemoglobin above 8 Paroxysmal atrial fibrillation. Not on anticoagulation due to profound anemia, secondary to possible GI loss continue metoprolol Leukocytosis Improved Acute bronchitis Patient complains of increased cough Continue doxycycline and ceftriaxone for now VS,Fishbone, I+O VS, Fishbone, I+O Laboratory Tests 02/09/20 05:56 Vital Signs Date Time Temp Pulse Resp B/P (MAP) Pulse Ox O2 Delivery O2 Flow Rate FiO2 02/09/20 14:00 60 20 112/45 (67) 100 Room Air 02/09/20 06:00 100.5 I&O- Last 24 Hours up to 6 AM 02/09/20 06:00 Intake Total 1180 ml Output Total 0 ml Balance 1180 ml ELBA HU DO Feb 09, 2020 16:47
[2020-02-09] MEDS: IRON SUCROSE 200 MG in NS 200 ML IV SCH (18:18)
[2020-02-09] MEDS: ATORVASTATIN 20 MG TAB PO SCH (22:08)
[2020-02-09] MEDS: FAMOTIDINE 20 MG TAB PO SCH (22:08)
[2020-02-09] MEDS: DOXYCYCLINE HYCLATE 100MG TABLET PO SCH (22:08)
[2020-02-10] VITALS (7 sets, daily range): BP systolic 119–142; BP diastolic 41–60
[2020-02-10] MEDS: ACETAMINOPHEN TAB 650MG DOSE (2X325MG) PO PRN (00:52)
[2020-02-10] MEDS: cefTRIAXone SOD 1 GM in D5W MINI-BAG PLUS 50 ML IV SCH (04:00)
[2020-02-10 06:42] LABS: HEMATOCRIT 27.8 % (36.0-47.0); HEMOGLOBIN 8.3 g/dl (12.0-15.5); MEAN CORPUSCULAR HGB CONC 29.9 g/dl (32.0-36.5); MEAN CORPUSCULAR VOLUME 70.2 fl (80.0-96.0); PLATELET COUNT, AUTOMATED 232 10^3/uL (150-450); RED BLOOD COUNT 3.96 10^6/uL (4.00-5.40); WHITE BLOOD COUNT 11.4 10^3/uL (4.0-10.0)
[2020-02-10 07:05] LABS: CALCIUM LEVEL 8.1 MG/DL (8.8-10.2); CREATININE FOR GFR 1.67 MG/DL (0.55-1.30); GLOMERULAR FILTRATION RATE 31.2 (>32); MAGNESIUM LEVEL 2.8 MG/DL (1.8-2.4); POTASSIUM SERUM 5.4 MEQ/L (3.5-5.1)
[2020-02-10] MEDS: DOXYCYCLINE HYCLATE 100MG TABLET PO SCH ×2 (08:15→21:24)
[2020-02-10] MEDS: ASPIRIN 81 MG ENTERIC TAB PO SCH (08:15)
[2020-02-10] MEDS: HEPARIN SOD (PORCINE) 5000UNITS/ML 1ML VIAL/SYRINGE SC SCH ×2 (08:15→21:24)
[2020-02-10] MEDS: FERROUS SULFATE 325MG TAB PO SCH (08:15)
[2020-02-10] MEDS: DOCUSATE SODIUM 100MG CAPSULE PO SCH (08:15)
[2020-02-10] MEDS: METOPROLOL TART 12.5 MG PER 1/2 TAB PO SCH ×2 (08:18→21:28)
[2020-02-10] MEDS: NYSTATIN 100,000 UNITS/GM TOPICAL PWD 15 GM TOP SCH ×2 (08:18→21:25)
[2020-02-10] MEDS: HumaLOG INSULIN (NovoLOG) PER UNIT SC SCH ×4 (08:19→21:00)
[2020-02-10] MEDS ORDERED: IRON SUCROSE 100MG 5ML VIAL (J1756 PER 1MG) IV SCH (09:00)
[2020-02-10] MEDS: OMEPRAZOLE 20 MG CAP PO SCH (09:55)
[2020-02-10] MEDS ORDERED: SOD POLYSTYRENE SULFONATE SUSP 15 GM/60 ML UD PO ONE (11:00)
[2020-02-10] MEDS: guaiFENesin DM *SUGAR FREE* 5ML**DIABETIC TUSSIN DM PO PRN ×2 (12:45→18:46)
[2020-02-10] MEDS: traMADol 50 MG TAB PO PRN ×2 (12:48→18:47)
--- NOTE | 2020-02-10 16:23 | IPNPDOC ---
Text Note Date of Service The patient was seen on 02/10/20. NOTE Subjective:Patient had low-grade fever in the night Patient stated that her itchiness resolved. Patient complains of increased cough without sputum production Objective: VITAL SIGNS: Please see below. GENERAL: No distress, morbidly obese HEENT: Normocephalic, atraumatic, moist mucous membranes NECK: Supple CARDIOVASCULAR EXAMINATION: RRR, S1, S2, no murmurs RESPIRATORY EXAMINATION: Diminished bases, no etelvina crackles or wheezing ABDOMINAL EXAMINATION: Obese, normoactive bowel sounds, soft, NTND EXTREMITIES: WWP, bilateral trace LE edema SKIN: Dry, multiple scratches all over extremities NEUROLOGICAL EXAMINATION: AOx3, 3-4 out of 5 in the lower extremities, 5/5 UE bilaterally, CN2-12 wnl ASSESSMENT: 84-year-old W with multiple medical comorbidities being admitted for physical deconditioning despite being recently discharged home from [facility], also found to have significant anemia and elevated creatinine. Deconditioning PT/OT Scabies Completed course of permethrin DANIEL Most likely prerenal Improved Right hip pain Most likely contusion after fall X-ray was negative for fracture Microcytic Anemia. Iron panel showed low iron Continue iron supplementation We'll check stool for occult blood B12 and folate wnl Diabetes mellitus. Diabetes diet Insulin sliding scale Hypertension. Continue home Isordil and metoprolol Coronary artery disease. Continue optimal medical management with aspirin, statin and beta anamaria. Hemoglobin 8,3 after 1 unit of blood transfusion Paroxysmal atrial fibrillation. Not on anticoagulation due to profound anemia, secondary to possible GI loss continue metoprolol Leukocytosis Improved Acute bronchitis Patient complains of increased cough Continue doxycycline and ceftriaxone for now Ramon VS,Laxmie, I+O VS, Fishbone, I+O Laboratory Tests 02/10/20 06:24 Vital Signs Date Time Temp Pulse Resp B/P (MAP) Pulse Ox O2 Delivery O2 Flow Rate FiO2 02/10/20 14:00 97.8 56 20 128/52 (77) 100 Room Air I&O- Last 24 Hours up to 6 AM 02/10/20 05:59 Intake Total 1580 ml Output Total 100 ml Balance 1480 ml ELBA HU DO Feb 10, 2020 16:23
[2020-02-10] MEDS: IRON SUCROSE 200 MG in NS 200 ML IV SCH (17:53)
[2020-02-10] MEDS: ATORVASTATIN 20 MG TAB PO SCH (21:24)
[2020-02-11] MEDS: cefTRIAXone SOD 1 GM in D5W MINI-BAG PLUS 50 ML IV SCH (04:56)
[2020-02-11 06:00] VITALS: BP 142/53
[2020-02-11 06:14] LABS: HEMOGLOBIN 8.9 g/dl (12.0-15.5); MEAN CORPUSCULAR HGB CONC 29.7 g/dl (32.0-36.5); MEAN CORPUSCULAR VOLUME 70.9 fl (80.0-96.0); PLATELET COUNT, AUTOMATED 262 10^3/uL (150-450); RED BLOOD COUNT 4.23 10^6/uL (4.00-5.40); WHITE BLOOD COUNT 12.5 10^3/uL (4.0-10.0)
[2020-02-11 06:38] LABS: CALCIUM LEVEL 8.4 MG/DL (8.8-10.2); CREATININE FOR GFR 1.46 MG/DL (0.55-1.30); GLOMERULAR FILTRATION RATE 36.4 (>32); MAGNESIUM LEVEL 2.6 MG/DL (1.8-2.4); POTASSIUM SERUM 5.2 MEQ/L (3.5-5.1)
[2020-02-11] MEDS ORDERED: MIRALAX *UNIT DOSE* 17GM PACKET PO PRN (08:15)
[2020-02-11] MEDS: FERROUS SULFATE 325MG TAB PO SCH (08:18)
[2020-02-11] MEDS: ASPIRIN 81 MG ENTERIC TAB PO SCH (08:18)
[2020-02-11] MEDS: OMEPRAZOLE 20 MG CAP PO SCH (08:18)
[2020-02-11] MEDS: NYSTATIN 100,000 UNITS/GM TOPICAL PWD 15 GM TOP SCH ×2 (08:19→20:37)
[2020-02-11] MEDS: HEPARIN SOD (PORCINE) 5000UNITS/ML 1ML VIAL/SYRINGE SC SCH (08:19)
[2020-02-11] MEDS: DOXYCYCLINE HYCLATE 100MG TABLET PO SCH ×2 (08:19→20:37)
[2020-02-11] MEDS: DOCUSATE SODIUM 100MG CAPSULE PO SCH (08:19)
[2020-02-11] MEDS: METOPROLOL TART 12.5 MG PER 1/2 TAB PO SCH ×2 (08:20→20:43)
[2020-02-11] MEDS: HumaLOG INSULIN (NovoLOG) PER UNIT SC SCH ×4 (08:21→20:43)
[2020-02-11] MEDS: guaiFENesin DM *SUGAR FREE* 5ML**DIABETIC TUSSIN DM PO PRN ×2 (08:29→20:47)
[2020-02-11] MEDS: traMADol 50 MG TAB PO PRN ×2 (08:29→20:38)
--- NOTE | 2020-02-11 11:29 | IPNPDOC ---
Text Note Date of Service The patient was seen on 02/11/20. NOTE Subjective: No fever overnight. Patient stated that her itchiness resolved. Patient stated that cough significantly improved Objective: VITAL SIGNS: Please see below. GENERAL: No distress, morbidly obese HEENT: Normocephalic, atraumatic, moist mucous membranes NECK: Supple CARDIOVASCULAR EXAMINATION: RRR, S1, S2, no murmurs RESPIRATORY EXAMINATION: CTA ABDOMINAL EXAMINATION: Obese, normoactive bowel sounds, soft, NTND EXTREMITIES: WWP, bilateral trace LE edema SKIN: Dry, multiple scratches all over extremities NEUROLOGICAL EXAMINATION: AOx3, 3-4 out of 5 in the lower extremities, 5/5 UE bilaterally, CN2-12 wnl ASSESSMENT: 84-year-old W with multiple medical comorbidities being admitted for physical deconditioning despite being recently discharged home from [facility], also found to have significant anemia and elevated creatinine. Deconditioning PT/OT Scabies Completed course of permethrin DANIEL Most likely prerenal Improved Right hip pain Most likely contusion after fall X-ray was negative for fracture Microcytic Anemia. Iron panel showed low iron Continue iron supplementation We'll check stool for occult blood B12 and folate wnl Diabetes mellitus. Diabetes diet Insulin sliding scale Hypertension. Continue home Isordil and metoprolol Coronary artery disease. Continue optimal medical management with aspirin, statin and beta anamaria. Hemoglobin stable Paroxysmal atrial fibrillation. Hemoglobin is stable, heart rate is under control I will start anticoagulation continue metoprolol Leukocytosis Stable Most likely secondary to reaction to scabies or acute bronchitis Acute bronchitis Patient stated that cough significantly improved Continue doxycycline and ceftriaxone for now Robitussin VS,Laxmie, I+O VS, Fishbone, I+O Laboratory Tests 02/11/20 05:40 Vital Signs Date Time Temp Pulse Resp B/P (MAP) Pulse Ox O2 Delivery O2 Flow Rate FiO2 02/11/20 08:59 17 02/11/20 08:20 73 138/53 02/11/20 06:00 99.4 97 Room Air I&O- Last 24 Hours up to 6 AM 02/11/20 06:00 Intake Total 1290 ml Output Total 500 ml Balance 790 ml ELBA HU DO Feb 11, 2020 11:29
[2020-02-11] MEDS ORDERED: ONDANSETRON 4MG/2ML VIAL IV PRN (11:45)
[2020-02-11] MEDS ORDERED: SOD POLYSTYRENE SULFONATE SUSP 15 GM/60 ML UD PO ONE (13:00)
[2020-02-11 14:00] VITALS: BP 143/60
[2020-02-11 15:10] LABS: CALCIUM LEVEL 8.1 MG/DL (8.8-10.2); CREATININE FOR GFR 1.5 MG/DL (0.55-1.30); GLOMERULAR FILTRATION RATE 35.3 (>32); POTASSIUM SERUM 5.5 MEQ/L (3.5-5.1)
[2020-02-11] MEDS: IRON SUCROSE 200 MG in NS 200 ML IV SCH (17:28)
[2020-02-11] MEDS: ATORVASTATIN 20 MG TAB PO SCH (20:37)
[2020-02-11] MEDS: APIXABAN 2.5 MG TAB (ELIQUIS) PO SCH (20:38)
[2020-02-12] MEDS: cefTRIAXone SOD 1 GM in D5W MINI-BAG PLUS 50 ML IV SCH (04:11)
[2020-02-12 06:00] VITALS: BP 138/49
[2020-02-12 06:39] LABS: HEMATOCRIT 30.5 % (36.0-47.0); HEMOGLOBIN 8.9 g/dl (12.0-15.5); MEAN CORPUSCULAR HEMOGLOBIN 20.9 pg (27.0-33.0); MEAN CORPUSCULAR HGB CONC 29.2 g/dl (32.0-36.5); MEAN CORPUSCULAR VOLUME 71.8 fl (80.0-96.0); PLATELET COUNT, AUTOMATED 269 10^3/uL (150-450); RED BLOOD COUNT 4.25 10^6/uL (4.00-5.40); WHITE BLOOD COUNT 11.8 10^3/uL (4.0-10.0)
[2020-02-12 07:09] LABS: CALCIUM LEVEL 8.3 MG/DL (8.8-10.2); CREATININE FOR GFR 1.39 MG/DL (0.55-1.30); GLOMERULAR FILTRATION RATE 38.5 (>32); MAGNESIUM LEVEL 2.6 MG/DL (1.8-2.4); POTASSIUM SERUM 5.5 MEQ/L (3.5-5.1)
[2020-02-12] MEDS: HumaLOG INSULIN (NovoLOG) PER UNIT SC SCH ×4 (07:30→20:48)
[2020-02-12] MEDS ORDERED: HumuLIN R (REGULAR) INSULIN (NovoLIN R) **100U/ML** PER UNIT IV STA (08:17)
[2020-02-12] MEDS ORDERED: DEXTROSE 50% 50 ML SYRINGE IV STA (08:17)
[2020-02-12] MEDS ORDERED: FUROSEMIDE 40MG/4ML VIAL (J1940) IV ONE (09:00)
[2020-02-12] MEDS ORDERED: CALCIUM GLUCONATE 1,000 MG in D5W MINI-BAG PLUS 100 ML IV ONE (09:00)
[2020-02-12] MEDS: DOCUSATE SODIUM 100MG CAPSULE PO SCH (09:02)
[2020-02-12] MEDS: APIXABAN 2.5 MG TAB (ELIQUIS) PO SCH ×2 (09:03→20:44)
[2020-02-12] MEDS: FERROUS SULFATE 325MG TAB PO SCH (09:03)
[2020-02-12] MEDS: ASPIRIN 81 MG ENTERIC TAB PO SCH (09:03)
[2020-02-12] MEDS: METOPROLOL TART 12.5 MG PER 1/2 TAB PO SCH ×2 (09:03→20:48)
[2020-02-12] MEDS: OMEPRAZOLE 20 MG CAP PO SCH (09:03)
[2020-02-12] MEDS: NYSTATIN 100,000 UNITS/GM TOPICAL PWD 15 GM TOP SCH ×2 (09:04→20:44)
[2020-02-12] MEDS: DOXYCYCLINE HYCLATE 100MG TABLET PO SCH ×2 (09:04→20:44)
[2020-02-12] MEDS: traMADol 50 MG TAB PO PRN ×2 (09:30→16:49)
[2020-02-12] MEDS ORDERED: VANCOMYCIN HCL 1,000 MG, VIAL MATE ADAPTER 1 EACH in D5W 250 ML IV ONE (10:00)
[2020-02-12] MEDS ORDERED: SOD POLYSTYRENE SULFONATE SUSP 15 GM/60 ML UD PO ONE (10:00)
[2020-02-12 14:00] VITALS: BP 141/51
--- NOTE | 2020-02-12 15:26 | PHACANCOPD ---
PHARMACY VANCOMYCIN DOSING Pt Demographics Demographics Patient Age:84 , Weight:128.600 , Gender: female Adjusted Body Weight Date: 02/12/20, Adjusted Body Weight: [88] Kg Events Past 24 Hours Events Past 24 Hours: NO: Dialysis, Diuretic Therapy, Change in CrCl, Fever, Elevation in WBC, Pending Diagnostics, Pending Procedures, Other Vancomycin Vancomycin indication: uti Vancomycin Target Ranges: 15-20 mcg/ml Vancomycin Load Y/N: Yes Load Dose Date Time Vancomycin Load Dose: 1000mg Date:02/11 Time: ~10:30am Vancomycin Dose Date: 02/12/20. Current Vancomycin Dose: [1g IV q18h @18] Intermittent Dosing?: No Labs Labs Item Value Date Time White Blood Count 12.5 10^3/uL H 02/11/20 0540 White Blood Count 11.8 10^3/uL H 02/12/20 0625 Creatinine 1.50 MG/DL H 02/11/20 1433 Creatinine 1.39 MG/DL H 02/12/20 0625 Micro Microbiology 02/10/20 Blood Culture - Preliminary, Resulted No Growth after 48 hours. All Specime... 02/09/20 Urine Culture - Final, Complete Enterococcus Faecium 02/09/20 Respiratory Virus Panel (PCR) (ALBINO) - Final, Complete 02/08/20 Blood Culture - Preliminary, Resulted No Growth after 72 hours. All specime... 02/08/20 Blood Culture - Preliminary, Resulted No Growth after 72 hours. All specime... Creatinine Clearance Date:02/12/20. Creatinine Clearance: [~43 ml/min using adjusted bw]. Assessment and Plan Maintaining Current Dose?: Yes Reason for dose change: No Dose Change Pharmacist Note Pharmacist Note Date: 02/12/20. Pharmacist note: pt has been started on Vancomycin for a positive urine cx for E. faecium (ALBINO <0.5). SCr has been improving. I have started her on vancomycin 1g this morning followed by 1g IV q18h ~8 hours later. We will c ontinue to monitor and make adjustments as necessary. Manny Gonzalez Pharm.D. Feb 12, 2020 15:26
--- NOTE | 2020-02-12 15:43 | IPNPDOC ---
Text Note Date of Service The patient was seen on 02/12/20. NOTE Subjective: No fever overnight. Patient denied fever, chills, nausea, vomiting, diarrhea or dysuria Objective: VITAL SIGNS: Please see below. GENERAL: No distress, morbidly obese HEENT: Normocephalic, atraumatic, moist mucous membranes NECK: Supple CARDIOVASCULAR EXAMINATION: RRR, S1, S2, no murmurs RESPIRATORY EXAMINATION: CTA ABDOMINAL EXAMINATION: Obese, normoactive bowel sounds, soft, NTND EXTREMITIES: WWP, bilateral trace LE edema SKIN: Dry, multiple scratches all over extremities NEUROLOGICAL EXAMINATION: AOx3, 3-4 out of 5 in the lower extremities, 5/5 UE bilaterally, CN2-12 wnl ASSESSMENT: 84-year-old W with multiple medical comorbidities being admitted for physical deconditioning despite being recently discharged home from [facility], also found to have significant anemia and elevated creatinine. Deconditioning PT/OT Scabies Completed course of permethrin DANIEL Most likely prerenal Improved Right hip pain Most likely contusion after fall X-ray was negative for fracture Microcytic Anemia. Iron panel showed low iron Continue iron supplementation We'll check stool for occult blood B12 and folate wnl Diabetes mellitus. Diabetes diet Insulin sliding scale Hypertension. Continue home Isordil and metoprolol Coronary artery disease. Continue optimal medical management with aspirin, statin and beta anamaria. Hemoglobin stable Paroxysmal atrial fibrillation. Hemoglobin is stable, heart rate is under control I will start anticoagulation continue metoprolol Leukocytosis Stable Most likely secondary to reaction to scabies, acute bronchitis or UTI UA positive for enterococcus faecium sensitive to vancomycin Acute bronchitis Markedly improved Continue doxycycline, DC'd ceftriaxone Robitussin UTI UA positive for enterococcus faecium sensitive to vancomycin Vancomycin started Hyperkalemia Kayexalate Insulin IV, Dextrose VS,Fishbone, I+O VS, Fishbone, I+O Laboratory Tests 02/12/20 06:25 02/12/20 08:30 02/12/20 12:35 Vital Signs Date Time Temp Pulse Resp B/P (MAP) Pulse Ox O2 Delivery O2 Flow Rate FiO2 02/12/20 10:00 16 Room Air 02/12/20 09:30 97.8 83 138/49 93 I&O- Last 24 Hours up to 6 AM 02/12/20 06:00 Intake Total 670 ml Output Total 1075 ml Balance -405 ml DROZHZHIN,ELBA DO Feb 12, 2020 15:43
[2020-02-12] MEDS: guaiFENesin DM *SUGAR FREE* 5ML**DIABETIC TUSSIN DM PO PRN (17:55)
[2020-02-12] MEDS: VANCOMYCIN HCL 1,000 MG, VIAL MATE ADAPTER 1 EACH in D5W 250 ML IV SCH (17:56)
[2020-02-12] MEDS: ATORVASTATIN 20 MG TAB PO SCH (20:44)
[2020-02-12 22:00] VITALS: BP 134/52
[2020-02-13] MEDS: guaiFENesin DM *SUGAR FREE* 5ML**DIABETIC TUSSIN DM PO PRN (05:42)
[2020-02-13 06:00] VITALS: BP 140/85
[2020-02-13 06:41] LABS: HEMATOCRIT 29.7 % (36.0-47.0); HEMOGLOBIN 8.7 g/dl (12.0-15.5); MEAN CORPUSCULAR HEMOGLOBIN 20.9 pg (27.0-33.0); MEAN CORPUSCULAR HGB CONC 29.3 g/dl (32.0-36.5); MEAN CORPUSCULAR VOLUME 71.4 fl (80.0-96.0); PLATELET COUNT, AUTOMATED 263 10^3/uL (150-450); RED BLOOD COUNT 4.16 10^6/uL (4.00-5.40); WHITE BLOOD COUNT 12.7 10^3/uL (4.0-10.0)
[2020-02-13 07:04] LABS: CALCIUM LEVEL 8.6 MG/DL (8.8-10.2); CREATININE FOR GFR 1.46 MG/DL (0.55-1.30); GLOMERULAR FILTRATION RATE 36.4 (>32); MAGNESIUM LEVEL 2.4 MG/DL (1.8-2.4); POTASSIUM SERUM 4.2 MEQ/L (3.5-5.1)
[2020-02-13] MEDS: OMEPRAZOLE 20 MG CAP PO SCH (08:24)
[2020-02-13] MEDS: HumaLOG INSULIN (NovoLOG) PER UNIT SC SCH ×4 (08:24→21:28)
[2020-02-13] MEDS: ASPIRIN 81 MG ENTERIC TAB PO SCH (08:24)
[2020-02-13] MEDS: DOXYCYCLINE HYCLATE 100MG TABLET PO SCH ×2 (08:24→21:29)
[2020-02-13] MEDS: DOCUSATE SODIUM 100MG CAPSULE PO SCH (08:25)
[2020-02-13] MEDS: APIXABAN 2.5 MG TAB (ELIQUIS) PO SCH ×2 (08:25→21:29)
[2020-02-13] MEDS: FERROUS SULFATE 325MG TAB PO SCH (08:25)
[2020-02-13] MEDS: METOPROLOL TART 12.5 MG PER 1/2 TAB PO SCH ×2 (08:25→21:29)
[2020-02-13] MEDS: NYSTATIN 100,000 UNITS/GM TOPICAL PWD 15 GM TOP SCH ×2 (08:25→21:29)
[2020-02-13] MEDS: ACETAMINOPHEN TAB 650MG DOSE (2X325MG) PO PRN (08:30)
[2020-02-13] MEDS: VANCOMYCIN HCL 1,000 MG, VIAL MATE ADAPTER 1 EACH in D5W 250 ML IV SCH (11:55)
[2020-02-13] MEDS: predniSONE 20 MG TAB PO SCH (11:59)
[2020-02-13] MEDS ORDERED: cefTRIAXone SOD 1 GM in D5W MINI-BAG PLUS 50 ML IV SCH (12:00)
[2020-02-13] MEDS: ADVAIR HFA 230/21MCG INHALER INH SCH ×2 (12:12→18:03)
[2020-02-13 14:00] VITALS: BP 128/42
[2020-02-13] MEDS: IPRATROPIUM 0.5MG/ALBUTEROL 2.5MG INH SOL UD 3ML (DUONEB) NEB SCH ×2 (14:53→18:03)
[2020-02-13] MEDS: LINEZOLID 600MG TABLET (ZYVOX) PO SCH ×2 (15:15→21:29)
--- NOTE | 2020-02-13 16:01 | IPNPDOC ---
Text Note Date of Service The patient was seen on 02/13/20. NOTE Subjective: No fever overnight. Patient complains of increased cough today. She lost IV access Patient denied fever, chills, nausea, vomiting, diarrhea or dysuria Objective: VITAL SIGNS: Please see below. GENERAL: No distress, morbidly obese HEENT: Normocephalic, atraumatic, moist mucous membranes NECK: Supple CARDIOVASCULAR EXAMINATION: RRR, S1, S2, no murmurs RESPIRATORY EXAMINATION: CTA ABDOMINAL EXAMINATION: Obese, normoactive bowel sounds, soft, NTND EXTREMITIES: WWP, bilateral trace LE edema SKIN: Dry, multiple scratches all over extremities NEUROLOGICAL EXAMINATION: AOx3, 3-4 out of 5 in the lower extremities, 5/5 UE bilaterally, CN2-12 wnl ASSESSMENT: 84-year-old W with multiple medical comorbidities being admitted for physical deconditioning despite being recently discharged home from [facility], also found to have significant anemia and elevated creatinine. Deconditioning PT/OT Scabies Completed course of permethrin DANIEL Most likely prerenal Improved Right hip pain Most likely contusion after fall X-ray was negative for fracture Microcytic Anemia. Iron panel showed low iron Continue iron supplementation We'll check stool for occult blood B12 and folate wnl Diabetes mellitus. Diabetes diet Insulin sliding scale Hypertension. Continue home Isordil and metoprolol Coronary artery disease. Continue optimal medical management with aspirin, statin and beta anamaria. Hemoglobin stable Paroxysmal atrial fibrillation. Hemoglobin is stable, heart rate is under control I started anticoagulation continue metoprolol Leukocytosis Stable Most likely secondary to reaction to scabies, acute bronchitis or UTI UA positive for enterococcus faecium sensitive to vancomycin Acute bronchitis Markedly improved Continue doxycycline Robitussin Inhalers, incentive spirometry UTI UA positive for enterococcus faecium sensitive to vancomycin and linezolid Continue linezolid Hyperkalemia Kayexalate Insulin IV, Dextrose VS,Fishbone, I+O VS, Fishbone, I+O Laboratory Tests 02/12/20 16:28 02/12/20 20:01 02/13/20 00:25 02/13/20 05:40 Vital Signs Date Time Temp Pulse Resp B/P (MAP) Pulse Ox O2 Delivery O2 Flow Rate FiO2 02/13/20 14:00 98.7 70 18 128/42 (70) 95 Room Air I&O- Last 24 Hours up to 6 AM 02/13/20 06:00 Intake Total 2330 ml Output Total 600 ml Balance 1730 ml EBLA HU DO Feb 13, 2020 16:01
[2020-02-13] MEDS: ATORVASTATIN 20 MG TAB PO SCH (21:29)
[2020-02-13 22:00] VITALS: BP 128/60
[2020-02-14] MEDS: IPRATROPIUM 0.5MG/ALBUTEROL 2.5MG INH SOL UD 3ML (DUONEB) NEB SCH ×4 (00:51→20:00)
[2020-02-14 06:00] VITALS: BP 128/48
[2020-02-14 06:09] LABS: HEMATOCRIT 28.3 % (36.0-47.0); HEMOGLOBIN 8.4 g/dl (12.0-15.5); MEAN CORPUSCULAR HEMOGLOBIN 21.1 pg (27.0-33.0); MEAN CORPUSCULAR HGB CONC 29.7 g/dl (32.0-36.5); MEAN CORPUSCULAR VOLUME 70.9 fl (80.0-96.0); PLATELET COUNT, AUTOMATED 254 10^3/uL (150-450); RED BLOOD COUNT 3.99 10^6/uL (4.00-5.40); WHITE BLOOD COUNT 11.1 10^3/uL (4.0-10.0)
[2020-02-14 06:31] LABS: CALCIUM LEVEL 8.4 MG/DL (8.8-10.2); CREATININE FOR GFR 1.55 MG/DL (0.55-1.30); MAGNESIUM LEVEL 2.5 MG/DL (1.8-2.4); POTASSIUM SERUM 4.6 MEQ/L (3.5-5.1)
[2020-02-14] MEDS: ADVAIR HFA 230/21MCG INHALER INH SCH ×2 (07:12→20:18)
[2020-02-14] MEDS: FERROUS SULFATE 325MG TAB PO SCH (07:49)
[2020-02-14] MEDS: OMEPRAZOLE 20 MG CAP PO SCH (07:50)
[2020-02-14] MEDS: LINEZOLID 600MG TABLET (ZYVOX) PO SCH ×2 (07:50→21:02)
[2020-02-14] MEDS: predniSONE 20 MG TAB PO SCH (07:50)
[2020-02-14] MEDS: ASPIRIN 81 MG ENTERIC TAB PO SCH (07:50)
[2020-02-14] MEDS: METOPROLOL TART 12.5 MG PER 1/2 TAB PO SCH ×2 (07:50→21:03)
[2020-02-14] MEDS: DOXYCYCLINE HYCLATE 100MG TABLET PO SCH ×2 (07:50→21:02)
[2020-02-14] MEDS: DOCUSATE SODIUM 100MG CAPSULE PO SCH (07:50)
[2020-02-14] MEDS: HumaLOG INSULIN (NovoLOG) PER UNIT SC SCH ×4 (07:51→21:02)
[2020-02-14] MEDS: NYSTATIN 100,000 UNITS/GM TOPICAL PWD 15 GM TOP SCH ×2 (07:51→21:03)
[2020-02-14] MEDS: APIXABAN 2.5 MG TAB (ELIQUIS) PO SCH (07:51)
[2020-02-14 12:23] LABS: APPEARANCE, URINE HAZY (CLEAR); BACTERIA, URINE AUTO NEGATIVE (NEGATIVE); BILIRUBIN, URINE AUTO NEGATIVE (NEGATIVE); BLOOD, URINE BLOOD 3+ (NEGATIVE); COLOR, URINE YELLOW (YELLOW); GLUCOSE, URINE (UA) AUTO 3+ mg/dL (NEGATIVE); KETONE, URINE AUTO NEGATIVE (NEGATIVE); LEUKOCYTE ESTERASE, URINE AUTO 3+ (NEGATIVE); NITRITE, URINE AUTO NEGATIVE (NEGATIVE); PROTEIN, URINE AUTO NEGATIVE (NEGATIVE); RBC, URINE AUTO 7 /HPF (0-3); SPECIFIC GRAVITY URINE AUTO 1.014 (1.002-1.035); SQUAMOUS EPITHELIAL CELL UR AU 1 /HPF (0-6); UROBILINOGEN, URINE AUTO 0.2 mg/dL (0.0-2.0); WBC, URINE AUTO 52 /HPF (0-3)
[2020-02-14] MEDS: PERMETHRIN 5% CREAM 60 GM TOP SCH (12:48)
[2020-02-14 14:00] VITALS: BP 146/61
--- NOTE | 2020-02-14 14:00 | IPNPDOC ---
Text Note Date of Service The patient was seen on 02/14/20. NOTE Subjective: Patient developed gross hematuria today. Patient denied fever, chills, nausea, vomiting, diarrhea or dysuria Objective: VITAL SIGNS: Please see below. GENERAL: No distress, morbidly obese HEENT: Normocephalic, atraumatic, moist mucous membranes NECK: Supple CARDIOVASCULAR EXAMINATION: RRR, S1, S2, no murmurs RESPIRATORY EXAMINATION: CTA ABDOMINAL EXAMINATION: Obese, normoactive bowel sounds, soft, NTND EXTREMITIES: WWP, bilateral trace LE edema SKIN: Dry, multiple scratches all over extremities NEUROLOGICAL EXAMINATION: AOx3, 3-4 out of 5 in the lower extremities, 5/5 UE bilaterally, CN2-12 wnl ASSESSMENT: 84-year-old W with multiple medical comorbidities being admitted for physical deconditioning despite being recently discharged home from [facility], also found to have significant anemia and elevated creatinine. Deconditioning PT/OT Scabies Additional dose of permethrin today DANIEL Most likely prerenal Improved Right hip pain Most likely contusion after fall X-ray was negative for fracture Microcytic Anemia. Iron panel showed low iron Continue iron supplementation We'll check stool for occult blood B12 and folate wnl Diabetes mellitus. Diabetes diet Insulin sliding scale Hypertension. Continue home Isordil and metoprolol Coronary artery disease. Continue optimal medical management with aspirin, statin and beta anamaria. Hemoglobin stable Paroxysmal atrial fibrillation. Hemoglobin is stable, heart rate is under control Anticoagulation on hold due to gross hematuria continue metoprolol Leukocytosis Improved Most likely secondary to reaction to scabies, acute bronchitis or UTI UA positive for enterococcus faecium sensitive to vancomycin Acute bronchitis Markedly improved Continue doxycycline Robitussin Inhalers, incentive spirometry UTI UA positive for enterococcus faecium sensitive to vancomycin and linezolid Continue linezolid Hyperkalemia Resolved Gross hematuria Most likely secondary to anticoagulation therapy or interstitial hemorrhagic cystitis Anticoagulation on hold Continue antibiotic therapy. VS,Fishbone, I+O VS, Fishbone, I+O Laboratory Tests 02/14/20 05:53 Vital Signs Date Time Temp Pulse Resp B/P (MAP) Pulse Ox O2 Delivery O2 Flow Rate FiO2 02/14/20 07:50 75 128/48 02/14/20 06:00 98.1 16 96 Room Air I&O- Last 24 Hours up to 6 AM 02/14/20 05:59 Intake Total 1900 ml Output Total 950 ml Balance 950 ml ELBA HU DO Feb 14, 2020 14:00
[2020-02-14] MEDS ORDERED: FLEET ENEMA PR ONE (14:15)
[2020-02-14] MEDS: ATORVASTATIN 20 MG TAB PO SCH (21:02)
[2020-02-14 22:00] VITALS: BP 143/59
[2020-02-15] MEDS: IPRATROPIUM 0.5MG/ALBUTEROL 2.5MG INH SOL UD 3ML (DUONEB) NEB SCH ×5 (01:56→18:05)
[2020-02-15 06:00] VITALS: BP 145/50
[2020-02-15 06:13] LABS: HEMOGLOBIN 8.2 g/dl (12.0-15.5); MEAN CORPUSCULAR HEMOGLOBIN 20.9 pg (27.0-33.0); MEAN CORPUSCULAR HGB CONC 29.3 g/dl (32.0-36.5); MEAN CORPUSCULAR VOLUME 71.2 fl (80.0-96.0); PLATELET COUNT, AUTOMATED 270 10^3/uL (150-450); RED BLOOD COUNT 3.93 10^6/uL (4.00-5.40); WHITE BLOOD COUNT 13.7 10^3/uL (4.0-10.0)
[2020-02-15 06:27] LABS: CALCIUM LEVEL 9.1 MG/DL (8.8-10.2); CREATININE FOR GFR 1.44 MG/DL (0.55-1.30); MAGNESIUM LEVEL 2.5 MG/DL (1.8-2.4); POTASSIUM SERUM 5.1 MEQ/L (3.5-5.1)
[2020-02-15] MEDS: ADVAIR HFA 230/21MCG INHALER INH SCH ×2 (07:40→18:04)
[2020-02-15] MEDS: HumaLOG INSULIN (NovoLOG) PER UNIT SC SCH ×4 (07:58→21:43)
[2020-02-15] MEDS: OMEPRAZOLE 20 MG CAP PO SCH (07:58)
[2020-02-15] MEDS: FERROUS SULFATE 325MG TAB PO SCH (08:00)
[2020-02-15] MEDS: ASPIRIN 81 MG ENTERIC TAB PO SCH (08:00)
[2020-02-15] MEDS: predniSONE 20 MG TAB PO SCH (08:00)
[2020-02-15] MEDS: DOCUSATE SODIUM 100MG CAPSULE PO SCH (08:00)
[2020-02-15] MEDS: LINEZOLID 600MG TABLET (ZYVOX) PO SCH ×2 (08:01→21:43)
[2020-02-15] MEDS: METOPROLOL TART 12.5 MG PER 1/2 TAB PO SCH ×2 (08:01→21:43)
[2020-02-15] MEDS: DOXYCYCLINE HYCLATE 100MG TABLET PO SCH ×2 (08:01→21:43)
[2020-02-15] MEDS: NYSTATIN 100,000 UNITS/GM TOPICAL PWD 15 GM TOP SCH ×2 (08:02→21:42)
[2020-02-15] MEDS ORDERED: ZYVO1TAB PO (10:31)
[2020-02-15] MEDS: guaiFENesin DM *SUGAR FREE* 5ML**DIABETIC TUSSIN DM PO PRN (11:04)
[2020-02-15 14:00] VITALS: BP 148/55
--- NOTE | 2020-02-15 18:35 | IPN ---
DATE: 02/15/2020 Patient says that she wants to go to [facility]. She has not worked with physical therapy here and says that her right leg is not working well but no pain. No dysuria, urgency, frequency, fever, chills, or flank pain. Temperature 99.3, pulse 66, respiratory rate 17, blood pressure 145/50, 95% on room air. Generally, awake, alert, oriented times three, answering questions appropriately. Morbidly obese. No jugular venous distention (JVD), thyromegaly. Thick neck. Lungs are clear to auscultation. No wheezing, rales or rhonchi. Heart: S1, S2, sinus rhythm. No murmurs, rubs or gallops. Abdomen: Obese, soft, nontender, (+) BS x four quadrants. Extremities: Trace bilateral lower extremity edema. The patient has excoriations bilateral upper and lower extremities. LABORATORY DATA: WBC, metabolic panel have been reviewed. Notable for creatinine of 1.44, previous creatinine 1.55 and admitting creatinine of 2.62. ASSESSMENT AND PLAN: An 84-year-old female with a history of morbid obesity, body mass index (BMI) of 44.4, admitted on 02/07/2020, history of chronic atrial fibrillation, coronary artery disease, hypertension, diabetes and hyperlipidemia, had a fall, unable to stand and was found to have acute kidney injury due to fall with physical deconditioning. ACTIVE ISSUES ARE: 1. Urinary tract infection with Enterococcus faecium resistant to ampicillin, Cipro, erythromycin, gentamicin, Levaquin, Penicillin and tetracycline, currently on Zyvox. 2. Acute kidney injury. Admission creatinine was 2.62, current creatinine is 1.44, status post IV Fluid hydration, renally dosing all medications. 3. Bronchitis. On doxycycline. Prednisone has been discontinued. 4. History of hypertension, on metoprolol 12.5 mg twice a day. 5. Chronic atrial fibrillation, on aspirin, metoprolol. Off apixaban due to gross hematuria. 6. Gross hematuria secondary to UTI, resolved. Hemoglobin and hematocrit remains stable. 7. Right hip pain. Will need acute rehabilitation unit (ARU). 8. Scabies. Contact isolation. [facility]
[2020-02-15] MEDS: ATORVASTATIN 20 MG TAB PO SCH (21:43)
[2020-02-15 22:00] VITALS: BP 156/79
[2020-02-16] MEDS: IPRATROPIUM 0.5MG/ALBUTEROL 2.5MG INH SOL UD 3ML (DUONEB) NEB SCH ×2 (00:48→07:16)
[2020-02-16 06:00] VITALS: BP 159/77
[2020-02-16] MEDS: ADVAIR HFA 230/21MCG INHALER INH SCH (07:16)
[2020-02-16] MEDS: FERROUS SULFATE 325MG TAB PO SCH (08:38)
[2020-02-16] MEDS: DOCUSATE SODIUM 100MG CAPSULE PO SCH (08:38)
[2020-02-16] MEDS: LINEZOLID 600MG TABLET (ZYVOX) PO SCH (08:38)
[2020-02-16] MEDS: OMEPRAZOLE 20 MG CAP PO SCH (08:38)
[2020-02-16] MEDS: ACETAMINOPHEN TAB 650MG DOSE (2X325MG) PO PRN (08:38)
[2020-02-16] MEDS: ASPIRIN 81 MG ENTERIC TAB PO SCH (08:39)
[2020-02-16] MEDS: DOXYCYCLINE HYCLATE 100MG TABLET PO SCH (08:39)
[2020-02-16] MEDS: HumaLOG INSULIN (NovoLOG) PER UNIT SC SCH ×2 (08:39→12:36)
[2020-02-16 08:41] VITALS: BP 137/42
[2020-02-16] MEDS: METOPROLOL TART 12.5 MG PER 1/2 TAB PO SCH (08:41)
[2020-02-16] MEDS: NYSTATIN 100,000 UNITS/GM TOPICAL PWD 15 GM TOP SCH (09:10)
--- NOTE | 2020-02-18 16:45 | DSES ---
DATE OF ADMISSION: 02/07/2020 DATE OF DISCHARGE: 02/16/2020 Patient is discharged to [facility]. PRIMARY DISCHARGE DIAGNOSES: 1. Enterococcus faecium. 2. Urinary tract infection sensitive to vancomycin and Zyvox, resistant to ampicillin, Cipro, erythromycin, gentamicin, Levaquin, penicillin G, and tetracycline. 3. Acute kidney injury with admission creatinine of 2.62. 4. Bronchitis. 5. Hypertension. 6. Chronic atrial fibrillation. 7. Gross hematuria secondary to urinary tract infection. 8. Right hip pain. 9. Scabies. DISCHARGE INSTRUCTIONS: Patient is to complete intravenous vancomycin for a total of 10 days from admission. Contact isolation for scabies. Avoid nephrotoxins. Renally dose all medications and monitor for worsening azotemia. DISCHARGE MEDICATIONS: - vancomycin 1 gram intravenous (IV) every 24 hours for 3 more days, to be managed by [facility] physician - aspirin 81 daily - atorvastatin 40 at bedtime - Colace 100 daily - famotidine 40 mg at bedtime - ferrous sulfate 325 daily - Lasix 60 mg twice a day - Humalog mix 75/25 subcutaneous twice a day - isosorbide 20 twice a day - metoprolol 12.5 twice a day - Permethrin topically weekly - Januvia 50 daily - spironolactone 12.5 daily - terbinafine 250 mg daily HOSPITAL COURSE: This is an 84-year-old female, admitted due to physical deconditioning and generalized weakness, even with walking with a walker. She was found to have acute on chronic kidney disease. Lasix and spironolactone were held. Urinalysis (UA) was positive and treated for Enterococcus faecium urinary tract infection (UTI) only sensitive to vancomycin and Zosyn. She received one dose of vancomycin and subsequently changed to Zosyn. No fever or chills. Patient had decreased white count from 14,000 on admission to 11,000. Acute kidney injury responded to IV fluids and holding the diuretics, from 2.62 to 1.44 on the day of discharge. Patient remained deconditioned. Was transferred to [facility]. PHYSICAL EXAMINATION ON DISCHARGE: Temperature 97.2, pulse 71, respiratory rate 20, blood pressure 137/42, 95% on room air. GENERAL: Patient is morbidly obese, thick neck. No jugular venous distention (JVD). No pallor or icterus. No jaundice. No use of respiratory accessory muscles. No thyromegaly or lymphadenopathy. LUNGS: Diminished but clear to auscultation. No wheezing or rales. HEART: S1, S2, sinus rhythm. ABDOMEN: Obese, soft, nontender, nondistended. Positive bowel sounds times four quadrants. EXTREMITIES: No cyanosis or clubbing. DISCHARGE LABORATORY DATA: White count 13.7, hemoglobin 8.2, hematocrit 28, platelet count 270. Sodium 137, potassium 5, chloride 107, bicarbonate 24, BUN 42, creatinine 1.44, glucose 322. Microbiology: February 08 urine culture: Enterococcus faecium, sensitive to vancomycin and Zyvox, resistant to ampicillin, Cipro, erythromycin, gentamicin, Levaquin, penicillin G, and tetracycline. Respiratory panel negative. COVID February 08 negative. Repeat respiratory panel negative for COVID too. Sputum with yeast. Blood culture on growth after 5 days. IMAGING STUDIES: Chest x-ray February 06: No active disease. Hip x-ray February 06: No fracture seen. TIME SPENT ON DISCHARGE: 30 minutes. [facility]
== END 2020-02-16 13:50 | DRG 683 ==
LOC: EDBD 03:45 → M ED 03:45 → M ED INP 05:04 → ENRESERV 05:09 → M MSPAV 05:58
PROVIDERS: ADMIT Internal Medicine; ATTEND General Practice
DX: N17.9 Acute kidney failure, unspecified (principal); Z68.41 Body mass index [BMI] 40.0-44.9, adult; N39.0 Urinary tract infection, site not specified; I48.0 Paroxysmal atrial fibrillation; R53.1 Weakness; N18.9 Chronic kidney disease, unspecified; E11.9 Type 2 diabetes mellitus without complications; I12.9 Hypertensive chronic kidney disease with stage 1 through stage 4 chronic kidney disease, or unspecified chronic kidney disease; D50.9 Iron deficiency anemia, unspecified; E66.01 Morbid (severe) obesity due to excess calories; B86 Scabies; J20.9 Acute bronchitis, unspecified; R31.0 Gross hematuria; I25.10 Atherosclerotic heart disease of native coronary artery without angina pectoris; E78.5 Hyperlipidemia, unspecified; Z79.82 Long term (current) use of aspirin; Z79.899 Other long term (current) drug therapy; Z88.8 Allergy status to other drugs, medicaments and biological substances; Z79.4 Long term (current) use of insulin

== ENCOUNTER → 2020-02-17 | Outpatient (REF) ==
[~2020-02-17] MED LIST changes: +ACET-907 PO; +AMOX875T2 PO; +AUGM875T28 PO; +BASA100I SC; +CARV3.12 PO; +DULC10SU2 PR; +ENEMENE PR; +FAMO40TA3 PO; +FURO80TA2 PO; +HUMA100I3 SC; +INSUDET SC; +MEGE40TA PO; +MOM30SS PO; +PERM5CRE9 TOP; +TERB250T90 PO; +XARE15TA PO; +ZYVO1TAB PO; +med rec comment
[2020-02-17 08:51] LABS: HEMATOCRIT 30.9 % (36.0-47.0); HEMOGLOBIN 9.1 g/dl (12.0-15.5); MEAN CORPUSCULAR HEMOGLOBIN 21.5 pg (27.0-33.0); MEAN CORPUSCULAR HGB CONC 29.4 g/dl (32.0-36.5); PLATELET COUNT, AUTOMATED 259 10^3/uL (150-450); RED BLOOD COUNT 4.23 10^6/uL (4.00-5.40); WHITE BLOOD COUNT 13.4 10^3/uL (4.0-10.0)
[2020-02-17 09:08] LABS: BLOOD UREA NITROGEN 41 MG/DL (7-18); CALCIUM LEVEL 9.1 MG/DL (8.8-10.2); CARBON DIOXIDE LEVEL 23 MEQ/L (21-32); CHLORIDE LEVEL 110 MEQ/L (98-107); CREATININE FOR GFR 1.21 MG/DL (0.55-1.30); GLOMERULAR FILTRATION RATE 45.2 (>32); GLUCOSE, FASTING 208 MG/DL (70-100); IRON (FE) 25 UG/DL (50-170); POTASSIUM SERUM 5.4 MEQ/L (3.5-5.1); SODIUM LEVEL 140 MEQ/L (136-145)
[2020-02-17 09:36] LABS: TOTAL PROTEIN 5.8 GM/DL (6.4-8.2)
[2020-02-22 11:25] LABS: ALBUMIN 2.84 GM/DL (3.29-5.55); ALBUMIN % 48.9 % (55.8-66.1); ALPHA-1-GLOBULIN % 5.2 % (2.9-4.9); ALPHA-2-GLOBULINS 0.82 GM/DL (0.42-0.99); ALPHA-2-GLOBULINS % 14.2 % (7.1-11.8); BETA-1-GLOBULINS % 6.1 % (4.7-7.2); BETA-2-GLOBULINS % 5.4 % (3.2-6.5); GAMMA GLOBULIN % 20.2 % (11.1-18.8)
[2020-02-22 11:26] LABS: BETA-1-GLOBULINS 0.35 GM/DL (0.28-0.60); BETA-2-GLOBULINS 0.31 GM/DL (0.19-0.55); GAMMA GLOBULINS 1.17 GM/DL (0.65-1.58)
== END ==
LOC: SKLAB5 07:26
PROVIDERS: ATTEND Internal Medicine
DX: E11.9 Type 2 diabetes mellitus without complications (principal); I10 Essential (primary) hypertension

== ENCOUNTER → 2020-02-18 | Outpatient (REF) ==
[2020-02-18 08:13] LABS: HEMATOCRIT 30.9 % (36.0-47.0); MEAN CORPUSCULAR HEMOGLOBIN 21.3 pg (27.0-33.0); MEAN CORPUSCULAR HGB CONC 29.1 g/dl (32.0-36.5); PLATELET COUNT, AUTOMATED 240 10^3/uL (150-450); RED BLOOD COUNT 4.23 10^6/uL (4.00-5.40); WHITE BLOOD COUNT 12.5 10^3/uL (4.0-10.0)
[2020-02-18 08:31] LABS: CALCIUM LEVEL 8.8 MG/DL (8.8-10.2); CREATININE FOR GFR 1.18 MG/DL (0.55-1.30); GLOMERULAR FILTRATION RATE 46.6 (>32); POTASSIUM SERUM 4.9 MEQ/L (3.5-5.1)
== END ==
LOC: SKLAB5 07:37
PROVIDERS: ATTEND Internal Medicine
DX: E87.6 Hypokalemia (principal)

== ENCOUNTER → 2020-02-24 | Outpatient (REF) ==
[~2020-02-24] MED LIST changes: -ACET-907 PO; +ASPI81TA85 PO; -ASPI81TA86 PO; -AUGM875T28 PO; -BASA100I SC; -CARV3.12 PO; -DULC10SU2 PR; -ENEMENE PR; -FURO80TA2 PO; -HUMA100I3 SC; -INSUDET SC; +LISI-538 PO; -LISI10TA22 PO; +LISI10TA4 PO; -LISI20TA33 PO; -MEGE40TA PO; -MOM30SS PO; -XARE15TA PO
== END ==
LOC: SKLAB5 07:56
PROVIDERS: ATTEND Internal Medicine
DX: D64.9 Anemia, unspecified (principal); I25.10 Atherosclerotic heart disease of native coronary artery without angina pectoris

== ENCOUNTER → 2020-03-02 | Outpatient (REF) | LOC: SKLAB5 07:07 | PROVIDERS: ATTEND Internal Medicine | DX: D64.9 Anemia, unspecified (principal); I10 Essential (primary) hypertension ==

== ENCOUNTER → 2020-03-02 | Outpatient (REF) ==
[2020-03-02 09:42] LABS: HEMOGLOBIN 9.9 g/dl (12.0-15.5); MEAN CORPUSCULAR HEMOGLOBIN 21.8 pg (27.0-33.0); MEAN CORPUSCULAR HGB CONC 29.1 g/dl (32.0-36.5); MEAN CORPUSCULAR VOLUME 74.9 fl (80.0-96.0); PLATELET COUNT, AUTOMATED 220 10^3/uL (150-450); RED BLOOD COUNT 4.54 10^6/uL (4.00-5.40); WHITE BLOOD COUNT 8.8 10^3/uL (4.0-10.0)
[2020-03-02 10:12] LABS: CALCIUM LEVEL 9.4 MG/DL (8.8-10.2); CREATININE FOR GFR 1.45 MG/DL (0.55-1.30); GLOMERULAR FILTRATION RATE 36.7 (>32); POTASSIUM SERUM 4.1 MEQ/L (3.5-5.1)
== END ==
LOC: SKLAB5 09:05
PROVIDERS: ATTEND Internal Medicine
DX: D64.9 Anemia, unspecified (principal)

== ENCOUNTER → 2020-03-07 | Outpatient (REF) ==
[2020-03-07 08:35] LABS: HEMATOCRIT 32.9 % (36.0-47.0); HEMOGLOBIN 9.6 g/dl (12.0-15.5); MEAN CORPUSCULAR HEMOGLOBIN 21.7 pg (27.0-33.0); MEAN CORPUSCULAR HGB CONC 29.2 g/dl (32.0-36.5); MEAN CORPUSCULAR VOLUME 74.3 fl (80.0-96.0); PLATELET COUNT, AUTOMATED 216 10^3/uL (150-450); RED BLOOD COUNT 4.43 10^6/uL (4.00-5.40); WHITE BLOOD COUNT 9.8 10^3/uL (4.0-10.0)
== END ==
LOC: SKLAB5 07:23
PROVIDERS: ATTEND Internal Medicine
DX: D64.9 Anemia, unspecified (principal)

== ENCOUNTER → 2020-03-14 | Outpatient (REF) ==
[2020-03-14 09:13] LABS: HEMATOCRIT 33.7 % (36.0-47.0); MEAN CORPUSCULAR HEMOGLOBIN 21.7 pg (27.0-33.0); MEAN CORPUSCULAR HGB CONC 29.7 g/dl (32.0-36.5); MEAN CORPUSCULAR VOLUME 73.3 fl (80.0-96.0); PLATELET COUNT, AUTOMATED 309 10^3/uL (150-450); WHITE BLOOD COUNT 10.4 10^3/uL (4.0-10.0)
== END ==
LOC: SKLAB5 06:43
PROVIDERS: ATTEND Internal Medicine
DX: D64.9 Anemia, unspecified (principal)

== ENCOUNTER → 2020-03-21 | Outpatient (REF) ==
[~2020-03-21] MED LIST changes: +ACET-907 PO; -ASPI81TA85 PO; +ASPI81TA86 PO; +AUGM875T28 PO; +BASA100I SC; +CARV3.12 PO; +DULC10SU2 PR; +ENEMENE PR; +FURO80TA2 PO; +HUMA100I3 SC; +INSUDET SC; +MEGE40TA PO; +MOM30SS PO; +XARE15TA PO
[2020-04-17 19:34] LABS: HEMATOCRIT 32.9 % (36.0-47.0); HEMOGLOBIN 9.8 g/dl (12.0-15.5); MEAN CORPUSCULAR HEMOGLOBIN 21.8 pg (27.0-33.0); MEAN CORPUSCULAR HGB CONC 29.8 g/dl (32.0-36.5); MEAN CORPUSCULAR VOLUME 73.1 fl (80.0-96.0); PLATELET COUNT, AUTOMATED 298 10^3/uL (150-450); WHITE BLOOD COUNT 11.6 10^3/uL (4.0-10.0)
[2020-05-04 18:29] LABS: CK-MB VALUE MASS < 1.0 NG/ML (<3.6); CPK CREATINE PHOSPHOKINASE 21 U/L (26-192); MB/CK RELATIVE INDEX 4.76 (< OR =4)
== END ==
LOC: SKLAB5 08:37
PROVIDERS: ATTEND Internal Medicine
DX: D64.9 Anemia, unspecified (principal)

== ENCOUNTER → 2020-03-23 | Outpatient (REF) | payer MEDICARE, MEDICAID ==
[2020-05-05 10:44] LABS: HEMATOCRIT 31.1 % (36.0-47.0); HEMOGLOBIN 9.1 g/dl (12.0-15.5); MEAN CORPUSCULAR HEMOGLOBIN 21.6 pg (27.0-33.0); MEAN CORPUSCULAR HGB CONC 29.3 g/dl (32.0-36.5); MEAN CORPUSCULAR VOLUME 73.7 fl (80.0-96.0); PLATELET COUNT, AUTOMATED 276 10^3/uL (150-450); RED BLOOD COUNT 4.22 10^6/uL (4.00-5.40); WHITE BLOOD COUNT 10.3 10^3/uL (4.0-10.0)
== END ==
LOC: SKLAB5 14:02
PROVIDERS: ATTEND Internal Medicine
DX: D64.9 Anemia, unspecified (principal)

== ENCOUNTER → 2020-03-28 | Outpatient (REF) ==
[2020-06-07 13:56] LABS: HEMATOCRIT 34.3 % (36.0-47.0); HEMOGLOBIN 9.8 g/dl (12.0-15.5); MEAN CORPUSCULAR HEMOGLOBIN 21.6 pg (27.0-33.0); MEAN CORPUSCULAR HGB CONC 28.6 g/dl (32.0-36.5); MEAN CORPUSCULAR VOLUME 75.7 fl (80.0-96.0); PLATELET COUNT, AUTOMATED 365 10^3/uL (150-450); RED BLOOD COUNT 4.53 10^6/uL (4.00-5.40); WHITE BLOOD COUNT 10.1 10^3/uL (4.0-10.0)
== END ==
LOC: SKLAB5 08:38
PROVIDERS: ATTEND Internal Medicine
DX: D64.9 Anemia, unspecified (principal)

== ENCOUNTER → 2020-03-28 | Outpatient (REF) | payer MEDICARE, MEDICAID | LOC: CANPREREF → SKLAB5 06:00 | PROVIDERS: ATTEND Internal Medicine | DX: D64.9 Anemia, unspecified (principal) ==

== ENCOUNTER → 2020-04-03 | Outpatient (REF) | payer MEDICARE, MEDICAID ==
[2020-06-17 11:58] LABS: HEMOGLOBIN 9.2 g/dl (12.0-15.5); MEAN CORPUSCULAR HEMOGLOBIN 22.3 pg (27.0-33.0); MEAN CORPUSCULAR HGB CONC 29.7 g/dl (32.0-36.5); MEAN CORPUSCULAR VOLUME 75.2 fl (80.0-96.0); PLATELET COUNT, AUTOMATED 310 10^3/uL (150-450); RED BLOOD COUNT 4.12 10^6/uL (4.00-5.40); WHITE BLOOD COUNT 9.3 10^3/uL (4.0-10.0)
[2020-06-29 14:04] LABS: CALCIUM LEVEL 8.8 MG/DL (8.8-10.2); CREATININE FOR GFR 1.41 MG/DL (0.55-1.30); GLOMERULAR FILTRATION RATE 37.9 (>32); POTASSIUM SERUM 4.3 MEQ/L (3.5-5.1)
== END ==
LOC: SKLAB5 09:55
PROVIDERS: ATTEND Internal Medicine
DX: I50.9 Heart failure, unspecified (principal)

== ENCOUNTER → 2020-04-03 | Outpatient (CLI) | payer MEDICARE, MEDICAID ==
--- NOTE | 2020-05-12 12:04 | ECGEPIP ---
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
--- NOTE | 2020-05-19 10:56 | REP ---
CHEST X-RAY: 2-VIEWS HISTORY: CHF. COMPARISON: 02/19/20 FINDINGS: 2-views of the chest are performed. There is a mild to moderate right pleural effusion present with mild adjacent parenchymal opacity. The left lung appears clear and unchanged. There is mild cardiomegaly. There is calcification of the thoracic aorta. The mediastinal silhouette is unchanged. There are mild degenerative changes of the spine. IMPRESSION: Mild to moderate right effusion with mild adjacent parenchymal opacity. Mild cardiomegaly. MTDD
== END ==
LOC: M RAD 12:24
PROVIDERS: ATTEND Internal Medicine
DX: J90 Pleural effusion, not elsewhere classified (principal)

== ENCOUNTER → 2020-04-07 | Outpatient (REF) | payer MEDICARE, MEDICAID ==
[2020-07-01 06:46] LABS: CREATININE FOR GFR 1.68 MG/DL (0.55-1.30); POTASSIUM SERUM 4.2 MEQ/L (3.5-5.1)
== END ==
LOC: SKLAB5 07:00
PROVIDERS: ATTEND Internal Medicine
DX: J90 Pleural effusion, not elsewhere classified (principal)

== ENCOUNTER → 2020-05-01 | Outpatient (CLI) | payer MEDICARE, MEDICAID ==
[2020-05-01 19:57] LABS: APPEARANCE, URINE MANUAL TURBID (CLEAR); BILIRUBIN, URINE MANUAL NEGATIVE (NEGATIVE); COLOR, URINE MANUAL RED (YELLOW); GLUCOSE, URINE (UA) MANUAL NEGATIVE (NEGATIVE); KETONE, URINE MANUAL NEGATIVE (NEGATIVE); NITRITE, URINE MANUAL NEGATIVE (NEGATIVE); PROTEIN, URINE MANUAL 3+ mg/dL (NEGATIVE); SPECIFIC GRAVITY,URINE MANUAL 1.015 (1.002-1.035); UROBILINOGEN, URINE MANUAL NORMAL (NORMAL)
[2020-05-01 19:58] LABS: BLOOD URINE MANUAL POSITIVE (NEGATIVE); LEUKOCYTE ESTERASE, URINE MAN POSITIVE (NEGATIVE); RBC, URINE TNTC /hpf (0-3)
[2020-05-01 19:59] LABS: BACTERIA, URINE LARGE AMOUNT; SQUAMOUS EPITHELIAL CELL URINE SMALL AMOUNT /hpf (SMALL AMT)
[2020-05-01 20:00] LABS: HYALINE CAST, URINE 0-1 /lpf (0-1); WBC, URINE 40-50 /hpf (0-3)
== END ==
LOC: SKLAB5 19:27
PROVIDERS: ATTEND Internal Medicine
DX: N39.0 Urinary tract infection, site not specified (principal)

== ENCOUNTER 2020-05-02 11:27 | Inpatient (IN) | payer MEDICARE, MEDICAID ==
[~2020-05-02] VITALS: Ht 170.2 cm; Wt 123.8 kg
[~2020-05-02 11:27] MED LIST changes: -ACET-907 PO; -AUGM875T28 PO; -BASA100I SC; -CARV3.12 PO; -DULC10SU2 PR; -ENEMENE PR; -FURO80TA2 PO; -HUMA100I3 SC; -INSUDET SC; -MEGE40TA PO; -MOM30SS PO; -XARE15TA PO
[2020-05-02 12:18] LABS: BASO # 0.1 10^3/uL (0.0-0.2); BASO % 0.2 % (0.0-1.0); EOS # 0.1 10^3/uL (0.0-0.5); EOS % 0.4 % (0.0-3.0); HEMOGLOBIN 9.2 g/dl (12.0-15.5); LYMPH # 0.5 10^3/uL (1.5-5.0); LYMPH % 2.3 % (24.0-44.0); MEAN CORPUSCULAR HEMOGLOBIN 22.2 pg (27.0-33.0); MEAN CORPUSCULAR HGB CONC 28.8 g/dl (32.0-36.5); MEAN CORPUSCULAR VOLUME 77.1 fl (80.0-96.0); MONO # 0.5 10^3/uL (0.0-0.8); NEUTROPHILS # 22.1 10^3/uL (1.5-8.5); NEUTROPHILS % 94.3 % (36.0-66.0); PLATELET COUNT, AUTOMATED 322 10^3/uL (150-450); RED BLOOD COUNT 4.15 10^6/uL (4.00-5.40); WHITE BLOOD COUNT 23.5 10^3/uL (4.0-10.0)
[2020-05-02 12:45] LABS: ALBUMIN 2.9 GM/DL (3.2-5.2); ALT/SGPT 13 U/L (12-78); BILIRUBIN,DIRECT 0.2 MG/DL (0.0-0.2); BILIRUBIN,TOTAL 0.5 MG/DL (0.2-1.0); BLOOD UREA NITROGEN 42 MG/DL (7-18); CALCIUM LEVEL 9.2 MG/DL (8.8-10.2); CARBON DIOXIDE LEVEL 27 MEQ/L (21-32); CHLORIDE LEVEL 102 MEQ/L (98-107); CREATININE FOR GFR 2.18 MG/DL (0.55-1.30); GLOMERULAR FILTRATION RATE 22.9 (>32); GLUCOSE, FASTING 281 MG/DL (70-100); LIPASE 133 U/L (73-393); POTASSIUM SERUM 3.9 MEQ/L (3.5-5.1); SODIUM LEVEL 136 MEQ/L (136-145); TOTAL PROTEIN 7.3 GM/DL (6.4-8.2)
[2020-05-02] MEDS ORDERED: XARE15TA PO (12:47)
[2020-05-02] MEDS ORDERED: BASA100I SC (12:47)
[2020-05-02] MEDS ORDERED: FURO80TA2 PO (12:47)
[2020-05-02] MEDS ORDERED: MOM30SS PO (12:47)
[2020-05-02] MEDS ORDERED: ACET-907 PO (12:47)
[2020-05-02] MEDS ORDERED: DULC10SU2 PR (12:47)
[2020-05-02] MEDS ORDERED: ENEMENE PR (12:47)
[2020-05-02] MEDS ORDERED: ACETAMINOPHEN TAB 650MG DOSE (2X325MG) PO ONE (13:00)
[2020-05-02] MEDS ORDERED: ERTAPENEM SODIUM 1 GM in NS MINI-BAG PLUS 50 ML IV ONE (13:15)
[2020-05-02] MEDS ORDERED: ERTAPENEM 1GM VIAL(INVanz) (J1335 PER 500MG) As Ordered ONE (13:18)
[2020-05-02] MEDS ORDERED: ACETAMINOPHEN 325 MG TAB As Ordered ONE (13:18)
[2020-05-02] MEDS: GASTROGRAFIN SOLUTION 30ML PO SCH ×2 (13:39→14:30)
[2020-05-02] MEDS: NS 1,000 ML IV SCH ×2 (13:39→17:21)
[2020-05-02 13:50] LABS: CK-MB VALUE MASS < 1.0 NG/ML (<3.6); CPK CREATINE PHOSPHOKINASE 20 U/L (26-192); TROPONIN I < 0.02 NG/ML (< 0.10)
[2020-05-02 14:30] LABS: APPEARANCE, URINE MANUAL TURBID (CLEAR); COLOR, URINE MANUAL PINK (YELLOW)
[2020-05-02 14:33] LABS: GLUCOSE, URINE (UA) MANUAL NEGATIVE (NEGATIVE); KETONE, URINE MANUAL NEGATIVE (NEGATIVE); PROTEIN, URINE MANUAL 2+ mg/dL (NEGATIVE)
[2020-05-02 14:34] LABS: BILIRUBIN, URINE MANUAL NEGATIVE (NEGATIVE); BLOOD URINE MANUAL POSITIVE (NEGATIVE); LEUKOCYTE ESTERASE, URINE MAN POSITIVE (NEGATIVE); NITRITE, URINE MANUAL POSITIVE (NEGATIVE); UROBILINOGEN, URINE MANUAL NORMAL (NORMAL)
[2020-05-02 14:58] LABS: RBC, URINE TNTC /hpf (0-3); WBC, URINE TNTC /hpf (0-3)
[2020-05-02 14:59] LABS: BACTERIA, URINE NONE SEEN; HYALINE CAST, URINE NONE SEEN /lpf (0-1); SQUAMOUS EPITHELIAL CELL URINE NONE SEEN /hpf (SMALL AMT)
--- NOTE | 2020-05-02 16:13 | REPVR ---
PROCEDURE INFORMATION: Exam: CT Abdomen And Pelvis Without Contrast Exam date and time: 05/02/2020 3:36 PM Age: 84 years old Clinical indication: Fever; Abdominal pain; Additional info: Fever, abd pain TECHNIQUE: Imaging protocol: Computed tomography of the abdomen and pelvis without contrast. Radiation optimization: All CT scans at this facility use at least one of these dose optimization techniques: automated exposure control; mA and/or kV adjustment per patient size (includes targeted exams where dose is matched to clinical indication); or iterative reconstruction. COMPARISON: US PELVIC NON-OB COMPLETE 03/08/2019 7:56 AM FINDINGS: Pleural space: There is a right pleural effusion with adjacent consolidation the right lower lobe. There is pleural calcification at the right lung base posteriorly. Liver: There are no focal liver lesions. Gallbladder and bile ducts: Multiple calcified gallstones are present in a distended gallbladder. Pancreas: The pancreas is not well assessed. Spleen: The spleen is normal. Adrenals: The right adrenal gland is unremarkable. The left adrenal gland appears enlarged. Kidneys and ureters: There is no hydronephrosis. Calcifications within the kidneys appear arterial. There is bilateral perinephric stranding greater on left than right. Stomach and bowel: There is no evidence of intestinal obstruction. Diffuse diverticulosis particularly in the sigmoid colon. Appendix: No evidence of appendicitis. Intraperitoneal space: Unremarkable. No free air. No significant fluid collection. Vasculature: There is no evidence of an infrarenal abdominal aortic aneurysm. The arteries demonstrates diffuse marked atherosclerotic calcification. Lymph nodes: Unremarkable. No enlarged lymph nodes. Bladder: The urinary bladder is decompressed and poorly assessed. Reproductive: Unremarkable as visualized. Bones/joints: Possible surgical fusion at the L4 through S1 levels where bone graft material is apparent. Soft tissues: There is a fat-containing umbilical hernia. There is a well-circumscribed subcutaneous lesion just to the left of midline at the level of the lower sternum measuring 3.8 cm. There is subcutaneous increased density overlying the posterior margin of the left hip which is only partially imaged. IMPRESSION: 1. No evidence of urinary tract or bowel obstruction. There is perinephric stranding but this may be a chronic finding. 2. Diverticulosis without evidence of diverticulitis. 3. Cholelithiasis without evidence of acute cholecystitis. Electronically signed by: Elli Patel On 05/02/2020 16:13:09 PM
[2020-05-02] MEDS ORDERED: FLEET ENEMA PR PRN (16:45)
[2020-05-02] MEDS ORDERED: MOM 30ML SUSPENSION UDC PO PRN (16:45)
[2020-05-02] MEDS ORDERED: BISACODYL 10 MG SUPP PR PRN (16:45)
[2020-05-02] MEDS ORDERED: ACETAMINOPHEN 325 MG TAB PO PRN (16:45)
--- NOTE | 2020-05-02 17:20 | HPEPDOC ---
[facility] Medical History & Physical Date of Admission May 02, 2020 Date of Service: May 02, 2020 Attending Physician: SARAH CARRERA MD History and Physical CHIEF COMPLAINT: Fever HPI 84-year-old W from [facility] with past medical history of coronary artery disease status post stent placement, hypertension, diabetes mellitus, hyperlipidemia and atrial fibrillation on rivaroxaban, history of a TIA and CHF who presents with fever, N/V/abdominal pain. She developed the N/V/abdominal pain at around 3am and was noted to have a fever and brought in to the ED. She otherwise denied any shortness of breath, chest pain, recent sick contacts, travel, worsening peripheral edema or palpitations. In the ED, she mclaughlin a fever to 101, and tachycardic to low 100s but was notably hypertensive to SBP 180s. She got tylenol, empiric ertapenem and some fluids. Work up revealed WBC 23.5m stable anemia to 9.2, na 136, K 3.9, elevated Cr 2.18 from baseline 1.45, while UA was grossly positive with TNTC RBCs and WBCs, positive leuks and nitrites, while CT A/ was notable for perinephric stranding c/w pyelonephritis, some diverticulosis and cholelithiasis. Her lactate was 3.4. Of note EKG was non ischemic in sinus tachycardia, trop was negative and CXR was stable from prior with moderate R pleural effusion. She is now being admitted to medicine for sepsis 2/2 pyelonephritis with plan to continue ertapenem given her microbiology data history with notable resistant bacteria. 10 point review of systems negative except for above PAST MEDICAL HISTORY: 1. Coronary artery disease. 2. Atrial fibrillation. 3. Hypertension. 4. Diabetes mellitus. 5. Hyperlipidemia. 6. history of TIA PAST SURGICAL HISTORY: 1. Toe surgery. SOCIAL HISTORY: Previous smoker. Denies alcohol use. Denies drug use FAMILY HISTORY: Positive for diabetes ALLERGIES: Please see below. HOME MEDICATIONS: Please see below. PHYSICAL EXAMINATION: VITAL SIGNS: Please see below. GENERAL: No distress, morbidly obese HEENT: Normocephalic, atraumatic, moist mucous membranes NECK: Supple CARDIOVASCULAR EXAMINATION: RRR, S1, S2, no murmurs RESPIRATORY EXAMINATION: Poor air movement, diminished in the bases, scattered rhonchi, no wheezing ABDOMINAL EXAMINATION: Soft, nondistended, positive bowel sounds, tender bilateral flanks and bilateral lower quadrants, no rebound, no guarding, no fluid wave EXTREMITIES: No lower extremity edema SKIN: Dry erythematous skin on bilateral lower extremities NEUROLOGICAL EXAMINATION: Alert and oriented 3, significant weakness of lower extremities PSYCHIATRIC EXAMINATION: Calm and cooperative LABORATORY DATA: See below. Reviewed above IMAGING: Chest x-ray: without acute pathology CT A/P: Notable for perinephric stranding, diverticulosis without evidence of inflammation and cholelithiasis without cholecystitis MICROBIOLOGY: Please see below. ASSESSMENT: 84-year-old female with multiple medical comorbidities being admitted for sepsis 2/2 pyelonephritis, hypertensive urgency and DANIEL on CKD. PLAN: 1. Sepsis 2/2 pyelonephritis: Fever, tachycardia, +UA, imaging c/w pyelo -Continue empiric ertapenem given history of resistant bacteria in urine -f/u UCx -f/u BCx -NS @ 100cc/hr for relative hypotensive -Zofran Q6HP for nausea -Tylenol PRN for pain 2. Acute on chronic kidney disease. Hold home lasix and trend creatinine for now 3. Microcytic Anemia. stable from prior, no c/f bleeding at this time 4. Diabetes mellitus. levemir 30u QHS -Sliding scale insulin coverage with meals and at bedtime -FSBG AC/HS -hypoglycemia protocol 5. Hypertension, was hypertensive when she arrived, now soft and technically functionally hypotensive -Hold home Isordil and metoprolol 6. Coronary artery disease. Continue aspirin, statin and beta anamaria. 7. Paroxysmal atrial fibrillation. continue rivaroxaban, continue metoprolol. -telemetry DVT prophylaxis: rivaroxaban GI prophylaxis: Home Pepcid Vital Signs Vital Signs Date Time Temp Pulse Resp B/P (MAP) Pulse Ox O2 Delivery O2 Flow Rate FiO2 05/02/20 15:16 98.6 05/02/20 12:07 Room Air 05/02/20 12:00 104 20 183/81 (115) 95 Laboratory Data Labs 24H Laboratory Tests 2 05/02/20 12:06: Immature Granulocyte % (Auto) 0.8, Neutrophils (%) (Auto) 94.3H, Lymphocytes (%) (Auto) 2.3L, Monocytes (%) (Auto) 2.0, Eosinophils (%) (Auto) 0.4, Basophils (%) (Auto) 0.2, Neutrophils # (Auto) 22.1H, Lymphocytes # (Auto) 0.5L, Monocytes # (Auto) 0.5, Eosinophils # (Auto) 0.1, Basophils # (Auto) 0.1, Nucleated Red Blood Cells % (auto) 0.1H, Anion Gap 7L, Glomerular Filtration Rate 22.9L, Calcium Level 9.2, Total Bilirubin 0.5, Direct Bilirubin 0.2, Aspartate Amino Transf (AST/SGOT) 14, Alanine Aminotransferase (ALT/SGPT) 13, Alkaline Phosphatase 169H, Total Creatine Kinase 20L, Creatine Kinase MB < 1.0, Creatine Kinase MB Relative Index 5.00H, Troponin I < 0.02, Total Protein 7.3, Albumin 2.9L, Albumin/Globulin Ratio 0.7L, Lipase 133 05/02/20 12:32: Lactic Acid Level 3.4*H 05/02/20 14:09: Bedside Urine Color (LAB) PINKH, Bedside Urine Appearance (LAB) TURBIDH, Bedside Urine pH (LAB) 5.0, Bedside Urine Specific [place] (LAB 1.020, Bedside Urine Protein (LAB) 2+H, Bedside Urine Glucose (UA) NEGATIVE, Bedside Urine Ketones (LAB) NEGATIVE, Bedside Urine Blood POSITIVEH, Bedside Urine Nitrite (LAB) POSITIVEH, Bedside Urine Bilirubin (LAB) NEGATIVE, Bedside Urine Urobilinogen (LAB) NORMAL, Bedside Urine Leukocyte Esterase (L POSITIVEH, Urine Sediment Examination PERFORMED, Urine RBC TNTCH, Urine WBC TNTCH, Urine Squamous Epithelial Cells NONE SEEN, Urine Bacteria NONE SEEN, Urine Hyaline Casts NONE SEEN CBC/BMP Laboratory Tests 05/02/20 12:06 Microbiology Microbiology 05/02/20 Blood Culture, Received Pending 05/02/20 Respiratory Virus Panel (PCR) (ALBINO) - Final, Complete 05/02/20 Blood Culture, Received Pending Home Medications Scheduled Aspirin (Aspir 81) 81 Mg Tablet.dr, 81 MG PO DAILY Atorvastatin Calcium (Atorvastatin Calcium) 40 Mg Tablet, 40 MG PO QHS Docusate Sodium (Colace) 100 Mg Capsule, 100 MG PO DAILY Famotidine (Famotidine) 40 Mg Tablet, 40 MG PO QHS Ferrous Sulfate (Ferrous Sulfate) 325 Mg Tablet, 325 MG PO DAILY Furosemide (Furosemide) 80 Mg Tablet, 80 MG PO BID 0800 , 1600 Insulin Glargine,Hum.rec.anlog (Basaglar Kwikpen U-100) 100 Unit/1 Ml Insuln.pen, 30 UNIT SC QHS Insulin Lispro Protamin/Lispro (Humalog Mix 75-25 Kwikpen) 100 Unit/1 Ml Insuln.pen, 1 DOSE SC BID PER SLIDING SCALE BEFORE BREAKFAST AND DINNER Isosorbide Dinitrate (Isosorbide Dinitrate) 20 Mg Tablet, 20 MG PO BID Metoprolol Tartrate (Metoprolol Tartrate) 25 Mg Tablet, 12.5 MG PO BID Rivaroxaban (Xarelto) 15 Mg Tablet, 15 MG PO DAILY Sitagliptin (Januvia) 50 Mg Tablet, 50 MG PO DAILY Scheduled PRN Acetaminophen (Tylenol) 325 Mg Tablet, 650 MG PO Q4H PRN for PAIN / FEVER Bisacodyl (Dulcolax) 10 Mg Supp.rect, 10 MG GA DAILY PRN for CONSTIPATION Milk Of Magnesia (Milk of Magnesia) 2,400 Mg/10 Ml Oral.susp, 10 ML PO DAILY PRN for CONSTIPATION Sodium Phosphate,[place]-Dibasic (Enema) 133 Ml Enema, 1 KEYON GA DAILY PRN for CONSTIPATION Allergies Coded Allergies: Quinolones (Verified Adverse Reaction, Intermediate, DIZZY, NAUSEA, HEART FLUTTERING, ITCHING ON HAND, 02/07/20) A-FIB/CHADSVASC A-FIB History Current/History of A-Fib/PAF?: Yes Current PO Anticoag Therapy: Yes SARAH CARRERA MD May 02, 2020 16:58
[2020-05-02] MEDS ORDERED: NS 1,000 ML IV SCH (17:30)
[2020-05-02 17:48] VITALS: BP 119/50
[2020-05-02] MEDS: RIVAROXABAN 15 MG TAB (XARELTO) PO SCH (18:23)
[2020-05-02] MEDS ORDERED: GLUCOSE 4GM CHEW TABLET PO PRN (18:30)
[2020-05-02] MEDS ORDERED: DEXTROSE 50% 50 ML SYRINGE IV PRN (18:30)
[2020-05-02] MEDS ORDERED: GLUCAGON INJ 1MG VIAL SC PRN (18:30)
[2020-05-02 20:00] VITALS: BP 144/87
[2020-05-02] MEDS: ATORVASTATIN 20 MG TAB PO SCH (20:18)
[2020-05-02] MEDS: LEVEMIR (INSULIN DETEMIR) 1 UNITS/0.01ML SC SCH (20:19)
[2020-05-02] MEDS: HumaLOG INSULIN (NovoLOG) PER UNIT SC SCH (20:19)
[2020-05-02] MEDS ORDERED: FAMOTIDINE 20 MG TAB PO SCH (21:00)
[2020-05-02] MEDS ORDERED: ISOSORBIDE DIN. (ISORDIL) 20 MG TAB PO SCH (21:00)
[2020-05-02] MEDS ORDERED: METOPROLOL TART 25 MG TABLET PO SCH (21:00)
[2020-05-02] MEDS: ONDANSETRON 4MG/2ML VIAL IV PRN (21:59)
[2020-05-03] VITALS (13 sets, daily range): BP systolic 131–165; BP diastolic 60–93
[2020-05-03 05:09] LABS: HEMATOCRIT 26.5 % (36.0-47.0); HEMOGLOBIN 7.8 g/dl (12.0-15.5); MEAN CORPUSCULAR HEMOGLOBIN 22.7 pg (27.0-33.0); MEAN CORPUSCULAR HGB CONC 29.4 g/dl (32.0-36.5); PLATELET COUNT, AUTOMATED 262 10^3/uL (150-450); RED BLOOD COUNT 3.44 10^6/uL (4.00-5.40)
[2020-05-03 05:11] LABS: WHITE BLOOD COUNT 31.7 10^3/uL (4.0-10.0)
[2020-05-03 05:37] LABS: ALBUMIN 2.1 GM/DL (3.2-5.2); BILIRUBIN,TOTAL 0.3 MG/DL (0.2-1.0); CALCIUM LEVEL 8.5 MG/DL (8.8-10.2); CREATININE FOR GFR 2.43 MG/DL (0.55-1.30); GLOMERULAR FILTRATION RATE 20.2 (>32); MAGNESIUM LEVEL 2.4 MG/DL (1.8-2.4); POTASSIUM SERUM 3.9 MEQ/L (3.5-5.1); TOTAL PROTEIN 6.7 GM/DL (6.4-8.2)
[2020-05-03] MEDS: ONDANSETRON 4MG/2ML VIAL IV PRN ×2 (05:53→16:16)
[2020-05-03] MEDS ORDERED: ERTAPENEM SODIUM 0.5 GM in NS 50 ML IV SCH ×3 (09:00→13:00)
[2020-05-03] MEDS ORDERED: ERTAPENEM SODIUM 1 GM in NS MINI-BAG PLUS 50 ML IV SCH (09:00)
[2020-05-03] MEDS: PANTOPRAZOLE 40MG VIAL (C9113 PER 1) IV SCH ×2 (09:57→20:23)
[2020-05-03] MEDS: HumaLOG INSULIN (NovoLOG) PER UNIT SC SCH ×4 (09:59→20:12)
[2020-05-03] MEDS: DOCUSATE SODIUM 100 MG CAP PO SCH (10:00)
[2020-05-03] MEDS: FERROUS SULFATE 325MG TAB PO SCH (10:07)
[2020-05-03] MEDS: ASPIRIN 81 MG ENTERIC TAB PO SCH (10:07)
--- NOTE | 2020-05-03 12:04 | IPNPDOC ---
Text Note Date of Service The patient was seen on 05/03/20. NOTE SUBJECTIVE: -Afebrile and hemodynamically stable -Overnight had nausea and emesis x 2, with c/f UGIB with FOBT sent for emesis, c/f GIB PHYSICAL EXAMINATION: VITAL SIGNS: Please see below. GENERAL: No distress, morbidly obese HEENT: Normocephalic, atraumatic, moist mucous membranes NECK: Supple CARDIOVASCULAR EXAMINATION: RRR, S1, S2, no murmurs RESPIRATORY EXAMINATION: Poor air movement, diminished in the bases, scattered rhonchi, no wheezing ABDOMINAL EXAMINATION: Soft, nondistended, positive bowel sounds, tender bilateral flanks and bilateral lower quadrants, no rebound, no guarding, no fluid wave EXTREMITIES: No lower extremity edema SKIN: Dry erythematous skin on bilateral lower extremities NEUROLOGICAL EXAMINATION: Alert and oriented 3, significant weakness of lower extremities PSYCHIATRIC EXAMINATION: Calm and cooperative LABORATORY DATA: Reviewed WBC 31.7 hgb 7.8 platelets 262 na 137 K 3.9 Cr 2.43 lactate 2.1 BCx growing GNRs x 2 IMAGING: Chest x-ray: without acute pathology CT A/P: Notable for perinephric stranding, diverticulosis without evidence of inflammation and cholelithiasis without cholecystitis MICROBIOLOGY: Please see below. ASSESSMENT: 84-year-old W with multiple medical comorbidities being admitted for sepsis 2/2 pyelonephritis, hypertensive urgency, DANIEL on CKD, now with course c/n N/V of possible coffee ground material c/f UGIB. PLAN: 1. Sepsis 2/2 pyelonephritis: Fever, tachycardia, +UA, imaging c/w pyelo -Continue empiric ertapenem given history of resistant bacteria in urine, day 2 -f/u UCx -f/u BCx, thus far with GNRs -DC @ 100cc/hr -Zofran Q6HP for nausea -Tylenol PRN for pain 2. Acute on chronic kidney disease. Holding home lasix and trend creatinine for now, to restart lasix once BP is stably normal 3. Acute on chronic Microcytic Anemia with c/f UGI 2u pRBCs this AM - Protonix BID - monitor daily CBC - hold home pepcid 4. Diabetes mellitus. increase levemir to 35u QHS -Sliding scale insulin coverage with meals and at bedtime -FSBG AC/HS -hypoglycemia protocol 5. Hypertension, was hypertensive when she arrived, now soft and technically functionally hypotensive -Hold home Isordil and metoprolol 6. Coronary artery disease. Continue aspirin, statin and beta anamaria. 7. Paroxysmal atrial fibrillation. continue rivaroxaban, continue metoprolol. -telemetry 8. CT suggestive of possible PNA -day 2 of ertapenem 9. N/V with c/f UGIB -monitor CBC daily -If more emesis episodes, may increase frequency of h/h checks or consult GI -Otherwise will give 2u pRBCs today DVT prophylaxis: rivaroxaban GI prophylaxis: switch home Pepcid to protonix BID for now VS,Fishbone, I+O VS, Fishbone, I+O Laboratory Tests 05/02/20 12:06 05/03/20 04:44 Vital Signs Date Time Temp Pulse Resp B/P (MAP) Pulse Ox O2 Delivery O2 Flow Rate FiO2 05/02/20 20:00 98.3 58 20 144/87 (106) 92 Room Air I&O- Last 24 Hours up to 6 AM 05/03/20 05:59 Intake Total 1320 ml Output Total 100 ml Balance 1220 ml SARAH CARRERA MD May 03, 2020 08:06
[2020-05-03] MEDS: ERTAPENEM SODIUM 0.5 GM in NS 50 ML IV SCH (15:05)
[2020-05-03] MEDS: RIVAROXABAN 15 MG TAB (XARELTO) PO SCH (17:58)
[2020-05-03] MEDS: LEVEMIR (INSULIN DETEMIR) 1 UNITS/0.01ML SC SCH (20:23)
[2020-05-03] MEDS: NYSTATIN 100,000 UNITS/GM TOPICAL PWD 15 GM TOP SCH (20:23)
[2020-05-03] MEDS: ATORVASTATIN 20 MG TAB PO SCH (20:25)
[2020-05-04] VITALS: BP 136/72
[2020-05-04 01:57] LABS: HEMATOCRIT 32.6 % (36.0-47.0)
[2020-05-04 02:03] LABS: HEMOGLOBIN 9.8 g/dl (12.0-15.5)
[2020-05-04 04:00] VITALS: BP 158/72
[2020-05-04 05:52] LABS: HEMOGLOBIN 9.7 g/dl (12.0-15.5); MEAN CORPUSCULAR HEMOGLOBIN 23.6 pg (27.0-33.0); MEAN CORPUSCULAR HGB CONC 30.3 g/dl (32.0-36.5); MEAN CORPUSCULAR VOLUME 77.9 fl (80.0-96.0); PLATELET COUNT, AUTOMATED 216 10^3/uL (150-450); RED BLOOD COUNT 4.11 10^6/uL (4.00-5.40); WHITE BLOOD COUNT 21.5 10^3/uL (4.0-10.0)
[2020-05-04 06:18] LABS: BILIRUBIN,TOTAL 0.6 MG/DL (0.2-1.0); CALCIUM LEVEL 8.3 MG/DL (8.8-10.2); CREATININE FOR GFR 2.08 MG/DL (0.55-1.30); GLOMERULAR FILTRATION RATE 24.2 (>32); MAGNESIUM LEVEL 2.6 MG/DL (1.8-2.4); TOTAL PROTEIN 5.8 GM/DL (6.4-8.2)
[2020-05-04] MEDS: DOCUSATE SODIUM 100 MG CAP PO SCH (07:38)
[2020-05-04] MEDS: ASPIRIN 81 MG ENTERIC TAB PO SCH (07:38)
[2020-05-04] MEDS: FERROUS SULFATE 325MG TAB PO SCH (07:38)
[2020-05-04] MEDS: HumaLOG INSULIN (NovoLOG) PER UNIT SC SCH ×4 (07:39→21:00)
[2020-05-04] MEDS: PANTOPRAZOLE 40MG VIAL (C9113 PER 1) IV SCH ×2 (07:39→21:23)
[2020-05-04] MEDS: NYSTATIN 100,000 UNITS/GM TOPICAL PWD 15 GM TOP SCH ×2 (07:40→21:25)
[2020-05-04] MEDS: ONDANSETRON 4MG/2ML VIAL IV PRN (07:56)
[2020-05-04 08:00] VITALS: BP 178/80
[2020-05-04 12:00] VITALS: BP 158/66
[2020-05-04] MEDS: ERTAPENEM SODIUM 0.5 GM in NS 50 ML IV SCH (13:46)
[2020-05-04 16:00] VITALS: BP 165/70
--- NOTE | 2020-05-04 16:34 | IPNPDOC ---
Text Note Date of Service The patient was seen on 05/04/20. NOTE Subjective: No any acute events overnight. Patient stated that she has interm ittent vaginal bleeding. However, she is not interesting in workup. I told her about my concern for malignancy, she stated that she is not interesting in any diagnostic interventions. PHYSICAL EXAMINATION: VITAL SIGNS: Please see below. GENERAL: No distress, morbidly obese HEENT: Normocephalic, atraumatic, moist mucous membranes NECK: Supple CARDIOVASCULAR EXAMINATION: RRR, S1, S2, no murmurs RESPIRATORY EXAMINATION: Poor air movement, diminished in the bases, scattered rhonchi, no wheezing ABDOMINAL EXAMINATION: Soft, nondistended, positive bowel sounds, tender bilateral flanks and bilateral lower quadrants, no rebound, no guarding, no fluid wave EXTREMITIES: No lower extremity edema SKIN: Dry erythematous skin on bilateral lower extremities NEUROLOGICAL EXAMINATION: Alert and oriented 3, significant weakness of lower extremities PSYCHIATRIC EXAMINATION: Calm and cooperative ASSESSMENT: 84-year-old W with multiple medical comorbidities being admitted for sepsis 2/2 pyelonephritis, hypertensive urgency, DANIEL on CKD, now with course c/n N/V of possible coffee ground material c/f UGIB. PLAN: 1. Sepsis 2/2 pyelonephritis: Fever, tachycardia, +UA, imaging c/w pyelo Improved today. -Continue empiric ertapenem given history of resistant bacteria in urine, day 3 -f/u UCx -f/u BCx, thus far with GNRs, await sensitivity Repeat blood culture today 2. Acute on chronic kidney disease. Improved Continue to monitor 3. Acute on chronic Microcytic Anemia Stool positive occult blood Continue Protonix Appreciate/agree with GI consult 4. Diabetes mellitus. increase levemir to 35u QHS -Sliding scale insulin coverage with meals and at bedtime -FSBG AC/HS -hypoglycemia protocol 5. Hypertension continue home meds 6. Coronary artery disease. Continue statin and beta anamaria. dc aspirin 7. Paroxysmal atrial fibrillation. continue rivaroxaban, continue metoprolol. telemetry VS,Fishbone, I+O VS, Fishbone, I+O Laboratory Tests 05/04/20 01:38 05/04/20 05:24 Vital Signs Date Time Temp Pulse Resp B/P (MAP) Pulse Ox O2 Delivery O2 Flow Rate FiO2 05/04/20 12:00 98.9 77 19 158/66 (96) 94 Room Air 05/03/20 18:37 2.0 I&O- Last 24 Hours up to 6 AM 05/04/20 06:00 Intake Total 1622 ml Output Total 350 ml Balance 1272 ml ELBA HU DO May 04, 2020 16:34
[2020-05-04] MEDS: FUROSEMIDE 80 MG TAB PO SCH (16:40)
[2020-05-04] MEDS: RIVAROXABAN 15 MG TAB (XARELTO) PO SCH (16:40)
[2020-05-04 20:00] VITALS: BP 150/69
[2020-05-04] MEDS: ATORVASTATIN 20 MG TAB PO SCH (21:24)
[2020-05-04] MEDS: METOPROLOL TART 25 MG TABLET PO SCH (21:24)
[2020-05-04] MEDS: LEVEMIR (INSULIN DETEMIR) 1 UNITS/0.01ML SC SCH (22:26)
[2020-05-05] VITALS (8 sets, daily range): BP systolic 102–157; BP diastolic 50–72
[2020-05-05 05:34] LABS: HEMATOCRIT 34.7 % (36.0-47.0); HEMOGLOBIN 10.6 g/dl (12.0-15.5); MEAN CORPUSCULAR HEMOGLOBIN 23.6 pg (27.0-33.0); MEAN CORPUSCULAR HGB CONC 30.5 g/dl (32.0-36.5); MEAN CORPUSCULAR VOLUME 77.1 fl (80.0-96.0); PLATELET COUNT, AUTOMATED 223 10^3/uL (150-450); WHITE BLOOD COUNT 15.6 10^3/uL (4.0-10.0)
[2020-05-05 06:05] LABS: ALBUMIN 2.1 GM/DL (3.2-5.2); BILIRUBIN,TOTAL 0.4 MG/DL (0.2-1.0); CALCIUM LEVEL 8.3 MG/DL (8.8-10.2); CREATININE FOR GFR 1.75 MG/DL (0.55-1.30); GLOMERULAR FILTRATION RATE 29.6 (>32); POTASSIUM SERUM 4.1 MEQ/L (3.5-5.1); TOTAL PROTEIN 6.4 GM/DL (6.4-8.2)
[2020-05-05] MEDS: HumaLOG INSULIN (NovoLOG) PER UNIT SC SCH ×4 (07:30→21:00)
[2020-05-05] MEDS: PANTOPRAZOLE 40MG VIAL (C9113 PER 1) IV SCH ×2 (08:46→21:00)
[2020-05-05] MEDS: METOPROLOL TART 25 MG TABLET PO SCH ×2 (08:47→21:01)
[2020-05-05] MEDS: FERROUS SULFATE 325MG TAB PO SCH (08:47)
[2020-05-05] MEDS: DOCUSATE SODIUM 100 MG CAP PO SCH (08:47)
[2020-05-05] MEDS: FUROSEMIDE 80 MG TAB PO SCH ×2 (08:48→17:35)
[2020-05-05] MEDS: NYSTATIN 100,000 UNITS/GM TOPICAL PWD 15 GM TOP SCH ×2 (08:48→21:02)
[2020-05-05] MEDS: cefTRIAXone SOD 1 GM in D5W MINI-BAG PLUS 50 ML IV SCH ×2 (09:17→21:01)
[2020-05-05] MEDS: ONDANSETRON 4MG/2ML VIAL IV PRN (10:09)
[2020-05-05] MEDS ORDERED: SLF 3 ML SYR IV PRN (11:00)
[2020-05-05] MEDS ORDERED: ACETAMINOPHEN TAB 650MG DOSE (2X325MG) PO PRN (11:03)
--- NOTE | 2020-05-05 12:29 | IPNPDOC ---
Text Note Date of Service The patient was seen on 05/05/20. NOTE Subjective: No any acute events overnight. Patient denied fever, chills, nausea, vomiting, diarrhea PHYSICAL EXAMINATION: VITAL SIGNS: Please see below. GENERAL: No distress, morbidly obese HEENT: Normocephalic, atraumatic, moist mucous membranes NECK: Supple CARDIOVASCULAR EXAMINATION: RRR, S1, S2, no murmurs RESPIRATORY EXAMINATION: Poor air movement, diminished in the bases, scattered rhonchi, no wheezing ABDOMINAL EXAMINATION: Soft, nondistended, positive bowel sounds, tender bilateral flanks and bilateral lower quadrants, no rebound, no guarding, no fluid wave EXTREMITIES: No lower extremity edema SKIN: Dry erythematous skin on bilateral lower extremities NEUROLOGICAL EXAMINATION: Alert and oriented 3, significant weakness of lower extremities PSYCHIATRIC EXAMINATION: Calm and cooperative ASSESSMENT: 84-year-old W with multiple medical comorbidities being admitted for sepsis 2/2 pyelonephritis, hypertensive urgency, DANIEL on CKD, now with course c/n N/V of possible coffee ground material c/f UGIB. PLAN: 1. Sepsis 2/2 pyelonephritis: Fever, tachycardia, +UA, imaging c/w pyelo Continue to improve -Blood culture positive for Klebsiella pneumonia. Changed meropenem to ceftriaxone -Repeated blood culture negative 2. Acute on chronic kidney disease. Improved Continue to monitor 3. Acute on chronic Microcytic Anemia Stool positive occult blood Continue Protonix Hemoglobin stable, patient will need EGD and colonoscopy in the outpatient settings 4. Diabetes mellitus. increase levemir to 35u QHS -Sliding scale insulin coverage with meals and at bedtime -FSBG AC/HS -hypoglycemia protocol 5. Hypertension continue home meds 6. Coronary artery disease. Continue statin and beta anamaria. dc aspirin 7. Paroxysmal atrial fibrillation. continue rivaroxaban, continue metoprolol. telemetry VS,Fishbone, I+O VS, Fishbone, I+O Laboratory Tests 05/05/20 05:13 Vital Signs Date Time Temp Pulse Resp B/P (MAP) Pulse Ox O2 Delivery O2 Flow Rate FiO2 05/05/20 08:47 90 118/62 05/05/20 08:00 2.0 05/05/20 08:00 97.3 20 95 Room Air I&O- Last 24 Hours up to 6 AM 05/05/20 05:59 Intake Total 300 ml Output Total 1600 ml Balance -1300 ml DROZHZHIN,ELBA DO May 05, 2020 12:29
[2020-05-05] MEDS ORDERED: ERTAPENEM SODIUM 1 GM in NS MINI-BAG PLUS 50 ML IV SCH (13:00)
[2020-05-05] MEDS: IPRATROPIUM 0.5MG/ALBUTEROL 2.5MG INH SOL UD 3ML (DUONEB) NEB SCH ×4 (13:08→23:54)
[2020-05-05] MEDS: SLF 3 ML SYR IV SCH ×2 (17:02→21:03)
[2020-05-05] MEDS: RIVAROXABAN 15 MG TAB (XARELTO) PO SCH (17:35)
[2020-05-05] MEDS ORDERED: LEVEMIR (INSULIN DETEMIR) 1 UNITS/0.01ML SC SCH (21:00)
[2020-05-05] MEDS: ATORVASTATIN 20 MG TAB PO SCH (21:01)
[2020-05-05] MEDS: LEVEMIR (INSULIN DETEMIR) 1 UNITS/0.01ML SC SCH (21:02)
[2020-05-06] VITALS: BP 155/68
[2020-05-06] MEDS: IPRATROPIUM 0.5MG/ALBUTEROL 2.5MG INH SOL UD 3ML (DUONEB) NEB SCH ×5 (03:39→19:30)
[2020-05-06 04:00] VITALS: BP 163/83
[2020-05-06 05:36] LABS: ALBUMIN 2.2 GM/DL (3.2-5.2); BILIRUBIN,TOTAL 0.2 MG/DL (0.2-1.0); CALCIUM LEVEL 8.7 MG/DL (8.8-10.2); CREATININE FOR GFR 1.63 MG/DL (0.55-1.30); GLOMERULAR FILTRATION RATE 32.1 (>32); TOTAL PROTEIN 6.6 GM/DL (6.4-8.2)
[2020-05-06 06:04] LABS: HEMATOCRIT 33.6 % (36.0-47.0); HEMOGLOBIN 9.9 g/dl (12.0-15.5); MEAN CORPUSCULAR HGB CONC 29.5 g/dl (32.0-36.5); MEAN CORPUSCULAR VOLUME 78.1 fl (80.0-96.0); PLATELET COUNT, AUTOMATED 201 10^3/uL (150-450); WHITE BLOOD COUNT 12.8 10^3/uL (4.0-10.0)
[2020-05-06] MEDS: SLF 3 ML SYR IV SCH ×3 (06:51→20:27)
[2020-05-06] MEDS: HumaLOG INSULIN (NovoLOG) PER UNIT SC SCH ×4 (07:30→20:26)
[2020-05-06 08:00] VITALS: BP 153/70
[2020-05-06] MEDS: FERROUS SULFATE 325MG TAB PO SCH (10:01)
[2020-05-06] MEDS: NYSTATIN 100,000 UNITS/GM TOPICAL PWD 15 GM TOP SCH ×2 (10:01→20:27)
[2020-05-06] MEDS: PANTOPRAZOLE 40MG VIAL (C9113 PER 1) IV SCH ×2 (10:01→20:24)
[2020-05-06] MEDS: FUROSEMIDE 80 MG TAB PO SCH ×2 (10:02→17:42)
[2020-05-06] MEDS: cefTRIAXone SOD 1 GM in D5W MINI-BAG PLUS 50 ML IV SCH ×2 (10:02→20:25)
[2020-05-06] MEDS: DOCUSATE SODIUM 100 MG CAP PO SCH (10:02)
[2020-05-06] MEDS: METOPROLOL TART 25 MG TABLET PO SCH ×2 (10:02→20:25)
--- NOTE | 2020-05-06 10:56 | IPNPDOC ---
Text Note Date of Service The patient was seen on 05/06/20. NOTE Subjective: No any acute events overnight. Patient stated that her breathing markedly improved today Patient denied fever, chills, nausea, vomiting, diarrhea PHYSICAL EXAMINATION: VITAL SIGNS: Please see below. GENERAL: No distress, morbidly obese HEENT: Normocephalic, atraumatic, moist mucous membranes NECK: Supple CARDIOVASCULAR EXAMINATION: RRR, S1, S2, no murmurs RESPIRATORY EXAMINATION: Poor air movement, diminished in the bases, scattered rhonchi, no wheezing ABDOMINAL EXAMINATION: Soft, nondistended, positive bowel sounds, tender bilateral flanks and bilateral lower quadrants, no rebound, no guarding, no fluid wave EXTREMITIES: No lower extremity edema SKIN: Dry erythematous skin on bilateral lower extremities NEUROLOGICAL EXAMINATION: Alert and oriented 3, significant weakness of lower extremities PSYCHIATRIC EXAMINATION: Calm and cooperative ASSESSMENT: 84-year-old W with multiple medical comorbidities being admitted for sepsis 2/2 pyelonephritis, hypertensive urgency, DANIEL on CKD, now with course c/n N/V of possible coffee ground material c/f UGIB. PLAN: 1. Sepsis 2/2 pyelonephritis: Fever, tachycardia, +UA, imaging c/w pyelo Continue to improve -Blood culture positive for Klebsiella pneumonia. Changed meropenem to ceftriaxone -Repeated blood culture negative 2. Acute on chronic kidney disease. Improved Continue to monitor 3. Acute on chronic Microcytic Anemia Stool positive occult blood Continue Protonix Hemoglobin stable, patient will need EGD and colonoscopy in the outpatient settings 4. Diabetes mellitus. increase levemir to 35u QHS -Sliding scale insulin coverage with meals and at bedtime -FSBG AC/HS -hypoglycemia protocol 5. Hypertension continue home meds 6. Coronary artery disease. Continue statin and beta anamaria. dc aspirin 7. Paroxysmal atrial fibrillation. continue rivaroxaban, continue metoprolol. telemetry Dyspnea Secondary to COPD exacerbation Improved today Continue DuoNeb VS,Fishbone, I+O VS, Fishbone, I+O Laboratory Tests 05/06/20 04:44 05/06/20 05:30 Vital Signs Date Time Temp Pulse Resp B/P (MAP) Pulse Ox O2 Delivery O2 Flow Rate FiO2 05/06/20 08:00 97.1 87 18 153/70 (97) 96 Nasal Cannula 2.0 I&O- Last 24 Hours up to 6 AM 05/06/20 06:00 Intake Total 770 ml Output Total 1100 ml Balance -330 ml ELBA HU DO May 06, 2020 10:56
[2020-05-06 12:00] VITALS: BP 150/65
[2020-05-06 16:00] VITALS: BP 166/77
[2020-05-06] MEDS: RIVAROXABAN 15 MG TAB (XARELTO) PO SCH (17:41)
[2020-05-06 20:00] VITALS: BP 154/71
[2020-05-06] MEDS: ATORVASTATIN 20 MG TAB PO SCH (20:25)
[2020-05-06] MEDS: LEVEMIR (INSULIN DETEMIR) 1 UNITS/0.01ML SC SCH (20:26)
[2020-05-07] VITALS: BP 142/78
[2020-05-07 04:00] VITALS: BP 139/64
[2020-05-07] MEDS: IPRATROPIUM 0.5MG/ALBUTEROL 2.5MG INH SOL UD 3ML (DUONEB) NEB SCH ×7 (04:00→23:29)
[2020-05-07 04:44] LABS: HEMATOCRIT 32.8 % (36.0-47.0); HEMOGLOBIN 9.7 g/dl (12.0-15.5); MEAN CORPUSCULAR HEMOGLOBIN 22.8 pg (27.0-33.0); MEAN CORPUSCULAR HGB CONC 29.6 g/dl (32.0-36.5); MEAN CORPUSCULAR VOLUME 77.2 fl (80.0-96.0); PLATELET COUNT, AUTOMATED 213 10^3/uL (150-450); RED BLOOD COUNT 4.25 10^6/uL (4.00-5.40); WHITE BLOOD COUNT 11.6 10^3/uL (4.0-10.0)
[2020-05-07 05:24] LABS: ALBUMIN 1.8 GM/DL (3.2-5.2); BILIRUBIN,TOTAL 0.4 MG/DL (0.2-1.0); CALCIUM LEVEL 8.7 MG/DL (8.8-10.2); CREATININE FOR GFR 1.72 MG/DL (0.55-1.30); GLOMERULAR FILTRATION RATE 30.1 (>32); POTASSIUM SERUM 4.1 MEQ/L (3.5-5.1); TOTAL PROTEIN 6.4 GM/DL (6.4-8.2)
[2020-05-07] MEDS: SLF 3 ML SYR IV SCH ×3 (06:11→21:57)
[2020-05-07] MEDS: HumaLOG INSULIN (NovoLOG) PER UNIT SC SCH ×4 (07:30→21:00)
[2020-05-07 08:00] VITALS: BP 132/62
[2020-05-07] MEDS: cefTRIAXone SOD 1 GM in D5W MINI-BAG PLUS 50 ML IV SCH ×2 (09:02→21:23)
[2020-05-07] MEDS: PANTOPRAZOLE 40MG VIAL (C9113 PER 1) IV SCH ×2 (09:02→21:20)
[2020-05-07] MEDS: FERROUS SULFATE 325MG TAB PO SCH (09:03)
[2020-05-07] MEDS: METOPROLOL TART 25 MG TABLET PO SCH ×2 (09:03→21:22)
[2020-05-07] MEDS: NYSTATIN 100,000 UNITS/GM TOPICAL PWD 15 GM TOP SCH ×2 (09:04→21:23)
[2020-05-07] MEDS: DOCUSATE SODIUM 100 MG CAP PO SCH (09:04)
[2020-05-07] MEDS: FUROSEMIDE 80 MG TAB PO SCH ×2 (09:04→17:02)
--- NOTE | 2020-05-07 10:25 | IPNPDOC ---
Text Note Date of Service The patient was seen on 05/07/20. NOTE Subjective: No any acute events overnight. Patient stated that she is doing b bailey today Patient denied fever, chills, nausea, vomiting, diarrhea PHYSICAL EXAMINATION: VITAL SIGNS: Please see below. GENERAL: No distress, morbidly obese HEENT: Normocephalic, atraumatic, moist mucous membranes NECK: Supple CARDIOVASCULAR EXAMINATION: RRR, S1, S2, no murmurs RESPIRATORY EXAMINATION: Poor air movement, diminished in the bases, scattered rhonchi, no wheezing ABDOMINAL EXAMINATION: Soft, nondistended, positive bowel sounds, tender bilateral flanks and bilateral lower quadrants, no rebound, no guarding, no fluid wave EXTREMITIES: No lower extremity edema SKIN: Dry erythematous skin on bilateral lower extremities NEUROLOGICAL EXAMINATION: Alert and oriented 3, significant weakness of lower extremities PSYCHIATRIC EXAMINATION: Calm and cooperative ASSESSMENT: 84-year-old W with multiple medical comorbidities being admitted for sepsis 2/2 pyelonephritis, hypertensive urgency, DANIEL on CKD, now with course c/n N/V of possible coffee ground material c/f UGIB. PLAN: 1. Sepsis 2/2 pyelonephritis: Fever, tachycardia, +UA, imaging c/w pyelo Continue to improve -Blood culture positive for Klebsiella pneumonia. Changed meropenem to ceftriaxone -Repeated blood culture negative 2. Acute on chronic kidney disease. Improved Continue to monitor 3. Acute on chronic Microcytic Anemia Stool positive occult blood Continue Protonix Hemoglobin stable, patient will need EGD and colonoscopy in the outpatient settings 4. Diabetes mellitus. increase levemir to 35u QHS -Sliding scale insulin coverage with meals and at bedtime -FSBG AC/HS -hypoglycemia protocol 5. Hypertension continue home meds 6. Coronary artery disease. Continue statin and beta anamaria. dc aspirin 7. Paroxysmal atrial fibrillation. continue rivaroxaban, continue metoprolol. telemetry Dyspnea Secondary to COPD exacerbation Continues to improve. Patient breathing on the room air Continue DuoNeb VS,Fishbone, I+O VS, Fishbone, I+O Laboratory Tests 05/07/20 04:26 Vital Signs Date Time Temp Pulse Resp B/P (MAP) Pulse Ox O2 Delivery O2 Flow Rate FiO2 05/07/20 09:03 75 132/62 05/07/20 08:00 97.1 17 91 Room Air 05/06/20 16:00 I&O- Last 24 Hours up to 6 AM 05/07/20 06:00 Intake Total 120 ml Output Total 1200 ml Balance -1080 ml ELBA HU DO May 07, 2020 10:25
[2020-05-07 13:10] VITALS: BP 144/65
[2020-05-07] MEDS: RIVAROXABAN 15 MG TAB (XARELTO) PO SCH (17:02)
[2020-05-07] MEDS: ATORVASTATIN 20 MG TAB PO SCH (21:20)
[2020-05-07] MEDS: LEVEMIR (INSULIN DETEMIR) 1 UNITS/0.01ML SC SCH (21:23)
[2020-05-07 22:00] VITALS: BP 146/61
[2020-05-08] MEDS: IPRATROPIUM 0.5MG/ALBUTEROL 2.5MG INH SOL UD 3ML (DUONEB) NEB SCH ×3 (04:00→11:41)
[2020-05-08] MEDS: SLF 3 ML SYR IV SCH (05:15)
[2020-05-08 06:00] VITALS: BP 144/61
[2020-05-08] MEDS: HumaLOG INSULIN (NovoLOG) PER UNIT SC SCH ×2 (08:33→12:00)
[2020-05-08 08:59] VITALS: BP 154/67
[2020-05-08] MEDS: DOCUSATE SODIUM 100 MG CAP PO SCH (10:16)
[2020-05-08] MEDS: FERROUS SULFATE 325MG TAB PO SCH (10:16)
[2020-05-08 10:18] VITALS: BP 154/67
[2020-05-08] MEDS: METOPROLOL TART 25 MG TABLET PO SCH (10:18)
[2020-05-08] MEDS: FUROSEMIDE 80 MG TAB PO SCH (10:18)
[2020-05-08] MEDS: PANTOPRAZOLE 40MG VIAL (C9113 PER 1) IV SCH (10:19)
[2020-05-08] MEDS: cefTRIAXone SOD 1 GM in D5W MINI-BAG PLUS 50 ML IV SCH (10:20)
[2020-05-08] MEDS: NYSTATIN 100,000 UNITS/GM TOPICAL PWD 15 GM TOP SCH (10:21)
[2020-05-08] MEDS ORDERED: AUGM875T28 PO (10:41)
[2020-05-08 12:05] VITALS: BP 155/62
--- NOTE | 2020-05-08 13:01 | ECGEPIP ---
[facility] - ED Test Date: 2020-05-02 Pat Name: ANA MARIA PAULINO Department: Room: [place] [address] Gender: Female Site Physician: cipriano : [id number] Requested By: AMPARO Herron Order Number: [id number] Reading MD: Lynne Barraza Measurements Intervals [place] Rate: 105 P: 99 SD: 207 QRS: 27 QRSD: 108 T: 39 QT: 341 QTc: 451 Interpretive Statements SINUS TACHYCARDIA WITH OCCASIONAL VENTRICULAR PREMATURE COMPLEXES INFERIOR MYOCARDIAL INFARCTION, PROBABLY OLD ABNORMAL ECG SEE SCANNED DOWNTIME REPORT
--- NOTE | 2020-05-08 15:54 | DS.PDOC ---
Discharge Summary General Date of Admission May 02, 2020 at 16:32 Date of Discharge 05/08/20 Discharge Summary PROCEDURES PERFORMED DURING STAY: [None]. ADMITTING DIAGNOSES: Sepsis 2/2 pyelonephritis Acute on chronic kidney disease Acute on chronic Microcytic Anemia Diabetes mellitus. Hypertension Coronary artery disease Paroxysmal atrial fibrillation Dyspnea DISCHARGE DIAGNOSES: Sepsis 2/2 pyelonephritis Acute on chronic kidney disease Acute on chronic Microcytic Anemia Diabetes mellitus. Hypertension Coronary artery disease Paroxysmal atrial fibrillation Dyspnea COMPLICATIONS/CHIEF COMPLAINT: Sepsis, Uti. HISTORY OF PRESENT ILLNESS:84-year-old W with multiple medical comorbidities being admitted for sepsis 2/2 pyelonephritis, hypertensive urgency, DANIEL on CKD, now with course c/n N/V of possible coffee ground material c/f UGIB. HOSPITAL COURSE: During hospital stay following issues addressed Sepsis 2/2 pyelonephritis: Fever, tachycardia, +UA, imaging c/w pyelo -Blood culture positive for Klebsiella pneumonia. Changed meropenem to ceftriaxone -Repeated blood culture negative 2. Acute on chronic kidney disease. Improved Continue to monitor 3. Acute on chronic Microcytic Anemia Stool positive occult blood Continue Protonix Hemoglobin stable, patient will need EGD and colonoscopy in the outpatient settings 4. Diabetes mellitus. increase levemir to 35u QHS -Sliding scale insulin coverage with meals and at bedtime -FSBG AC/HS -hypoglycemia protocol 5. Hypertension continue home meds 6. Coronary artery disease. Continue statin and beta anamaria. dc aspirin 7. Paroxysmal atrial fibrillation. continue rivaroxaban, continue metoprolol. telemetry Dyspnea Secondary to COPD exacerbation Continues to improve. Patient breathing on the room air Continue DuoNeb DISCHARGE MEDICATIONS: Please see below. ALLERGIES: Please see below. PHYSICAL EXAMINATION ON DISCHARGE: VITAL SIGNS: Please see below. GENERAL: No distress, morbidly obese HEENT: Normocephalic, atraumatic, moist mucous membranes NECK: Supple CARDIOVASCULAR EXAMINATION: RRR, S1, S2, no murmurs RESPIRATORY EXAMINATION: CTA ABDOMINAL EXAMINATION: Soft, nondistended, positive bowel sounds, no rebound, no guarding, no fluid wave EXTREMITIES: No lower extremity edema SKIN: Dry erythematous skin on bilateral lower extremities NEUROLOGICAL EXAMINATION: Alert and oriented 3, significant weakness of lower extremities PSYCHIATRIC EXAMINATION: Calm and cooperative LABORATORY DATA: Please see below. IMAGING: [facility] NAME: ANA MARIA PAULINO DATE OF : 1935 BUSINESS NUMBER: [id number] AGE: 84 SEX: F REPORT #: [id number] ROOM: M ED TECHNOLOGIST: ARA DOCTOR: AMPARO BLAKE MD Ordered for Date&Time: 05/02/20 1259 cc: [~ rep ct ivnm] Service Date&Time: 05/02/20 1536 This report is in Signed status. Interpretation performed by [facility]. Thank you for having your radiology procedures performed at [facility] RADIOLOGY REPORT Date&Time printed: [~ rep prt dt last] [~ rep prt tm last] Page 2 of 2 [place] [id number] RADIOLOGY REPORT This report is in Signed status. Interpretation performed by [facility]. Thank you for having your radiology procedures performed at [facility] RADIOLOGY REPORT Date&Time printed: [~ rep prt dt last] [~ rep prt tm last] Page 1 of 1 Impression: 4. There is consolidation the right lower lobe with a right pleural effusion which may be due to subsegmental atelectasis or pneumonia among other etiologies. Electronically signed by: Yasmine Patel On 05/02/2020 16:14:14 PM DD: YASMINE PATEL MD 05/02/20 1536 DT: KEN 05/02/20 1614 DS: MARIBEL 05/02/20 1614 PROCEDURE INFORMATION: Exam: CT Abdomen And Pelvis Without Contrast Exam date and time: 05/02/2020 3:36 PM Age: 84 years old Clinical indication: Fever; Abdominal pain; Additional info: Fever, abd pain TECHNIQUE: Imaging protocol: Computed tomography of the abdomen and pelvis without contrast. Radiation optimization: All CT scans at this facility use at least one of these dose optimization techniques: automated exposure control; mA and/or kV adjustment per patient size (includes targeted exams where dose is matched to clinical indication); or iterative reconstruction. COMPARISON: US PELVIC NON-OB COMPLETE 03/08/2019 7:56 AM FINDINGS: Pleural space: There is a right pleural effusion with adjacent consolidation the right lower lobe. There is pleural calcification at the right lung base posteriorly. Liver: There are no focal liver lesions. Gallbladder and bile ducts: Multiple calcified gallstones are present in a distended gallbladder. Pancreas: The pancreas is not well assessed. Spleen: The spleen is normal. Adrenals: The right adrenal gland is unremarkable. The left adrenal gland appears enlarged. Kidneys and ureters: There is no hydronephrosis. Calcifications within the kidneys appear arterial. There is bilateral perinephric stranding greater on left than right. Stomach and bowel: There is no evidence of intestinal obstruction. Diffuse diverticulosis particularly in the sigmoid colon. Appendix: No evidence of appendicitis. Intraperitoneal space: Unremarkable. No free air. No significant fluid collection. Vasculature: There is no evidence of an infrarenal abdominal aortic aneurysm. The arteries demonstrates diffuse marked atherosclerotic calcification. Lymph nodes: Unremarkable. No enlarged lymph nodes. Bladder: The urinary bladder is decompressed and poorly assessed. Reproductive: Unremarkable as visualized. Bones/joints: Possible surgical fusion at the L4 through S1 levels where bone graft material is apparent. Soft tissues: There is a fat-containing umbilical hernia. There is a well-circumscribed subcutaneous lesion just to the left of midline at the level of the lower sternum measuring 3.8 cm. There is subcutaneous increased density overlying the posterior margin of the left hip which is only partially imaged. IMPRESSION: 1. No evidence of urinary tract or bowel obstruction. There is perinephric stranding but this may be a chronic finding. 2. Diverticulosis without evidence of diverticulitis. 3. Cholelithiasis without evidence of acute cholecystitis. Electronically signed by: Yasmine Patel On 05/02/2020 16:13:09 PM DD: YASMINE PATEL MD 05/02/20 1536 DT: KEN 05/02/20 1613 DS: MARIBEL 05/02/20 1613 [~ rep ct labl] PROGNOSIS: Fair ACTIVITY: [As tolerated]. DIET: Cardiac DISPOSITION: [facility]. ITEMS TO FOLLOWUP ON ON OUTPATIENT: Patient will need to see a casting carrier for endoscopy and colonoscopy, follow-up with PCP, follow-up with [employer] SUPERVISOR DISCHARGE CONDITION: [Stable]. TIME SPENT ON DISCHARGE: Greater than 40 minutes. Vital Signs/I&Os Vital Signs Date Time Temp Pulse Resp B/P (MAP) Pulse Ox O2 Delivery O2 Flow Rate FiO2 05/08/20 12:05 98.7 70 20 155/62 (93) 94 Room Air 05/06/20 16:00 I&O- Last 24 Hours up to 6 AM 05/08/20 06:00 Intake Total 1120 ml Output Total 1925 ml Balance -805 ml Laboratory Data Labs 24H Laboratory Tests 2 05/07/20 16:18: Bedside Glucose (Misc Panel) 253H 05/07/20 20:40: Bedside Glucose (Misc Panel) 239H 05/08/20 06:17: Bedside Glucose (Misc Panel) 223H 05/08/20 11:18: Bedside Glucose (Misc Panel) 224H FSBS Laboratory Tests Test 05/07/20 16:18 05/07/20 20:40 05/08/20 06:17 05/08/20 11:18 Range/Units Bedside Glucose (Misc Panel) 253 239 223 224 83-110 MG/DL Microbiology Microbiology 05/04/20 Blood Culture - Preliminary, Resulted No Growth after 72 hours. All specime... 05/03/20 Occult Blood - Final, Complete 05/02/20 Blood Culture - Final, Complete Klebsiella Pneumoniae 05/02/20 Respiratory Virus Panel (PCR) (ALBINO) - Final, Complete 05/02/20 Blood Culture - Final, Complete Klebsiella Pneumoniae Discharge Medications Scheduled Amoxicillin/Potassium Clav (Augmentin 875-125 Tablet) 1 Each Tablet, 875 MG PO BID Aspirin (Aspir 81) 81 Mg Tablet.dr, 81 MG PO DAILY, (Reported) Atorvastatin Calcium (Atorvastatin Calcium) 40 Mg Tablet, 40 MG PO QHS, (Reported) Docusate Sodium (Colace) 100 Mg Capsule, 100 MG PO DAILY, (Reported) Famotidine (Famotidine) 40 Mg Tablet, 40 MG PO QHS, (Reported) Ferrous Sulfate (Ferrous Sulfate) 325 Mg Tablet, 325 MG PO DAILY, (Reported) Furosemide (Furosemide) 80 Mg Tablet, 80 MG PO BID, (Reported) 0800 , 1600 Insulin Glargine,Hum.rec.anlog (Basaglar Kwikpen U-100) 100 Unit/1 Ml Insuln.pen, 30 UNIT SC QHS, (Reported) Insulin Lispro Protamin/Lispro (Humalog Mix 75-25 Kwikpen) 100 Unit/1 Ml I nsuln.pen, 1 DOSE SC BID, (Reported) PER SLIDING SCALE BEFORE BREAKFAST AND DINNER Isosorbide Dinitrate (Isosorbide Dinitrate) 20 Mg Tablet, 20 MG PO BID, (Reported) Metoprolol Tartrate (Metoprolol Tartrate) 25 Mg Tablet, 12.5 MG PO BID, (Reported) Rivaroxaban (Xarelto) 15 Mg Tablet, 15 MG PO DAILY, (Reported) Sitagliptin (Januvia) 50 Mg Tablet, 50 MG PO DAILY, (Reported) Scheduled PRN Acetaminophen (Tylenol) 325 Mg Tablet, 650 MG PO Q4H PRN for PAIN / FEVER, (Reported) Bisacodyl (Dulcolax) 10 Mg Supp.rect, 10 MG [place] DAILY PRN for CONSTIPATION, (Reported) Milk Of Magnesia (Milk of Magnesia) 2,400 Mg/10 Ml Oral.susp, 10 ML PO DAILY PRN for CONSTIPATION, (Reported) Sodium Phosphate,[place]-Dibasic (Enema) 133 Ml Enema, 1 KEYON [place] DAILY PRN for CONSTIPATION, (Reported) Allergies Coded Allergies: Quinolones (Verified Adverse Reaction, Intermediate, DIZZY, NAUSEA, HEART FLUTTERING, ITCHING ON HAND, 02/07/20) ELBA HU DO May 08, 2020 15:54
--- NOTE | 2020-05-19 10:57 | REP ---
CHEST X-RAY: THREE VIEWS HISTORY: Right pleural effusion. COMPARISON: 04/03/2020. FINDINGS: Sitting AP and lateral views demonstrate cardiomegaly. There is mild persistent blunting of the right posterior and very slight blunting of the right lateral pleural angles, indicating a small quantity of right pleural fluid. This is essentially unchanged. The left pleural angles are sharp. There is some fissural thickening on the lateral radiograph. Lung esquivel are clear. IMPRESSION: Small persistent right pleural effusion with slight blunting of the pleural angles. MTDD
== END 2020-05-08 12:24 | DRG 872 ==
LOC: EDBD 11:27 → M ED 11:27 → M ED INP 16:32 → M PCU 17:56 → M MSPAV 05-07 13:12
PROVIDERS: ADMIT Internal Medicine; ATTEND Internal Medicine
PROC: 30233N1 Transfusion of Nonautologous Red Blood Cells into Peripheral Vein, Percutaneous Approach (ICD-10-PCS; principal; 2020-05-03)
DX: A41.89 Other specified sepsis (principal); N10 Acute pyelonephritis; N17.9 Acute kidney failure, unspecified; K92.2 Gastrointestinal hemorrhage, unspecified; J44.0 Chronic obstructive pulmonary disease with (acute) lower respiratory infection; N18.9 Chronic kidney disease, unspecified; I48.0 Paroxysmal atrial fibrillation; E11.9 Type 2 diabetes mellitus without complications; D50.9 Iron deficiency anemia, unspecified; I25.10 Atherosclerotic heart disease of native coronary artery without angina pectoris; I16.0 Hypertensive urgency; I12.9 Hypertensive chronic kidney disease with stage 1 through stage 4 chronic kidney disease, or unspecified chronic kidney disease; Z79.899 Other long term (current) drug therapy; Z88.2 Allergy status to sulfonamides; Z88.8 Allergy status to other drugs, medicaments and biological substances; Z86.73 Personal history of transient ischemic attack (TIA), and cerebral infarction without residual deficits; Z87.891 Personal history of nicotine dependence

== ENCOUNTER → 2020-05-11 | Outpatient (REF) ==
[~2020-05-11] MED LIST changes: +ACET-907 PO; +AUGM875T28 PO; +BASA100I SC; +CARV3.12 PO; +DULC10SU2 PR; +ENEMENE PR; +FURO80TA2 PO; +HUMA100I3 SC; +INSUDET SC; +MEGE40TA PO; +MOM30SS PO; +XARE15TA PO
[2020-05-11 09:19] LABS: HEMATOCRIT 29.5 % (36.0-47.0); HEMOGLOBIN 8.9 g/dl (12.0-15.5); MEAN CORPUSCULAR HEMOGLOBIN 23.3 pg (27.0-33.0); MEAN CORPUSCULAR HGB CONC 30.2 g/dl (32.0-36.5); MEAN CORPUSCULAR VOLUME 77.2 fl (80.0-96.0); PLATELET COUNT, AUTOMATED 302 10^3/uL (150-450); RED BLOOD COUNT 3.82 10^6/uL (4.00-5.40); WHITE BLOOD COUNT 9.5 10^3/uL (4.0-10.0)
[2020-05-11 09:44] LABS: CALCIUM LEVEL 8.2 MG/DL (8.8-10.2); CREATININE FOR GFR 1.87 MG/DL (0.55-1.30); GLOMERULAR FILTRATION RATE 27.4 (>32); POTASSIUM SERUM 3.8 MEQ/L (3.5-5.1)
[2020-05-11 13:21] LABS: AMORPHOUS SEDIMENT SMALL (NEGATIVE); APPEARANCE, URINE HAZY (CLEAR); BACTERIA, URINE AUTO 1+ (NEGATIVE); BILIRUBIN, URINE AUTO NEGATIVE (NEGATIVE); BLOOD, URINE BLOOD 3+ (NEGATIVE); COLOR, URINE YELLOW (YELLOW); GLUCOSE, URINE (UA) AUTO 1+ mg/dL (NEGATIVE); KETONE, URINE AUTO NEGATIVE (NEGATIVE); LEUKOCYTE ESTERASE, URINE AUTO 2+ (NEGATIVE); NITRITE, URINE AUTO NEGATIVE (NEGATIVE); PROTEIN, URINE AUTO NEGATIVE (NEGATIVE); RBC, URINE AUTO 39 /HPF (0-3); SPECIFIC GRAVITY URINE AUTO 1.011 (1.002-1.035); SQUAMOUS EPITHELIAL CELL UR AU 1 /HPF (0-6); UROBILINOGEN, URINE AUTO 0.2 mg/dL (0.0-2.0); WBC, URINE AUTO 40 /HPF (0-3)
== END ==
LOC: EEVIPCON → SKLAB4 11:54
PROVIDERS: ATTEND Internal Medicine
DX: D64.9 Anemia, unspecified (principal); I50.9 Heart failure, unspecified; E11.9 Type 2 diabetes mellitus without complications

== ENCOUNTER → 2020-05-11 | Outpatient (REF) | payer MEDICAID, MEDICARE ==
--- NOTE | 2020-05-24 13:28 | SLEEPHOME ---
DATE: 05/11/2020 ORDERED BY: Gianna May DO Diagnostic home sleep testing was performed due to concern for the obstructive sleep apnea syndrome in this patient with a history of dyspnea. For testing, a nocturnal T3 respiratory monitoring device was used. Continuous record was made of pulse, oxygen saturation, air flow, chest and abdominal strain, and body position. Six hours and 43 minutes of data were reviewed. There were 5 hours and 20 minutes marked as time in bed. During the interval marked time in bed, there were 56 respiratory events identified of 10 seconds in duration or greater for a respiratory event index of 10.5. The events were primarily obstructive. Baseline pulse rate 68 beats per minute, pulse rate range 38-84, baseline saturation was 86%, lowest oxygen saturation 76%. Testing was performed in both the supine and non-supine positions. IMPRESSION: Abnormal home sleep testing with repetitive respiratory events and oxygen desaturations to 76% with a respiratory event index of 10.5 is consistent with the obstructive sleep apnea syndrome. RECOMMENDATION: The patient should be encouraged to undergo a formal sleep evaluation and laboratory diagnostic testing. [facility]
== END ==
LOC: M SLEEP HO 10:00
DX: R06.02 Shortness of breath (principal)

== ENCOUNTER → 2020-05-12 | Outpatient (REF) | payer MEDICAID, MEDICARE | LOC: SKLAB4 05-11 23:30 | PROVIDERS: ATTEND Internal Medicine | DX: R50.9 Fever, unspecified (principal) ==

== ENCOUNTER → 2020-05-12 | Outpatient (REF) ==
[2020-05-12 09:10] LABS: HEMATOCRIT 28.8 % (36.0-47.0); HEMOGLOBIN 8.5 g/dl (12.0-15.5); MEAN CORPUSCULAR HGB CONC 29.5 g/dl (32.0-36.5); PLATELET COUNT, AUTOMATED 289 10^3/uL (150-450); RED BLOOD COUNT 3.69 10^6/uL (4.00-5.40); WHITE BLOOD COUNT 10.5 10^3/uL (4.0-10.0)
== END ==
LOC: SKLAB4 11:30
PROVIDERS: ATTEND Internal Medicine
DX: D64.9 Anemia, unspecified (principal)

== ENCOUNTER → 2020-05-15 | Outpatient (REF) ==
[2020-05-15 07:49] LABS: HEMATOCRIT 24.1 % (36.0-47.0); HEMOGLOBIN 7.1 g/dl (12.0-15.5); MEAN CORPUSCULAR HEMOGLOBIN 22.8 pg (27.0-33.0); MEAN CORPUSCULAR HGB CONC 29.5 g/dl (32.0-36.5); MEAN CORPUSCULAR VOLUME 77.5 fl (80.0-96.0); PLATELET COUNT, AUTOMATED 277 10^3/uL (150-450); RED BLOOD COUNT 3.11 10^6/uL (4.00-5.40); WHITE BLOOD COUNT 9.6 10^3/uL (4.0-10.0)
--- NOTE | 2020-06-28 13:12 | REP ---
SITTING PORTABLE CHEST X-RAY: SINGLE VIEW HISTORY: Shortness of breath. COMPARISON CHEST X-RAY: 05/02/2020. FINDINGS: There is a new rounded opacity in the right mid lung zone consistent with focal infiltrate as it was not present on 04/07/2020 or 05/02/2020. There is slight thickening of the minor fissure and there is blunting of the right lateral pleural angle. Some fissural fluid could produce this opacity as well. No other evidence of infiltrate is seen. Heart size is borderline unchanged. No other evidence of effusion. Pulmonary vasculature does not appear to be increased. IMPRESSION: Possible infiltrate right mid lung zone. Blunting of the right lateral pleural angle. MTDD
== END ==
LOC: SKLAB4 11:19
PROVIDERS: ATTEND Internal Medicine
DX: D64.9 Anemia, unspecified (principal)

== ENCOUNTER 2020-05-16 10:09 | Outpatient (CLI) | payer MEDICARE, MEDICAID ==
[~2020-05-16] VITALS: Ht 170.2 cm; Wt 123.8 kg
[2020-05-16] VITALS (8 sets, daily range): BP systolic 90–134; BP diastolic 51–78
[~2020-05-16 10:09] MED LIST changes: +ACETAMINOPHEN TAB 650MG DOSE (2X325MG) PO SCH; -CARV3.12 PO; -HUMA100I3 SC; -INSUDET SC; -MEGE40TA PO; +diphenhydrAMINE 25MG CAP PO SCH
[2020-05-16] MEDS ORDERED: ACETAMINOPHEN TAB 650MG DOSE (2X325MG) As Ordered ONE (12:15)
[2020-05-16] MEDS ORDERED: diphenhydrAMINE 25MG CAP As Ordered ONE (12:15)
== END 2020-05-16 16:35 | disposition home or self-care (01) ==
LOC: M INFU 10:09
PROVIDERS: ATTEND Nurse Practitioner Family
DX: D64.9 Anemia, unspecified (principal)
CPT/HCPCS: 36430; P9016

== ENCOUNTER → 2020-05-16 | Outpatient (REF) | LOC: SKLAB4 10:20 | PROVIDERS: ATTEND Internal Medicine | DX: D64.9 Anemia, unspecified (principal) ==

== ENCOUNTER → 2020-05-17 | Outpatient (CLI) | payer MEDICARE, MEDICAID ==
[~2020-05-17] MED LIST changes: -ACETAMINOPHEN TAB 650MG DOSE (2X325MG) PO SCH; +CARV3.12 PO; +HUMA100I3 SC; +INSUDET SC; +MEGE40TA PO; -diphenhydrAMINE 25MG CAP PO SCH
--- NOTE | 2020-05-23 16:49 | REP ---
PELVIC SONOGRAPHY HISTORY: Postmenopausal bleeding. Evaluate uterus and ovaries. COMPARISON: Pelvic sonography 03/08/2019, described thickening of the endometrium. CT study abdomen and pelvis 05/02/2020. PELVIC ULTRASOUND FINDINGS: Scanning is performed transabdominally and endovaginally. Uterine dimensions are 9.4 x 3.0 x 4.0 cm. Endometrial echo is poorly seen. Exam quality is inhibited by patient body habitus. The uterine myometrium is heterogeneous. Heterogeneous texture is seen in the cervix. Endometrial echo is approximately 6 mm. No focal uterine mass is observed. The bladder is empty at the time of scanning. Neither ovary could be identified sonographically. No adnexal free fluid, cyst, or mass is observed. IMPRESSION: Extremely limited scan quality. Question endometrium thickening, approximately 6 mm. Heterogeneous myometrium. Neither ovary could be directly visualized. MTDD
== END ==
LOC: M RAD 09:08
PROVIDERS: ATTEND Nurse Practitioner Family
DX: N95.0 Postmenopausal bleeding (principal)

== ENCOUNTER → 2020-05-17 | Outpatient (REF) ==
[2020-05-17 07:57] LABS: HEMATOCRIT 28.8 % (36.0-47.0); HEMOGLOBIN 8.7 g/dl (12.0-15.5); MEAN CORPUSCULAR HEMOGLOBIN 24.4 pg (27.0-33.0); MEAN CORPUSCULAR HGB CONC 30.2 g/dl (32.0-36.5); MEAN CORPUSCULAR VOLUME 80.9 fl (80.0-96.0); PLATELET COUNT, AUTOMATED 287 10^3/uL (150-450); RED BLOOD COUNT 3.56 10^6/uL (4.00-5.40)
== END ==
LOC: SKLAB4 10:29
PROVIDERS: ATTEND Internal Medicine
DX: D64.9 Anemia, unspecified (principal)

== ENCOUNTER → 2020-05-18 | Outpatient (REF) ==
[2020-05-18 08:02] LABS: HEMATOCRIT 27.6 % (36.0-47.0); HEMOGLOBIN 8.3 g/dl (12.0-15.5); MEAN CORPUSCULAR HEMOGLOBIN 24.8 pg (27.0-33.0); MEAN CORPUSCULAR HGB CONC 30.1 g/dl (32.0-36.5); MEAN CORPUSCULAR VOLUME 82.4 fl (80.0-96.0); PLATELET COUNT, AUTOMATED 296 10^3/uL (150-450); RED BLOOD COUNT 3.35 10^6/uL (4.00-5.40); WHITE BLOOD COUNT 8.3 10^3/uL (4.0-10.0)
[2020-05-18 08:32] LABS: CALCIUM LEVEL 8.6 MG/DL (8.8-10.2); CREATININE FOR GFR 1.55 MG/DL (0.55-1.30)
== END ==
LOC: SKLAB4 07:34
PROVIDERS: ATTEND Internal Medicine
DX: D64.9 Anemia, unspecified (principal)

== ENCOUNTER → 2020-05-22 | Outpatient (REF) ==
[2020-05-22 08:24] LABS: HEMATOCRIT 26.4 % (36.0-47.0); HEMOGLOBIN 7.8 g/dl (12.0-15.5); MEAN CORPUSCULAR HEMOGLOBIN 24.3 pg (27.0-33.0); MEAN CORPUSCULAR HGB CONC 29.5 g/dl (32.0-36.5); MEAN CORPUSCULAR VOLUME 82.2 fl (80.0-96.0); PLATELET COUNT, AUTOMATED 294 10^3/uL (150-450); RED BLOOD COUNT 3.21 10^6/uL (4.00-5.40); WHITE BLOOD COUNT 8.2 10^3/uL (4.0-10.0)
[2020-05-22 08:53] LABS: CALCIUM LEVEL 8.5 MG/DL (8.8-10.2); CREATININE FOR GFR 1.66 MG/DL (0.55-1.30); GLOMERULAR FILTRATION RATE 31.4 (>32); POTASSIUM SERUM 4.3 MEQ/L (3.5-5.1)
[2020-05-22 12:06] LABS: HEMOGLOBIN A1c 7.3 %
== END ==
LOC: SKLAB4 08:05
PROVIDERS: ATTEND Internal Medicine
DX: Z11.2 Encounter for screening for other bacterial diseases (principal); Z22.322 Carrier or suspected carrier of Methicillin resistant Staphylococcus aureus; D64.9 Anemia, unspecified; I50.89 Other heart failure

== ENCOUNTER 2020-05-29 12:46 | Inpatient (IN) | payer MEDICARE, MEDICAID ==
[~2020-05-29] VITALS: Ht 170.2 cm; Wt 121.8 kg
[2020-05-29] VITALS (9 sets, daily range): BP systolic 108–137; BP diastolic 49–60
[~2020-05-29 12:46] MED LIST changes: -CARV3.12 PO; -HUMA100I3 SC; -INSUDET SC; -MEGE40TA PO
[2020-05-29 13:51] LABS: BASO # 0.1 10^3/uL (0.0-0.2); BASO % 0.5 % (0.0-1.0); EOS # 0.4 10^3/uL (0.0-0.5); EOS % 3.7 % (0.0-3.0); LYMPH # 1.5 10^3/uL (1.5-5.0); LYMPH % 14.3 % (24.0-44.0); MEAN CORPUSCULAR HEMOGLOBIN 23.6 pg (27.0-33.0); MEAN CORPUSCULAR HGB CONC 28.7 g/dl (32.0-36.5); MEAN CORPUSCULAR VOLUME 82.3 fl (80.0-96.0); MONO # 0.9 10^3/uL (0.0-0.8); MONO % 8.3 % (0.0-5.0); NEUTROPHILS # 7.3 10^3/uL (1.5-8.5); NEUTROPHILS % 70.9 % (36.0-66.0); PLATELET COUNT, AUTOMATED 237 10^3/uL (150-450); WHITE BLOOD COUNT 10.3 10^3/uL (4.0-10.0)
[2020-05-29 13:58] LABS: HEMATOCRIT 18.1 % (36.0-47.0); HEMOGLOBIN 5.2 g/dl (12.0-15.5)
[2020-05-29 14:04] LABS: INR 3.31; PROTHROMBIN TIME 34.4 SECONDS (12.5-14.3)
[2020-05-29 14:05] LABS: PARTIAL THROMBOPLASTIN TIME 47.5 SECONDS (24.2-38.5)
[2020-05-29 14:13] LABS: ALBUMIN 2.4 GM/DL (3.2-5.2); ALT/SGPT 8 U/L (12-78); BILIRUBIN,DIRECT 0.1 MG/DL (0.0-0.2); BILIRUBIN,TOTAL 0.3 MG/DL (0.2-1.0); BLOOD UREA NITROGEN 29 MG/DL (7-18); CALCIUM LEVEL 8.3 MG/DL (8.8-10.2); CARBON DIOXIDE LEVEL 27 MEQ/L (21-32); CHLORIDE LEVEL 103 MEQ/L (98-107); CREATININE FOR GFR 1.73 MG/DL (0.55-1.30); GLOMERULAR FILTRATION RATE 29.9 (>32); GLUCOSE, FASTING 241 MG/DL (70-100); POTASSIUM SERUM 3.6 MEQ/L (3.5-5.1); SODIUM LEVEL 137 MEQ/L (136-145); TOTAL PROTEIN 5.8 GM/DL (6.4-8.2)
[2020-05-29] MEDS ORDERED: HUMA100I3 SC (14:40)
[2020-05-29 15:11] LABS: CK-MB VALUE MASS < 1.0 NG/ML (<3.6); CPK CREATINE PHOSPHOKINASE 15 U/L (26-192); MB/CK RELATIVE INDEX 6.67 (< OR =4); TROPONIN I < 0.02 NG/ML (< 0.10)
--- NOTE | 2020-05-29 16:32 | HPEPDOC ---
[facility] Medical History & Physical Date of Admission May 29, 2020 Date of Service: May 29, 2020 Attending Physician: MORTEZA DE SANTIAGO MD History and Physical CHIEF COMPLAINT: vaginal bleeding HISTORY OF PRESENT ILLNESS: 84F with a PMHX of CAD, hypertension, diabetes mellitus, hyperlipidemia and atrial fibrillation on rivaroxaban, history of a TIA and CHF, is brought to the ED from [facility], for passage of blood with clots this morning. On arrival to the ED, BP 139/63. Pulse 65. Respiratory rate 20. Pulse ox 98% on room air. Temperature 98.0. On lab work, hemoglobin 5.2. Hematocrit 18.1. White blood cell count 10.3. Neutrophil percent 70.9. Creatinine 1.73. GFR 29.9. Glucose 241. Troponin negative. INR 3.3. Patient had pelvic ultrasound performed 05/17/2020 showing endometrial thickness of 6 mm. Patient was previously seen at [facility] in 02/2019 for vaginal bleeding, was seen by gynecology and was instructed to f/u as outpatient for an endometrial biopsy to evaluate possibility of endometrial cancer. PAST MEDICAL HISTORY: 1. Coronary artery disease. 2. Atrial fibrillation. 3. Hypertension. 4. Diabetes mellitus. 5. Hyperlipidemia. 6. history of TIA 7. post menopausal vaginal bleeding PAST SURGICAL HISTORY: 1. Toe surgery. SOCIAL HISTORY: Previous smoker. Denies alcohol use. Denies drug use Resides at [facility] FAMILY HISTORY: history of diabetes in family ALLERGIES: Please see below. REVIEW OF SYSTEMS: CONSTITUTIONAL: patient denies fevers, chills HEENT: patient denies blurred vision, loss of vision, headache,. CARDIOVASCULAR: patient denies chest pain, palpitations. RESPIRATORY: patient denies shortness of breath, cough, hemoptysis. GASTROINTESTINAL: patient denies abdominal pain, n/v/d, blood in stool. GENITOURINARY: heavy vaginal bleeding with clots SKIN: patient denies rashes. MUSCULOSKELETAL: patient denies joint pain, neck pain. NEUROLOGICAL: patient denies focal weakness, numbness, seizures. PSYCHIATRIC: patient denies SI/HI. ENDOCRINE: patient denies polyuria, heat intolerance, cold intolerance. HEMATOLOGIC/LYMPHATIC: patient denies easy bruising. HOME MEDICATIONS: Please see below. PHYSICAL EXAMINATION: VITAL SIGNS: please see below General: NAD, comfortable HEENT: PERRLA, EOMI, sclerae clear Neck: supple, normal ROM, no JVD Respiratory: lungs CTAB, no wheeze, no rales, no crackles CVS: RRR, normal S1, S2, no murmurs Abdo: soft, no masses, no hepatosplenomegaly, BS+, no rebound tenderness Skin: deep tissue injury/skin breakdown on sacrum, barrier applied. : external exam showing blood in perineum, blood on sheet. Extremities: trace bilateral lower extremity edema, pulses 2+, no cyanosis, warm to toch MSK: no joint deformities, normal ROM Neuro: no focal neuro deficits, moving all 4 extremities, CN2-[address]ngth 5/5 in all 4 extremities. No nystagmus. Psych: calm, cooperative, AAO x 3 LABORATORY DATA: See below. MICROBIOLOGY: Please see below. ASSESSMENT: 84F with a PMHX of CAD, hypertension, diabetes mellitus, hyperlipidemia and atrial fibrillation on rivaroxaban, history of a TIA and CHF, is brought to the ED from [facility], for passage of blood with clots this morning. . PLAN: #Acute blood loss anemia: vaginal bleeding. Hgb 5.2. 2 units pRBC ordered. Trend HH q6h. Hold xarelto. Gynecology consult placed. #Post menopausal vaginal bleeding: Last pelvic US (05/17/20), endometrial thickness 6 mm. Gynecology consult, discussed with Dr. Gutierrez. Will see patient. Needs endometrial biopsy. Patient previously hesitant for bx, now agrees. #diabetes mellitus: takes basaglar 30 qhs. ISS meals and bedtime. FSBS AC and HS. Hypoglycemia protocol. #CKD: monitor Cr, appears at baseline. Avoid nephrotoxins. #paroxysmal atrial fibrillation: continue metoprolol. telemetry. hold eliquis. #Elevated INR: INR 3.3. PT 34.4. APTT 47.5 Check peripheral smear. Repeat INR in am. Patient is on xarelto, however expected effect on clotting markers to be generally modest and variable. #coronary artery disease: home meds isordil, metoprolol Hx of TIA: asa/statin. ASA held in setting of acute anemia. DVT ppx: TEDs, SCDs. Hold chemoprophylaxis due to acute blood loss anemia Dispo: expect return to [facility] once medically stable. Vital Signs Vital Signs Date Time Temp Pulse Resp B/P (MAP) Pulse Ox O2 Delivery O2 Flow Rate FiO2 05/29/20 12:56 98.0 65 20 139/63 98 Room Air Laboratory Data Labs 24H Laboratory Tests 2 05/29/20 13:35: Immature Granulocyte % (Auto) 2.3, Neutrophils (%) (Auto) 70.9H, Lymphocytes (%) (Auto) 14.3L, Monocytes (%) (Auto) 8.3H, Eosinophils (%) (Auto) 3.7H, Basophils (%) (Auto) 0.5, Neutrophils # (Auto) 7.3, Lymphocytes # (Auto) 1.5, Monocytes # (Auto) 0.9H, Eosinophils # (Auto) 0.4, Basophils # (Auto) 0.1, Nucleated Red Blood Cells % (auto) 0.6H, Prothrombin Time 34.4H, Prothromb Time International Ratio 3.31, Activated Partial Thromboplast Time 47.5H, Anion Gap 7L, Glomerular Filtration Rate 29.9L, Calcium Level 8.3L, Total Bilirubin 0.3, Direct Bilirubin 0.1, Aspartate Amino Transf (AST/SGOT) 6L, Alanine Aminotransferase (ALT/SGPT) 8L, Alkaline Phosphatase 94, Total Creatine Kinase 15L, Creatine Kinase MB < 1.0, Creatine Kinase MB Relative Index 6.67H, Troponin I < 0.02, Total Protein 5.8L, Albumin 2.4L, Albumin/Globulin Ratio 0.7L CBC/BMP Laboratory Tests 05/29/20 13:35 Home Medications Scheduled Aspirin (Aspir 81) 81 Mg Tablet.dr, 81 MG PO DAILY Atorvastatin Calcium (Atorvastatin Calcium) 40 Mg Tablet, 40 MG PO QHS Docusate Sodium (Colace) 100 Mg Capsule, 100 MG PO DAILY Famotidine (Famotidine) 40 Mg Tablet, 40 MG PO QHS Ferrous Sulfate (Ferrous Sulfate) 325 Mg Tablet, 325 MG PO DAILY Furosemide (Furosemide) 80 Mg Tablet, 80 MG PO BID 0800 , 1600 Insulin Glargine,Hum.rec.anlog (Basaglar Kwikpen U-100) 100 Unit/1 Ml Insuln.pen, 30 UNIT SC QHS Insulin Lispro (Humalog) 100 Unit/1 Ml Cartridge, 1 DOSE SC BID PER SLIDING SCALE WITH BREAKFAST AND DINNER Isosorbide Dinitrate (Isosorbide Dinitrate) 20 Mg Tablet, 20 MG PO BID Metoprolol Tartrate (Metoprolol Tartrate) 25 Mg Tablet, 12.5 MG PO BID Rivaroxaban (Xarelto) 15 Mg Tablet, 15 MG PO DAILY Sitagliptin (Januvia) 50 Mg Tablet, 50 MG PO DAILY Scheduled PRN Acetaminophen (Tylenol) 325 Mg Tablet, 650 MG PO Q4H PRN for PAIN / FEVER Bisacodyl (Dulcolax) 10 Mg Supp.rect, 10 MG [place] DAILY PRN for CONSTIPATION Milk Of Magnesia (Milk of Magnesia) 2,400 Mg/10 Ml Oral.susp, 10 ML PO DAILY PRN for CONSTIPATION Sodium Phosphate,[place]-Dibasic (Enema) 133 Ml Enema, 1 KEYON [place] DAILY PRN for CONSTIPATION Allergies Coded Allergies: Quinolones (Verified Adverse Reaction, Intermediate, DIZZY, NAUSEA, HEART FLUTTERING, ITCHING ON HAND, 02/07/20) A-FIB/CHADSVASC A-FIB History Current/History of A-Fib/PAF?: Yes Current PO Anticoag Therapy: Yes MORTEZA DE SANTIAGO MD May 29, 2020 16:32
[2020-05-29] MEDS: HumaLOG INSULIN (NovoLOG) PER UNIT SC SCH ×2 (17:30→21:00)
[2020-05-29] MEDS ORDERED: GLUCAGON INJ 1MG VIAL SC PRN (18:15)
[2020-05-29] MEDS ORDERED: DEXTROSE 50% 50 ML SYRINGE IV PRN (18:15)
[2020-05-29] MEDS ORDERED: GLUCOSE 4GM CHEW TABLET PO PRN (18:15)
[2020-05-29] MEDS ORDERED: ACETAMINOPHEN TAB 650MG DOSE (2X325MG) PO PRN (18:45)
[2020-05-29] MEDS ORDERED: MOM 30ML SUSPENSION UDC PO PRN (18:45)
[2020-05-29] MEDS ORDERED: BISACODYL 10 MG SUPP PR PRN (18:45)
--- NOTE | 2020-05-29 19:52 | ECGEPIP ---
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
[2020-05-29] MEDS ORDERED: NS 1,000 ML IV SCH (20:00)
[2020-05-29] MEDS ORDERED: METOPROLOL TART 12.5 MG PER 1/2 TAB PO SCH (21:00)
[2020-05-29] MEDS: FAMOTIDINE 20 MG TAB PO SCH (23:02)
[2020-05-29] MEDS: ATORVASTATIN 20 MG TAB PO SCH (23:03)
[2020-05-29] MEDS: LEVEMIR (INSULIN DETEMIR) 1 UNITS/0.01ML SC SCH (23:59)
[2020-05-30] VITALS (16 sets, daily range): BP systolic 111–140; BP diastolic 20–55
[2020-05-30 01:05] LABS: HEMATOCRIT 23.1 % (36.0-47.0)
[2020-05-30 01:07] LABS: HEMOGLOBIN 6.8 g/dl (12.0-15.5)
[2020-05-30] MEDS ORDERED: PILL CUTTER 1 EACH XX PRN (05:00)
[2020-05-30] MEDS ORDERED: PROTHROMBIN COMPLEX CONCEN IV ONE (05:30)
[2020-05-30 06:14] LABS: BASO # 0.1 10^3/uL (0.0-0.2); BASO % 0.5 % (0.0-1.0); EOS # 0.4 10^3/uL (0.0-0.5); EOS % 4.1 % (0.0-3.0); HEMATOCRIT 26.5 % (36.0-47.0); HEMOGLOBIN 8.2 g/dl (12.0-15.5); LYMPH # 1.5 10^3/uL (1.5-5.0); LYMPH % 15.5 % (24.0-44.0); MEAN CORPUSCULAR HGB CONC 30.9 g/dl (32.0-36.5); MEAN CORPUSCULAR VOLUME 87.2 fl (80.0-96.0); MONO # 0.9 10^3/uL (0.0-0.8); MONO % 9.5 % (0.0-5.0); NEUTROPHILS # 6.6 10^3/uL (1.5-8.5); NEUTROPHILS % 68.8 % (36.0-66.0); PLATELET COUNT, AUTOMATED 186 10^3/uL (150-450); RED BLOOD COUNT 3.04 10^6/uL (4.00-5.40); WHITE BLOOD COUNT 9.6 10^3/uL (4.0-10.0)
[2020-05-30 06:27] LABS: INR 1.71; PROTHROMBIN TIME 20.4 SECONDS (12.5-14.3)
[2020-05-30 06:28] LABS: PARTIAL THROMBOPLASTIN TIME 37.6 SECONDS (24.2-38.5)
[2020-05-30 06:41] LABS: ALBUMIN 2.1 GM/DL (3.2-5.2); BILIRUBIN,TOTAL 0.4 MG/DL (0.2-1.0); CREATININE FOR GFR 1.71 MG/DL (0.55-1.30); GLOMERULAR FILTRATION RATE 30.4 (>32); POTASSIUM SERUM 3.8 MEQ/L (3.5-5.1); TOTAL PROTEIN 5.2 GM/DL (6.4-8.2)
[2020-05-30] MEDS: HumaLOG INSULIN (NovoLOG) PER UNIT SC SCH ×4 (09:30→20:10)
[2020-05-30] MEDS: METOPROLOL TART 12.5 MG PER 1/2 TAB PO SCH ×2 (09:56→21:33)
[2020-05-30] MEDS: ISOSORBIDE DIN. (ISORDIL) 20 MG TAB PO SCH ×2 (09:57→13:49)
[2020-05-30] MEDS: FERROUS SULFATE 325MG TAB PO SCH (09:58)
[2020-05-30] MEDS: DOCUSATE SODIUM 100 MG CAP PO SCH (09:58)
[2020-05-30] MEDS: FUROSEMIDE 80 MG TAB PO SCH ×2 (09:58→17:45)
[2020-05-30] MEDS ORDERED: LIDOCAINE 2% 100MG/5ML SDV (FOR ANES.) As Ordered ONE ×2 (14:21→14:23)
[2020-05-30] MEDS ORDERED: propofoL 200 MG/20 ML VIAL As Ordered ONE (14:21)
[2020-05-30] MEDS ORDERED: dexameTHASONE 4 MG/ML 1ML VIAL (J1100 PER 1MG) As Ordered ONE (14:21)
[2020-05-30] MEDS ORDERED: ONDANSETRON 4MG/2ML VIAL As Ordered ONE (14:21)
[2020-05-30] MEDS ORDERED: MIDAZOLAM INJ 2MG/2ML VIAL (J2250 PER 1MG) As Ordered ONE ×2 (14:23→14:53)
[2020-05-30] MEDS ORDERED: ONDANSETRON 4MG/2ML VIAL IV PRN (16:15)
[2020-05-30] MEDS ORDERED: LR 1,000 ML IV SCH (16:15)
[2020-05-30] MEDS ORDERED: oxyCODONE 5MG TAB PO PRN (16:15)
--- NOTE | 2020-05-30 17:58 | IPNPDOC ---
Date Seen The patient was seen on 05/30/20. Progress Note SUBJECTIVE: Several clots passed vaginally today, H/H stable, VS stable. Received k-centra full dose, INR improved. Going to OR today. Patient denies chest pain, shortness of breath, n/v/d. OBJECTIVE PHYSICAL EXAMINATION: VITAL SIGNS: please see below General: NAD, comfortable HEENT: PERRLA, EOMI, sclerae clear Neck: supple, normal ROM, no JVD Respiratory: lungs CTAB, no wheeze, no rales, no crackles CVS: RRR, normal S1, S2, no murmurs Abdo: soft, no masses, no hepatosplenomegaly, BS+, no rebound tenderness Skin: deep tissue injury/skin breakdown on sacrum : external exam showing blood in perineum, blood on sheet. Extremities: trace bilateral lower extremity edema, pulses 2+, no cyanosis, warm to touch MSK: no joint deformities, normal ROM Neuro: no focal neuro deficits, moving all 4 extremities, CN2-12 intact. Strength 5/5 in all 4 extremities. No nystagmus. Psych: calm, cooperative, AAO x 3 LABORATORY DATA: See below. MICROBIOLOGY: Please see below. ASSESSMENT: 84F with a PMHX of CAD, hypertension, diabetes mellitus, hyperlipidemia and atrial fibrillation on rivaroxaban, history of a TIA and CHF, is brought to the ED from [facility], admitted for worsening post menopausal vaginal bleeding, r/o acute cause vs. PLAN: #Acute blood loss anemia 2/2 to post-menopausal vaginal bleeding (chronic issue). H/H this AM corrected with PRBCs transfused since admission. OR today. HOlding xarelto. Received K centra today, INR 1.7 from >3.0 on admission. Gynecology consulted. Transfuse for hgb <7 or symptomatic. CBC Q8hrs. #Post menopausal vaginal bleeding, r/o neoplasm vs. hyperplasia. Last pelvic US (05/17/20), endometrial thickness 6 mm. OR today for biopsy. #1st degree heart block, possibly BB induced. Decreased BB by half. Asymptomatic. Monitor on tele. #Elevated INR. Improved overnight from INR 3.3 to 1.7. Received K centra this AM also. On xarelto at home, however expected effect on clotting markers to be generally modest and variable. F/u daily INR. #Diabetes mellitus. C/w current regimen of ISS meals and bedtime. FSBS AC and HS. Hypoglycemia protocol. #CKD Stage III. : monitor Cr, appears at baseline. Avoid nephrotoxins. #Paroxysmal atrial fibrillation. Decreased BB by half, telemetry. Holding eliquis due to vaginal bleed but is high risk for clot formation due to reversal and arrhythmia. #Coronary artery disease. C/w all home meds isordil, metoprolol # Hx of TIA. Reversed INR leaves patient at risk for repeat insult. C/w statin. ASA, xarelto held in setting of acute bleed DVT ppx: TEDs, SCDs. DISPOSITION: OR today for biopsy and will need pathology results before discharge home to [facility]. VS, I&O, 24H, Fishbone Vital Signs/I&O Vital Signs Date Time Temp Pulse Resp B/P (MAP) Pulse Ox O2 Delivery O2 Flow Rate FiO2 05/30/20 17:15 97.9 64 22 124/50 (74) 95 Room Air 05/30/20 16:00 2 I&O- Last 24 Hours up to 6 AM 05/30/20 06:00 Intake Total 1616 ml Balance 1616 ml Laboratory Data 24H LABS Laboratory Tests 2 05/29/20 22:34: Bedside Glucose (Misc Panel) 234H 05/30/20 05:58: Immature Granulocyte % (Auto) 1.6, Neutrophils (%) (Auto) 68.8H, Lymphocytes (%) (Auto) 15.5L, Monocytes (%) (Auto) 9.5H, Eosinophils (%) (Auto) 4.1H, Basophils (%) (Auto) 0.5, Neutrophils # (Auto) 6.6, Lymphocytes # (Auto) 1.5, Monocytes # (Auto) 0.9H, Eosinophils # (Auto) 0.4, Basophils # (Auto) 0.1, Nucleated Red Blood Cells % (auto) 0.5H, Prothrombin Time 20.4H, Prothromb Time International Ratio 1.71, Activated Partial Thromboplast Time 37.6, Anion Gap 5L, Glomerular Filtration Rate 30.4L, Calcium Level 8.0L, Magnesium Level 2.0, Total Bilirubin 0.4, Aspartate Amino Transf (AST/SGOT) 7, Alanine Aminotransferase (ALT/SGPT) 7L, Alkaline Phosphatase 86, Total Protein 5.2L, Albumin 2.1L, Albumin/Globulin Ratio 0.7L 05/30/20 07:04: Bedside Glucose (Misc Panel) 196H 05/30/20 11:23: Coronavirus (COVID-19)(PCR) NEGATIVE 05/30/20 11:36: Bedside Glucose (Misc Panel) 172H 05/30/20 16:34: Bedside Glucose (Misc Panel) 139H 05/30/20 16:52: Bedside Glucose (Misc Panel) 141H CBC/BMP Laboratory Tests 05/30/20 00:56 05/30/20 05:58 Current Medications Current Medications Medications (Trade) Dose Ordered Sig/George Route PRN Reason Start Time Stop Time Status Last Admin Dose Admin Acetaminophen (Tylenol Tab) 650 mg Q4H PRN PO PAIN / FEVER 05/29/20 18:45 Atorvastatin Calcium (Lipitor) 40 mg QHS PO 05/29/20 21:00 05/29/20 23:03 Bisacodyl (Dulcolax Suppository) 10 mg DAILY PRN [place] CONSTIPATION 05/29/20 18:45 Dextrose (Dextrose 50%) 25 ml ASDIRECTED PRN IV SEE LABEL COMMENTS 05/29/20 18:15 Docusate Sodium (Colace) 100 mg DAILY PO 05/30/20 09:00 05/30/20 09:58 Famotidine (Pepcid) 20 mg QHS PO 05/29/20 21:00 05/29/20 23:02 Ferrous Sulfate (Ferrous Sulfate) 325 mg DAILY PO 05/30/20 09:00 05/30/20 09:58 Furosemide (Lasix) 80 mg BID@0900,1700 PO 05/30/20 09:00 05/30/20 09:58 Glucagon (Glucagon) 1 mg ASDIRECTED PRN SC SEE LABEL COMMENTS 05/29/20 18:15 Glucose (Glucose) 16 GM ASDIRECTED PRN PO SEE LABEL COMMENTS 05/29/20 18:15 Home Med (Med Rec Complete!) ASDIRECTED XX 05/29/20 14:45 05/29/20 14:42 DC Insulin Detemir (Levemir Insulin) 30 units QHS SC 05/29/20 23:30 05/29/20 23:59 Insulin Human Lispro (HumaLOG INSULIN) SEE PROTOCOL TABLE AC SC 05/29/20 17:30 05/30/20 09:30 Insulin Human Lispro (HumaLOG INSULIN) SEE PROTOCOL TABLE QHS SC 05/29/20 21:00 Isosorbide Dinitrate (Isordil) 20 mg BID@0800,1400 PO 05/30/20 08:00 05/30/20 13:49 Lactated Ringer's 1,000 ml @ 75 mls/hr [id number] IV 05/30/20 16:15 05/30/20 17:15 DC Magnesium Hydroxide (Milk Of Magnesia) 10 ml DAILY PRN PO CONSTIPATION 05/29/20 18:45 Metoprolol Tartrate (Lopressor) 6.25 mg BID PO 05/30/20 09:00 05/30/20 09:56 Metoprolol Tartrate (Lopressor) 12.5 mg BID PO 05/29/20 21:00 05/30/20 04:55 DC 05/29/20 23:03 Ondansetron HCl (ZOFRAN INJection) 4 mg Q4HP PRN IV NAUSEA OR VOMITING 05/30/20 16:15 05/30/20 17:15 DC Oxycodone HCl (Roxicodone, Oxyir) 5 mg ASDIRECTED PRN PO PAIN LEVEL 1-4 05/30/20 16:15 05/30/20 17:15 DC Sodium Chloride 1,000 ml @ 80 mls/hr [id number] IV 05/29/20 20:00 05/29/20 23:43 Allergies Coded Allergies: Quinolones (Verified Adverse Reaction, Intermediate, DIZZY, NAUSEA, HEART FLUTTERING, ITCHING ON HAND, 02/07/20) Maria E Hermosillo MD May 30, 2020 17:58
[2020-05-30] MEDS: ATORVASTATIN 20 MG TAB PO SCH (21:32)
[2020-05-30] MEDS: FAMOTIDINE 20 MG TAB PO SCH (21:33)
[2020-05-30] MEDS: MEGESTROL 40 MG TAB PO SCH (21:33)
[2020-05-31] VITALS (14 sets, daily range): BP systolic 118–148; BP diastolic 39–68
[2020-05-31 06:41] LABS: BASO # 0.1 10^3/uL (0.0-0.2); BASO % 0.7 % (0.0-1.0); EOS # 0.5 10^3/uL (0.0-0.5); EOS % 6.1 % (0.0-3.0); HEMATOCRIT 22.2 % (36.0-47.0); LYMPH # 1.3 10^3/uL (1.5-5.0); LYMPH % 15.7 % (24.0-44.0); MEAN CORPUSCULAR HEMOGLOBIN 26.4 pg (27.0-33.0); MEAN CORPUSCULAR HGB CONC 29.7 g/dl (32.0-36.5); MEAN CORPUSCULAR VOLUME 88.8 fl (80.0-96.0); MONO # 0.8 10^3/uL (0.0-0.8); NEUTROPHILS # 5.5 10^3/uL (1.5-8.5); NEUTROPHILS % 66.1 % (36.0-66.0); PLATELET COUNT, AUTOMATED 167 10^3/uL (150-450); WHITE BLOOD COUNT 8.4 10^3/uL (4.0-10.0)
[2020-05-31 06:45] LABS: HEMOGLOBIN 6.6 g/dl (12.0-15.5)
[2020-05-31 07:09] LABS: ALBUMIN 2.1 GM/DL (3.2-5.2); BILIRUBIN,TOTAL 0.6 MG/DL (0.2-1.0); CREATININE FOR GFR 1.43 MG/DL (0.55-1.30); GLOMERULAR FILTRATION RATE 37.3 (>32); MAGNESIUM LEVEL 1.9 MG/DL (1.8-2.4); POTASSIUM SERUM 3.6 MEQ/L (3.5-5.1)
[2020-05-31] MEDS: FERROUS SULFATE 325MG TAB PO SCH (08:12)
[2020-05-31] MEDS: DOCUSATE SODIUM 100 MG CAP PO SCH (08:12)
[2020-05-31] MEDS: HumaLOG INSULIN (NovoLOG) PER UNIT SC SCH ×4 (08:12→20:41)
[2020-05-31] MEDS: MEGESTROL 40 MG TAB PO SCH ×2 (08:12→20:46)
[2020-05-31] MEDS: FUROSEMIDE 80 MG TAB PO SCH ×2 (08:12→17:20)
[2020-05-31] MEDS: METOPROLOL TART 12.5 MG PER 1/2 TAB PO SCH ×2 (08:13→20:48)
[2020-05-31] MEDS: ISOSORBIDE DIN. (ISORDIL) 20 MG TAB PO SCH ×2 (08:14→14:13)
--- NOTE | 2020-05-31 18:10 | IPNPDOC ---
Date Seen The patient was seen on 05/31/20. Progress Note SUBJECTIVE: Taken to OR 05/30/20, pathology sent and pending. H/H lower today, transfusing 2 additional units PRBC (totalling 5 U this admission). Updated patient's daughter Naomi Aquino, HCP/POA. Patient denies chest pain, shortness of breath, n/v/d. OBJECTIVE PHYSICAL EXAMINATION: VITAL SIGNS: please see below General: NAD, comfortable HEENT: PERRLA, EOMI, sclerae clear Neck: supple, normal ROM, no JVD Respiratory: lungs CTAB, no wheeze, no rales, no crackles CVS: RRR, normal S1, S2, no murmurs Abdo: soft, no masses, no hepatosplenomegaly, BS+, no rebound tenderness Skin: deep tissue injury/skin breakdown on sacrum : external exam showing blood in perineum, blood on sheet. Extremities: trace bilateral lower extremity edema, pulses 2+, no cyanosis, warm to touch MSK: no joint deformities, normal ROM Neuro: no focal neuro deficits, moving all 4 extremities, CN2-[address]th 5/5 in all 4 extremities. No nystagmus. Psych: calm, cooperative, AAO x 3 LABORATORY DATA: See below. MICROBIOLOGY: Please see below. ASSESSMENT: 84F with a PMHX of CAD, hypertension, diabetes mellitus, hyperlipidemia and atrial fibrillation on rivaroxaban, history of a TIA and CHF, is brought to the ED from [facility], admitted for worsening post menopausal vaginal bleeding, r/o acute cause vs. neoplasm vs. hyperplasia? PLAN: #Acute blood loss anemia 2/2 to post-menopausal vaginal bleeding (chronic issue). H/H lower this AM, transfusing 2 units PRBC (totalling 5 units since admission and K centra). F/u post transfusion H/H. Continuing to holding xarelto. Last INR 1.7 from >3.0 on admission. Gynecology consulted. Transfuse for hgb <7 or symptomatic. CBC Q8hrs. #Post menopausal vaginal bleeding, r/o neoplasm vs. hyperplasia. Last pelvic US (05/17/20), endometrial thickness 6 mm. Pathology from endometrial bx pending. #1st degree heart block, possibly BB induced. Resolved with decreased BB by half. Asymptomatic. Monitor on tele. #Elevated INR. Improved from INR 3.3 to 1.7. Received K centra, on xarelto at home, however expected effect on clotting markers to be generally modest and variable. F/u daily INR. #Diabetes mellitus. BS uncontrolled during day. Added levemir 10 units QAM to levemir HS. C/w current regimen of ISS , FSBS AC and HS, hypoglycemia protocol. #CKD Stage III. : monitor Cr, appears at baseline. Avoid nephrotoxins. #Paroxysmal atrial fibrillation. Rate controlled, c/w BB at current dose. Holding eliquis due to vaginal bleed but is high risk for clot formation due to reversal and arrhythmia. #Coronary artery disease. C/w all home meds isordil, metoprolol # Hx of TIA. Reversed INR leaves patient at risk for repeat insult. C/w statin. ASA, xarelto held in setting of acute bleed DVT ppx: TEDs, SCDs. DISPOSITION: Pathology is pending and will need pathology results before discharge home to [facility]. Turnaround Engineer following. VS, I&O, 24H, [facility] Vital Signs/I&O Vital Signs Date Time Temp Pulse Resp B/P (MAP) Pulse Ox O2 Delivery O2 Flow Rate FiO2 05/31/20 17:05 99.5 70 20 126/58 98 Room Air 05/30/20 16:00 2 I&O- Last 24 Hours up to 6 AM 05/31/20 06:00 Intake Total 1340 ml Output Total 400 ml Balance 940 ml Laboratory Data 24H LABS Laboratory Tests 2 05/30/20 19:52: Bedside Glucose (Misc Panel) 162H 05/30/20 22:08: Bedside Glucose (Misc Panel) 178H 05/31/20 05:47: Immature Granulocyte % (Auto) 1.4, Neutrophils (%) (Auto) 66.1H, Lymphocytes (%) (Auto) 15.7L, Monocytes (%) (Auto) 10.0H, Eosinophils (%) (Auto) 6.1H, Basophils (%) (Auto) 0.7, Neutrophils # (Auto) 5.5, Lymphocytes # (Auto) 1.3L, Monocytes # (Auto) 0.8, Eosinophils # (Auto) 0.5, Basophils # (Auto) 0.1, Nucleated Red Blood Cells % (auto) 0.5H, Anion Gap 4L, Glomerular Filtration Rate 37.3, Calcium Level 8.0L, Magnesium Level 1.9, Total Bilirubin 0.6, Aspartate Amino Transf (AST/SGOT) 9, Alanine Aminotransferase (ALT/SGPT) 7L, Alkaline Phosphatase 82, Total Protein 5.0L, Albumin 2.1L, Albumin/Globulin Ratio 0.7L 05/31/20 11:42: Bedside Glucose (Misc Panel) 204H 05/31/20 16:53: Bedside Glucose (Misc Panel) 167H CBC/BMP Laboratory Tests 05/31/20 05:47 Microbiology Microbiology 05/31/20 Urine Culture, Received Pending 05/30/20 Urine Culture, Received Pending Current Medications Current Medications Medications (Trade) Dose Ordered Sig/George Route PRN Reason Start Time Stop Time Status Last Admin Dose Admin Acetaminophen (Tylenol Tab) 650 mg Q4H PRN PO PAIN / FEVER 05/29/20 18:45 Atorvastatin Calcium (Lipitor) 40 mg QHS PO 05/29/20 21:00 05/30/20 21:32 Bisacodyl (Dulcolax Suppository) 10 mg DAILY PRN [place] CONSTIPATION 05/29/20 18:45 Dextrose (Dextrose 50%) 25 ml ASDIRECTED PRN IV SEE LABEL COMMENTS 05/29/20 18:15 Docusate Sodium (Colace) 100 mg DAILY PO 05/30/20 09:00 05/31/20 08:12 Famotidine (Pepcid) 20 mg QHS PO 05/29/20 21:00 05/30/20 21:33 Ferrous Sulfate (Ferrous Sulfate) 325 mg DAILY PO 05/30/20 09:00 05/31/20 08:12 Furosemide (Lasix) 80 mg BID@0900,1700 PO 05/30/20 09:00 05/31/20 17:20 Glucagon (Glucagon) 1 mg ASDIRECTED PRN SC SEE LABEL COMMENTS 05/29/20 18:15 Glucose (Glucose) 16 GM ASDIRECTED PRN PO SEE LABEL COMMENTS 05/29/20 18:15 Home Med (Med Rec Complete!) ASDIRECTED XX 05/29/20 14:45 05/29/20 14:42 DC Insulin Detemir (Levemir Insulin) 30 units QHS SC 05/29/20 23:30 05/29/20 23:59 Insulin Human Lispro (HumaLOG INSULIN) SEE PROTOCOL TABLE AC SC 05/29/20 17:30 05/31/20 17:19 Insulin Human Lispro (HumaLOG INSULIN) SEE PROTOCOL TABLE QHS ME 05/29/20 21:00 Isosorbide Dinitrate (Isordil) 20 mg BID@0800,1400 PO 05/30/20 08:00 05/31/20 14:13 Lactated Ringer's 1,000 ml @ 75 mls/hr [id number] IV 05/30/20 16:15 05/30/20 17:15 DC Magnesium Hydroxide (Milk Of Magnesia) 10 ml DAILY PRN PO CONSTIPATION 05/29/20 18:45 Megestrol Acetate (Megace) 40 mg BID PO 05/30/20 21:00 05/31/20 08:12 Metoprolol Tartrate (Lopressor) 6.25 mg BID PO 05/30/20 09:00 05/31/20 08:13 Metoprolol Tartrate (Lopressor) 12.5 mg BID PO 05/29/20 21:00 05/30/20 04:55 DC 05/29/20 23:03 Ondansetron HCl (ZOFRAN INJection) 4 mg Q4HP PRN IV NAUSEA OR VOMITING 05/30/20 16:15 05/30/20 17:15 DC Oxycodone HCl (Roxicodone, Oxyir) 5 mg ASDIRECTED PRN PO PAIN LEVEL 1-4 05/30/20 16:15 05/30/20 17:15 DC Sodium Chloride 1,000 ml @ 80 mls/hr [id number] IV 05/29/20 20:00 05/30/20 18:00 DC 05/29/20 23:43 Allergies Coded Allergies: Quinolones (Verified Adverse Reaction, Intermediate, DIZZY, NAUSEA, HEART FLUTTERING, ITCHING ON HAND, 02/07/20) Maria E Hermosillo MD May 31, 2020 18:10
[2020-05-31 18:15] LABS: HEMATOCRIT 27.4 % (36.0-47.0); HEMOGLOBIN 8.5 g/dl (12.0-15.5); MEAN CORPUSCULAR HEMOGLOBIN 26.9 pg (27.0-33.0); MEAN CORPUSCULAR VOLUME 86.7 fl (80.0-96.0); PLATELET COUNT, AUTOMATED 162 10^3/uL (150-450); RED BLOOD COUNT 3.16 10^6/uL (4.00-5.40); WHITE BLOOD COUNT 9.8 10^3/uL (4.0-10.0)
[2020-05-31] MEDS: ATORVASTATIN 20 MG TAB PO SCH (20:46)
[2020-05-31] MEDS: FAMOTIDINE 20 MG TAB PO SCH (20:46)
[2020-05-31] MEDS: LEVEMIR (INSULIN DETEMIR) 1 UNITS/0.01ML SC SCH (20:47)
[2020-06-01 00:27] LABS: HEMATOCRIT 27.9 % (36.0-47.0); HEMOGLOBIN 8.7 g/dl (12.0-15.5); MEAN CORPUSCULAR HEMOGLOBIN 26.7 pg (27.0-33.0); MEAN CORPUSCULAR HGB CONC 31.2 g/dl (32.0-36.5); MEAN CORPUSCULAR VOLUME 85.6 fl (80.0-96.0); PLATELET COUNT, AUTOMATED 166 10^3/uL (150-450); RED BLOOD COUNT 3.26 10^6/uL (4.00-5.40)
[2020-06-01 06:00] VITALS: BP 120/58
[2020-06-01 06:24] LABS: HEMATOCRIT 31.2 % (36.0-47.0); HEMOGLOBIN 9.8 g/dl (12.0-15.5); MEAN CORPUSCULAR HEMOGLOBIN 27.1 pg (27.0-33.0); MEAN CORPUSCULAR HGB CONC 31.4 g/dl (32.0-36.5); MEAN CORPUSCULAR VOLUME 86.4 fl (80.0-96.0); PLATELET COUNT, AUTOMATED 163 10^3/uL (150-450); RED BLOOD COUNT 3.61 10^6/uL (4.00-5.40); WHITE BLOOD COUNT 9.3 10^3/uL (4.0-10.0)
[2020-06-01 06:32] LABS: INR 1.01; PROTHROMBIN TIME 13.5 SECONDS (12.5-14.3)
[2020-06-01 06:33] LABS: PARTIAL THROMBOPLASTIN TIME 31.7 SECONDS (24.2-38.5)
[2020-06-01 06:39] LABS: BILIRUBIN,TOTAL 0.7 MG/DL (0.2-1.0); CALCIUM LEVEL 8.1 MG/DL (8.8-10.2); CREATININE FOR GFR 1.51 MG/DL (0.55-1.30); MAGNESIUM LEVEL 1.8 MG/DL (1.8-2.4); POTASSIUM SERUM 3.1 MEQ/L (3.5-5.1); TOTAL PROTEIN 5.6 GM/DL (6.4-8.2)
[2020-06-01] MEDS: FUROSEMIDE 80 MG TAB PO SCH ×2 (08:08→17:07)
[2020-06-01] MEDS: DOCUSATE SODIUM 100 MG CAP PO SCH (08:08)
[2020-06-01] MEDS: FERROUS SULFATE 325MG TAB PO SCH (08:08)
[2020-06-01] MEDS: MEGESTROL 40 MG TAB PO SCH ×2 (08:08→20:49)
[2020-06-01] MEDS: ISOSORBIDE DIN. (ISORDIL) 20 MG TAB PO SCH ×2 (08:09→14:38)
[2020-06-01] MEDS: HumaLOG INSULIN (NovoLOG) PER UNIT SC SCH ×4 (08:10→20:54)
[2020-06-01] MEDS: LEVEMIR (INSULIN DETEMIR) 1 UNITS/0.01ML SC SCH ×2 (08:10→20:49)
[2020-06-01] MEDS: METOPROLOL TART 12.5 MG PER 1/2 TAB PO SCH ×2 (08:11→20:49)
[2020-06-01] MEDS ORDERED: POTASSIUM CHLORIDE 10 MEQ SR TABLET PO ONE (08:30)
[2020-06-01 14:00] VITALS: BP 132/42
--- NOTE | 2020-06-01 14:56 | IPNPDOC ---
Date Seen The patient was seen on 06/01/20. Progress Note SUBJECTIVE: Pathology form 05/30/20: diffuse simple hyperplasia and endometrial polyp; however, consultation is underway to r/o further process. No bleeding overnight. H/H stable after 2 units PRBC 05/31/20. R/o DVT with left lower ext US. Patient denies chest pain, shortness of breath, n/v/d. OBJECTIVE: PHYSICAL EXAMINATION: VITAL SIGNS: please see below General: NAD, comfortable HEENT: PERRLA, EOMI, sclerae clear Neck: supple, normal ROM, no JVD Respiratory: lungs CTAB, no wheeze, no rales, no crackles CVS: RRR, normal S1, S2, no murmurs Abdo: soft, no masses, no hepatosplenomegaly, BS+, no rebound tenderness Skin: deep tissue injury/skin breakdown on sacrum : Deferred Extremities: trace bilateral lower extremity edema, pulses 2+, no cyanosis, warm to touch. Tender to touch of left lower ext with some increased edema in that leg vs right MSK: no joint deformities, normal ROM Neuro: no focal neuro deficits, moving all 4 extremities, CN2-12 intact. Strength 5/5 in all 4 extremities. No nystagmus. Psych: calm, cooperative, AAO x 3 LABORATORY DATA: See below. MICROBIOLOGY: Please see below. PATHOLOGY: Endocervical biopsy and endometrial sampling 05/30/20: Favor diffuse simple hyperplasia and endometrial polyp. A consultation will be obtained from [facility] to rule out a more significant process, addendum will follow. ASSESSMENT: 84F with a PMHX of CAD, hypertension, diabetes mellitus, hyperlipidemia and atrial fibrillation on rivaroxaban, history of a TIA and CHF, is brought to the ED from [facility], admitted for worsening post menopausal vaginal bleeding, r/o acute cause vs. neoplasm vs. hyperplasia? PLAN: #Acute blood loss anemia 2/2 to post-menopausal vaginal bleeding (chronic issue). Cause of bleeding possibly hyperplasia; however, pathology sent for further processing. S/p 2 units PRBC (total 5 units this admission), corrected appropriately with H/H stable-no further bleeding since yesterday. Continuing to holding xarelto. Last INR 1 from >3.0 on admission. Gynecology consulted. Transfuse for hgb <7 or symptomatic. CBC Q12 hrs. Megace BID. #Post menopausal vaginal bleeding, likely hyperplasia from path but further path processing pending. Please see above #1st degree heart block, possibly BB induced. Resolved with decreased BB by half. Asymptomatic. Monitor on tele. #Elevated INR. Resolved. Received K centra, on xarelto at home. #Diabetes mellitus. BS better controlled after Adding levemir 10 units QAM. C/w levemir BID, current regimen of ISS , FSBS AC and HS, hypoglycemia protocol. #CKD Stage III. : monitor Cr, appears at baseline. Avoid nephrotoxins. #Paroxysmal atrial fibrillation. Rate controlled, c/w BB at current dose. Holding eliquis due to vaginal bleed but is high risk for clot formation due to reversal and arrhythmia. Now on megace, monitor closely #Coronary artery disease. C/w all home meds isordil, metoprolol # Hx of TIA. Reversed INR leaves patient at risk for repeat insult, now on megace also risk. C/w statin. ASA, xarelto held in setting of acute bleed DVT ppx: TEDs, SCDs. DISPOSITION: Pathology above. PT/OT ordered. Hoping to discharge to [facility] when medically improved. Need to touch base with Dr. Gutierrez today. Bulk Plant Agent following. VS, I&O, 24H, Fishbone Vital Signs/I&O Vital Signs Date Time Temp Pulse Resp B/P (MAP) Pulse Ox O2 Delivery O2 Flow Rate FiO2 06/01/20 14:38 132/46 06/01/20 06:00 97.5 74 20 96 05/31/20 18:00 Room Air 05/30/20 16:00 2 I&O- Last 24 Hours up to 6 AM 06/01/20 06:00 Intake Total 2622 ml Output Total 0 ml Balance 2622 ml Laboratory Data 24H LABS Laboratory Tests 2 05/31/20 16:53: Bedside Glucose (Misc Panel) 167H 05/31/20 17:50: Nucleated Red Blood Cells % (auto) 0.4H 05/31/20 20:37: Bedside Glucose (Misc Panel) 224H 06/01/20 00:14: Nucleated Red Blood Cells % (auto) 0.3H 06/01/20 05:37: Nucleated Red Blood Cells % (auto) 0.2H, Prothrombin Time 13.5, Prothromb Time International Ratio 1.01, Activated Partial Thromboplast Time 31.7, Anion Gap 3L, Glomerular Filtration Rate 35.0, Calcium Level 8.1L, Magnesium Level 1.8, Total Bilirubin 0.7, Aspartate Amino Transf (AST/SGOT) 10, Alanine Aminotransferase (ALT/SGPT) 7L, Alkaline Phosphatase 82, Total Protein 5.6L, Al bumin 2.0L, Albumin/Globulin Ratio 0.6L 06/01/20 11:28: Bedside Glucose (Misc Panel) 156H CBC/BMP Laboratory Tests 05/31/20 17:50 06/01/20 00:14 06/01/20 05:37 Microbiology Microbiology 05/31/20 Urine Culture, Received Pending 05/30/20 Urine Culture, Received Pending Current Medications Current Medications Medications (Trade) Dose Ordered Sig/George Route PRN Reason Start Time Stop Time Status Last Admin Dose Admin Acetaminophen (Tylenol Tab) 650 mg Q4H PRN PO PAIN / FEVER 05/29/20 18:45 Atorvastatin Calcium (Lipitor) 40 mg QHS PO 05/29/20 21:00 05/31/20 20:46 Bisacodyl (Dulcolax Suppository) 10 mg DAILY PRN [place] CONSTIPATION 05/29/20 18:45 Dextrose (Dextrose 50%) 25 ml ASDIRECTED PRN IV SEE LABEL COMMENTS 05/29/20 18:15 Docusate Sodium (Colace) 100 mg DAILY PO 05/30/20 09:00 06/01/20 08:08 Famotidine (Pepcid) 20 mg QHS PO 05/29/20 21:00 05/31/20 20:46 Ferrous Sulfate (Ferrous Sulfate) 325 mg DAILY PO 05/30/20 09:00 06/01/20 08:08 Furosemide (Lasix) 80 mg BID@0900,1700 PO 05/30/20 09:00 06/01/20 08:08 Glucagon (Glucagon) 1 mg ASDIRECTED PRN SC SEE LABEL COMMENTS 05/29/20 18:15 Glucose (Glucose) 16 GM ASDIRECTED PRN PO SEE LABEL COMMENTS 05/29/20 18:15 Home Med (Med Rec Complete!) ASDIRECTED XX 05/29/20 14:45 05/29/20 14:42 DC Insulin Detemir (Levemir Insulin) 10 units QAM SC 06/01/20 09:00 06/01/20 08:10 Insulin Detemir (Levemir Insulin) 30 units QHS [place] 05/29/20 23:30 05/31/20 20:47 Insulin Human Lispro (HumaLOG INSULIN) SEE PROTOCOL TABLE AC [place] 05/29/20 17:30 06/01/20 12:09 Insulin Human Lispro (HumaLOG INSULIN) SEE PROTOCOL TABLE QHS [place] 05/29/20 21:00 Isosorbide Dinitrate (Isordil) 20 mg BID@0800,1400 PO 05/30/20 08:00 06/01/20 14:38 Lactated Ringer's 1,000 ml @ 75 mls/hr [id number] IV 05/30/20 16:15 05/30/20 17:15 DC Magnesium Hydroxide (Milk Of Magnesia) 10 ml DAILY PRN PO CONSTIPATION 05/29/20 18:45 Megestrol Acetate (Megace) 40 mg BID PO 05/30/20 21:00 06/01/20 08:08 Metoprolol Tartrate (Lopressor) 6.25 mg BID PO 05/30/20 09:00 06/01/20 08:11 Metoprolol Tartrate (Lopressor) 12.5 mg BID PO 05/29/20 21:00 05/30/20 04:55 DC 05/29/20 23:03 Ondansetron HCl (ZOFRAN INJection) 4 mg Q4HP PRN IV NAUSEA OR VOMITING 05/30/20 16:15 05/30/20 17:15 DC Oxycodone HCl (Roxicodone, Oxyir) 5 mg ASDIRECTED PRN PO PAIN LEVEL 1-4 05/30/20 16:15 05/30/20 17:15 DC Sodium Chloride 1,000 ml @ 80 mls/hr [id number] IV 05/29/20 20:00 05/30/20 18:00 DC 05/29/20 23:43 Allergies Coded Allergies: Quinolones (Verified Adverse Reaction, Intermediate, DIZZY, NAUSEA, HEART FLUTTERING, ITCHING ON HAND, 02/07/20) Maria E Hermosillo MD Jun 01, 2020 14:56
[2020-06-01 15:33] LABS: HEMATOCRIT 31.2 % (36.0-47.0); HEMOGLOBIN 9.7 g/dl (12.0-15.5); MEAN CORPUSCULAR HEMOGLOBIN 26.9 pg (27.0-33.0); MEAN CORPUSCULAR HGB CONC 31.1 g/dl (32.0-36.5); MEAN CORPUSCULAR VOLUME 86.7 fl (80.0-96.0); WHITE BLOOD COUNT 9.9 10^3/uL (4.0-10.0)
--- NOTE | 2020-06-01 15:52 | REPVR ---
PROCEDURE INFORMATION: Exam: US Duplex Left Lower Extremity Veins, Limited Exam date and time: 06/01/2020 3:42 PM Age: 84 years old Clinical indication: Pain; Swelling (edema) of limb; Lower extremity, left; Leg, lower; Additional info: Left lower ext swelling and pain TECHNIQUE: Imaging protocol: Real-time Duplex ultrasound of the Left Lower Extremity with 2-D kim scale, color Doppler flow and spectral waveform analysis with image documentation. Limited exam focused on the left lower extremity veins. COMPARISON: No relevant prior studies available. FINDINGS: Left deep veins: Unremarkable. The common femoral, femoral and popliteal veins are patent without thrombus. Normal Doppler waveforms. Normal compressibility and/or augmentation response. Left superficial veins: Unremarkable. Saphenofemoral junction is patent without thrombus. Soft tissues: Unremarkable. IMPRESSION: No evidence of deep vein thrombosis in the left lower extremity. Electronically signed by: Francisco Friedman On 06/01/2020 15:52:13 PM
--- NOTE | 2020-06-01 19:19 | ECGEPIP ---
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
[2020-06-01] MEDS: ATORVASTATIN 20 MG TAB PO SCH (20:49)
[2020-06-01] MEDS: FAMOTIDINE 20 MG TAB PO SCH (20:53)
[2020-06-01 22:00] VITALS: BP 130/66
[2020-06-02 03:34] LABS: HEMATOCRIT 30.4 % (36.0-47.0); HEMOGLOBIN 9.2 g/dl (12.0-15.5); MEAN CORPUSCULAR HEMOGLOBIN 26.4 pg (27.0-33.0); MEAN CORPUSCULAR HGB CONC 30.3 g/dl (32.0-36.5); MEAN CORPUSCULAR VOLUME 87.1 fl (80.0-96.0); PLATELET COUNT, AUTOMATED 167 10^3/uL (150-450); RED BLOOD COUNT 3.49 10^6/uL (4.00-5.40); WHITE BLOOD COUNT 8.9 10^3/uL (4.0-10.0)
[2020-06-02 03:45] LABS: INR 1.11; PROTHROMBIN TIME 14.6 SECONDS (12.5-14.3)
[2020-06-02 03:46] LABS: PARTIAL THROMBOPLASTIN TIME 30.2 SECONDS (24.2-38.5)
[2020-06-02 04:00] LABS: BILIRUBIN,TOTAL 0.4 MG/DL (0.2-1.0); CALCIUM LEVEL 7.6 MG/DL (8.8-10.2); CREATININE FOR GFR 1.32 MG/DL (0.55-1.30); GLOMERULAR FILTRATION RATE 40.9 (>32); MAGNESIUM LEVEL 1.7 MG/DL (1.8-2.4); POTASSIUM SERUM 3.5 MEQ/L (3.5-5.1); TOTAL PROTEIN 5.2 GM/DL (6.4-8.2)
[2020-06-02 06:00] VITALS: BP 140/62
[2020-06-02] MEDS: LEVEMIR (INSULIN DETEMIR) 1 UNITS/0.01ML SC SCH ×2 (08:09→21:06)
[2020-06-02] MEDS: METOPROLOL TART 12.5 MG PER 1/2 TAB PO SCH ×2 (08:10→21:07)
[2020-06-02] MEDS: HumaLOG INSULIN (NovoLOG) PER UNIT SC SCH ×4 (08:10→20:58)
[2020-06-02] MEDS: ISOSORBIDE DIN. (ISORDIL) 20 MG TAB PO SCH ×2 (08:11→13:09)
[2020-06-02] MEDS: MEGESTROL 40 MG TAB PO SCH ×2 (08:11→21:05)
[2020-06-02] MEDS: FUROSEMIDE 80 MG TAB PO SCH ×2 (08:11→16:41)
[2020-06-02] MEDS: DOCUSATE SODIUM 100 MG CAP PO SCH (08:11)
[2020-06-02] MEDS: FERROUS SULFATE 325MG TAB PO SCH (08:11)
[2020-06-02] MEDS ORDERED: CARV3.12 PO (08:31)
[2020-06-02] MEDS ORDERED: INSUDET SC (08:31)
[2020-06-02] MEDS ORDERED: MEGE40TA PO (08:31)
[2020-06-02] MEDS ORDERED: LACTULOSE 20 GM/30 ML SYRUP UD PO ONE ×3 (11:00→16:45)
[2020-06-02 14:00] VITALS: BP 128/62
[2020-06-02 15:13] LABS: HEMATOCRIT 32.3 % (36.0-47.0); HEMOGLOBIN 9.8 g/dl (12.0-15.5); MEAN CORPUSCULAR HEMOGLOBIN 26.6 pg (27.0-33.0); MEAN CORPUSCULAR HGB CONC 30.3 g/dl (32.0-36.5); MEAN CORPUSCULAR VOLUME 87.8 fl (80.0-96.0); PLATELET COUNT, AUTOMATED 176 10^3/uL (150-450); RED BLOOD COUNT 3.68 10^6/uL (4.00-5.40); WHITE BLOOD COUNT 9.7 10^3/uL (4.0-10.0)
[2020-06-02] MEDS ORDERED: MIRALAX *UNIT DOSE* 17GM PACKET PO PRN (16:45)
--- NOTE | 2020-06-02 16:52 | IPNPDOC ---
Date Seen The patient was seen on 06/02/20. Progress Note SUBJECTIVE: Discussed with both patient and daughter Naomi results of pathology and how consultation with [facility] is underway to rule out another process as well. I had discussed with Dr. Gutierrez the risk of DVT, pulmonary embolus is higher on Megace. The patient seems to be benefiting from being on it twice a day but is on a higher dose putting her at an even higher risk of clot formation with a history of TIA and atrial fibrillation. Dr. Gutierrez explained that other alternatives involved procedures which the patient will likely not be fond of, considering that she does not like invasive forms of treatment. The risks and benefits of being on Megace were discussed in detail with the patient and her daughter. Both decided to continue with the Megace after discharge despite knowing the risks. No further bleeding was seen over the evening, H&H slightly lower today, asymptomatic. No DVT found on ultrasound of the lower extremities. Patient denies chest pain, shortness of breath, n/v/d. OBJECTIVE: PHYSICAL EXAMINATION: VITAL SIGNS: please see below General: NAD, comfortable HEENT: PERRLA, EOMI, sclerae clear Neck: supple, normal ROM, no JVD Respiratory: lungs CTAB, no wheeze, no rales, no crackles CVS: RRR, normal S1, S2, no murmurs Abdo: soft, no masses, no hepatosplenomegaly, BS+, no rebound tenderness Skin: deep tissue injury/skin breakdown on sacrum : Deferred Extremities: trace bilateral lower extremity edema, pulses 2+, no cyanosis, warm to touch. Tender to touch of left lower ext with some increased edema in that leg vs right MSK: no joint deformities, normal ROM Neuro: no focal neuro deficits, moving all 4 extremities, CN2-12 intact. Strength 5/5 in all 4 extremities. No nystagmus. Psych: calm, cooperative, AAO x 3 LABORATORY DATA: See below. MICROBIOLOGY: Please see below. PATHOLOGY: Endocervical biopsy and endometrial sampling 05/30/20: Favor diffuse simple hyperplasia and endometrial polyp. A consultation will be obtained from [facility] to rule out a more significant process, addendum will follow. ASSESSMENT: 84F with a PMHX of CAD, hypertension, diabetes mellitus, hyperlipidemia and atrial fibrillation on rivaroxaban, history of a TIA and CHF, is brought to the ED from [facility], admitted for worsening post menopausal vaginal bleeding, r/o acute cause vs. neoplasm vs. hyperplasia? PLAN: # Acute blood loss anemia 2/2 to post-menopausal vaginal bleeding (chronic issue). Cause of bleeding possibly hyperplasia; however, pathology sent for further processing. S/p total 5 units this admission. H/H slightly lower today d espite no further bleeding the last 24-36 hr. Continuing to holding xarelto. Last INR 1.1 from >3.0 on admission. Gynecology consulted. Transfuse for hgb <7 or symptomatic. CBC Q12 hrs. Megace BID. # Post menopausal vaginal bleeding, likely hyperplasia from path but further path processing pending to r/o neoplasia. Please see plan above # 1st degree heart block, possibly BB induced. Resolved with decreased BB by half. Asymptomatic. Monitor on tele. # Supratherapeutic INR. Resolved. Received K centra, was previously on on xarelto at home. # Acute hypokalemia. Potassium wnl today. F/u AM labs # Constipation. S/p lactulose x 1 dose earlier. Ordered another dose lactulose plus miralax in 2 hours if no BM. # Paroxysmal atrial fibrillation. Rate controlled, c/w BB at current dose. H olding eliquis due to vaginal bleed but is high risk for clot formation due to reversal and arrhythmia. Risks of being off discussed with patient and HCP, risk of being on Megace (which can increase risk of clots, stroke, PE) also discussed. Decision is to stay on megace and possibly, down the line, reintroduce xarelto when bleeding is shown to be controlled on megace. This was discussed also with Dr. Gutierrez. Patient will need to f/u closely with cardiology, PCP and gynecology. # Diabetes mellitus. BS controlled. C/w levemir BID, current regimen of ISS , FSBS AC and HS, hypoglycemia protocol. # CKD Stage III. : monitor Cr, appears at baseline. Avoid nephrotoxins. # Coronary artery disease. C/w all home meds isordil, metoprolol # Hx of TIA. Reversed INR leaves patient at risk for repeat insult, now on megace also risk. C/w statin. ASA, xarelto held in setting of acute bleed DVT ppx: TEDs, SCDs. DISPOSITION: Pathology above. PT/OT ordered. Hoping to discharge to [facility] in the AM if patient has BM. Will need to f/u with Dr. Gutierrez after d/c. VS, I&O, 24H, [place] Vital Signs/I&O Vital Signs Date Time Temp Pulse Resp B/P (MAP) Pulse Ox O2 Delivery O2 Flow Rate FiO2 06/02/20 14:00 97.3 92 18 128/62 (84) 97 Room Air 05/30/20 16:00 2 I&O- Last 24 Hours up to 6 AM 06/02/20 06:00 Intake Total 1960 ml Output Total 0 ml Balance 1960 ml Laboratory Data 24H LABS Laboratory Tests 2 06/01/20 16:41: Bedside Glucose (Misc Panel) 146H 06/01/20 20:26: Bedside Glucose (Misc Panel) 235H 06/02/20 03:22: Nucleated Red Blood Cells % (auto) 0.0, Prothrombin Time 14.6H, Prothromb Time International Ratio 1.11, Activated Partial Thromboplast Time 30.2, Anion Gap 7L , Glomerular Filtration Rate 40.9, Calcium Level 7.6L, Magnesium Level 1.7L, Total Bilirubin 0.4, Aspartate Amino Transf (AST/SGOT) 10, Alanine Aminotransferase (ALT/SGPT) 8L, Alkaline Phosphatase 84, Total Protein 5.2L, Albumin 2.0L, Albumin/Globulin Ratio 0.6L 06/02/20 11:23: Bedside Glucose (Misc Panel) 191H 06/02/20 14:45: Nucleated Red Blood Cells % (auto) 0.0 06/02/20 16:32: Bedside Glucose (Misc Panel) 164H CBC/BMP Laboratory Tests 06/02/20 03:22 06/02/20 14:45 Microbiology Microbiology 05/31/20 Urine Culture - Preliminary, Resulted E.coli Esbl 05/30/20 Urine Culture, Received Pending Current Medications Current Medications Medications (Trade) Dose Ordered Sig/George Route PRN Reason Start Time Stop Time Status Last Admin Dose Admin Acetaminophen (Tylenol Tab) 650 mg Q4H PRN PO PAIN / FEVER 05/29/20 18:45 Atorvastatin Calcium (Lipitor) 40 mg QHS PO 05/29/20 21:00 06/01/20 20:49 Bisacodyl (Dulcolax Suppository) 10 mg DAILY PRN AR CONSTIPATION 05/29/20 18:45 06/02/20 08:48 Dextrose (Dextrose 50%) 25 ml ASDIRECTED PRN IV SEE LABEL COMMENTS 05/29/20 18:15 Docusate Sodium (Colace) 100 mg DAILY PO 05/30/20 09:00 06/02/20 08:11 Famotidine (Pepcid) 20 mg QHS PO 05/29/20 21:00 06/01/20 20:53 Ferrous Sulfate (Ferrous Sulfate) 325 mg DAILY PO 05/30/20 09:00 06/02/20 08:11 Furosemide (Lasix) 80 mg BID@0900,1700 PO 05/30/20 09:00 06/02/20 08:11 Glucagon (Glucagon) 1 mg ASDIRECTED PRN SC SEE LABEL COMMENTS 05/29/20 18:15 Glucose (Glucose) 16 GM ASDIRECTED PRN PO SEE LABEL COMMENTS 05/29/20 18:15 Home Med (Med Rec Complete!) ASDIRECTED XX 05/29/20 14:45 05/29/20 14:42 DC Insulin Detemir (Levemir Insulin) 10 units QAM SC 06/01/20 09:00 06/02/20 08:09 Insulin Detemir (Levemir Insulin) 30 units QHS SC 05/29/20 23:30 06/01/20 20:49 Insulin Human Lispro (HumaLOG INSULIN) SEE PROTOCOL TABLE AC SC 05/29/20 17:30 06/02/20 13:07 Insulin Human Lispro (HumaLOG INSULIN) SEE PROTOCOL TABLE QHS SC 05/29/20 21:00 Isosorbide Dinitrate (Isordil) 20 mg BID@0800,1400 PO 05/30/20 08:00 06/02/20 13:09 Lactated Ringer's 1,000 ml @ 75 mls/hr [id number] IV 05/30/20 16:15 05/30/20 17:15 DC Magnesium Hydroxide (Milk Of Magnesia) 10 ml DAILY PRN PO CONSTIPATION 05/29/20 18:45 Megestrol Acetate (Megace) 40 mg BID PO 05/30/20 21:00 06/02/20 08:11 Metoprolol Tartrate (Lopressor) 6.25 mg BID PO 05/30/20 09:00 10/9/20 08:10 Metoprolol Tartrate (Lopressor) 12.5 mg BID PO 05/29/20 21:00 05/30/20 04:55 DC 05/29/20 23:03 Ondansetron HCl (ZOFRAN INJection) 4 mg Q4HP PRN IV NAUSEA OR VOMITING 05/30/20 16:15 05/30/20 17:15 DC Oxycodone HCl (Roxicodone, Oxyir) 5 mg ASDIRECTED PRN PO PAIN LEVEL 1-4 05/30/20 16:15 05/30/20 17:15 DC Sodium Chloride 1,000 ml @ 80 mls/hr [id number] IV 05/29/20 20:00 05/30/20 18:00 DC 05/29/20 23:43 Allergies Coded Allergies: Quinolones (Verified Adverse Reaction, Intermediate, DIZZY, NAUSEA, HEART FLUTTERING, ITCHING ON HAND, 02/07/20) Maria E Hermosillo MD Jun 02, 2020 16:52
[2020-06-02] MEDS: ATORVASTATIN 20 MG TAB PO SCH (21:05)
[2020-06-02] MEDS: FAMOTIDINE 20 MG TAB PO SCH (21:05)
[2020-06-02 22:00] VITALS: BP 130/60
[2020-06-03 02:56] LABS: HEMATOCRIT 30.5 % (36.0-47.0); HEMOGLOBIN 9.3 g/dl (12.0-15.5); MEAN CORPUSCULAR HEMOGLOBIN 26.6 pg (27.0-33.0); MEAN CORPUSCULAR HGB CONC 30.5 g/dl (32.0-36.5); MEAN CORPUSCULAR VOLUME 87.4 fl (80.0-96.0); PLATELET COUNT, AUTOMATED 168 10^3/uL (150-450); RED BLOOD COUNT 3.49 10^6/uL (4.00-5.40); WHITE BLOOD COUNT 10.1 10^3/uL (4.0-10.0)
[2020-06-03 06:00] VITALS: BP 136/63
[2020-06-03 06:29] LABS: INR 1.12; PROTHROMBIN TIME 14.6 SECONDS (12.5-14.3)
[2020-06-03 06:30] LABS: PARTIAL THROMBOPLASTIN TIME 33.4 SECONDS (24.2-38.5)
[2020-06-03 06:45] LABS: BILIRUBIN,TOTAL 0.4 MG/DL (0.2-1.0); CREATININE FOR GFR 1.27 MG/DL (0.55-1.30); GLOMERULAR FILTRATION RATE 42.8 (>32); MAGNESIUM LEVEL 1.7 MG/DL (1.8-2.4); POTASSIUM SERUM 3.3 MEQ/L (3.5-5.1); TOTAL PROTEIN 5.3 GM/DL (6.4-8.2)
[2020-06-03] MEDS ORDERED: COLA100C5 PO (08:34)
[2020-06-03 08:49] VITALS: BP 140/66
[2020-06-03] MEDS: METOPROLOL TART 12.5 MG PER 1/2 TAB PO SCH (08:49)
[2020-06-03] MEDS: ISOSORBIDE DIN. (ISORDIL) 20 MG TAB PO SCH (08:51)
[2020-06-03] MEDS: DOCUSATE SODIUM 100 MG CAP PO SCH (08:51)
[2020-06-03] MEDS: FUROSEMIDE 80 MG TAB PO SCH (08:51)
[2020-06-03] MEDS: FERROUS SULFATE 325MG TAB PO SCH (08:51)
[2020-06-03] MEDS: MEGESTROL 40 MG TAB PO SCH (08:52)
[2020-06-03] MEDS: LEVEMIR (INSULIN DETEMIR) 1 UNITS/0.01ML SC SCH (08:53)
[2020-06-03] MEDS: HumaLOG INSULIN (NovoLOG) PER UNIT SC SCH ×2 (08:53→12:26)
[2020-06-03] MEDS ORDERED: MAGNESIUM OXIDE 400 MG TAB (MAG-OX) PO ONE (09:00)
[2020-06-03] MEDS ORDERED: POTASSIUM CHLORIDE 10 MEQ SR TABLET PO ONE (09:00)
[2020-06-03] MEDS ORDERED: FLUBLOK(EGG FREE)(QUAD)INFLUENZA VACC 0.5ML SYRINGE 18YRS & OLDER IM ONE (11:00)
--- NOTE | 2020-06-03 17:15 | DS.PDOC ---
Discharge Summary General Date of Admission May 29, 2020 at 15:47 Date of Discharge 06/03/20 Attending Physician: Maria E Hermosillo MD Discharge Summary HISTORY OF PRESENT ILLNESS: Patient is an 84F with a PMHX of CAD, hypertension, diabetes mellitus, hyperlipidemia and atrial fibrillation on rivaroxaban, history of a TIA and CHF, is brought to the ED from [facility], for passage of blood with clots this morning. On arrival to the ED, BP 139/63. Pulse 65. Respiratory rate 20. Pulse ox 98% on room air. Temperature 98.0. On lab work, hemoglobin 5.2. Hematocrit 18.1. White blood cell count 10.3. Neutrophil percent 70.9. Creatinine 1.73. GFR 29.9. Glucose 241. Troponin negative. INR 3.3. Patient had pelvic ultrasound performed 05/17/2020 showing endometrial thickness of 6 mm. Patient was previously seen at [facility] in 02/2019 for vaginal bleeding, was seen by gynecology and was instructed to f/u as outpatient for an endometrial biopsy to evaluate possibility of endometrial cancer. HOSPITAL COURSE: The patient was given 3 units of PRBC after admission. She continued to pass clots and gynecology evaluated patient (Dr. Gutierrez). She had already received K centra full dose with INR improved with continued bleeding. She was taken to the OR for endometrial biopsy and started on megace BID per gynecology. She was advised to keep off xarelto. On hospital day 3, patient's H/H dropped again, requiring an additional 2 U PRBC (now for a total of 5 units PRBC this admiss ion). Her bleeding slowed, likely responding to the megace she was on. Pathology/ endocervical biopsy and endometrial sampling returned favoring diffuse simple hyperplasia and endometrial polyp but a consultation will be obtained from [facility] to rule out a more significant process, addendum susan swan. Discussed with both patient and daughter Naomi results of pathology and how consultation with [facility] is underway to rule out another process as well. I had discussed with Dr. Gutierrez the risk of DVT, pulmonary embolus is higher on Megace. The patient seems to be benefiting from being on it twice a day but is on a higher dose putting her at an even higher risk of clot formation with a history of TIA and atrial fibrillation. Dr. Gutierrez explained that other alternatives involved procedures which the patient will likely not be fond of, considering that she does not like invasive forms of treatment. The risks and benefits of being on Megace were discussed in detail with the patient and her daughter. Both decided to continue with the Megace after discharge despite knowing the risks. No further bleeding was seen over the evening, H&H slightly lower today, asymptomatic. No DVT found on ultrasound of the lower extremities. On 06/03/20, with patient's H/H remaining stable and bleeding stopped, decision was made to discharge back to rehabilitation. She has f/u with Dr. Gutierrez in t wo weeks. She is to discuss with both her PCP and Dr. Gutierrez when/if she would be able to restart anticoagulation in the near future. At discharge, patient denies chest pain, shortness of breath, n/v/d. REVIEW OF SYSTEMS: Neg except what is mentioned above PAST MEDICAL HISTORY: 1. Coronary artery disease. 2. Atrial fibrillation. 3. Hypertension. 4. Diabetes mellitus. 5. Hyperlipidemia. 6. history of TIA 7. post menopausal vaginal bleeding PAST SURGICAL HISTORY: 1. Toe surgery. SOCIAL HISTORY: Previous smoker. Denies alcohol use. Denies drug use Resides at [facility] FAMILY HISTORY: history of diabetes in family ALLERGIES: Please see below. DISCHARGE MEDICATIONS: Please see below. PHYSICAL EXAMINATION: VS: Please see below General: NAD, comfortable HEENT: PERRLA, EOMI, sclerae clear Neck: supple, normal ROM, no JVD Respiratory: lungs CTAB, no wheeze, no rales, no crackles CVS: RRR, normal S1, S2, no murmurs Abdo: obese abd, soft, no masses, no hepatosplenomegaly, BS+, no rebound tenderness Skin: deep tissue injury/skin breakdown on sacrum : Deferred Extremities: trace bilateral lower extremity edema, pulses 2+, no cyanosis, warm to touch. MSK: no joint deformities, normal ROM Neuro: no focal neuro deficits, moving all 4 extremities, CN2-12 intact. Stre ngth 5/5 in all 4 extremities. No nystagmus. Psych: calm, cooperative, AAO x 3 LABORATORY DATA: See below. MICROBIOLOGY: Please see below. PATHOLOGY: Endocervical biopsy and endometrial sampling 05/30/20: Favor diffuse simple hyperplasia and endometrial polyp. A consultation will be obtained from [facility] to rule out a more significant process, addendum will follow. ASSESSMENT: 84F with a PMHX of CAD, hypertension, diabetes mellitus, hyperlipidemia and atrial fibrillation on rivaroxaban, history of a TIA and CHF, is brought to the ED from [facility], admitted for worsening post menopausal vaginal bleeding, r/o acute cause vs. neoplasm vs. hyperplasia? PLAN: # Acute blood loss anemia 2/2 to post-menopausal vaginal bleeding (chronic issue). Cause of bleeding possibly hyperplasia; however, pathology sent for further processing. S/p total 5 units this admission. H/H remains stable with no s/s of incr bleeding. 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 She is high risk being off of it. Last INR 1.1 from >3.0 on admission. Gynecology evaluated here and to f/u in 2 weeks. Megace BID. # Post menopausal vaginal bleeding, likely hyperplasia from path but further path processing pending to r/o neoplasia. Please see plan above # 1st degree heart block, possibly BB induced. Resolved with decreased BB by half. Asymptomatic. Monitor on tele. # Supratherapeutic INR. Resolved. Received K centra, was previously on on xarelto at home. # Acute hypokalemia. Treated # Constipation. S/p lactulose x 2 dose earlier. On BR # Paroxysmal atrial fibrillation. Rate controlled, c/w BB at current dose. Holding eliquis due to vaginal bleed but is high risk for clot formation due to reversal and arrhythmia. Risks of being off discussed with patient and HCP, risk of being on Megace (which can increase risk of clots, stroke, PE) also discussed. Decision is to stay on megace and possibly, down the line, reintroduce xarelto when bleeding is shown to be controlled on megace. This was discussed also with Dr. Gutierrez . Patient will need to f/u closely with cardiology, PCP and gynecology. # Diabetes mellitus. BS controlled. C/w home medications. # CKD Stage III. : monitor Cr, appears at baseline. Avoid nephrotoxins. # Coronary artery disease. C/w all home meds isordil, BB # Hx of TIA. Reversed INR leaves patient at risk for repeat insult, now on megace also risk. C/w statin. ASA, xarelto held in setting of acute bleed DVT ppx: TEDs, SCDs. DISPOSITION: Discharge back to [facility] for continuing rehab today. Will need to f/u with Dr. Gutierrez after d/c. Needs to be watched closely by PCP and discuss when/if she can restart anticoagulation, ASA. TIME SPENT ON DISCHARGE: Greater than 30 minutes. Vital Signs/I&Os Vital Signs Date Time Temp Pulse Resp B/P (MAP) Pulse Ox O2 Delivery O2 Flow Rate FiO2 06/03/20 08:49 140/66 06/03/20 06:00 97.3 89 18 100 Room Air 05/30/20 16:00 2 I&O- Last 24 Hours up to 6 AM 06/03/20 06:00 Intake Total 2100 ml Output Total 300 ml Balance 1800 ml Laboratory Data Labs 24H Laboratory Tests 2 06/02/20 20:28: Bedside Glucose (Misc Panel) 201H 06/03/20 02:45: Nucleated Red Blood Cells % (auto) 0.0 06/03/20 05:56: Prothrombin Time 14.6H, Prothromb Time International Ratio 1.12, Activated Partial Thromboplast Time 33.4, Anion Gap 6L, Glomerular Filtration Rate 42.8, Calcium Level 8.0L, Magnesium Level 1.7L, Total Bilirubin 0.4, Aspartate Amino Transf (AST/SGOT) 9, Alanine Aminotransferase (ALT/SGPT) 8L, Alkaline Phosphatase 93, Total Protein 5.3L, Albumin 2.0L, Albumin/Globulin Ratio 0.6L 06/03/20 11:36: Bedside Glucose (Misc Panel) 170H CBC/BMP Laboratory Tests 06/03/20 02:45 06/03/20 05:56 FSBS Laboratory Tests Test 06/02/20 20:28 06/03/20 11:36 Range/Units Bedside Glucose (Misc Panel) 201 170 83-110 MG/DL Microbiology Microbiology 05/31/20 Urine Culture - Final, Complete E.coli Esbl Aerococcus Urinae Enterococcus Faecium 05/30/20 Urine Culture - Final, Complete E.coli Esbl Aerococcus Urinae Enterococcus Faecium Discharge Medications Scheduled Atorvastatin Calcium (Atorvastatin Calcium) 40 Mg Tablet, 40 MG PO QHS, (Reported) Carvedilol (Carvedilol) 3.125 Mg Tablet, 3.125 MG PO BID Docusate Sodium (Colace) 100 Mg Capsule, 100 MG PO BID Famotidine (Famotidine) 40 Mg Tablet, 40 MG PO QHS, (Reported) Ferrous Sulfate (Ferrous Sulfate) 325 Mg Tablet, 325 MG PO DAILY, (Reported) Furosemide (Furosemide) 80 Mg Tablet, 80 MG PO BID, (Reported) 0800 , 1600 Insulin Detemir (Levemir) 100 Unit/1 Ml Vial, 10 UNITS SC QAM Insulin Glargine,Hum.rec.anlog (Basaglar Kwikpen U-100) 100 Unit/1 Ml Insuln.pen, 30 UNIT SC QHS, (Reported) Insulin Lispro (Humalog) 100 Unit/1 Ml Cartridge, 1 DOSE SC BID, (Reported) PER SLIDING SCALE WITH BREAKFAST AND DINNER Isosorbide Dinitrate (Isosorbide Dinitrate) 20 Mg Tablet, 20 MG PO BID, (Reported) Megestrol Acetate (Megestrol Acetate) 40 Mg Tablet, 40 MG PO BID Sitagliptin (Januvia) 50 Mg Tablet, 50 MG PO DAILY, (Reported) Scheduled PRN Acetaminophen (Tylenol) 325 Mg Tablet, 650 MG PO Q4H PRN for PAIN / FEVER, (Reported) Bisacodyl (Dulcolax) 10 Mg Supp.rect, 10 MG [place] DAILY PRN for CONSTIPATION, (Reported) Milk Of Magnesia (Milk of Magnesia) 2,400 Mg/10 Ml Oral.susp, 10 ML PO DAILY PRN for CONSTIPATION, (Reported) Sodium Phosphate,Burnett-Dibasic (Enema) 133 Ml Enema, 1 KEYON [place] DAILY PRN for CONSTIPATION, (Reported) Allergies Coded Allergies: Quinolones (Verified Adverse Reaction, Intermediate, DIZZY, NAUSEA, HEART FLUTTERING, ITCHING ON HAND, 02/07/20) Current Medications Current Medications Medications (Trade) Dose Ordered Sig/George Route PRN Reason Start Time Stop Time Status Last Admin Dose Admin Acetaminophen (Tylenol Tab) 650 mg Q4H PRN PO PAIN / FEVER 05/29/20 18:45 06/03/20 13:24 DC Atorvastatin Calcium (Lipitor) 40 mg QHS PO 05/29/20 21:00 06/03/20 13:24 DC 06/02/20 21:05 Bisacodyl (Dulcolax Suppository) 10 mg DAILY PRN [place] CONSTIPATION 05/29/20 18:45 06/03/20 13:24 DC 06/02/20 08:48 Dextrose (Dextrose 50%) 25 ml ASDIRECTED PRN IV SEE LABEL COMMENTS 05/29/20 18:15 06/03/20 13:24 DC Docusate Sodium (Colace) 100 mg DAILY PO 05/30/20 09:00 06/03/20 13:24 DC 06/03/20 08:51 Famotidine (Pepcid) 20 mg QHS PO 05/29/20 21:00 06/03/20 13:24 DC 06/02/20 21:05 Ferrous Sulfate (Ferrous Sulfate) 325 mg DAILY PO 05/30/20 09:00 06/03/20 13:24 DC 06/03/20 08:51 Furosemide (Lasix) 80 mg BID@0900,1700 PO 05/30/20 09:00 06/03/20 13:24 DC 06/03/20 08:51 Glucagon (Glucagon) 1 mg ASDIRECTED PRN SC SEE LABEL COMMENTS 05/29/20 18:15 06/03/20 13:24 DC Glucose (Glucose) 16 GM ASDIRECTED PRN PO SEE LABEL COMMENTS 05/29/20 18:15 06/03/20 13:24 DC Home Med (Med Rec Complete!) ASDIRECTED XX 05/29/20 14:45 05/29/20 14:42 DC Insulin Detemir (Levemir Insulin) 10 units QA SC 06/01/20 09:00 06/03/20 13:24 DC 06/03/20 08:53 Insulin Detemir (Levemir Insulin) 30 units QHS SC 05/29/20 23:30 06/03/20 13:24 DC 06/02/20 21:06 Insulin Human Lispro (HumaLOG INSULIN) SEE PROTOCOL TABLE AC SC 05/29/20 17:30 06/03/20 13:24 DC 06/03/20 12:26 Insulin Human Lispro (HumaLOG INSULIN) SEE PROTOCOL TABLE Q SC 05/29/20 21:00 06/03/20 13:24 DC Isosorbide Dinitrate (Isordil) 20 mg BID@0800,1400 PO 05/30/20 08:00 06/03/20 13:24 DC 06/03/20 08:51 Lactated Ringer's 1,000 ml @ 75 mls/hr [id number] IV 05/30/20 16:15 05/30/20 17:15 DC Magnesium Hydroxide (Milk Of Magnesia) 10 ml DAILY PRN PO CONSTIPATION 05/29/20 18:45 06/03/20 13:24 DC Megestrol Acetate (Megace) 40 mg BID PO 05/30/20 21:00 06/03/20 13:24 DC 06/03/20 08:52 Metoprolol Tartrate (Lopressor) 6.25 mg BID PO 05/30/20 09:00 06/03/20 13:24 DC 06/03/20 08:49 Metoprolol Tartrate (Lopressor) 12.5 mg BID PO 05/29/20 21:00 05/30/20 04:55 DC 05/29/20 23:03 Ondansetron HCl (ZOFRAN INJection) 4 mg Q4HP PRN IV NAUSEA OR VOMITING 05/30/20 16:15 05/30/20 17:15 DC Oxycodone HCl (Roxicodone, Oxyir) 5 mg ASDIRECTED PRN PO PAIN LEVEL 1-4 05/30/20 16:15 05/30/20 17:15 DC Polyethylene Glycol (Miralax) 1 pkt DAILYPRN PRN PO CONSTIPATION 06/02/20 16:45 06/03/20 13:24 DC Sodium Chloride 1,000 ml @ 80 mls/hr [id number] IV 05/29/20 20:00 05/30/20 18:00 DC 05/29/20 23:43 Maria E Hermosillo MD Jun 03, 2020 17:15
--- NOTE | 2020-06-03 21:16 | ECGEPIP ---
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
--- NOTE | 2020-06-06 08:50 | RO ---
DATE OF OPERATION: 05/30/2020 PREOPERATIVE DIAGNOSIS/INDICATION FOR SURGERY: Persistent postmenopausal bleeding, anemia and transfusion. POSTOPERATIVE DIAGNOSIS: Multiple concerning-appearing overgrowths with large sample from cervix as well as from endometrium. PROCEDURE: Fractional dilatation and curettage, hysteroscopy, MyoSure resection. SURGEON: Alison Gutierrez MD PERFORMANCE IMPROVEMENT DIRECTOR: None. ANESTHESIA: MAC. SPECIMENS: The cervical biopsy and the endometrium. She also had a urine culture sent because when we catheterized her in the OR there was definitely an appearance of stagnant urine and pus within the bladder, so we sent a culture. Again, cervical biopsy and endometrium, and the urine culture. BRIEF DESCRIPTION OF PROCEDURE AND FINDINGS: Shaniqua was brought to the operating room. Due to her other medical situation, she was given MAC but not full anesthesia, very carefully prepped and positioned, and the bladder was emptied. Again, as already noted above, we noticed pus as we got to the end of emptying the bladder. This certainly could be just stagnant urine in this 81 [id number] woman but we went ahead and sent a culture anyway. There did not appear to be blood within the bladder. The sample got a little contaminated because the patient is having bleeding but the urine itself was not grossly bloody, just pussy. After that, the cervix was visualized only with effort. This is a robustly built patient with definite menopausal atrophy and a well supported cervix. I reached it manually and just grasped it with the single- tooth to bring it down. I could not feel an obvious abnormality as she is parous but she is also a para 7, but then when I did the endocervical curettage there was definitely a lack of tissue strength. There was a considerable portion of cervix that just scraped off with the endocervical curettage. And then with that decent sample, we stopped there with the endocervical curettage. We certainly did not want to increase her bleeding. Again, I could not feel specific tumor on the cervix but using the Kevorkian curette, the texture is absolutely not normal. And, again, the patient is 84. We then dilated the cervix in order to place the MyoSure hysteroscope, which was used to visualize the endometrial cavity. As noted in the operative photos, there were multiple polypoid overgrowths of the endometrium with a hypervascular appearance that is very visually concerning to me; i.e., concerning for the possibility of carcinoma. I did not find a specific hemorrhaging site, but this overgrowth is definitely hypervascular and several of these growths were on long, pedunculated stalks which, of course, this filling of the endometrium can serve to create a lot of uterine cramping so I did try to resect these as much as was appropriate without over-resecting to increase the bleeding the patient has and so we did remove the majority of these. I was not actually able to get them all out and operative photos show this. We certainly got portions of all the polyps but I did not get down to normal textured tissue. I elected to stop with the MyoSure curettage; again, this patient is having significant bleeding. She is 84, she has been transfused and she is needing Xarelto for her atrial fibrillation so I did want to sample it, I did want to decrease the mass of this tissue to see if we could stop the uterine cramping and perhaps control her bleeding that way but it did not appear that it was possible that I could fully resect this tissue and so I stopped at what appeared to be an appropriate hemostatic point. I do not see any abnormalities of the ostia themselves. It really is the entire cavity that appeared to have this polypoid overgrowth before the resection. Following this, the procedure was then ended, all the instruments removed, etc., and the patient had less bleeding at the end of the case than at the start. She will be returned to her preop room and service. FLUID REPLACEMENT: Crystalloid. ESTIMATED BLOOD LOSS FOR THE PROCEDURE: About 5 mL. COMPLICATIONS: None. CONDITION AND DISPOSITION: Shaniqua tolerated the procedure reasonably well. Again, we only just used MAC and she was recovering in the recovery room in good condition. GIULIANA
== END 2020-06-03 13:18 | DRG 744 ==
LOC: EDBD 12:46 → M ED 12:46 → M ED INP 15:47 → ENRESERV 16:25 → M MSPAV 22:00
PROVIDERS: ADMIT Family Medicine; ATTEND Internal Medicine
PROC: 30233N1 Transfusion of Nonautologous Red Blood Cells into Peripheral Vein, Percutaneous Approach (ICD-10-PCS; 2020-05-29)
PROC: 0UB98ZX Excision of Uterus, Via Natural or Artificial Opening Endoscopic, Diagnostic (ICD-10-PCS; 2020-05-30)
PROC: 0UBC7ZX Excision of Cervix, Via Natural or Artificial Opening, Diagnostic (ICD-10-PCS; principal; 2020-05-30 10:54)
DX: N95.0 Postmenopausal bleeding (principal); D62 Acute posthemorrhagic anemia; I13.0 Hypertensive heart and chronic kidney disease with heart failure and stage 1 through stage 4 chronic kidney disease, or unspecified chronic kidney disease; I25.10 Atherosclerotic heart disease of native coronary artery without angina pectoris; I48.0 Paroxysmal atrial fibrillation; K59.00 Constipation, unspecified; N85.01 Benign endometrial hyperplasia; E78.5 Hyperlipidemia, unspecified; I50.9 Heart failure, unspecified; Z66 Do not resuscitate; I44.0 Atrioventricular block, first degree; E87.6 Hypokalemia; N18.30 Chronic kidney disease, stage 3 unspecified; E11.22 Type 2 diabetes mellitus with diabetic chronic kidney disease; Z79.82 Long term (current) use of aspirin; Z79.01 Long term (current) use of anticoagulants; Z79.4 Long term (current) use of insulin; Z79.899 Other long term (current) drug therapy; Z88.1 Allergy status to other antibiotic agents; Z20.828 Contact with and (suspected) exposure to other viral communicable diseases; Z87.891 Personal history of nicotine dependence; Z86.73 Personal history of transient ischemic attack (TIA), and cerebral infarction without residual deficits

== ENCOUNTER → 2020-05-29 | Outpatient (REF) ==
[2020-05-29 11:58] LABS: MEAN CORPUSCULAR HEMOGLOBIN 23.8 pg (27.0-33.0); MEAN CORPUSCULAR HGB CONC 28.8 g/dl (32.0-36.5); MEAN CORPUSCULAR VOLUME 82.7 fl (80.0-96.0); PLATELET COUNT, AUTOMATED 263 10^3/uL (150-450); RED BLOOD COUNT 2.48 10^6/uL (4.00-5.40); WHITE BLOOD COUNT 11.3 10^3/uL (4.0-10.0)
[2020-05-29 12:03] LABS: HEMATOCRIT 20.5 % (36.0-47.0); HEMOGLOBIN 5.9 g/dl (12.0-15.5)
[2020-05-29 12:29] LABS: CALCIUM LEVEL 8.3 MG/DL (8.8-10.2); CREATININE FOR GFR 1.7 MG/DL (0.55-1.30); GLOMERULAR FILTRATION RATE 30.6 (>32); POTASSIUM SERUM 3.7 MEQ/L (3.5-5.1)
== END ==
LOC: SKLAB4 08:48
PROVIDERS: ATTEND Internal Medicine
DX: D64.9 Anemia, unspecified (principal); I50.89 Other heart failure

== ENCOUNTER → 2020-06-01 | Outpatient (REF) ==
[~2020-06-01] MED LIST changes: +CARV3.12 PO; +HUMA100I3 SC; +INSUDET SC; +MEGE40TA PO
== END ==
LOC: SKLAB4 10:53
PROVIDERS: ATTEND Internal Medicine
DX: Z53.9 Procedure and treatment not carried out, unspecified reason (principal); D64.9 Anemia, unspecified; I50.89 Other heart failure

== ENCOUNTER → 2020-06-08 | Outpatient (REF) ==
[2020-06-08 10:34] LABS: HEMATOCRIT 31.6 % (36.0-47.0); HEMOGLOBIN 9.6 g/dl (12.0-15.5); MEAN CORPUSCULAR HEMOGLOBIN 26.2 pg (27.0-33.0); MEAN CORPUSCULAR HGB CONC 30.4 g/dl (32.0-36.5); MEAN CORPUSCULAR VOLUME 86.3 fl (80.0-96.0); PLATELET COUNT, AUTOMATED 239 10^3/uL (150-450); RED BLOOD COUNT 3.66 10^6/uL (4.00-5.40); WHITE BLOOD COUNT 7.1 10^3/uL (4.0-10.0)
[2020-06-08 11:42] LABS: CALCIUM LEVEL 8.6 MG/DL (8.8-10.2); CREATININE FOR GFR 1.42 MG/DL (0.55-1.30); GLOMERULAR FILTRATION RATE 37.6 (>32); POTASSIUM SERUM 3.9 MEQ/L (3.5-5.1)
== END ==
LOC: SKLAB5 12:28
PROVIDERS: ATTEND Internal Medicine
DX: N18.9 Chronic kidney disease, unspecified (principal); D63.1 Anemia in chronic kidney disease

== ENCOUNTER → 2020-06-13 | Outpatient (REF) | payer MEDICARE, MEDICAID ==
[2020-06-13 15:33] LABS: HEMATOCRIT 31.6 % (36.0-47.0); HEMOGLOBIN 9.5 g/dl (12.0-15.5); MEAN CORPUSCULAR HEMOGLOBIN 25.6 pg (27.0-33.0); MEAN CORPUSCULAR HGB CONC 30.1 g/dl (32.0-36.5); MEAN CORPUSCULAR VOLUME 85.2 fl (80.0-96.0); PLATELET COUNT, AUTOMATED 262 10^3/uL (150-450); RED BLOOD COUNT 3.71 10^6/uL (4.00-5.40); WHITE BLOOD COUNT 8.7 10^3/uL (4.0-10.0)
[2020-06-13 15:57] LABS: CALCIUM LEVEL 8.5 MG/DL (8.8-10.2); CREATININE FOR GFR 1.38 MG/DL (0.55-1.30); GLOMERULAR FILTRATION RATE 38.9 (>32); POTASSIUM SERUM 3.5 MEQ/L (3.5-5.1)
--- NOTE | 2020-06-13 17:43 | REPVR ---
PROCEDURE INFORMATION: Exam: XR Chest, 1 View Exam date and time: 06/13/2020 2:17 PM Age: 84 years old Clinical indication: Cough; Additional info: Chf/cough/recent pneumonia TECHNIQUE: Imaging protocol: XR of the chest Views: 1 view. COMPARISON: IL Chest, 1 view 05/12/2020 10:56 AM FINDINGS: Lungs: There is prominence of the vascular markings consistent with mild congestive change that has increased from the previous exams. There is a streaky appearance to the markings in the infrahilar regions which could be early infiltrate. Pleural space: There is a small right pleural effusion with a small amount of fluid in the minor fissure. Heart/Mediastinum: There is moderate cardiomegaly. Bones/joints: There is no evidence of bony abnormality. IMPRESSION: 1. Mild congestive failure. 2. Small right pleural effusion with a small amount fluid in the minor fissure. 3. Streaky appearance to the infrahilar regions could be mild streaky infiltrate. Electronically signed by: Santiago Carson On 06/13/2020 17:43:19 PM
== END ==
LOC: SKLAB5 14:16
PROVIDERS: ATTEND Internal Medicine
DX: I50.9 Heart failure, unspecified (principal); J90 Pleural effusion, not elsewhere classified; Z20.828 Contact with and (suspected) exposure to other viral communicable diseases

== ENCOUNTER → 2020-06-15 | Outpatient (REF) | payer MEDICARE, MEDICAID ==
[2020-06-15 09:47] LABS: CALCIUM LEVEL 8.8 MG/DL (8.8-10.2); CREATININE FOR GFR 1.45 MG/DL (0.55-1.30); GLOMERULAR FILTRATION RATE 36.7 (>32); POTASSIUM SERUM 3.8 MEQ/L (3.5-5.1)
--- NOTE | 2020-06-15 16:04 | REP ---
INDICATION: CHF COMPARISON: 06/13/2020 TECHNIQUE: Portable AP and lateral. FINDINGS: The mediastinum and cardiac silhouette are stable and within normal limits. The lung esquivel demonstrate mildly prominent pulmonary vasculature and interstitial markings which may reflect mild pulmonary vascular congestion along with blunting to the right costophrenic angle which may represent a small pleural reaction. Findings are essentially unchanged compared to 06/13/2020 and should be correlated clinically. IMPRESSION: Findings suggest mild pulmonary vascular congestion with possible small right pleural reaction. <Electronically signed by Melo Pardo > 06/15/20 1600
== END ==
LOC: SKLAB5 07:06
PROVIDERS: ATTEND Internal Medicine
DX: R09.89 Other specified symptoms and signs involving the circulatory and respiratory systems (principal)

== ENCOUNTER → 2020-06-20 | Outpatient (REF) | payer MEDICARE, MEDICAID ==
[2020-06-20 08:20] LABS: HEMATOCRIT 31.6 % (36.0-47.0); HEMOGLOBIN 9.6 g/dl (12.0-15.5); MEAN CORPUSCULAR HEMOGLOBIN 25.3 pg (27.0-33.0); MEAN CORPUSCULAR HGB CONC 30.4 g/dl (32.0-36.5); MEAN CORPUSCULAR VOLUME 83.4 fl (80.0-96.0); PLATELET COUNT, AUTOMATED 282 10^3/uL (150-450); RED BLOOD COUNT 3.79 10^6/uL (4.00-5.40); WHITE BLOOD COUNT 9.4 10^3/uL (4.0-10.0)
[2020-06-20 08:48] LABS: CALCIUM LEVEL 8.8 MG/DL (8.8-10.2); CREATININE FOR GFR 1.28 MG/DL (0.55-1.30); GLOMERULAR FILTRATION RATE 42.4 (>32)
== END ==
LOC: SKLAB5 08:05
PROVIDERS: ATTEND Internal Medicine
DX: I50.9 Heart failure, unspecified (principal); D64.9 Anemia, unspecified

== ENCOUNTER → 2020-06-26 | Outpatient (REF) | payer MEDICARE, MEDICAID | LOC: SKLAB5 08:00 | PROVIDERS: ATTEND Internal Medicine | DX: Z20.828 Contact with and (suspected) exposure to other viral communicable diseases (principal) ==

== ENCOUNTER → 2020-06-27 | Outpatient (REF) | payer MEDICARE, MEDICAID ==
[2020-06-27 09:04] LABS: HEMATOCRIT 31.4 % (36.0-47.0); HEMOGLOBIN 9.4 g/dl (12.0-15.5); MEAN CORPUSCULAR HEMOGLOBIN 24.7 pg (27.0-33.0); MEAN CORPUSCULAR HGB CONC 29.9 g/dl (32.0-36.5); MEAN CORPUSCULAR VOLUME 82.4 fl (80.0-96.0); PLATELET COUNT, AUTOMATED 271 10^3/uL (150-450); RED BLOOD COUNT 3.81 10^6/uL (4.00-5.40); WHITE BLOOD COUNT 11.2 10^3/uL (4.0-10.0)
== END ==
LOC: SKLAB5 08:44
PROVIDERS: ATTEND Internal Medicine
DX: N93.9 Abnormal uterine and vaginal bleeding, unspecified (principal)

== ENCOUNTER → 2020-06-29 | Outpatient (REF) | payer MEDICARE, MEDICAID ==
[2020-06-29 09:09] LABS: HEMATOCRIT 32.8 % (36.0-47.0); HEMOGLOBIN 9.9 g/dl (12.0-15.5); MEAN CORPUSCULAR HEMOGLOBIN 24.4 pg (27.0-33.0); MEAN CORPUSCULAR HGB CONC 30.2 g/dl (32.0-36.5); PLATELET COUNT, AUTOMATED 314 10^3/uL (150-450); RED BLOOD COUNT 4.05 10^6/uL (4.00-5.40); WHITE BLOOD COUNT 10.7 10^3/uL (4.0-10.0)
== END ==
LOC: SKLAB5 07:00
PROVIDERS: ATTEND Internal Medicine
DX: D64.9 Anemia, unspecified (principal)

== ENCOUNTER → 2020-07-06 | Outpatient (REF) | LOC: SKLAB5 07:29 | PROVIDERS: ATTEND Internal Medicine | DX: Z20.828 Contact with and (suspected) exposure to other viral communicable diseases (principal) ==

== ENCOUNTER → 2020-07-06 | Outpatient (REF) | payer MEDICARE, MEDICAID ==
[2020-07-06 08:40] LABS: HEMATOCRIT 31.9 % (36.0-47.0); HEMOGLOBIN 9.4 g/dl (12.0-15.5); MEAN CORPUSCULAR HEMOGLOBIN 23.6 pg (27.0-33.0); MEAN CORPUSCULAR HGB CONC 29.5 g/dl (32.0-36.5); MEAN CORPUSCULAR VOLUME 79.9 fl (80.0-96.0); PLATELET COUNT, AUTOMATED 356 10^3/uL (150-450); RED BLOOD COUNT 3.99 10^6/uL (4.00-5.40); WHITE BLOOD COUNT 8.5 10^3/uL (4.0-10.0)
== END ==
LOC: SKLAB5 07:27
PROVIDERS: ATTEND Internal Medicine
DX: D64.9 Anemia, unspecified (principal)

== ENCOUNTER → 2020-07-19 | Outpatient (REF) | payer MEDICARE, MEDICAID ==
[~2020-07-19] MED LIST changes: -LISI-538 PO; +LISI10TA22 PO; -LISI10TA4 PO; +LISI20TA33 PO
== END ==
LOC: SKLAB5 11:55
PROVIDERS: ATTEND Internal Medicine
DX: Z20.828 Contact with and (suspected) exposure to other viral communicable diseases (principal)

== ENCOUNTER → 2020-07-25 | Outpatient (REF) | payer MEDICARE, MEDICAID ==
[~2020-07-25] MED LIST changes: +LISI-538 PO; -LISI10TA22 PO; +LISI10TA4 PO; -LISI20TA33 PO
[2020-07-25 09:07] LABS: HEMATOCRIT 31.2 % (36.0-47.0); HEMOGLOBIN 9.1 g/dl (12.0-15.5); MEAN CORPUSCULAR HEMOGLOBIN 22.1 pg (27.0-33.0); MEAN CORPUSCULAR HGB CONC 29.2 g/dl (32.0-36.5); MEAN CORPUSCULAR VOLUME 75.9 fl (80.0-96.0); PLATELET COUNT, AUTOMATED 302 10^3/uL (150-450); RED BLOOD COUNT 4.11 10^6/uL (4.00-5.40); WHITE BLOOD COUNT 8.5 10^3/uL (4.0-10.0)
== END ==
LOC: SKLAB5 08:46
PROVIDERS: ATTEND Internal Medicine
DX: D64.9 Anemia, unspecified (principal)

== ENCOUNTER → 2020-07-26 | Outpatient (REF) | payer MEDICARE, MEDICAID ==
[~2020-07-26] MED LIST changes: -LISI-538 PO; +LISI10TA22 PO; -LISI10TA4 PO; +LISI20TA33 PO
== END ==
LOC: SKLAB5 08:00
PROVIDERS: ATTEND Internal Medicine
DX: Z20.828 Contact with and (suspected) exposure to other viral communicable diseases (principal)

== ENCOUNTER → 2020-08-02 | Outpatient (REF) | payer MEDICARE, MEDICAID ==
[~2020-08-02] MED LIST changes: +LISI-538 PO; -LISI10TA22 PO; +LISI10TA4 PO; -LISI20TA33 PO
== END ==
LOC: SKLAB5 06:36
PROVIDERS: ATTEND Family Medicine
DX: Z20.828 Contact with and (suspected) exposure to other viral communicable diseases (principal)

== ENCOUNTER → 2020-08-09 | Outpatient (REF) | payer MEDICARE, MEDICAID | LOC: SKLAB5 09:05 | PROVIDERS: ATTEND Internal Medicine | DX: Z20.828 Contact with and (suspected) exposure to other viral communicable diseases (principal) ==

== ENCOUNTER → 2020-08-16 | Outpatient (REF) | payer MEDICARE, MEDICAID | LOC: SKLAB5 05:55 | PROVIDERS: ATTEND Internal Medicine | DX: Z20.828 Contact with and (suspected) exposure to other viral communicable diseases (principal) ==

== ENCOUNTER → 2020-08-23 | Outpatient (REF) | payer MEDICARE, MEDICAID | LOC: SKLAB5 06:27 | PROVIDERS: ATTEND Internal Medicine | DX: Z20.828 Contact with and (suspected) exposure to other viral communicable diseases (principal) ==

== ENCOUNTER → 2020-08-30 | Outpatient (REF) | payer MEDICARE, MEDICAID | LOC: SKLAB5 06:57 | PROVIDERS: ATTEND Internal Medicine | DX: Z11.52 Encounter for screening for COVID-19 (principal) ==

== ENCOUNTER → 2020-08-31 | Outpatient (REF) | payer MEDICARE, MEDICAID ==
[2020-08-31 11:21] LABS: CREATININE FOR GFR 1.54 MG/DL (0.55-1.30); GLOMERULAR FILTRATION RATE 34.2 (>32); POTASSIUM SERUM 4.4 MEQ/L (3.5-5.1)
== END ==
LOC: SKLAB5 08:58
PROVIDERS: ATTEND Internal Medicine
DX: I11.0 Hypertensive heart disease with heart failure (principal); I50.9 Heart failure, unspecified

== ENCOUNTER → 2020-09-06 | Outpatient (REF) | payer MEDICARE, MEDICAID | LOC: SKLAB5 06:36 | PROVIDERS: ATTEND Internal Medicine | DX: Z20.822 Contact with and (suspected) exposure to COVID-19 (principal) ==

== ENCOUNTER → 2020-09-13 | Outpatient (REF) | payer MEDICARE, MEDICAID ==
[~2020-09-13] MED LIST changes: -LISI-538 PO; +LISI10TA22 PO; -LISI10TA4 PO; +LISI20TA33 PO
== END ==
LOC: SKLAB5 07:13
PROVIDERS: ATTEND Internal Medicine
DX: Z20.822 Contact with and (suspected) exposure to COVID-19 (principal)

== ENCOUNTER → 2020-09-14 | Outpatient (REF) | payer MEDICARE, MEDICAID ==
[2020-09-14 09:11] LABS: HEMATOCRIT 35.6 % (36.0-47.0); HEMOGLOBIN 10.4 g/dl (12.0-15.5); MEAN CORPUSCULAR HEMOGLOBIN 20.6 pg (27.0-33.0); MEAN CORPUSCULAR HGB CONC 29.2 g/dl (32.0-36.5); MEAN CORPUSCULAR VOLUME 70.4 fl (80.0-96.0); PLATELET COUNT, AUTOMATED 262 10^3/uL (150-450); RED BLOOD COUNT 5.06 10^6/uL (4.00-5.40); WHITE BLOOD COUNT 8.8 10^3/uL (4.0-10.0)
[2020-09-14 09:43] LABS: CALCIUM LEVEL 10.1 MG/DL (8.8-10.2); CREATININE FOR GFR 1.5 MG/DL (0.55-1.30); GLOMERULAR FILTRATION RATE 35.3 (>32); POTASSIUM SERUM 3.9 MEQ/L (3.5-5.1); THYROID STIMULATING HORMONE 0.616 uIU/ML (0.358-3.740)
[2020-09-14 11:26] LABS: TOTAL 25(OH) VITAMIN D 24.7 NG/ML (30.0-100.0)
[2020-09-14 12:29] LABS: C REACTIVE PROTEIN QUANTITATIV 2.17 MG/DL (0.00-0.30)
[2020-09-14 13:20] LABS: ERYTHROCYTE SEDIMENTATION RATE 43 mm/hr (0-30)
== END ==
LOC: SKLAB5 07:12
PROVIDERS: ATTEND Internal Medicine
DX: R53.83 Other fatigue (principal)

== ENCOUNTER → 2020-09-14 | Outpatient (CLI) | payer MEDICARE, MEDICAID ==
--- NOTE | 2020-09-14 10:32 | REP ---
INDICATION: LT TMJ PAIN RADIATING TO LT EAR W/. COMPARISON: Comparison is made with prior head CT April 08, 2018 and prior brain MRI study April 10 2018.. TECHNIQUE: Helical scanning is acquired and 2 mm axial images re-formatted. Coronal MPR images are generated and reviewed. FINDINGS: Preliminary digital manager wholesale radiograph demonstrates that the patient is edentulous. Vascular calcification is noted in the distal vertebral and distal internal carotid arteries. The frontal, ethmoid, sphenoid, and maxillary sinuses are clear. Mastoid aeration is normal and symmetric. Middle ear cavities appear to be normally aerated bilaterally. The mandibular condyles are intact bilaterally. There is no CT evidence of temporomandibular joint arthropathy. Zygomatic arches are intact. No bony erosive or destructive lesion is seen at the skull base. There is osteoarthritis at the articulation between the dens and the anterior arch of C1 and mild degenerative disc disease is noted at C3-4 in the upper cervical spine. Nasopharynx and hypopharynx are unremarkable. Tonsillar and peritonsillar soft tissues are unremarkable. There is some vascular calcification in the carotid bifurcations bilaterally. No soft tissue mass is seen. No intraorbital lesion is observed. There is generalized volume loss. There is an area of encephalomalacia in the right frontal lobe which represents an old cerebral infarction. This is unchanged from the April 08, 2018 study. IMPRESSION: Vascular calcification. No CT evidence of TMJ arthropathy. No acute abnormality. No CT evidence of sinusitis. <Electronically signed by Eh Irene > 09/14/20 1021
== END ==
LOC: M RAD 10:02
PROVIDERS: ATTEND Nurse Practitioner Family
DX: M25.622 Stiffness of left elbow, not elsewhere classified (principal); R53.83 Other fatigue; Z79.899 Other long term (current) drug therapy

== ENCOUNTER → 2020-09-15 | Outpatient (REF) | payer MEDICARE, MEDICAID ==
--- NOTE | 2020-09-15 14:03 | ECGEPIP ---
[facility] [place] Test Date: 2020-09-15 Pat Name: ANA MARIA PAULINO Department: Room: - Gender: Female Management Specialist: NABIL : [id number] Requested By: LINDA VILLAVICENCIO [facility] Order Number: [id number] Reading MD: Gianna Mota Measurements Intervals [place] Rate: 62 P: 91 [place]: 196 QRS: 23 QRSD: 118 T: 57 QT: 414 QTc: 423 Interpretive Statements SINUS RHYTHM 1ST DEGREE BLOCK INFERIOR MYOCARDIAL INFARCTION, PROBABLY OLD SIMILAR TO 06/02/20 Electronically Signed on 09-15-2020 14:03:21 EST by Gianna Mota
[2020-09-15 14:16] LABS: HEMATOCRIT 36.2 % (36.0-47.0); HEMOGLOBIN 10.6 g/dl (12.0-15.5); MEAN CORPUSCULAR HEMOGLOBIN 20.7 pg (27.0-33.0); MEAN CORPUSCULAR HGB CONC 29.3 g/dl (32.0-36.5); MEAN CORPUSCULAR VOLUME 70.6 fl (80.0-96.0); PLATELET COUNT, AUTOMATED 268 10^3/uL (150-450); RED BLOOD COUNT 5.13 10^6/uL (4.00-5.40); WHITE BLOOD COUNT 9.8 10^3/uL (4.0-10.0)
[2020-09-15 14:48] LABS: APPEARANCE, URINE TURBID (CLEAR); BACTERIA, URINE AUTO 2+ (NEGATIVE); BILIRUBIN, URINE AUTO NEGATIVE (NEGATIVE); BLOOD, URINE BLOOD 1+ (NEGATIVE); COLOR, URINE YELLOW (YELLOW); GLUCOSE, URINE (UA) AUTO NEGATIVE (NEGATIVE); KETONE, URINE AUTO NEGATIVE (NEGATIVE); LEUKOCYTE ESTERASE, URINE AUTO 3+ (NEGATIVE); NITRITE, URINE AUTO NEGATIVE (NEGATIVE); PROTEIN, URINE AUTO 2+ mg/dL (NEGATIVE); RBC, URINE AUTO 27 /HPF (0-3); SPECIFIC GRAVITY URINE AUTO 1.009 (1.002-1.035); SQUAMOUS EPITHELIAL CELL UR AU 3 /HPF (0-6); UROBILINOGEN, URINE AUTO 0.2 mg/dL (0.0-2.0); WBC, URINE AUTO TNTC /HPF (0-3)
[2020-09-15 14:55] LABS: BLOOD UREA NITROGEN 56 MG/DL (7-18); CALCIUM LEVEL 9.9 MG/DL (8.8-10.2); CARBON DIOXIDE LEVEL 29 MEQ/L (21-32); CHLORIDE LEVEL 103 MEQ/L (98-107); CREATININE FOR GFR 1.49 MG/DL (0.55-1.30); GLOMERULAR FILTRATION RATE 35.6 (>32); GLUCOSE, FASTING 144 MG/DL (70-100); POTASSIUM SERUM 4.1 MEQ/L (3.5-5.1); SODIUM LEVEL 137 MEQ/L (136-145); THYROID STIMULATING HORMONE 0.969 uIU/ML (0.358-3.740); TROPONIN I < 0.02 NG/ML (< 0.10)
== END ==
LOC: SKLAB5 12:39
PROVIDERS: ATTEND Internal Medicine
DX: R53.83 Other fatigue (principal); R68.84 Jaw pain

== ENCOUNTER → 2020-09-20 | Outpatient (REF) | payer MEDICARE, MEDICAID | LOC: SKLAB5 07:11 | PROVIDERS: ATTEND Internal Medicine | DX: Z20.822 Contact with and (suspected) exposure to COVID-19 (principal) ==

== ENCOUNTER → 2020-09-21 | Outpatient (REF) | payer MEDICARE, MEDICAID ==
[~2020-09-21] MED LIST changes: +LISI-538 PO; -LISI10TA22 PO; +LISI10TA4 PO; -LISI20TA33 PO
[2020-09-21 14:04] LABS: ALBUMIN 2.7 GM/DL (3.2-5.2); C REACTIVE PROTEIN QUANTITATIV 2.17 MG/DL (0.00-0.30); CALCIUM LEVEL 9.5 MG/DL (8.8-10.2); CREATININE FOR GFR 1.21 MG/DL (0.55-1.30); GLOMERULAR FILTRATION RATE 45.2 (>32); PHOSPHORUS LEVEL 3.2 MG/DL (2.5-4.9); POTASSIUM SERUM 4.6 MEQ/L (3.5-5.1)
== END ==
LOC: SKLAB5 07:17
PROVIDERS: ATTEND Internal Medicine
DX: M31.6 Other giant cell arteritis (principal)

== ENCOUNTER → 2020-09-27 | Outpatient (REF) | payer MEDICARE, MEDICAID | LOC: SKLAB5 07:19 | PROVIDERS: ATTEND Internal Medicine | DX: Z20.822 Contact with and (suspected) exposure to COVID-19 (principal) ==

== ENCOUNTER → 2020-09-28 | Outpatient (REF) | payer MEDICARE, MEDICAID ==
[~2020-09-28] MED LIST changes: -LISI-538 PO; +LISI10TA22 PO; -LISI10TA4 PO; +LISI20TA33 PO
[2020-09-28 12:07] LABS: HEMOGLOBIN 10.7 g/dl (12.0-15.5); MEAN CORPUSCULAR HEMOGLOBIN 20.3 pg (27.0-33.0); MEAN CORPUSCULAR HGB CONC 28.9 g/dl (32.0-36.5); MEAN CORPUSCULAR VOLUME 70.2 fl (80.0-96.0); PLATELET COUNT, AUTOMATED 207 10^3/uL (150-450); RED BLOOD COUNT 5.27 10^6/uL (4.00-5.40); WHITE BLOOD COUNT 11.2 10^3/uL (4.0-10.0)
[2020-09-28 12:34] LABS: C REACTIVE PROTEIN QUANTITATIV 1.21 MG/DL (0.00-0.30); CALCIUM LEVEL 9.6 MG/DL (8.8-10.2); CREATININE FOR GFR 1.28 MG/DL (0.55-1.30); GLOMERULAR FILTRATION RATE 42.4 (>32); POTASSIUM SERUM 4.2 MEQ/L (3.5-5.1)
[2020-09-28 12:36] LABS: ERYTHROCYTE SEDIMENTATION RATE 25 mm/hr (0-30)
== END ==
LOC: SKLAB5 10:25
PROVIDERS: ATTEND Internal Medicine
DX: D64.9 Anemia, unspecified (principal)

== ENCOUNTER → 2020-10-04 | Outpatient (REF) | payer MEDICARE, MEDICAID | LOC: SKLAB5 06:20 | PROVIDERS: ATTEND Internal Medicine | DX: Z20.822 Contact with and (suspected) exposure to COVID-19 (principal) ==

== ENCOUNTER → 2020-10-11 | Outpatient (REF) | payer MEDICARE, MEDICAID | LOC: SKLAB5 06:32 | PROVIDERS: ATTEND Internal Medicine | DX: Z20.822 Contact with and (suspected) exposure to COVID-19 (principal) ==

== ENCOUNTER → 2020-10-12 | Outpatient (REF) | payer MEDICARE, MEDICAID | LOC: SKLAB5 07:16 | PROVIDERS: ATTEND Internal Medicine | DX: M31.6 Other giant cell arteritis (principal) ==

== ENCOUNTER → 2020-10-18 | Outpatient (REF) | payer MEDICARE, MEDICAID | LOC: SKLAB5 08:00 | PROVIDERS: ATTEND Internal Medicine | DX: Z20.822 Contact with and (suspected) exposure to COVID-19 (principal) ==

== ENCOUNTER → 2020-10-25 | Outpatient (REF) | payer MEDICARE, MEDICAID ==
[~2020-10-25] MED LIST changes: +ASPI-569 PO; -ASPI81TAEC PO
== END ==
LOC: SKLAB5 07:34
PROVIDERS: ATTEND Internal Medicine
DX: Z11.52 Encounter for screening for COVID-19 (principal); Z53.9 Procedure and treatment not carried out, unspecified reason

== ENCOUNTER → 2020-10-26 | Outpatient (REF) | payer MEDICARE, MEDICAID ==
[2020-10-26 08:51] LABS: HEMATOCRIT 35.2 % (36.0-47.0); MEAN CORPUSCULAR HEMOGLOBIN 20.4 pg (27.0-33.0); MEAN CORPUSCULAR HGB CONC 28.4 g/dl (32.0-36.5); PLATELET COUNT, AUTOMATED 222 10^3/uL (150-450); RED BLOOD COUNT 4.89 10^6/uL (4.00-5.40); WHITE BLOOD COUNT 8.1 10^3/uL (4.0-10.0)
[2020-10-26 09:19] LABS: CALCIUM LEVEL 8.6 MG/DL (8.8-10.2); CHOLESTEROL RISK RATIO 3.789 (<5); CREATININE FOR GFR 1.2 MG/DL (0.55-1.30); GLOMERULAR FILTRATION RATE 45.7 (>32); POTASSIUM SERUM 4.5 MEQ/L (3.5-5.1)
[2020-10-26 11:22] LABS: PTH INTACT 25.5 PG/ML (18.5-88.0)
== END ==
LOC: SKLAB5 06:36
PROVIDERS: ATTEND Internal Medicine
DX: M31.6 Other giant cell arteritis (principal); Z20.822 Contact with and (suspected) exposure to COVID-19; Z79.899 Other long term (current) drug therapy
CPT/HCPCS: 36415; 80048; 80061; 83970; 85027; 86140; U0003

== ENCOUNTER → 2020-11-01 | Outpatient (REF) | payer MEDICARE, MEDICAID | LOC: SKLAB5 06:26 | PROVIDERS: ATTEND Internal Medicine | DX: Z20.822 Contact with and (suspected) exposure to COVID-19 (principal) ==

== ENCOUNTER → 2020-11-08 | Outpatient (REF) | payer MEDICARE, MEDICAID | LOC: SKLAB5 07:29 | PROVIDERS: ATTEND Internal Medicine | DX: Z20.822 Contact with and (suspected) exposure to COVID-19 (principal) ==

== ENCOUNTER → 2020-11-23 | Outpatient (REF) | payer MEDICARE, MEDICAID ==
[2020-11-23 09:44] LABS: CALCIUM LEVEL 8.5 MG/DL (8.8-10.2); CREATININE FOR GFR 1.13 MG/DL (0.55-1.30); GLOMERULAR FILTRATION RATE 48.8 (>32)
== END ==
LOC: SKLAB5 14:32
PROVIDERS: ATTEND Internal Medicine
DX: N18.9 Chronic kidney disease, unspecified (principal)

== ENCOUNTER → 2020-11-24 | Outpatient (REF) | payer MEDICARE, MEDICAID | LOC: SKLAB5 07:09 | PROVIDERS: ATTEND Internal Medicine | DX: Z20.822 Contact with and (suspected) exposure to COVID-19 (principal) ==

== ENCOUNTER → 2020-11-28 | Outpatient (REF) | payer MEDICARE, MEDICAID | LOC: SKLAB5 07:31 | PROVIDERS: ATTEND Internal Medicine | DX: M31.6 Other giant cell arteritis (principal) ==

== ENCOUNTER → 2020-12-15 | Outpatient (REF) | payer MEDICARE, MEDICAID ==
--- NOTE | 2020-12-15 14:43 | REP ---
INDICATION: RIGHT HAND AND WRIST PAIN COMPARISON: None. TECHNIQUE: AP, lateral, bilateral oblique views right wrist. FINDINGS: Age-related osteopenia and degenerative changes primarily involving the 1st and 2nd carpometacarpal joints and radiocarpal joint space noted. Findings include periarticular sclerosis, cortical irregularity, joint space narrowing, and heterotopic changes at the 1st carpometacarpal joint. No obvious acute fracture or dislocation. IMPRESSION: Osteopenia and degenerative changes. No obvious acute fracture or dislocation. <Electronically signed by Melo Pardo > 12/15/20 1690
--- NOTE | 2020-12-15 14:44 | REP ---
INDICATION: RIGHT HAND AND WRIST PAIN COMPARISON: None. TECHNIQUE: AP, lateral, bilateral oblique views right hand. FINDINGS: Osteopenia and scattered moderate to advanced osteoarthritic degenerative changes. No obvious acute fracture or dislocation. IMPRESSION: Osteopenia and moderate to advanced arthritic degenerative changes. No acute fracture or dislocation. <Electronically signed by Melo Pardo > 12/15/20 [id number]
== END ==
LOC: SKLAB5 14:08
PROVIDERS: ATTEND Internal Medicine
DX: M85.88 Other specified disorders of bone density and structure, other site (principal); M19.031 Primary osteoarthritis, right wrist

== ENCOUNTER → 2020-12-25 | Outpatient (REF) | payer MEDICARE, MEDICAID ==
[2020-12-25 08:55] LABS: BASO # 0.1 10^3/uL (0.0-0.2); BASO % 0.5 % (0.0-1.0); EOS # 0.4 10^3/uL (0.0-0.5); EOS % 2.5 % (0.0-3.0); HEMATOCRIT 31.9 % (36.0-47.0); HEMOGLOBIN 9.5 g/dl (12.0-15.5); LYMPH # 1.2 10^3/uL (1.5-5.0); LYMPH % 7.9 % (24.0-44.0); MEAN CORPUSCULAR HEMOGLOBIN 22.3 pg (27.0-33.0); MEAN CORPUSCULAR HGB CONC 29.8 g/dl (32.0-36.5); MEAN CORPUSCULAR VOLUME 74.9 fl (80.0-96.0); MONO % 6.9 % (2.0-8.0); NEUTROPHILS # 11.9 10^3/uL (1.5-8.5); NEUTROPHILS % 80.3 % (36.0-66.0); PLATELET COUNT, AUTOMATED 210 10^3/uL (150-450); RED BLOOD COUNT 4.26 10^6/uL (4.00-5.40); WHITE BLOOD COUNT 14.9 10^3/uL (4.0-10.0)
== END ==
LOC: SKLAB5 06:40
PROVIDERS: ATTEND Internal Medicine
DX: N93.9 Abnormal uterine and vaginal bleeding, unspecified (principal)

== ENCOUNTER → 2020-12-26 | Outpatient (REF) | payer MEDICARE, MEDICAID ==
[2020-12-26 14:40] LABS: APPEARANCE, URINE HAZY (CLEAR); BACTERIA, URINE AUTO 2+ (NEGATIVE); BILIRUBIN, URINE AUTO NEGATIVE (NEGATIVE); BLOOD, URINE BLOOD 1+ (NEGATIVE); COLOR, URINE YELLOW (YELLOW); GLUCOSE, URINE (UA) AUTO NEGATIVE (NEGATIVE); KETONE, URINE AUTO NEGATIVE (NEGATIVE); LEUKOCYTE ESTERASE, URINE AUTO 3+ (NEGATIVE); NITRITE, URINE AUTO POSITIVE (NEGATIVE); PROTEIN, URINE AUTO 1+ mg/dL (NEGATIVE); RBC, URINE AUTO 6 /HPF (0-3); SPECIFIC GRAVITY URINE AUTO 1.005 (1.002-1.035); SQUAMOUS EPITHELIAL CELL UR AU 0 /HPF (0-6); UROBILINOGEN, URINE AUTO 0.2 mg/dL (0.0-2.0); WBC, URINE AUTO 20 /HPF (0-3)
== END ==
LOC: SKLAB5 14:18
PROVIDERS: ATTEND Internal Medicine
DX: N93.8 Other specified abnormal uterine and vaginal bleeding (principal)

== ENCOUNTER → 2020-12-27 | Outpatient (REF) | payer MEDICARE, MEDICAID ==
[2020-12-27 07:34] LABS: HEMATOCRIT 31.3 % (36.0-47.0); HEMOGLOBIN 9.4 g/dl (12.0-15.5); MEAN CORPUSCULAR HEMOGLOBIN 22.3 pg (27.0-33.0); MEAN CORPUSCULAR VOLUME 74.2 fl (80.0-96.0); PLATELET COUNT, AUTOMATED 221 10^3/uL (150-450); RED BLOOD COUNT 4.22 10^6/uL (4.00-5.40)
[2020-12-27 08:01] LABS: CALCIUM LEVEL 8.9 MG/DL (8.8-10.2); CREATININE FOR GFR 1.24 MG/DL (0.55-1.30); GLOMERULAR FILTRATION RATE 43.9 (>32); POTASSIUM SERUM 3.9 MEQ/L (3.5-5.1)
== END ==
LOC: SKLAB5 06:50
PROVIDERS: ATTEND Internal Medicine
DX: D64.9 Anemia, unspecified (principal)

== ENCOUNTER → 2021-01-04 | Outpatient (REF) | payer MEDICARE, MEDICAID ==
[2021-01-04 13:26] LABS: HEMATOCRIT 31.4 % (36.0-47.0); HEMOGLOBIN 9.3 g/dl (12.0-15.5); MEAN CORPUSCULAR HEMOGLOBIN 22.1 pg (27.0-33.0); MEAN CORPUSCULAR HGB CONC 29.6 g/dl (32.0-36.5); MEAN CORPUSCULAR VOLUME 74.6 fl (80.0-96.0); PLATELET COUNT, AUTOMATED 320 10^3/uL (150-450); RED BLOOD COUNT 4.21 10^6/uL (4.00-5.40); WHITE BLOOD COUNT 13.5 10^3/uL (4.0-10.0)
== END ==
LOC: SKLAB5 11:54
PROVIDERS: ATTEND Internal Medicine
DX: N93.9 Abnormal uterine and vaginal bleeding, unspecified (principal)

== ENCOUNTER → 2021-01-05 | Outpatient (REF) | payer MEDICARE, MEDICAID ==
[2021-01-05 09:51] LABS: HEMOGLOBIN 8.3 g/dl (12.0-15.5); MEAN CORPUSCULAR HEMOGLOBIN 21.9 pg (27.0-33.0); MEAN CORPUSCULAR HGB CONC 29.6 g/dl (32.0-36.5); MEAN CORPUSCULAR VOLUME 73.9 fl (80.0-96.0); PLATELET COUNT, AUTOMATED 290 10^3/uL (150-450); RED BLOOD COUNT 3.79 10^6/uL (4.00-5.40); WHITE BLOOD COUNT 12.5 10^3/uL (4.0-10.0)
== END ==
LOC: SKLAB5 06:41
PROVIDERS: ATTEND Internal Medicine
DX: N93.9 Abnormal uterine and vaginal bleeding, unspecified (principal)

== ENCOUNTER 2021-01-08 11:55 | Outpatient (CLI) | payer MEDICARE, MEDICAID ==
[2021-01-08 12:36] VITALS: BP 184/79
[2021-01-08] MEDS ORDERED: FUROSEMIDE 20MG/2ML VIAL (J1940) IV ONE (13:00)
[2021-01-08 13:45] VITALS: BP 139/64
[2021-01-08 14:00] VITALS: BP 134/64
[2021-01-08 15:48] VITALS: BP 163/93
[2021-01-08 17:02] VITALS: BP 140/72
== END 2021-01-08 17:15 | disposition home or self-care (01) ==
LOC: M INFU 11:55
PROVIDERS: ATTEND Nurse Practitioner Adult Health
DX: D64.9 Anemia, unspecified (principal)

== ENCOUNTER → 2021-01-08 | Outpatient (REF) | payer MEDICARE, MEDICAID ==
[2021-01-08 10:31] LABS: BASO % 0.4 % (0.0-1.0); EOS # 0.4 10^3/uL (0.0-0.5); EOS % 4.2 % (0.0-3.0); HEMATOCRIT 24.8 % (36.0-47.0); HEMOGLOBIN 7.3 g/dl (12.0-15.5); LYMPH # 1.3 10^3/uL (1.5-5.0); LYMPH % 13.6 % (24.0-44.0); MEAN CORPUSCULAR HEMOGLOBIN 21.8 pg (27.0-33.0); MEAN CORPUSCULAR HGB CONC 29.4 g/dl (32.0-36.5); MONO # 0.7 10^3/uL (0.0-0.8); MONO % 7.6 % (2.0-8.0); NEUTROPHILS % 72.8 % (36.0-66.0); PLATELET COUNT, AUTOMATED 290 10^3/uL (150-450); RED BLOOD COUNT 3.35 10^6/uL (4.00-5.40); WHITE BLOOD COUNT 9.6 10^3/uL (4.0-10.0)
== END ==
LOC: SKLAB5 06:38
PROVIDERS: ATTEND Internal Medicine
DX: N93.9 Abnormal uterine and vaginal bleeding, unspecified (principal); D64.9 Anemia, unspecified
CPT/HCPCS: 36415; 85025; 86850; 86900; 86901; 86920; 96365; J1940; P9016

== ENCOUNTER → 2021-01-10 | Outpatient (REF) | payer MEDICARE, MEDICAID ==
[2021-01-10 08:59] LABS: HEMATOCRIT 31.6 % (36.0-47.0); HEMOGLOBIN 9.5 g/dl (12.0-15.5); MEAN CORPUSCULAR HEMOGLOBIN 23.1 pg (27.0-33.0); MEAN CORPUSCULAR HGB CONC 30.1 g/dl (32.0-36.5); MEAN CORPUSCULAR VOLUME 76.7 fl (80.0-96.0); PLATELET COUNT, AUTOMATED 319 10^3/uL (150-450); RED BLOOD COUNT 4.12 10^6/uL (4.00-5.40); WHITE BLOOD COUNT 11.2 10^3/uL (4.0-10.0)
== END ==
LOC: SKLAB5 06:22
PROVIDERS: ATTEND Internal Medicine
DX: D64.89 Other specified anemias (principal)

== ENCOUNTER → 2021-01-25 | Outpatient (CLI) | payer MEDICARE, MEDICAID ==
--- NOTE | 2021-01-25 12:58 | REP ---
INDICATION: SEVERE PAIN INFLAMMATION POOR ROM. COMPARISON: None. TECHNIQUE: Axial noncontrast images with coronal and sagittal reformations. FINDINGS: Examination is significantly limited due to image degradation secondary to technique and surrounding soft tissue edema. The osseous structures of the wrist demonstrate significant pancarpal osteoporotic and osteoarthritic degenerative changes including significant areas of joint space narrowing and irregularity. There is near complete obliteration of the joint space with periarticular sclerosis and mild chronic subluxation at the 1st carpometacarpal joint. Very subtle nondisplaced fracture(s) cannot be excluded. IMPRESSION: Significantly limited examination. Surrounding soft tissue edema. Advanced osteoporotic and osteoarthritic degenerative changes. Subtle nondisplaced fracture cannot be excluded. <Electronically signed by Melo Pardo > 01/25/21 [id number]
== END ==
LOC: M RAD 12:16
PROVIDERS: ATTEND Nurse Practitioner Adult Health
DX: M79.89 Other specified soft tissue disorders (principal); M19.031 Primary osteoarthritis, right wrist; M81.0 Age-related osteoporosis without current pathological fracture

== ENCOUNTER → 2021-02-05 | Outpatient (REF) | payer MEDICARE, MEDICAID ==
[2021-02-05 13:03] LABS: HEMOGLOBIN 9.9 g/dl (12.0-15.5); MEAN CORPUSCULAR HEMOGLOBIN 21.9 pg (27.0-33.0); MEAN CORPUSCULAR HGB CONC 29.1 g/dl (32.0-36.5); MEAN CORPUSCULAR VOLUME 75.1 fl (80.0-96.0); PLATELET COUNT, AUTOMATED 302 10^3/uL (150-450); RED BLOOD COUNT 4.53 10^6/uL (4.00-5.40); WHITE BLOOD COUNT 11.6 10^3/uL (4.0-10.0)
[2021-02-05 13:40] LABS: C REACTIVE PROTEIN QUANTITATIV 4.57 MG/DL (0.00-0.30); CALCIUM LEVEL 8.9 MG/DL (8.8-10.2); CREATININE FOR GFR 1.2 MG/DL (0.55-1.30); GLOMERULAR FILTRATION RATE 45.6 (>32); POTASSIUM SERUM 4.5 MEQ/L (3.5-5.1)
== END ==
LOC: SKLAB5 11:22
PROVIDERS: ATTEND Internal Medicine
DX: I50.9 Heart failure, unspecified (principal)

== ENCOUNTER → 2021-02-08 | Outpatient (REF) | payer MEDICARE, MEDICAID | LOC: SKLAB5 12:55 | PROVIDERS: ATTEND Internal Medicine | DX: J02.9 Acute pharyngitis, unspecified (principal); R09.81 Nasal congestion ==

== ENCOUNTER → 2021-02-21 | Outpatient (REF) | payer MEDICARE, MEDICAID ==
[~2021-02-21] MED LIST changes: +ACET650T61 PO; +CLEO150C PO; +ECOT81TA5 PO; +LANTINJ4 SC; +MUPI2OI NARES; +PRED25TA PO; +PROG1CAP8 PO; +TORS20TA2 PO; +VITA200028 PO
--- NOTE | 2021-02-21 08:25 | ECGEPIP ---
[facility] Test Date: 2021-02-21 Pat Name: ANA MARIA PAULINO Department: Room: - Gender: Female Public Policy Associate: JAMI : 1935 Requested By: COSME WHITFIELD Order Number: [id number] Reading MD: Thanh Cavazos Measurements Intervals [place] Rate: 76 P: MD: QRS: 33 QRSD: 98 T: 80 QT: 376 QTc: 423 Interpretive Statements sinus arrhythmia First-degree AV block with bout of second degree AV block Mobitz type I Inferoapical Q waves; rule out prior infarction Lateral ST/T wave abnormalities. Slight rhythm change from 09/15/20 Electronically Signed on 02-21-2021 8:25:04 EDT by Thanh Cavazos
--- NOTE | 2021-02-21 10:42 | REP ---
INDICATION: SURGICAL CLEARANCE COMPARISON: 06/15/2020 TECHNIQUE: PA and lateral. FINDINGS: Lateral view is nondiagnostic. Frontal view demonstrates stable mediastinum and cardiac silhouette without cardiomegaly. Lung esquivel demonstrate stable chronic changes without acute consolidation, effusion, or pneumothorax. Skeletal structures are grossly intact. IMPRESSION: Chronic stable changes. No acute cardiopulmonary process. <Electronically signed by Melo Pardo > 02/21/21 1038
== END ==
LOC: SKLAB5 06:59
PROVIDERS: ATTEND Internal Medicine
DX: Z01.818 Encounter for other preprocedural examination (principal); J98.4 Other disorders of lung; I44.0 Atrioventricular block, first degree; I44.1 Atrioventricular block, second degree

== ENCOUNTER → 2021-02-22 | Outpatient (CLI) | payer MEDICARE, MEDICAID ==
[2021-02-22 09:38] LABS: HEMATOCRIT 33.5 % (36.0-47.0); HEMOGLOBIN 9.8 g/dl (12.0-15.5); MEAN CORPUSCULAR HEMOGLOBIN 21.5 pg (27.0-33.0); MEAN CORPUSCULAR HGB CONC 29.3 g/dl (32.0-36.5); MEAN CORPUSCULAR VOLUME 73.5 fl (80.0-96.0); PLATELET COUNT, AUTOMATED 276 10^3/uL (150-450); RED BLOOD COUNT 4.56 10^6/uL (4.00-5.40); WHITE BLOOD COUNT 8.8 10^3/uL (4.0-10.0)
[2021-02-22 10:12] LABS: ALBUMIN 2.3 GM/DL (3.2-5.2); BILIRUBIN,TOTAL 0.2 MG/DL (0.2-1.0); CALCIUM LEVEL 9.2 MG/DL (8.8-10.2); CREATININE FOR GFR 1.11 MG/DL (0.55-1.30); GLOMERULAR FILTRATION RATE 49.9 (>32); POTASSIUM SERUM 4.3 MEQ/L (3.5-5.1); TOTAL PROTEIN 6.3 GM/DL (6.4-8.2)
--- NOTE | 2021-02-22 12:46 | REP ---
INDICATION: LEFT WRIST PAIN,INFLAMMATOPM. COMPARISON: None. TECHNIQUE: Four views FINDINGS: The bones are demineralized. Degenerative changes seen throughout the wrist particularly the 1st carpometacarpal joint space where there is asymmetric narrowing, osteophytosis, and subchondral sclerosis. Flake like ossific densities are seen just lateral to the trapezium.. IMPRESSION: 1. Chronic changes as described above. 2. Possible fracture of the trapezium as described above. <Electronically signed by Darryl Pierce > 02/22/21 [id number]
--- NOTE | 2021-02-22 16:40 | REP ---
INDICATION: EVAL FOR FX LT WRIST. COMPARISON: None. TECHNIQUE: Series of 2 and 5 mm increments were obtained and reconstructed in both sagittal and coronal planes. The patient was unable to extend the arm over the head. As such, scanning was obtained with the patient's wrist over the upper abdomen which causes significant artifact. FINDINGS: There is significant joint space narrowing and subchondral sclerosis seen involving the 1st carpometacarpal joint. There is no evidence of an acute fracture involving the trapezium which was the area of interest seen on the prior plain film examination obtained earlier today which was also reviewed at this time. There is no evidence of an acute fracture involving the wrist. There is no evidence of significant soft tissue swelling. IMPRESSION: Findings and limitations as described above. Due to the technique utilized to obtain the exam there is significant reduction in osseous resolution. There is no definite evidence of an acute fracture. Follow-up should be considered. <Electronically signed by Darryl Pierce > 02/22/21 [id number]
== END ==
LOC: M RAD 08:52 → SKLAB5 08:52 → EDSTATUS 15:35
PROVIDERS: ATTEND Internal Medicine
DX: M25.532 Pain in left wrist (principal); M19.032 Primary osteoarthritis, left wrist

== ENCOUNTER → 2021-02-23 | Outpatient (REF) | payer MEDICARE, MEDICAID ==
[2021-02-23 10:34] LABS: CALCIUM LEVEL 8.8 MG/DL (8.8-10.2)
[2021-02-23 10:43] LABS: TOTAL 25(OH) VITAMIN D 30.1 NG/ML (30.0-100.0)
[2021-02-26 11:19] LABS: ALBUMIN 2.56 GM/DL (3.29-5.55); ALBUMIN % 42.7 % (55.8-66.1); ALPHA-1-GLOBULIN % 6.7 % (2.9-4.9); ALPHA-2-GLOBULINS 0.94 GM/DL (0.42-0.99)
[2021-02-26 11:20] LABS: ALPHA-2-GLOBULINS % 15.7 % (7.1-11.8); BETA-1-GLOBULINS 0.38 GM/DL (0.28-0.60); BETA-1-GLOBULINS % 6.4 % (4.7-7.2); BETA-2-GLOBULINS 0.37 GM/DL (0.19-0.55); BETA-2-GLOBULINS % 6.2 % (3.2-6.5); GAMMA GLOBULIN % 22.3 % (11.1-18.8); GAMMA GLOBULINS 1.34 GM/DL (0.65-1.58)
== END ==
LOC: SKLAB5 06:48
PROVIDERS: ATTEND Internal Medicine
DX: M81.0 Age-related osteoporosis without current pathological fracture (principal)

== ENCOUNTER → 2021-02-27 | Outpatient (REF) | payer MEDICARE, MEDICAID ==
[2021-02-27 11:39] LABS: HEMOGLOBIN A1c 10.1 %
[2021-02-27 11:46] LABS: CHOLESTEROL RISK RATIO 4.258 (<5)
== END ==
LOC: SKLAB5 06:46
PROVIDERS: ATTEND Internal Medicine
DX: E11.9 Type 2 diabetes mellitus without complications (principal); E78.5 Hyperlipidemia, unspecified

== ENCOUNTER → 2021-03-01 | Outpatient (REF) | payer MEDICARE, MEDICAID | LOC: SKLAB5 14:13 | PROVIDERS: ATTEND Internal Medicine | DX: Z20.822 Contact with and (suspected) exposure to COVID-19 (principal) ==

== ENCOUNTER 2021-03-02 10:14 | Day surgery (SDC) | payer MEDICARE, MEDICAID ==
[~2021-03-02] VITALS: Ht 170.2 cm; Wt 129.4 kg
[~2021-03-02 10:14] MED LIST changes: +LIDOCAINE 1% MDV 20ML VIAL SQ PRN; +LR 1,000 ML IV ONE
[2021-03-02 10:49] LABS: HEMATOCRIT 34.7 % (36.0-47.0); HEMOGLOBIN 10.3 g/dl (12.0-15.5)
[2021-03-02] MEDS ORDERED: fentaNYL 100 MCG/2 ML INJECTION (J3010) As Ordered ONE (13:07)
[2021-03-02] MEDS ORDERED: SILVER NITRATE APPLICATOR As Ordered ONE (14:49)
[2021-03-02] MEDS ORDERED: ROCURONIUM BROMIDE 50 MG/5 ML VIAL As Ordered ONE (14:58)
[2021-03-02] MEDS ORDERED: propofoL 200 MG/20 ML VIAL As Ordered ONE (14:59)
[2021-03-02] MEDS ORDERED: LIDOCAINE 2% 100MG/5ML SDV (FOR ANES.) As Ordered ONE (14:59)
[2021-03-02] MEDS ORDERED: SUGAMMADEX SODIUM 500 MG/5 ML VIAL (BRIDION) As Ordered ONE (15:42)
[2021-03-02] MEDS ORDERED: ONDANSETRON 4MG/2ML VIAL As Ordered ONE (15:42)
[2021-03-02] MEDS ORDERED: KETOROLAC 60MG 2ML VIAL As Ordered ONE (15:42)
[2021-03-02] MEDS ORDERED: ONDANSETRON 4MG/2ML VIAL IV PRN (16:55)
[2021-03-02] MEDS ORDERED: LR 1,000 ML IV SCH (16:55)
[2021-03-02] MEDS ORDERED: METOCLOPRAMIDE INJ 10MG/2ML VIAL (J2765 PER 1) IV PRN (16:55)
[2021-03-02] MEDS ORDERED: PERCOCET 5MG/325MG TAB PO PRN (16:55)
[2021-03-02 19:35] VITALS: BP 144/66
--- NOTE | 2021-03-03 08:57 | RO ---
OPERATIVE NOTE DATE OF OPERATION: 03/02/2021 PREOPERATIVE DIAGNOSIS: Severe postmenopausal bleeding resulting in anemia. POSTOPERATIVE DIAGNOSIS: Severe postmenopausal bleeding resulting in anemia. PROCEDURE: Diagnostic hysteroscopy; MyoSure polypectomy; dilatation and curettage. STAFF SURGEON: Lxeis Galicia MD NURSE TRANSITIONAL: None. CLINICAL SERVICE: Gynecology. ANESTHESIA: MATERIAL FORWARDED TO LAB FOR EXAMINATION: 1. Endometrial sampling. 2. Endometrial curettings. INDICATIONS FOR OPERATION: Shaniqua is an 85-year-old female with postmenopausal bleeding resulting in anemia. She had a D&C, ECC, hysteroscopy with MyoSure done in May, and the operative report written by Dr. Gutierrez stated that there was quite a bit of polypoid tissue that was extracted. Shaniqua reports that seemed to help for a time but then the bleeding increased so much so that she needed blood transfusions to treat her anemia. Her health history is significant for morbid obesity, she is bed-bound and lives in a fdc. She has type 2 diabetes, heart failure, stage 3 chronic kidney disease and urinary incontinence. DESCRIPTION OF FINDINGS: The cervix was open, did not require any dilation. Uterus sounded to 9 cm. Hysteroscopy revealed proliferative appearing endometrium. There was some small polypoid appearing tissue near both of the ostia. After MyoSure was used to remove the polypoid tissue hysteroscopy revealed that that was gone and D&C was done after that. INFECTION CLASSIFICATION: 2. ESTIMATED BLOOD LOSS: 30 mL. URINE OUTPUT: 200 mL, very cloudy malodorous urine. IV FLUIDS: 900 mL lactated Ringer's. FLUID DEFICIT: 400 mL measurable but there was quite a bit of fluid on the OR floor as well and during the procedure given that the cervix was open, it was impossible to keep the fluid from freely coming back out the cervix. No concern existed for perforation. DESCRIPTION OF PROCEDURE: After obtaining informed consent the patient was taken to the operating room where she underwent general endotracheal anesthesia. She was placed in low lithotomy position and the perineum and vagina were prepped and draped in sterile fashion. Speculum was inserted into the vagina after the bladder was emptied using straight cath. The anterior aspect of the cervix was grasped with single tooth tenaculum. Uterus sounded to 9 cm. There was no need for any dilation because the cervix was open. At that point the hysteroscopic camera was inserted through the cervix to the fundus of the uterus where there was very proliferative appearing endometrium. There was no discrete mass but there was some polypoid appearing tissue near both the ostia. The MyoSure was then used to excise any of the decadent polypoid appearing tissue and then the camera with MyoSure was removed and curettage was done 360 degrees noting good cry. The speculum was removed after the tenaculum was removed from the anterior aspect of the cervix. There was no bleeding at the tenaculum site. Nothing was retained in the vagina. The patient was awakened from general anesthesia and transferred to the recovery room in good condition. All counts were correct x2.
== END 2021-03-02 19:37 | disposition home or self-care (01) ==
LOC: M SDC 10:14
PROVIDERS: ATTEND Obstetrics & Gynecology
DX: N95.0 Postmenopausal bleeding (principal); D62 Acute posthemorrhagic anemia; B95.62 Methicillin resistant Staphylococcus aureus infection as the cause of diseases classified elsewhere; D68.69 Other thrombophilia; E11.22 Type 2 diabetes mellitus with diabetic chronic kidney disease; E11.40 Type 2 diabetes mellitus with diabetic neuropathy, unspecified; E55.9 Vitamin D deficiency, unspecified; E66.01 Morbid (severe) obesity due to excess calories; E78.5 Hyperlipidemia, unspecified; G47.30 Sleep apnea, unspecified; I13.0 Hypertensive heart and chronic kidney disease with heart failure and stage 1 through stage 4 chronic kidney disease, or unspecified chronic kidney disease; I25.10 Atherosclerotic heart disease of native coronary artery without angina pectoris; I25.2 Old myocardial infarction; I48.0 Paroxysmal atrial fibrillation; I50.32 Chronic diastolic (congestive) heart failure; J44.9 Chronic obstructive pulmonary disease, unspecified; K21.9 Gastro-esophageal reflux disease without esophagitis; M31.6 Other giant cell arteritis; N18.32 Chronic kidney disease, stage 3b; R35.0 Frequency of micturition; R60.0 Localized edema; S62.91XD Unspecified fracture of right hand, subsequent encounter for fracture with routine healing; Z68.41 Body mass index [BMI] 40.0-44.9, adult; Z79.4 Long term (current) use of insulin; Z79.52 Long term (current) use of systemic steroids; Z79.899 Other long term (current) drug therapy; Z86.2 Personal history of diseases of the blood and blood-forming organs and certain disorders involving the immune mechanism; Z86.73 Personal history of transient ischemic attack (TIA), and cerebral infarction without residual deficits; Z87.891 Personal history of nicotine dependence; Z88.1 Allergy status to other antibiotic agents; Z88.8 Allergy status to other drugs, medicaments and biological substances; X58.XXXD Exposure to other specified factors, subsequent encounter
CPT/HCPCS: 36415; 58558; 85014; 85018; 86850; 86900; 86901; 87088; 87186; 88305; J1885; J2405; J3010

== ENCOUNTER → 2021-03-06 | Outpatient (REF) | payer MEDICARE, MEDICAID ==
[~2021-03-06] MED LIST changes: +ISOS20TA4 PO; -ISOS20TAB PO; -LIDOCAINE 1% MDV 20ML VIAL SQ PRN; -LR 1,000 ML IV ONE
== END ==
LOC: SKLAB5 11:26
PROVIDERS: ATTEND Internal Medicine
DX: I50.9 Heart failure, unspecified (principal); R09.89 Other specified symptoms and signs involving the circulatory and respiratory systems

== ENCOUNTER → 2021-03-13 | Outpatient (REF) | payer MEDICARE, MEDICAID ==
[~2021-03-13] MED LIST changes: -ISOS20TA4 PO; +ISOS20TAB PO
--- NOTE | 2021-03-13 15:32 | REP ---
INDICATION: COUGH. COMPARISON: 03/06/2021. TECHNIQUE: Single portable AP view of the chest was performed. FINDINGS: There is somewhat poor ventilation with crowded lung markings in each lung base. There is no definite acute infiltrate. The heart is not significantly enlarged. The mediastinal silhouette is unchanged with mild calcification of the thoracic aorta. There are degenerative changes of the spine. IMPRESSION: No evidence of acute infiltrate. <Electronically signed by Parish Olsen > 03/13/21 3502
== END ==
LOC: SKLAB5 14:38
PROVIDERS: ATTEND Internal Medicine
DX: R05 Cough (principal)

== ENCOUNTER → 2021-03-14 | Outpatient (REF) | payer MEDICARE, MEDICAID ==
[2021-03-14 13:38] LABS: HEMATOCRIT 32.2 % (36.0-47.0); HEMOGLOBIN 9.2 g/dl (12.0-15.5); MEAN CORPUSCULAR HEMOGLOBIN 20.8 pg (27.0-33.0); MEAN CORPUSCULAR HGB CONC 28.6 g/dl (32.0-36.5); MEAN CORPUSCULAR VOLUME 72.9 fl (80.0-96.0); PLATELET COUNT, AUTOMATED 316 10^3/uL (150-450); RED BLOOD COUNT 4.42 10^6/uL (4.00-5.40); WHITE BLOOD COUNT 10.3 10^3/uL (4.0-10.0)
[2021-03-14 14:07] LABS: CREATININE FOR GFR 1.29 MG/DL (0.55-1.30); GLOMERULAR FILTRATION RATE 41.9 (>32); POTASSIUM SERUM 4.1 MEQ/L (3.5-5.1)
[2021-03-14 14:08] LABS: CALCIUM LEVEL 10.2 MG/DL (8.8-10.2)
== END ==
LOC: SKLAB5 07:44
PROVIDERS: ATTEND Internal Medicine
DX: R05 Cough (principal)

== ENCOUNTER → 2021-03-29 | Outpatient (REF) | payer MEDICARE, MEDICAID ==
[2021-03-29 10:57] LABS: HEMATOCRIT 33.8 % (36.0-47.0); HEMOGLOBIN 9.8 g/dl (12.0-15.5); MEAN CORPUSCULAR HEMOGLOBIN 20.9 pg (27.0-33.0); MEAN CORPUSCULAR VOLUME 72.1 fl (80.0-96.0); PLATELET COUNT, AUTOMATED 296 10^3/uL (150-450); RED BLOOD COUNT 4.69 10^6/uL (4.00-5.40); WHITE BLOOD COUNT 11.6 10^3/uL (4.0-10.0)
== END ==
LOC: SKLAB5 09:19
PROVIDERS: ATTEND Internal Medicine
DX: D64.9 Anemia, unspecified (principal)

== ENCOUNTER → 2021-04-03 | Outpatient (REF) | payer MEDICARE, MEDICAID ==
--- NOTE | 2021-04-03 12:13 | REP ---
INDICATION: INCREASED BACK PAIN AND SOB. COMPARISON: 03/13/2021 a portable exam TECHNIQUE: AP and lateral FINDINGS: The technique utilized in obtaining the radiograph has magnified the cardiac silhouette and attenuated the interstitial markings. The superior mediastinal structures are midline. There is cardiomegaly accentuated by technique.. The diaphragmatic surfaces of the lungs are regular, and the costophrenic angles are clear. The pulmonary esquivel are unchanged. No acute patchy parenchymal opacities or pleural effusions have developed. The imaged osseous structures are unchanged. IMPRESSION: Stable appearing chronic changes <Electronically signed by Darryl Pierce > 04/03/21 1544
== END ==
LOC: SKLAB5 11:02
PROVIDERS: ATTEND Internal Medicine
DX: M54.9 Dorsalgia, unspecified (principal); I51.7 Cardiomegaly

== ENCOUNTER → 2021-04-10 | Outpatient (REF) | payer MEDICARE, MEDICAID ==
[2021-04-10 15:43] LABS: HEMATOCRIT 31.7 % (36.0-47.0); HEMOGLOBIN 9.3 g/dl (12.0-15.5); MEAN CORPUSCULAR HEMOGLOBIN 20.2 pg (27.0-33.0); MEAN CORPUSCULAR HGB CONC 29.3 g/dl (32.0-36.5); MEAN CORPUSCULAR VOLUME 68.9 fl (80.0-96.0); PLATELET COUNT, AUTOMATED 291 10^3/uL (150-450); WHITE BLOOD COUNT 27.3 10^3/uL (4.0-10.0)
[2021-04-10 17:02] LABS: CALCIUM LEVEL 8.5 MG/DL (8.8-10.2); CREATININE FOR GFR 1.12 MG/DL (0.55-1.30); GLOMERULAR FILTRATION RATE 49.3 (>32); POTASSIUM SERUM 4.1 MEQ/L (3.5-5.1)
[2021-04-10 18:01] LABS: APPEARANCE, URINE TURBID (CLEAR); BACTERIA, URINE AUTO 3+ (NEGATIVE); BILIRUBIN, URINE AUTO NEGATIVE (NEGATIVE); BLOOD, URINE BLOOD 2+ (NEGATIVE); COLOR, URINE YELLOW (YELLOW); GLUCOSE, URINE (UA) AUTO NEGATIVE (NEGATIVE); KETONE, URINE AUTO NEGATIVE (NEGATIVE); LEUKOCYTE ESTERASE, URINE AUTO 2+ (NEGATIVE); NITRITE, URINE AUTO NEGATIVE (NEGATIVE); PROTEIN, URINE AUTO 2+ mg/dL (NEGATIVE); RBC, URINE AUTO 61 /HPF (0-3); SPECIFIC GRAVITY URINE AUTO 1.009 (1.002-1.035); SQUAMOUS EPITHELIAL CELL UR AU 21 /HPF (0-6); UROBILINOGEN, URINE AUTO 0.2 mg/dL (0.0-2.0); WBC, URINE AUTO TNTC /HPF (0-3)
== END ==
LOC: SKLAB5 14:56
PROVIDERS: ATTEND Internal Medicine
DX: R53.83 Other fatigue (principal); R11.0 Nausea; R50.9 Fever, unspecified; D72.829 Elevated white blood cell count, unspecified

== ENCOUNTER → 2021-04-12 | Outpatient (REF) | payer MEDICARE, MEDICAID ==
[2021-04-12 09:19] LABS: HEMATOCRIT 33.5 % (36.0-47.0); HEMOGLOBIN 9.6 g/dl (12.0-15.5); MEAN CORPUSCULAR HEMOGLOBIN 20.1 pg (27.0-33.0); MEAN CORPUSCULAR HGB CONC 28.7 g/dl (32.0-36.5); MEAN CORPUSCULAR VOLUME 70.2 fl (80.0-96.0); PLATELET COUNT, AUTOMATED 325 10^3/uL (150-450); RED BLOOD COUNT 4.77 10^6/uL (4.00-5.40); WHITE BLOOD COUNT 20.5 10^3/uL (4.0-10.0)
== END ==
LOC: SKLAB5 06:42
PROVIDERS: ATTEND Internal Medicine
DX: D72.829 Elevated white blood cell count, unspecified (principal)

== ENCOUNTER → 2021-04-13 | Outpatient (CLI) | payer MEDICARE, MEDICAID ==
[~2021-04-13] MED LIST changes: +ISOVUE-370 76% 100ML VIAL As Ordered ONE
--- NOTE | 2021-04-13 14:09 | REP ---
INDICATION: LLQ PAIN, VOMITING. COMPARISON: 05/02/2020 TECHNIQUE: Axial contrast-enhanced images from the lung bases to the pubic symphysis using 100 cc Isovue 370 intravenous contrast material. Coronal and sagittal reformations obtained. This CT examination was performed using the following dose reduction techniques: Automated exposure control, adjustment of mA and/or kv according to the patient's size, and the use of iterative reconstruction technique. FINDINGS: Liver, spleen, pancreas, bilateral adrenal glands and kidneys are normal/stable. Gallbladder is mildly distended and demonstrates gallstones similar to prior examination and without evidence for acute cholecystitis. Mucosal thickening and pericolonic inflammatory stranding involves the descending and proximal sigmoid colon most compatible with acute infectious/inflammatory colitis versus diverticulitis. No bowel obstruction. No free air to suggest perforation. No ascites or drainable collection. Small bowel is grossly unremarkable. Pelvis demonstrates normal bladder and age-appropriate uterus/adnexa No ascites. No free air. No intraperitoneal or retroperitoneal adenopathy. Abdominal aorta and vasculature demonstrate atherosclerotic changes without aneurysm or dissection. Musculoskeletal structures demonstrate advanced degenerative changes without acute osseous abnormality. IMPRESSION: 1. Findings consistent with acute infectious/inflammatory colitis versus diverticulitis involving the descending and proximal sigmoid colon. No associated bowel obstruction, perforation, or drainable collection/abscess. 2. Cholelithiasis. 3. Lung bases demonstrate acute versus chronic bibasilar fibroatelectatic changes (right greater than left). <Electronically signed by Melo Pardo > 04/13/21 2032
== END ==
LOC: M RAD 11:03
PROVIDERS: ATTEND Nurse Practitioner Adult Health
DX: K80.20 Calculus of gallbladder without cholecystitis without obstruction (principal); R10.32 Left lower quadrant pain; R11.10 Vomiting, unspecified

== ENCOUNTER → 2021-04-13 | Outpatient (REF) | payer MEDICARE, MEDICAID ==
[~2021-04-13] MED LIST changes: -ISOVUE-370 76% 100ML VIAL As Ordered ONE
[2021-04-13 09:35] LABS: HEMATOCRIT 36.8 % (36.0-47.0); HEMOGLOBIN 10.6 g/dl (12.0-15.5); MEAN CORPUSCULAR HEMOGLOBIN 20.1 pg (27.0-33.0); MEAN CORPUSCULAR HGB CONC 28.8 g/dl (32.0-36.5); MEAN CORPUSCULAR VOLUME 69.8 fl (80.0-96.0); PLATELET COUNT, AUTOMATED 422 10^3/uL (150-450); RED BLOOD COUNT 5.27 10^6/uL (4.00-5.40); WHITE BLOOD COUNT 23.5 10^3/uL (4.0-10.0)
[2021-04-13 10:16] LABS: CREATININE FOR GFR 1.25 MG/DL (0.55-1.30); GLOMERULAR FILTRATION RATE 43.5 (>32)
--- NOTE | 2021-04-13 10:22 | REP ---
INDICATION: LEFT LOWER ABDOMIAL PAIN. COMPARISON: Abdominal series of 11/19/2010 FINDINGS: KUB shows the intestinal gas pattern to be nonspecific. A single gas-filled mildly dilated loop of small bowel is seen on the left. The organ silhouettes insofar as delineated are unremarkable. There is no evidence of free intraperitoneal air. Not all of the abdominal or pelvic contents have been included on the radiographs. Advanced chronic changes are seen involving the spine increased from the prior exam is seen along with bilateral hip degenerative changes also increased. IMPRESSION: Nonspecific. Findings and limitations as described above. <Electronically signed by Darryl Pierce > 04/13/21 1017
== END ==
LOC: SKLAB5 06:59
PROVIDERS: ATTEND Internal Medicine
DX: N39.0 Urinary tract infection, site not specified (principal); R10.32 Left lower quadrant pain; K80.20 Calculus of gallbladder without cholecystitis without obstruction; R11.10 Vomiting, unspecified
CPT/HCPCS: 36415; 74018; 74177; 80048; 85027; Q9967

== ENCOUNTER → 2021-04-13 | Outpatient (CLI) | payer MEDICARE, MEDICAID | LOC: M RAD 09:44 | PROVIDERS: ATTEND Nurse Practitioner Adult Health | DX: R10.32 Left lower quadrant pain (principal) ==

== ENCOUNTER → 2021-04-14 | Outpatient (REF) | payer MEDICARE, MEDICAID ==
[2021-04-14 08:11] LABS: HEMATOCRIT 32.3 % (36.0-47.0); HEMOGLOBIN 9.5 g/dl (12.0-15.5); MEAN CORPUSCULAR HEMOGLOBIN 20.2 pg (27.0-33.0); MEAN CORPUSCULAR HGB CONC 29.4 g/dl (32.0-36.5); MEAN CORPUSCULAR VOLUME 68.6 fl (80.0-96.0); PLATELET COUNT, AUTOMATED 355 10^3/uL (150-450); RED BLOOD COUNT 4.71 10^6/uL (4.00-5.40)
[2021-04-14 08:16] LABS: WHITE BLOOD COUNT 33.7 10^3/uL (4.0-10.0)
[2021-04-14 08:39] LABS: ERYTHROCYTE SEDIMENTATION RATE 76 mm/hr (0-30)
[2021-04-14 08:56] LABS: C REACTIVE PROTEIN QUANTITATIV 29.2 MG/DL (0.00-0.30); CALCIUM LEVEL 8.1 MG/DL (8.8-10.2); CREATININE FOR GFR 1.28 MG/DL (0.55-1.30); GLOMERULAR FILTRATION RATE 42.3 (>32); POTASSIUM SERUM 3.9 MEQ/L (3.5-5.1)
== END ==
LOC: SKLAB5 06:58
PROVIDERS: ATTEND Internal Medicine
DX: R10.9 Unspecified abdominal pain (principal)

== ENCOUNTER → 2021-04-15 | Outpatient (REF) | LOC: SKLAB5 05:16 | PROVIDERS: ATTEND Internal Medicine | DX: A04.72 Enterocolitis due to Clostridium difficile, not specified as recurrent (principal); D72.829 Elevated white blood cell count, unspecified ==

== ENCOUNTER → 2021-04-15 | Outpatient (REF) ==
[2021-04-15 14:40] LABS: HEMATOCRIT 30.2 % (36.0-47.0); MEAN CORPUSCULAR HEMOGLOBIN 20.1 pg (27.0-33.0); MEAN CORPUSCULAR HGB CONC 29.8 g/dl (32.0-36.5); MEAN CORPUSCULAR VOLUME 67.4 fl (80.0-96.0); PLATELET COUNT, AUTOMATED 345 10^3/uL (150-450); RED BLOOD COUNT 4.48 10^6/uL (4.00-5.40); WHITE BLOOD COUNT 22.7 10^3/uL (4.0-10.0)
[2021-04-15 14:57] LABS: CREATININE FOR GFR 1.58 MG/DL (0.55-1.30); GLOMERULAR FILTRATION RATE 33.2 (>32); POTASSIUM SERUM 3.6 MEQ/L (3.5-5.1)
== END ==
LOC: SKLAB5 09:46
PROVIDERS: ATTEND Internal Medicine
DX: A04.72 Enterocolitis due to Clostridium difficile, not specified as recurrent (principal); D72.829 Elevated white blood cell count, unspecified

== ENCOUNTER → 2021-04-16 | Outpatient (REF) | payer MEDICARE, MEDICAID ==
[2021-04-16 10:36] LABS: HEMOGLOBIN 9.5 g/dl (12.0-15.5); MEAN CORPUSCULAR HGB CONC 29.7 g/dl (32.0-36.5); MEAN CORPUSCULAR VOLUME 67.5 fl (80.0-96.0); PLATELET COUNT, AUTOMATED 376 10^3/uL (150-450); RED BLOOD COUNT 4.74 10^6/uL (4.00-5.40); WHITE BLOOD COUNT 27.1 10^3/uL (4.0-10.0)
[2021-04-16 11:07] LABS: CALCIUM LEVEL 7.8 MG/DL (8.8-10.2); CREATININE FOR GFR 1.28 MG/DL (0.55-1.30); GLOMERULAR FILTRATION RATE 42.3 (>32); POTASSIUM SERUM 3.9 MEQ/L (3.5-5.1)
== END ==
LOC: SKLAB5 06:59
PROVIDERS: ATTEND Internal Medicine
DX: A04.72 Enterocolitis due to Clostridium difficile, not specified as recurrent (principal); D72.829 Elevated white blood cell count, unspecified

== ENCOUNTER → 2021-04-17 | Outpatient (REF) | payer MEDICARE, MEDICAID ==
[2021-04-17 08:31] LABS: HEMATOCRIT 32.6 % (36.0-47.0); HEMOGLOBIN 9.4 g/dl (12.0-15.5); MEAN CORPUSCULAR HEMOGLOBIN 19.9 pg (27.0-33.0); MEAN CORPUSCULAR HGB CONC 28.8 g/dl (32.0-36.5); MEAN CORPUSCULAR VOLUME 69.1 fl (80.0-96.0); PLATELET COUNT, AUTOMATED 351 10^3/uL (150-450); RED BLOOD COUNT 4.72 10^6/uL (4.00-5.40); WHITE BLOOD COUNT 26.9 10^3/uL (4.0-10.0)
[2021-04-17 08:52] LABS: CALCIUM LEVEL 7.7 MG/DL (8.8-10.2); CREATININE FOR GFR 1.13 MG/DL (0.55-1.30); GLOMERULAR FILTRATION RATE 48.8 (>32); POTASSIUM SERUM 4.3 MEQ/L (3.5-5.1)
== END ==
LOC: SKLAB5 06:54
PROVIDERS: ATTEND Internal Medicine
DX: D72.829 Elevated white blood cell count, unspecified (principal); A04.72 Enterocolitis due to Clostridium difficile, not specified as recurrent

== ENCOUNTER → 2021-04-18 | Outpatient (REF) | payer MEDICARE, MEDICAID ==
[2021-04-18 07:42] LABS: HEMATOCRIT 31.8 % (36.0-47.0); HEMOGLOBIN 9.3 g/dl (12.0-15.5); MEAN CORPUSCULAR HEMOGLOBIN 20.2 pg (27.0-33.0); MEAN CORPUSCULAR HGB CONC 29.2 g/dl (32.0-36.5); MEAN CORPUSCULAR VOLUME 69.1 fl (80.0-96.0); PLATELET COUNT, AUTOMATED 378 10^3/uL (150-450); WHITE BLOOD COUNT 18.7 10^3/uL (4.0-10.0)
[2021-04-18 08:10] LABS: CREATININE FOR GFR 1.09 MG/DL (0.55-1.30); GLOMERULAR FILTRATION RATE 50.9 (>32); POTASSIUM SERUM 3.5 MEQ/L (3.5-5.1)
== END ==
LOC: SKLAB5 08:05
PROVIDERS: ATTEND Internal Medicine
DX: D72.829 Elevated white blood cell count, unspecified (principal); A04.72 Enterocolitis due to Clostridium difficile, not specified as recurrent

== ENCOUNTER → 2021-04-19 | Outpatient (REF) | payer MEDICARE, MEDICAID ==
[2021-04-19 14:12] LABS: HEMATOCRIT 31.5 % (36.0-47.0); HEMOGLOBIN 9.1 g/dl (12.0-15.5); MEAN CORPUSCULAR HGB CONC 28.9 g/dl (32.0-36.5); MEAN CORPUSCULAR VOLUME 69.2 fl (80.0-96.0); PLATELET COUNT, AUTOMATED 350 10^3/uL (150-450); RED BLOOD COUNT 4.55 10^6/uL (4.00-5.40); WHITE BLOOD COUNT 16.2 10^3/uL (4.0-10.0)
[2021-04-19 14:15] LABS: CREATININE FOR GFR 1.03 MG/DL (0.55-1.30); GLOMERULAR FILTRATION RATE 54.3 (>32); POTASSIUM SERUM 3.8 MEQ/L (3.5-5.1)
[2021-04-19 14:16] LABS: CALCIUM LEVEL 7.2 MG/DL (8.8-10.2)
== END ==
LOC: SKLAB5 08:06
PROVIDERS: ATTEND Internal Medicine
DX: D72.829 Elevated white blood cell count, unspecified (principal); A04.72 Enterocolitis due to Clostridium difficile, not specified as recurrent

== ENCOUNTER → 2021-04-20 | Outpatient (REF) | payer MEDICARE, MEDICAID ==
[2021-04-20 12:08] LABS: HEMATOCRIT 32.9 % (36.0-47.0); HEMOGLOBIN 9.4 g/dl (12.0-15.5); MEAN CORPUSCULAR HEMOGLOBIN 19.7 pg (27.0-33.0); MEAN CORPUSCULAR HGB CONC 28.6 g/dl (32.0-36.5); PLATELET COUNT, AUTOMATED 328 10^3/uL (150-450); RED BLOOD COUNT 4.77 10^6/uL (4.00-5.40); WHITE BLOOD COUNT 13.4 10^3/uL (4.0-10.0)
[2021-04-20 13:15] LABS: BLOOD UREA NITROGEN 24 MG/DL (7-18); CALCIUM LEVEL 7.4 MG/DL (8.8-10.2); CARBON DIOXIDE LEVEL 29 MEQ/L (21-32); CHLORIDE LEVEL 106 MEQ/L (98-107); CREATININE FOR GFR 0.88 MG/DL (0.55-1.30); GLOMERULAR FILTRATION RATE > 60.0 (>32); GLUCOSE, FASTING 236 MG/DL (70-100); POTASSIUM SERUM 4.3 MEQ/L (3.5-5.1); SODIUM LEVEL 140 MEQ/L (136-145)
== END ==
LOC: SKLAB5 06:43
PROVIDERS: ATTEND Internal Medicine
DX: A04.72 Enterocolitis due to Clostridium difficile, not specified as recurrent (principal); D72.829 Elevated white blood cell count, unspecified

== ENCOUNTER → 2021-04-26 | Outpatient (REF) | payer MEDICARE, MEDICAID ==
[~2021-04-26] MED LIST changes: +ISOS20TA4 PO; -ISOS20TAB PO
[2021-04-26 13:17] LABS: HEMOGLOBIN 9.6 g/dl (12.0-15.5); MEAN CORPUSCULAR HEMOGLOBIN 20.1 pg (27.0-33.0); MEAN CORPUSCULAR HGB CONC 29.1 g/dl (32.0-36.5); MEAN CORPUSCULAR VOLUME 69.2 fl (80.0-96.0); PLATELET COUNT, AUTOMATED 258 10^3/uL (150-450); RED BLOOD COUNT 4.77 10^6/uL (4.00-5.40); WHITE BLOOD COUNT 11.1 10^3/uL (4.0-10.0)
== END ==
LOC: SKLAB5 07:54
PROVIDERS: ATTEND Internal Medicine
DX: D72.829 Elevated white blood cell count, unspecified (principal)

== ENCOUNTER → 2021-05-01 | Outpatient (REF) | payer MEDICARE, MEDICAID ==
[~2021-05-01] MED LIST changes: -ISOS20TA4 PO; +ISOS20TAB PO
[2021-05-01 15:16] LABS: CLOSTRIDIUM DIFFICILE PCR POSITIVE (NEGATIVE)
== END ==
LOC: SKLAB5 10:54
PROVIDERS: ATTEND Internal Medicine
DX: A04.72 Enterocolitis due to Clostridium difficile, not specified as recurrent (principal)

== ENCOUNTER → 2021-05-31 | Outpatient (REF) | payer MEDICARE, MEDICAID ==
[2021-05-31 16:07] LABS: CALCIUM LEVEL 9.1 MG/DL (8.8-10.2); CREATININE FOR GFR 1.01 MG/DL (0.55-1.30); GLOMERULAR FILTRATION RATE 55.6 (>32); POTASSIUM SERUM 3.9 MEQ/L (3.5-5.1)
== END ==
LOC: SKLAB5 06:56
PROVIDERS: ATTEND Internal Medicine
DX: N18.9 Chronic kidney disease, unspecified (principal); D64.9 Anemia, unspecified

== ENCOUNTER → 2021-06-12 | Outpatient (REF) | payer MEDICARE, MEDICAID | LOC: SKLAB5 11:20 | PROVIDERS: ATTEND Internal Medicine | DX: Z20.822 Contact with and (suspected) exposure to COVID-19 (principal) ==

== ENCOUNTER → 2021-06-14 | Outpatient (REF) | payer MEDICARE, MEDICAID | LOC: SKLAB5 08:58 | PROVIDERS: ATTEND Internal Medicine | DX: Z20.822 Contact with and (suspected) exposure to COVID-19 (principal) ==

== ENCOUNTER → 2021-06-16 | Outpatient (REF) | payer MEDICARE, MEDICAID | LOC: SKLAB5 21:47 | PROVIDERS: ATTEND Internal Medicine | DX: R05.9 Cough, unspecified (principal); R06.7 Sneezing ==

== ENCOUNTER → 2021-06-16 | Outpatient (REF) | payer MEDICARE, MEDICAID | LOC: SKLAB5 21:41 | PROVIDERS: ATTEND Internal Medicine | DX: R05.9 Cough, unspecified (principal); R06.7 Sneezing ==

== ENCOUNTER → 2021-06-18 | Outpatient (REF) | payer MEDICARE, MEDICAID ==
[~2021-06-18] MED LIST changes: +ACETAMINOPHEN TAB 650MG DOSE (2X325MG) PO ONE; +ALBUTEROL 90 MCG/ACT 8GM HFA INHALER INH PRN; +ALBUTEROL SULFATE 2.5 MG/0.5 ML INH NEB SOLN INH PRN; +BAMLANIVIMAB 700 MG, ETESEVIMAB 1,400 MG in NS 250 ML IV ONE; +EPINEPHrine INJ 1 MG/ML 1ML AMP IM PRN; +NS 1,000 ML IV SCH; +diphenhydrAMINE 50MG/ML VIAL (J1200) IV ONE; +diphenhydrAMINE 50MG/ML VIAL (J1200) IV PRN; +methylPREDNISolone 125MG 2ML VIAL IV ONE; +methylPREDNISolone 125MG 2ML VIAL IV PRN
[2021-06-18 13:06] LABS: HEMATOCRIT 34.7 % (36.0-47.0); HEMOGLOBIN 9.8 g/dl (12.0-15.5); MEAN CORPUSCULAR HEMOGLOBIN 20.2 pg (27.0-33.0); MEAN CORPUSCULAR HGB CONC 28.2 g/dl (32.0-36.5); MEAN CORPUSCULAR VOLUME 71.7 fl (80.0-96.0); PLATELET COUNT, AUTOMATED 230 10^3/uL (150-450); RED BLOOD COUNT 4.84 10^6/uL (4.00-5.40); WHITE BLOOD COUNT 8.8 10^3/uL (4.0-10.0)
[2021-06-18 14:08] LABS: ALBUMIN 2.1 GM/DL (3.2-5.2); BILIRUBIN,TOTAL 0.5 MG/DL (0.2-1.0); C REACTIVE PROTEIN QUANTITATIV 15.2 MG/DL (0.00-0.30); CALCIUM LEVEL 8.6 MG/DL (8.8-10.2); CREATININE FOR GFR 1.12 MG/DL (0.55-1.30); GLOMERULAR FILTRATION RATE 49.3 (>32); POTASSIUM SERUM 3.8 MEQ/L (3.5-5.1); PROLACTIN 9.2 NG/ML; TOTAL PROTEIN 5.7 GM/DL (6.4-8.2)
== END ==
LOC: SKLAB2 13:37
PROVIDERS: ATTEND Internal Medicine
DX: U07.1 COVID-19 (principal); Z79.899 Other long term (current) drug therapy
CPT/HCPCS: 36415; 80053; 84146; 85027; 85379; 86140; M0245

== ENCOUNTER → 2021-06-20 | Outpatient (REF) | payer MEDICARE, MEDICAID ==
[~2021-06-20] MED LIST changes: -ACETAMINOPHEN TAB 650MG DOSE (2X325MG) PO ONE; -ALBUTEROL 90 MCG/ACT 8GM HFA INHALER INH PRN; -ALBUTEROL SULFATE 2.5 MG/0.5 ML INH NEB SOLN INH PRN; -BAMLANIVIMAB 700 MG, ETESEVIMAB 1,400 MG in NS 250 ML IV ONE; -EPINEPHrine INJ 1 MG/ML 1ML AMP IM PRN; -NS 1,000 ML IV SCH; -diphenhydrAMINE 50MG/ML VIAL (J1200) IV ONE; -diphenhydrAMINE 50MG/ML VIAL (J1200) IV PRN; -methylPREDNISolone 125MG 2ML VIAL IV ONE; -methylPREDNISolone 125MG 2ML VIAL IV PRN
[2021-06-20 11:46] LABS: HEMATOCRIT 35.3 % (36.0-47.0); HEMOGLOBIN 10.2 g/dl (12.0-15.5); MEAN CORPUSCULAR HEMOGLOBIN 20.6 pg (27.0-33.0); MEAN CORPUSCULAR HGB CONC 28.9 g/dl (32.0-36.5); MEAN CORPUSCULAR VOLUME 71.5 fl (80.0-96.0); PLATELET COUNT, AUTOMATED 240 10^3/uL (150-450); RED BLOOD COUNT 4.94 10^6/uL (4.00-5.40); WHITE BLOOD COUNT 5.7 10^3/uL (4.0-10.0)
[2021-06-20 12:19] LABS: BILIRUBIN,TOTAL 0.3 MG/DL (0.2-1.0); CALCIUM LEVEL 9.1 MG/DL (8.8-10.2); CREATININE FOR GFR 1.45 MG/DL (0.55-1.30); GLOMERULAR FILTRATION RATE 36.6 (>32); POTASSIUM SERUM 3.7 MEQ/L (3.5-5.1); TOTAL PROTEIN 6.8 GM/DL (6.4-8.2)
--- NOTE | 2021-06-20 14:28 | REP ---
INDICATION: COVID. COMPARISON: 04/03/2021 TECHNIQUE: Portable FINDINGS: The technique utilized in obtaining the radiograph has magnified the cardiac silhouette and attenuated the interstitial markings. Once again, there is cardiomegaly accentuated by technique. There is a mild diffuse increase in the interstitial markings throughout the lung esquivel this represents a change compared to the prior exam. There are no patchy opacities or pleural effusions. IMPRESSION: Cardiomegaly and increased interstitial markings consistent with interstitial edema. <Electronically signed by Darryl Pierce > 06/20/21 [id number]
== END ==
LOC: SKLAB2 07:00
PROVIDERS: ATTEND Internal Medicine
DX: U07.1 COVID-19 (principal); I51.7 Cardiomegaly; Z79.899 Other long term (current) drug therapy

== ENCOUNTER → 2021-06-22 | Outpatient (REF) | payer MEDICARE, MEDICAID ==
[2021-06-22 08:46] LABS: HEMOGLOBIN 10.8 g/dl (12.0-15.5); MEAN CORPUSCULAR HEMOGLOBIN 20.3 pg (27.0-33.0); MEAN CORPUSCULAR HGB CONC 29.2 g/dl (32.0-36.5); MEAN CORPUSCULAR VOLUME 69.7 fl (80.0-96.0); PLATELET COUNT, AUTOMATED 254 10^3/uL (150-450); RED BLOOD COUNT 5.31 10^6/uL (4.00-5.40); WHITE BLOOD COUNT 4.3 10^3/uL (4.0-10.0)
[2021-06-22 09:13] LABS: ALBUMIN 2.1 GM/DL (3.2-5.2); BILIRUBIN,TOTAL 0.3 MG/DL (0.2-1.0); CALCIUM LEVEL 8.5 MG/DL (8.8-10.2); CREATININE FOR GFR 1.24 MG/DL (0.55-1.30); GLOMERULAR FILTRATION RATE 43.9 (>32); POTASSIUM SERUM 4.1 MEQ/L (3.5-5.1); TOTAL PROTEIN 6.2 GM/DL (6.4-8.2)
--- NOTE | 2021-06-22 15:21 | REP ---
INDICATION: COVID. COMPARISON: Multiple latest 06/20/2021 TECHNIQUE: Portable FINDINGS: The technique utilized in obtaining the radiograph has magnified the cardiac silhouette and accentuated the interstitial markings. The cardiomediastinal silhouette lung esquivel are unchanged. No acute patchy parenchymal opacities or pleural effusions have developed. Lung volumes are decreased compared to the prior exam. IMPRESSION: No significant change compared to the prior exam other than technique. There is mild cardiomegaly accentuated by technique and the interstitial markings are again seen to be diffusely increased. <Electronically signed by Darryl Pierce > 06/22/21 [id number]
== END ==
LOC: SKLAB2 14:43
PROVIDERS: ATTEND Internal Medicine
DX: U07.1 COVID-19 (principal); I51.7 Cardiomegaly

== ENCOUNTER → 2021-06-25 | Outpatient (REF) | payer MEDICARE, MEDICAID ==
[2021-06-25 11:16] LABS: HEMATOCRIT 38.5 % (36.0-47.0); HEMOGLOBIN 11.1 g/dl (12.0-15.5); MEAN CORPUSCULAR HEMOGLOBIN 20.3 pg (27.0-33.0); MEAN CORPUSCULAR HGB CONC 28.8 g/dl (32.0-36.5); MEAN CORPUSCULAR VOLUME 70.3 fl (80.0-96.0); PLATELET COUNT, AUTOMATED 271 10^3/uL (150-450); RED BLOOD COUNT 5.48 10^6/uL (4.00-5.40); WHITE BLOOD COUNT 10.2 10^3/uL (4.0-10.0)
[2021-06-25 11:45] LABS: BILIRUBIN,TOTAL 0.3 MG/DL (0.2-1.0); CALCIUM LEVEL 9.1 MG/DL (8.8-10.2); CREATININE FOR GFR 1.29 MG/DL (0.55-1.30); GLOMERULAR FILTRATION RATE 41.9 (>32); POTASSIUM SERUM 3.9 MEQ/L (3.5-5.1); TOTAL PROTEIN 6.5 GM/DL (6.4-8.2)
== END ==
LOC: SKLAB2 10:13
PROVIDERS: ATTEND Internal Medicine
DX: U07.1 COVID-19 (principal); Z79.899 Other long term (current) drug therapy

== ENCOUNTER → 2021-06-27 | Outpatient (REF) | payer MEDICARE, MEDICAID ==
[2021-06-27 10:06] LABS: HEMATOCRIT 37.5 % (36.0-47.0); HEMOGLOBIN 10.8 g/dl (12.0-15.5); MEAN CORPUSCULAR HEMOGLOBIN 20.2 pg (27.0-33.0); MEAN CORPUSCULAR HGB CONC 28.8 g/dl (32.0-36.5); MEAN CORPUSCULAR VOLUME 70.2 fl (80.0-96.0); PLATELET COUNT, AUTOMATED 261 10^3/uL (150-450); RED BLOOD COUNT 5.34 10^6/uL (4.00-5.40); WHITE BLOOD COUNT 7.1 10^3/uL (4.0-10.0)
[2021-06-27 10:33] LABS: BILIRUBIN,TOTAL 0.3 MG/DL (0.2-1.0); CALCIUM LEVEL 9.1 MG/DL (8.8-10.2); CREATININE FOR GFR 1.05 MG/DL (0.55-1.30); GLOMERULAR FILTRATION RATE 53.2 (>32); POTASSIUM SERUM 4.3 MEQ/L (3.5-5.1); TOTAL PROTEIN 5.8 GM/DL (6.4-8.2)
--- NOTE | 2021-06-27 11:18 | REP ---
INDICATION: COVID/ PNEUMONIA. COMPARISON: Multiple the latest 06/22/2021 TECHNIQUE: Portable FINDINGS: The technique utilized in obtaining the radiograph has magnified the cardiac silhouette and accentuated the interstitial markings. The cardiomediastinal silhouette lung esquivel are unchanged. There are chronic left basilar opacities and chronic bilateral CP angle blunting status quo. No new definite abnormal opacities have developed. There is no change in the osseous structures. IMPRESSION: Stable appearing chronic changes <Electronically signed by Darryl Pierce > 06/27/21 1111
== END ==
LOC: SKLAB2 15:20
PROVIDERS: ATTEND Internal Medicine
DX: U07.1 COVID-19 (principal); Z79.899 Other long term (current) drug therapy

== ENCOUNTER → 2021-08-07 | Outpatient (REF) | payer MEDICARE, MEDICAID ==
[2021-08-07 12:16] LABS: AMORPHOUS SEDIMENT SMALL (NEGATIVE); APPEARANCE, URINE TURBID (CLEAR); BACTERIA, URINE AUTO NEGATIVE (NEGATIVE); BILIRUBIN, URINE AUTO NEGATIVE (NEGATIVE); BLOOD, URINE BLOOD NEGATIVE (NEGATIVE); COLOR, URINE YELLOW (YELLOW); GLUCOSE, URINE (UA) AUTO NEGATIVE (NEGATIVE); KETONE, URINE AUTO TRACE mg/dL (NEGATIVE); LEUKOCYTE ESTERASE, URINE AUTO 3+ (NEGATIVE); NITRITE, URINE AUTO NEGATIVE (NEGATIVE); PROTEIN, URINE AUTO 2+ mg/dL (NEGATIVE); RBC, URINE AUTO 0 /HPF (0-3); SPECIFIC GRAVITY URINE AUTO 1.015 (1.002-1.035); SQUAMOUS EPITHELIAL CELL UR AU 1 /HPF (0-6); UROBILINOGEN, URINE AUTO 0.2 mg/dL (0.0-2.0); WBC, URINE AUTO 119 /HPF (0-3)
== END ==
LOC: SKLAB5 11:37
PROVIDERS: ATTEND Internal Medicine
DX: R41.82 Altered mental status, unspecified (principal); R06.02 Shortness of breath; J98.4 Other disorders of lung

== ENCOUNTER → 2021-08-07 | Outpatient (REF) | payer MEDICARE, MEDICAID ==
[~2021-08-07] MED LIST changes: +ISOS20TA4 PO; -ISOS20TAB PO
[2021-08-07 09:01] LABS: HEMATOCRIT 31.2 % (36.0-47.0); HEMOGLOBIN 8.6 g/dl (12.0-15.5); MEAN CORPUSCULAR HEMOGLOBIN 19.7 pg (27.0-33.0); MEAN CORPUSCULAR HGB CONC 27.6 g/dl (32.0-36.5); MEAN CORPUSCULAR VOLUME 71.6 fl (80.0-96.0); PLATELET COUNT, AUTOMATED 352 10^3/uL (150-450); RED BLOOD COUNT 4.36 10^6/uL (4.00-5.40); WHITE BLOOD COUNT 14.3 10^3/uL (4.0-10.0)
[2021-08-07 09:36] LABS: ALBUMIN 1.8 GM/DL (3.2-5.2); BILIRUBIN,TOTAL 0.3 MG/DL (0.2-1.0); CALCIUM LEVEL 9.9 MG/DL (8.8-10.2); CREATININE FOR GFR 1.01 MG/DL (0.55-1.30); GLOMERULAR FILTRATION RATE 55.6 (>32); POTASSIUM SERUM 4.3 MEQ/L (3.5-5.1); TOTAL PROTEIN 6.7 GM/DL (6.4-8.2)
== END ==
LOC: SKLAB5 08:05
PROVIDERS: ATTEND Internal Medicine
DX: R06.02 Shortness of breath (principal); J98.4 Other disorders of lung; R41.82 Altered mental status, unspecified

== ENCOUNTER → 2021-08-07 | Outpatient (REF) | payer MEDICARE, MEDICAID | LOC: SKLAB5 07:00 | PROVIDERS: ATTEND Internal Medicine | DX: Z53.9 Procedure and treatment not carried out, unspecified reason (principal) ==

== ENCOUNTER → 2021-08-08 | Outpatient (REF) | payer MEDICARE, MEDICAID ==
[2021-08-08 10:19] LABS: HEMATOCRIT 33.1 % (36.0-47.0); HEMOGLOBIN 8.7 g/dl (12.0-15.5); MEAN CORPUSCULAR HEMOGLOBIN 19.5 pg (27.0-33.0); MEAN CORPUSCULAR HGB CONC 26.3 g/dl (32.0-36.5); PLATELET COUNT, AUTOMATED 406 10^3/uL (150-450); RED BLOOD COUNT 4.47 10^6/uL (4.00-5.40); WHITE BLOOD COUNT 18.3 10^3/uL (4.0-10.0)
[2021-08-08 10:41] LABS: ALBUMIN 1.7 GM/DL (3.2-5.2); BILIRUBIN,TOTAL 0.3 MG/DL (0.2-1.0); CALCIUM LEVEL 9.3 MG/DL (8.8-10.2); CREATININE FOR GFR 1.05 MG/DL (0.55-1.30); GLOMERULAR FILTRATION RATE 53.2 (>32); POTASSIUM SERUM 4.7 MEQ/L (3.5-5.1); TOTAL PROTEIN 6.3 GM/DL (6.4-8.2)
== END ==
LOC: SKLAB5 07:00
PROVIDERS: ATTEND Internal Medicine
DX: D72.829 Elevated white blood cell count, unspecified (principal)

== ENCOUNTER → 2021-08-09 | Outpatient (REF) | payer MEDICARE, MEDICAID ==
[~2021-08-09] MED LIST changes: -ISOS20TA4 PO; +ISOS20TAB PO
[2021-08-09 09:15] LABS: HEMATOCRIT 30.3 % (36.0-47.0); HEMOGLOBIN 8.2 g/dl (12.0-15.5); MEAN CORPUSCULAR HEMOGLOBIN 19.7 pg (27.0-33.0); MEAN CORPUSCULAR HGB CONC 27.1 g/dl (32.0-36.5); MEAN CORPUSCULAR VOLUME 72.7 fl (80.0-96.0); PLATELET COUNT, AUTOMATED 371 10^3/uL (150-450); RED BLOOD COUNT 4.17 10^6/uL (4.00-5.40); WHITE BLOOD COUNT 12.6 10^3/uL (4.0-10.0)
[2021-08-09 09:39] LABS: BLOOD UREA NITROGEN 35 MG/DL (7-18); CALCIUM LEVEL 9.3 MG/DL (8.8-10.2); CARBON DIOXIDE LEVEL 31 MEQ/L (21-32); CHLORIDE LEVEL 103 MEQ/L (98-107); CREATININE FOR GFR 0.92 MG/DL (0.55-1.30); GLOMERULAR FILTRATION RATE > 60.0 (>32); GLUCOSE, FASTING 215 MG/DL (70-100); POTASSIUM SERUM 4.4 MEQ/L (3.5-5.1); SODIUM LEVEL 139 MEQ/L (136-145)
== END ==
LOC: SKLAB5 07:00
PROVIDERS: ATTEND Internal Medicine
DX: D72.829 Elevated white blood cell count, unspecified (principal)

== ENCOUNTER → 2021-08-09 | Outpatient (REF) | payer MEDICARE, MEDICAID ==
[~2021-08-09] MED LIST changes: +ISOS20TA4 PO; -ISOS20TAB PO
== END ==
LOC: SKLAB5 07:00
PROVIDERS: ATTEND Internal Medicine
DX: Z53.9 Procedure and treatment not carried out, unspecified reason (principal)

== ENCOUNTER → 2021-08-10 | Outpatient (REF) | payer MEDICARE, MEDICAID ==
[2021-08-10 18:55] LABS: HEMATOCRIT 29.3 % (36.0-47.0); MEAN CORPUSCULAR HEMOGLOBIN 19.2 pg (27.0-33.0); MEAN CORPUSCULAR HGB CONC 27.3 g/dl (32.0-36.5); MEAN CORPUSCULAR VOLUME 70.3 fl (80.0-96.0); PLATELET COUNT, AUTOMATED 322 10^3/uL (150-450); RED BLOOD COUNT 4.17 10^6/uL (4.00-5.40); WHITE BLOOD COUNT 9.6 10^3/uL (4.0-10.0)
[2021-08-10 19:23] LABS: CALCIUM LEVEL 9.1 MG/DL (8.8-10.2); CREATININE FOR GFR 1.13 MG/DL (0.55-1.30); GLOMERULAR FILTRATION RATE 48.8 (>32); POTASSIUM SERUM 4.2 MEQ/L (3.5-5.1)
== END ==
LOC: SKLAB5 17:44
PROVIDERS: ATTEND Internal Medicine
DX: R41.0 Disorientation, unspecified (principal)

== ENCOUNTER → 2021-08-13 | Outpatient (REF) | payer MEDICARE, MEDICAID ==
[~2021-08-13] MED LIST changes: -ISOS20TA4 PO; +ISOS20TAB PO
[2021-08-13 08:20] LABS: HEMATOCRIT 29.8 % (36.0-47.0); HEMOGLOBIN 8.3 g/dl (12.0-15.5); MEAN CORPUSCULAR HEMOGLOBIN 19.7 pg (27.0-33.0); MEAN CORPUSCULAR HGB CONC 27.9 g/dl (32.0-36.5); MEAN CORPUSCULAR VOLUME 70.8 fl (80.0-96.0); PLATELET COUNT, AUTOMATED 339 10^3/uL (150-450); RED BLOOD COUNT 4.21 10^6/uL (4.00-5.40); WHITE BLOOD COUNT 11.2 10^3/uL (4.0-10.0)
[2021-08-13 08:45] LABS: CALCIUM LEVEL 8.8 MG/DL (8.8-10.2); GLOMERULAR FILTRATION RATE 56.2 (>32); POTASSIUM SERUM 3.6 MEQ/L (3.5-5.1)
== END ==
LOC: SKLAB5 07:00
PROVIDERS: ATTEND Internal Medicine
DX: R06.02 Shortness of breath (principal)

== ENCOUNTER → 2021-09-03 | Outpatient (REF) | payer MEDICARE, MEDICAID ==
[~2021-09-03] MED LIST changes: +ISOS20TA4 PO; -ISOS20TAB PO
== END ==
LOC: SKLAB5 14:18
PROVIDERS: ATTEND Internal Medicine
DX: D64.9 Anemia, unspecified (principal); N18.4 Chronic kidney disease, stage 4 (severe); I51.7 Cardiomegaly; R06.02 Shortness of breath; Z79.899 Other long term (current) drug therapy

== ENCOUNTER → 2021-09-03 | Outpatient (REF) | payer MEDICARE, MEDICAID ==
[2021-09-03 12:38] LABS: HEMATOCRIT 26.2 % (36.0-47.0); HEMOGLOBIN 7.1 g/dl (12.0-15.5); MEAN CORPUSCULAR HEMOGLOBIN 19.1 pg (27.0-33.0); MEAN CORPUSCULAR HGB CONC 27.1 g/dl (32.0-36.5); MEAN CORPUSCULAR VOLUME 70.6 fl (80.0-96.0); PLATELET COUNT, AUTOMATED 281 10^3/uL (150-450); RED BLOOD COUNT 3.71 10^6/uL (4.00-5.40); WHITE BLOOD COUNT 9.1 10^3/uL (4.0-10.0)
[2021-09-03 12:58] LABS: HEMOGLOBIN A1c 8.7 %
[2021-09-03 13:09] LABS: CALCIUM LEVEL 9.2 MG/DL (8.8-10.2); CREATININE FOR GFR 0.96 MG/DL (0.55-1.30); GLOMERULAR FILTRATION RATE 58.9 (>32); POTASSIUM SERUM 4.2 MEQ/L (3.5-5.1)
== END ==
LOC: SKLAB5 11:20
PROVIDERS: ATTEND Internal Medicine
DX: N18.4 Chronic kidney disease, stage 4 (severe) (principal); D64.9 Anemia, unspecified; I51.7 Cardiomegaly; R06.02 Shortness of breath; Z79.899 Other long term (current) drug therapy

== ENCOUNTER 2021-09-04 07:30 | Outpatient (CLI) | payer MEDICARE, MEDICAID ==
[~2021-09-04] VITALS: Ht 170.2 cm; Wt 129.0 kg
[2021-09-04] VITALS (8 sets, daily range): BP systolic 117–184; BP diastolic 66–88
[2021-09-04] MEDS ORDERED: FUROSEMIDE 40MG/4ML VIAL (J1940) IV ONE (11:00)
== END 2021-09-04 13:00 | disposition home or self-care (01) ==
LOC: M INFU 07:30
PROVIDERS: ATTEND Nurse Practitioner Adult Health
DX: D64.9 Anemia, unspecified (principal); Z88.1 Allergy status to other antibiotic agents
CPT/HCPCS: 36430; 96374; J1940; P9016

== ENCOUNTER → 2021-09-06 | Outpatient (REF) | payer MEDICARE, MEDICAID ==
[2021-09-06 09:22] LABS: BLOOD UREA NITROGEN 28 MG/DL (7-18); C REACTIVE PROTEIN QUANTITATIV 8.58 MG/DL (0.00-0.30); CALCIUM LEVEL 9.8 MG/DL (8.8-10.2); CARBON DIOXIDE LEVEL 31 MEQ/L (21-32); CHLORIDE LEVEL 106 MEQ/L (98-107); CREATININE FOR GFR 0.87 MG/DL (0.55-1.30); GLOMERULAR FILTRATION RATE > 60.0 (>32); GLUCOSE, FASTING 153 MG/DL (70-100); POTASSIUM SERUM 4.7 MEQ/L (3.5-5.1); SODIUM LEVEL 142 MEQ/L (136-145)
== END ==
LOC: SKLAB5 07:00
PROVIDERS: ATTEND Internal Medicine
DX: N18.4 Chronic kidney disease, stage 4 (severe) (principal)

== ENCOUNTER → 2021-09-20 | Outpatient (REF) | payer MEDICARE, MEDICAID ==
[2021-09-20 10:15] LABS: HEMATOCRIT 33.4 % (36.0-47.0); HEMOGLOBIN 9.2 g/dl (12.0-15.5); MEAN CORPUSCULAR HEMOGLOBIN 20.2 pg (27.0-33.0); MEAN CORPUSCULAR HGB CONC 27.5 g/dl (32.0-36.5); MEAN CORPUSCULAR VOLUME 73.4 fl (80.0-96.0); PLATELET COUNT, AUTOMATED 294 10^3/uL (150-450); RED BLOOD COUNT 4.55 10^6/uL (4.00-5.40); WHITE BLOOD COUNT 9.2 10^3/uL (4.0-10.0)
[2021-09-20 10:32] LABS: BLOOD UREA NITROGEN 34 MG/DL (7-18); CALCIUM LEVEL 9.6 MG/DL (8.8-10.2); CARBON DIOXIDE LEVEL 32 MEQ/L (21-32); CHLORIDE LEVEL 106 MEQ/L (98-107); GLOMERULAR FILTRATION RATE > 60.0 (>32); GLUCOSE, FASTING 154 MG/DL (70-100); POTASSIUM SERUM 3.9 MEQ/L (3.5-5.1); SODIUM LEVEL 139 MEQ/L (136-145)
== END ==
LOC: SKLAB5 08:57
PROVIDERS: ATTEND Internal Medicine
DX: R11.10 Vomiting, unspecified (principal)

== ENCOUNTER → 2021-09-20 | Outpatient (REF) | payer MEDICARE, MEDICAID | LOC: SKLAB5 10:53 | PROVIDERS: ATTEND Internal Medicine | DX: M85.88 Other specified disorders of bone density and structure, other site (principal); M25.531 Pain in right wrist ==

== ENCOUNTER → 2021-11-07 | Outpatient (REF) | payer MEDICARE, MEDICAID ==
[2021-11-07 12:37] LABS: APPEARANCE, URINE HAZY (CLEAR); BACTERIA, URINE AUTO 1+ (NEGATIVE); BILIRUBIN, URINE AUTO NEGATIVE (NEGATIVE); BLOOD, URINE BLOOD 3+ (NEGATIVE); COLOR, URINE YELLOW (YELLOW); GLUCOSE, URINE (UA) AUTO NEGATIVE (NEGATIVE); KETONE, URINE AUTO NEGATIVE (NEGATIVE); LEUKOCYTE ESTERASE, URINE AUTO 3+ (NEGATIVE); NITRITE, URINE AUTO NEGATIVE (NEGATIVE); PROTEIN, URINE AUTO 1+ mg/dL (NEGATIVE); RBC, URINE AUTO TNTC /HPF (0-3); SPECIFIC GRAVITY URINE AUTO 1.005 (1.002-1.035); SQUAMOUS EPITHELIAL CELL UR AU 2 /HPF (0-6); TRANSITIONAL EPITHELIAL AUTO <1 /HPF; UROBILINOGEN, URINE AUTO 0.2 mg/dL (0.0-2.0); WBC, URINE AUTO 170 /HPF (0-3)
[2021-11-07 13:27] LABS: HEMATOCRIT 29.1 % (36.0-47.0); HEMOGLOBIN 8.2 g/dl (12.0-15.5); MEAN CORPUSCULAR HEMOGLOBIN 19.5 pg (27.0-33.0); MEAN CORPUSCULAR HGB CONC 28.2 g/dl (32.0-36.5); MEAN CORPUSCULAR VOLUME 69.3 fl (80.0-96.0); PLATELET COUNT, AUTOMATED 296 10^3/uL (150-450); WHITE BLOOD COUNT 14.6 10^3/uL (4.0-10.0)
[2021-11-07 13:50] LABS: CALCIUM LEVEL 10.7 MG/DL (8.8-10.2); CREATININE FOR GFR 1.26 MG/DL (0.55-1.30)
== END ==
LOC: SKLAB5 11:44
PROVIDERS: ATTEND Internal Medicine
DX: D72.829 Elevated white blood cell count, unspecified (principal); N18.9 Chronic kidney disease, unspecified

== ENCOUNTER → 2021-11-09 | Outpatient (REF) | payer MEDICARE, MEDICAID ==
[2021-11-09 14:55] LABS: HEMOGLOBIN 8.3 g/dl (12.0-15.5); MEAN CORPUSCULAR HEMOGLOBIN 19.4 pg (27.0-33.0); MEAN CORPUSCULAR HGB CONC 27.7 g/dl (32.0-36.5); MEAN CORPUSCULAR VOLUME 70.1 fl (80.0-96.0); PLATELET COUNT, AUTOMATED 300 10^3/uL (150-450); RED BLOOD COUNT 4.28 10^6/uL (4.00-5.40); WHITE BLOOD COUNT 14.2 10^3/uL (4.0-10.0)
[2021-11-09 15:18] LABS: CALCIUM LEVEL 10.4 MG/DL (8.8-10.2); CREATININE FOR GFR 1.25 MG/DL (0.55-1.30); GLOMERULAR FILTRATION RATE 43.4 (>32); POTASSIUM SERUM 3.8 MEQ/L (3.5-5.1)
== END ==
LOC: SKLAB5 13:54
PROVIDERS: ATTEND Internal Medicine
DX: D72.829 Elevated white blood cell count, unspecified (principal); N18.9 Chronic kidney disease, unspecified

== ENCOUNTER → 2021-11-12 | Outpatient (REF) | payer MEDICARE, MEDICAID ==
[2021-11-12 11:33] LABS: HEMATOCRIT 31.7 % (36.0-47.0); HEMOGLOBIN 8.6 g/dl (12.0-15.5); MEAN CORPUSCULAR HEMOGLOBIN 19.2 pg (27.0-33.0); MEAN CORPUSCULAR HGB CONC 27.1 g/dl (32.0-36.5); MEAN CORPUSCULAR VOLUME 70.8 fl (80.0-96.0); PLATELET COUNT, AUTOMATED 376 10^3/uL (150-450); RED BLOOD COUNT 4.48 10^6/uL (4.00-5.40); WHITE BLOOD COUNT 15.3 10^3/uL (4.0-10.0)
[2021-11-12 11:56] LABS: CALCIUM LEVEL 9.5 MG/DL (8.8-10.2); CREATININE FOR GFR 1.23 MG/DL (0.55-1.30); GLOMERULAR FILTRATION RATE 44.2 (>32)
== END ==
LOC: SKLAB5 10:05
PROVIDERS: ATTEND Internal Medicine
DX: D72.829 Elevated white blood cell count, unspecified (principal); N18.9 Chronic kidney disease, unspecified

== ENCOUNTER → 2021-11-12 | Outpatient (REF) | payer MEDICARE, MEDICAID | LOC: SKLAB5 12:17 | PROVIDERS: ATTEND Internal Medicine | DX: R06.02 Shortness of breath (principal); R06.2 Wheezing ==

== ENCOUNTER → 2021-11-14 | Outpatient (REF) | payer MEDICARE, MEDICAID ==
[2021-11-14 08:59] LABS: HEMATOCRIT 28.9 % (36.0-47.0); HEMOGLOBIN 7.9 g/dl (12.0-15.5); MEAN CORPUSCULAR HEMOGLOBIN 19.1 pg (27.0-33.0); MEAN CORPUSCULAR HGB CONC 27.3 g/dl (32.0-36.5); PLATELET COUNT, AUTOMATED 358 10^3/uL (150-450); RED BLOOD COUNT 4.13 10^6/uL (4.00-5.40); WHITE BLOOD COUNT 12.7 10^3/uL (4.0-10.0)
[2021-11-14 09:24] LABS: CALCIUM LEVEL 9.4 MG/DL (8.8-10.2); CREATININE FOR GFR 1.16 MG/DL (0.55-1.30); GLOMERULAR FILTRATION RATE 47.3 (>32); POTASSIUM SERUM 4.6 MEQ/L (3.5-5.1)
== END ==
LOC: SKLAB5 10:00
PROVIDERS: ATTEND Internal Medicine
DX: D72.829 Elevated white blood cell count, unspecified (principal); R06.2 Wheezing

== ENCOUNTER → 2021-11-16 | Outpatient (REF) | payer MEDICARE, MEDICAID ==
[2021-11-16 08:27] LABS: MEAN CORPUSCULAR HEMOGLOBIN 19.5 pg (27.0-33.0); MEAN CORPUSCULAR HGB CONC 28.6 g/dl (32.0-36.5); MEAN CORPUSCULAR VOLUME 68.3 fl (80.0-96.0); PLATELET COUNT, AUTOMATED 346 10^3/uL (150-450); WHITE BLOOD COUNT 11.6 10^3/uL (4.0-10.0)
== END ==
LOC: SKLAB5 07:00
PROVIDERS: ATTEND Internal Medicine
DX: D72.829 Elevated white blood cell count, unspecified (principal)

== ENCOUNTER → 2021-11-20 | Outpatient (REF) | payer MEDICARE, MEDICAID ==
[2021-11-20 09:58] LABS: HEMATOCRIT 29.1 % (36.0-47.0); HEMOGLOBIN 8.1 g/dl (12.0-15.5); MEAN CORPUSCULAR HEMOGLOBIN 19.2 pg (27.0-33.0); MEAN CORPUSCULAR HGB CONC 27.8 g/dl (32.0-36.5); MEAN CORPUSCULAR VOLUME 69.1 fl (80.0-96.0); PLATELET COUNT, AUTOMATED 242 10^3/uL (150-450); RED BLOOD COUNT 4.21 10^6/uL (4.00-5.40); WHITE BLOOD COUNT 11.1 10^3/uL (4.0-10.0)
[2021-11-20 10:27] LABS: CALCIUM LEVEL 8.6 MG/DL (8.8-10.2); CREATININE FOR GFR 0.97 MG/DL (0.55-1.30); GLOMERULAR FILTRATION RATE 58.1 (>32); POTASSIUM SERUM 3.8 MEQ/L (3.5-5.1)
== END ==
LOC: SKLAB4 07:00
PROVIDERS: ATTEND Internal Medicine
DX: D72.829 Elevated white blood cell count, unspecified (principal)

== ENCOUNTER → 2021-11-22 | Outpatient (REF) | payer MEDICARE, MEDICAID ==
[2021-11-22 13:57] LABS: HEMATOCRIT 29.1 % (36.0-47.0); HEMOGLOBIN 8.2 g/dl (12.0-15.5); MEAN CORPUSCULAR HEMOGLOBIN 19.7 pg (27.0-33.0); MEAN CORPUSCULAR HGB CONC 28.2 g/dl (32.0-36.5); MEAN CORPUSCULAR VOLUME 69.8 fl (80.0-96.0); PLATELET COUNT, AUTOMATED 247 10^3/uL (150-450); RED BLOOD COUNT 4.17 10^6/uL (4.00-5.40); WHITE BLOOD COUNT 12.4 10^3/uL (4.0-10.0)
[2021-11-22 14:23] LABS: CALCIUM LEVEL 8.5 MG/DL (8.8-10.2); CREATININE FOR GFR 1.08 MG/DL (0.55-1.30); GLOMERULAR FILTRATION RATE 51.3 (>32); POTASSIUM SERUM 3.7 MEQ/L (3.5-5.1)
== END ==
LOC: SKLAB5 13:06
PROVIDERS: ATTEND Internal Medicine
DX: D72.829 Elevated white blood cell count, unspecified (principal)

== ENCOUNTER → 2021-11-26 | Outpatient (REF) | payer MEDICARE, MEDICAID ==
[2021-11-26 12:03] LABS: HEMATOCRIT 27.1 % (36.0-47.0); HEMOGLOBIN 7.4 g/dl (12.0-15.5); MEAN CORPUSCULAR HEMOGLOBIN 19.1 pg (27.0-33.0); MEAN CORPUSCULAR HGB CONC 27.3 g/dl (32.0-36.5); MEAN CORPUSCULAR VOLUME 69.8 fl (80.0-96.0); PLATELET COUNT, AUTOMATED 310 10^3/uL (150-450); RED BLOOD COUNT 3.88 10^6/uL (4.00-5.40); WHITE BLOOD COUNT 12.1 10^3/uL (4.0-10.0)
== END ==
LOC: SKLAB5 07:17
PROVIDERS: ATTEND Internal Medicine
DX: D72.829 Elevated white blood cell count, unspecified (principal)

== ENCOUNTER → 2021-11-29 | Outpatient (REF) | payer MEDICARE, MEDICAID ==
[~2021-11-29] MED LIST changes: +CEFD300C41 PO
[2021-11-29 14:55] LABS: HEMATOCRIT 26.4 % (36.0-47.0); HEMOGLOBIN 7.5 g/dl (12.0-15.5); MEAN CORPUSCULAR HEMOGLOBIN 19.3 pg (27.0-33.0); MEAN CORPUSCULAR HGB CONC 28.4 g/dl (32.0-36.5); MEAN CORPUSCULAR VOLUME 67.9 fl (80.0-96.0); PLATELET COUNT, AUTOMATED 287 10^3/uL (150-450); RED BLOOD COUNT 3.89 10^6/uL (4.00-5.40); WHITE BLOOD COUNT 22.3 10^3/uL (4.0-10.0)
[2021-11-29 15:06] LABS: CALCIUM LEVEL 8.9 MG/DL (8.8-10.2); CREATININE FOR GFR 1.37 MG/DL (0.55-1.30); POTASSIUM SERUM 3.8 MEQ/L (3.5-5.1)
== END ==
LOC: SKLAB5 13:34
PROVIDERS: ATTEND Internal Medicine
DX: R50.9 Fever, unspecified (principal)

== ENCOUNTER 2021-11-30 12:46 | Emergency (ER) | payer MEDICARE, MEDICAID ==
[~2021-11-30] VITALS: Ht 170.2 cm; Wt 157.0 kg
[~2021-11-30 12:46] MED LIST changes: -CEFD300C41 PO
[2021-11-30 13:35] LABS: RED BLOOD COUNT 3.92 10^6/uL (4.00-5.40)
[2021-11-30 13:36] LABS: HEMATOCRIT 26.5 % (36.0-47.0); HEMOGLOBIN 7.5 g/dl (12.0-15.5); MEAN CORPUSCULAR HEMOGLOBIN 19.1 pg (27.0-33.0); MEAN CORPUSCULAR HGB CONC 28.3 g/dl (32.0-36.5); MEAN CORPUSCULAR VOLUME 67.6 fl (80.0-96.0); PLATELET COUNT, AUTOMATED 292 10^3/uL (150-450)
[2021-11-30 13:43] LABS: WHITE BLOOD COUNT 33.9 10^3/uL (4.0-10.0)
[2021-11-30 14:06] LABS: ALBUMIN 1.5 GM/DL (3.2-5.2); BILIRUBIN,DIRECT 0.2 MG/DL (0.0-0.2); BILIRUBIN,TOTAL 0.4 MG/DL (0.2-1.0); CALCIUM LEVEL 8.7 MG/DL (8.8-10.2); CREATININE FOR GFR 1.37 MG/DL (0.55-1.30); POTASSIUM SERUM 4.2 MEQ/L (3.5-5.1)
[2021-11-30 14:22] LABS: LYMPHOCYTES 2 % (16-44); NEUTROPHILS 90 % (28-66); PLATELET ESTIMATE NORMAL (NORMAL)
[2021-11-30 14:23] LABS: ANISOCYTOSIS 1+; MICROCYTOSIS 1+; POIKILOCYTOSIS 1+
[2021-11-30 14:24] LABS: OVALOCYTES 1+
[2021-11-30 14:33] LABS: CK-MB VALUE MASS 5.8 NG/ML (<3.6); MB/CK RELATIVE INDEX 9.67 (< OR =4)
[2021-11-30 14:53] LABS: APPEARANCE, URINE CLOUDY (CLEAR); BACTERIA, URINE AUTO 3+ (NEGATIVE); BILIRUBIN, URINE AUTO NEGATIVE (NEGATIVE); BLOOD, URINE BLOOD 1+ (NEGATIVE); COLOR, URINE AMBER (YELLOW); GLUCOSE, URINE (UA) AUTO NEGATIVE (NEGATIVE); KETONE, URINE AUTO NEGATIVE (NEGATIVE); LEUKOCYTE ESTERASE, URINE AUTO 3+ (NEGATIVE); MUCUS, URINE SMALL (NEGATIVE); NITRITE, URINE AUTO NEGATIVE (NEGATIVE); PROTEIN, URINE AUTO 2+ mg/dL (NEGATIVE); RBC, URINE AUTO 45 /HPF (0-3); SPECIFIC GRAVITY URINE AUTO 1.014 (1.002-1.035); SQUAMOUS EPITHELIAL CELL UR AU 4 /HPF (0-6); WBC, URINE AUTO TNTC /HPF (0-3)
[2021-11-30] MEDS ORDERED: cefTRIAXone SOD 2 GM in D5W MINI-BAG PLUS 50 ML IV ONE (15:10)
[2021-11-30] MEDS ORDERED: CEFD300C41 PO (15:30)
[2021-11-30 15:43] LABS: RSV AMPLIFICATION NEGATIVE (NEGATIVE)
[2021-11-30 17:09] VITALS: BP 135/80
== END 2021-11-30 17:12 | disposition left against medical advice (07) ==
LOC: M ED 12:46 → EDBD 12:46 → M ED 17:12
DX: D64.9 Anemia, unspecified (principal); N39.0 Urinary tract infection, site not specified; R74.8 Abnormal levels of other serum enzymes; I11.0 Hypertensive heart disease with heart failure; I50.9 Heart failure, unspecified; J44.9 Chronic obstructive pulmonary disease, unspecified; N18.4 Chronic kidney disease, stage 4 (severe); E78.5 Hyperlipidemia, unspecified; I25.2 Old myocardial infarction; Z86.73 Personal history of transient ischemic attack (TIA), and cerebral infarction without residual deficits; E66.9 Obesity, unspecified; D72.829 Elevated white blood cell count, unspecified; Z88.1 Allergy status to other antibiotic agents; Z79.899 Other long term (current) drug therapy; Z79.82 Long term (current) use of aspirin; Z79.4 Long term (current) use of insulin
CPT/HCPCS: 36415; 71045; 80048; 80076; 81001; 82150; 82550; 82553; 83605; 84484; 85025; 85027; 86140; 87040; 87088; 87186; 87631; 93005; 93041; 94760; 96365; 99285; J0696